=== PATIENT | male | born 1945 | race Asian ===

== ENCOUNTER 2023-01-19 13:34 | Observation (INO) | payer OTHER, SELFPAY ==
[2023-01-19] VITALS (10 sets, daily range): BP systolic 77–144; BP diastolic 50–84; PULSE 67–103; RESP 12–18; TEMP 36.4–36.8; O2SAT 95–99; BMI 36.6
--- NOTE | ~2023-01-19 | XR_ITS ---
EXAMINATION: XR CHEST CLINICAL INFORMATION: Altered mental status. COMPARISON: 05/22/2020 chest radiograph. TECHNIQUE: Frontal view of the chest was obtained. FINDINGS: No significant abnormality is noted involving the heart, lungs, mediastinum, bony thorax or soft tissues. XR/XR chest 1V IMPRESSION: No acute cardiopulmonary process.
[2023-01-19 13:49] LABS: Glucose, Whole Blood 123 mg/dL (60-115)
--- NOTE | 2023-01-19 14:03 | PC.NURSE ---
Pt a&ox4, lying in bed supine, airway open and patent, no difficulty/labored breathing, no obvious signs of distress. Pt skin normal for ethnicity, warm, and dry. Pt denies dizziness or any other symptoms or pain at this time. Pt in afib on monitor. Awaiting provider.
--- NOTE | 2023-01-19 14:54 | PC.NURSE ---
this RN placed 20g IV in LAC, blood pressure remains low, provider aware, no new orders
--- NOTE | 2023-01-19 15:35 | ECG_ITS ---
Test Reason : hypotension Blood Pressure : / mmHG Vent. Rate : 079 BPM Atrial Rate : 000 BPM P-R Int : 000 ms QRS Dur : 088 ms QT Int : 372 ms P-R-T Axes : 000 012 014 degrees QTc Int : 426 ms Atrial fibrillation Low voltage QRS Nonspecific ST abnormality Abnormal ECG When compared with ECG of 28-MAY-2019 04:24, Atrial fibrillation has replaced Sinus rhythm Referred By: Maite Fong Electronically Signed By:GEOVANY CHOI
[2023-01-19] MEDS: 0.9 % Sodium Chloride 1,000 ML 100 ML IVCONT (15:47)
--- NOTE | 2023-01-19 15:56 | ED.GENADULT ---
HPI - General Adult General Chief complaint: General Medical Stated complaint: HYPOTENSION Time Seen by Provider: 01/19/23 14:57 Source: patient Mode of arrival: EMS Limitations: no limitations History of Present Illness HPI narrative: 77-year-old male who presents emergency department for evaluation of low blood pressure. The patient states that he was hospitalized twice this month at [facility] for COPD exacerbation and possibly fluid overload he states hospitalized approximately 3 weeks ago and 2 weeks ago. He states that his 2nd hospitalization was from 01/05/2023 to 01/08/2023. Patient states that when he was discharged he was treated with antibiotics and prednisone. He also states that they increased his furosemide from 60 mg twice a day to 80 mg twice a day . They also increased his metoprolol from 50 mg once a day to 75 mg once a day. Patient states that he has been checking his vital signs daily and has been wearing his L daily. He states that his blood pressure usually ranges 120/80 P and his weight has not changed by any significant amount. Patient has had a visiting nurse you times a week. The visiting nurse noted 74/40 and called an ambulance and had him transported to the emergency department. The patient states that he has been feeling lightheaded and dizzy over the past 2 days especially when he gets up to walk. He also is complaining of pain in the back of his neck which she has had before has been worse over the past 2 days. In his review of systems he states that he has chronic shortness of breath and dyspnea on exertion about 100 ft which is unchanged. He denied fever, chills, rhinorrhea, sore throat, nausea, vomiting, diarrhea . He denied dysuria but he has had increased urinary frequency which she attributes to his increase furosemide dose. [facility] record was obtained: He was discharged on 01/08/2023. He was admitted for COPD exacerbation with acute on chronic heart failure exacerbation. He was sent home on 5 day course of prednisone in 3 days doxycycline to complete his antibiotic course. [facility] record states that he has congestive heart failure with preserved EF with a recent echo of 55-66% with no wall motion abnormalities, atrial fibrillation on Eliquis. Related Data Home Medications Medication Instructions Recorded Confirmed albuterol sulfate 90 mcg/actuation 2 puff inhalation Q4H PRN wheezing 01/19/23 01/19/23 aerosol inhaler ammonium lactate 12 % topical cream appl topical DAILY 01/19/23 apixaban 5 mg tablet (Eliquis) 5 mg PO BID 01/19/23 01/19/23 aspirin 81 mg chewable tablet 1 tab PO DAILY 01/19/23 01/19/23 atorvastatin 20 mg tablet 20 mg PO DAILY 01/19/23 01/19/23 bimatoprost 0.01 % eye drops 1 drp ophthalmic (eye) BEDTIME 01/19/23 01/19/23 (Lumigan) brimonidine 0.2 % eye drops 1 drp ophthalmic (eye) BID 01/19/23 01/19/23 ferrous sulfate 325 mg (65 mg 325 mg PO DAILY 01/19/23 01/19/23 iron) tablet fluticasone fur. 100 mcg-umeclid 1 ea inhalation DAILY 01/19/23 01/19/23 62.5 mcg-vilant 25 mcg inhalat.powder (Trelegy Ellipta) fluticasone propionate 115 2 puff inhalation BID 01/19/23 01/19/23 mcg-salmeterol 21 mcg/actuation HFA inhaler (Advair HFA) furosemide 40 mg tablet 40 mg PO BID 01/19/23 01/19/23 furosemide 80 mg tablet 80 mg PO BID 01/19/23 01/19/23 insulin aspart U-100 100 unit/mL subcut 01/19/23 (3 mL) subcutaneous pen (Novolog FlexPen U-100 Insulin aspart) insulin glargine 100 unit/mL (3 55 unit subcut BEDTIME 01/19/23 01/19/23 mL) subcutaneous pen (Lantus Solostar U-100 Insulin) loratadine 10 mg tablet 10 mg PO DAILY 01/19/23 01/19/23 magnesium oxide 400 mg (241.3 mg 400 mg PO DAILY 01/19/23 01/19/23 magnesium) tablet metoprolol tartrate 75 mg tablet 75 mg PO BID 01/19/23 01/19/23 omeprazole 20 mg capsule,delayed 20 mg PO DAILY 01/19/23 01/19/23 release potassium chloride 10 mEq 10 meq PO DAILY 01/19/23 01/19/23 tablet,extended release prednisolone acetate 1 % eye 1 drp QID 01/19/23 01/19/23 drops,suspension pregabalin 100 mg capsule 100 mg PO BID 01/19/23 01/19/23 valsartan 40 mg tablet 40 mg PO DAILY 01/19/23 01/19/23 Allergies Allergy/AdvReac Type Severity Reaction Status Date / Time No Known Allergies Allergy Unverified 07/09/20 15:41 [No Known Allergies*] Review of Systems Review of Systems: Yes all other systems are reviewed and are negative [facility] Past Medical History [facility] Narrative: Past medical history: Diabetes mellitus, atrial fibrillation, COPD, arthritis, spinal stenosis, right footdrop. Past surgical history: Bilateral total knee replacements. Social history: Patient lives alone. He denies tobacco use. He states that he used to drink alcohol heavily but no longer drinks alcohol. He denies drug use. Social History Social History Alcohol intake: former Smoked in Last 30 Days: No Use of substances other than those prescribed or required for medical reasons: No Advance Directives: No Physical Exam ED Vital Signs: Vital Signs - 24 hr 01/19/23 13:52 01/19/23 14:20 01/19/23 16:08 Temperature 98.0 F Pulse Rate 73 76 74 Respiratory Rate 17 12 16 Blood Pressure 90/51 L 77/50 L 87/60 L Pulse Oximetry 99 98 95 Oxygen Delivery Method Room Air Room Air Room Air 01/19/23 16:26 01/19/23 17:26 Temperature Pulse Rate 89 68 Respiratory Rate 16 16 Blood Pressure 92/56 L 103/55 L Pulse Oximetry Oxygen Delivery Method BMI result Body Mass Index 36.6 Const Other: Awake, alert, male patient, very pleasant cooperative, does not appear to be in distress, answers all questions appropriately [facility] Head: Yes normal to inspection, Yes normocephalic and Yes atraumatic Ears: external ears normal General nose exam: Normal external nose present Face and sinus: Yes normal facial exam Mouth: Normal oral and palatal mucosa present Throat: Yes posterior oropharynx normal Eyes General: appearance normal, both eyes and all related structures Pupils: Equal, round and reactive pupils present Neck Neck: Yes normal visual inspection, Yes no lymphadenopathy, Yes trachea midline and Yes supple Chest Chest palpation & inspection: normal inspection of the chest and normal palpation of entire chest wall Resp Effort & Inspection: normal respiratory effort and able to speak in complete sentences Auscultation: clear to auscultation bilaterally Cardio Rate: regular rate Rhythm: regular rhythm Heart sounds: S1 normal heart sound present, S2 normal heart sound present and no murmurs GI Inspection: Yes normal to inspection Palpation (GI): Soft to palpation, nontender and no guarding Auscultation: normal bowel sounds General: Yes no CVA tenderness Back/Spine/Pelvis Back: no CVA tenderness Skin General skin exam: no rashes or lesions noted Neuro Cranial nerves: Yes CN's II-XII intact bilaterally and Yes Equal, round and reactive pupils present Cognition (Neuro): normal cognition Motor exam (neuro): 5/5 motor strength present throughout Extrem General: Yes normal to inspection Psych Appearance: grossly normal Speech and movement: Normal speech and movement present Affect: normal affect Attitude: cooperative Thought process: Normal thought process present Thought content: Normal thought content present Medications Administered Generic Name Dose Route Start Last Admin Trade Name Freq PRN Reason Stop Dose Admin Sodium Chloride 1,000 mls @ 100 mls/hr 01/19/23 15:45 01/19/23 15:47 Ns IVCONT 100 mls/hr .Q10H TIA Administration Medical Decision Making Medical Decision Making MDM Narrative: 77-year-old male who was sent to emergency department by his visiting nurse for evaluation of low blood pressure 74/40. The patient was recently hospitalized at [facility] 2 weeks prior for COPD exacerbation possibly. He was discharged on antibiotics and prednisone he states he has completed this course of these medications. He states that while he was hospitalized they did increase his furosemide from 60 mg twice a day to 80 mg twice a day and also in 50 mg twice a day to 75 mg twice a day. Patient has been experiencing lightheadedness and dizziness for 2 days.) The otherwise his vital signs were normal. His exam was unremarkable. The following studies were ordered: CBC, CMP, COVID-19, influenza, magnesium, BMP, urinalysis, chest x-ray one view, EKG . The patient was ordered to get normal saline 100 mL/hr. 1738: My interpretation of the patient's laboratory evaluation is as follows: Mild anemia with an H&H of 10.1 and 33 which is chronic. Bicarb elevated 31. BUN elevated 20. BNP normal 60. Urinalysis and microscopic unremarkable. COVID-19 influenza negative. Chest x-ray one view: My interpretation is no acute disease. Twelve EKG revealed atrial fibrillation which is chronic for this patient. The patient's blood pressure has improved with gentle hydration with normal saline at 100 cc/hour. Given the fact that his furosemide was increased and his metoprolol was increased, I do not think that he can be discharged home and he should be brought into the hospital to adjust these medications and monitor his blood pressure. I will discuss admission with the covering hospitalist. Differential Diagnosis Differential Diagnoses: The differential diagnosis associated with the presentation includes Differential diagnosis includes but is not limited to volume depletion, dehydration, medication induced hypotension, myocardial infarction, GI bleed Lab Data [facility] Lab Attestation statement: I reviewed the patient's lab results. Please see [facility] 01/19/23 15:54 01/19/23 15:54 Labs: Lab Results 01/19/23 01/19/23 01/19/23 Range/Units 13:45 15:54 15:54 WBC 10.1 (4.8-10.8) X10*3/uL RBC 3.91 L (4.60-5.80) X10*6/uL Hgb 10.1 L (14.0-18.0) g/dl Hct 33.0 L (42.0-52.0) % MCV 84.4 (80.0-98.0) fL MCH 25.8 L (27.0-33.0) pg MCHC 30.6 L (31.0-36.0) g/dl RDW 17.8 H (11.0-16.0) % Plt Count 186 (160-400) X10*3/uL MPV 9.5 (9.4-12.4) fL Immature Gran % (Auto) 0.3 (0.0-0.4) % Neut % (Auto) 57.4 (45-73) % Lymph % (Auto) 25.0 (20-40) % [place] % (Auto) 6.6 (2-11) % Eos % (Auto) 10.4 H (0-4) % Baso % (Auto) 0.3 (0-2) % Lymph # (Auto) 2.5 (1.2-4.9) X10*3/uL [place] # (Auto) 0.7 (0.1-1.2) X10*3/uL Eos # (Auto) 1.1 H (0.0-0.4) X10*3/uL Baso # (Auto) 0.0 (0.0-0.2) X10*3/uL Abs Immat Gran (auto) 0.03 (0.00-0.03) X10*3/uL Absolute Neuts (auto) 5.8 (2.0-8.3) x10*3/uL Absolute Nucleated RBC 0.000 (0.0-0.012) X10*3/uL Nucleated RBC % (auto) 0.0 (0.0-0.2) /100WBC Sodium 142 (135-145) mmol/L Potassium 3.5 (3.3-5.1) mmol/L Chloride 101 (96-108) mmol/L Carbon Dioxide 31 H (22-29) mmol/L Anion Gap 14 (12-20) BUN 20 H (9-16) mg/dL Creatinine 0.92 (0.5-1.4) mg/dL Estim Creat Clear Calc 77.9 Estimated GFR > 60 POC Glucose 123 H (60-115) mg/dL Random Glucose 62 (60-115) mg/dL Calcium 8.6 (8.4-10.2) mg/dL Magnesium 1.8 (1.6-2.6) mg/dL Total Bilirubin 0.4 (0.0-1.0) mg/dL AST 19 (5-37) U/L ALT 20 (0-40) U/L Alkaline Phosphatase 82 (39-117) U/L Troponin I High Sens (<3.5-35.0) ng/L B-Natriuretic Peptide (<100) pg/mL Total Protein 6.5 (6.5-8.0) g/dL Albumin 3.2 L (3.5-5.0) g/dL Urine Color Urine Appearance Urine pH (5.0-9.0) Ur Specific [place] (1.005-1.025) Urine Protein (Neg-Trace) mg/dL Urine Glucose (UA) (Negative) mg/dL Urine Ketones (Negative) mg/dL Urine Blood (Negative) Urine Nitrite (Negative) Ur Leukocyte Esterase (Negative) Urine RBC (0-2) /HPF Urine WBC (0-5) /HPF Ur Squamous Epith Cells (0-2) /HPF Urine Bacteria (None Seen) Hyaline Casts (0-2) /LPF COVID-19 ([facility]) (Negative) COVID-19 Clin Com Influenza Type A ([facility]) (Negative) Influenza Type B ([facility]) (Negative) Influenza A & B Note 01/19/23 01/19/23 01/19/23 Range/Units 15:54 15:54 15:54 WBC (4.8-10.8) X10*3/uL RBC (4.60-5.80) X10*6/uL Hgb (14.0-18.0) g/dl Hct (42.0-52.0) % MCV (80.0-98.0) fL MCH (27.0-33.0) pg MCHC (31.0-36.0) g/dl RDW (11.0-16.0) % Plt Count (160-400) X10*3/uL MPV (9.4-12.4) fL Immature Gran % (Auto) (0.0-0.4) % Neut % (Auto) (45-73) % Lymph % (Auto) (20-40) % [place] % (Auto) (2-11) % Eos % (Auto) (0-4) % Baso % (Auto) (0-2) % Lymph # (Auto) (1.2-4.9) X10*3/uL [place] # (Auto) (0.1-1.2) X10*3/uL Eos # (Auto) (0.0-0.4) X10*3/uL Baso # (Auto) (0.0-0.2) X10*3/uL Abs Immat Gran (auto) (0.00-0.03) X10*3/uL Absolute Neuts (auto) (2.0-8.3) x10*3/uL Absolute Nucleated RBC (0.0-0.012) X10*3/uL Nucleated RBC % (auto) (0.0-0.2) /100WBC Sodium (135-145) mmol/L Potassium (3.3-5.1) mmol/L Chloride (96-108) mmol/L Carbon Dioxide (22-29) mmol/L Anion Gap (12-20) BUN (9-16) mg/dL Creatinine (0.5-1.4) mg/dL Estim Creat Clear Calc Estimated GFR POC Glucose (60-115) mg/dL Random Glucose (60-115) mg/dL Calcium (8.4-10.2) mg/dL Magnesium (1.6-2.6) mg/dL Total Bilirubin (0.0-1.0) mg/dL AST (5-37) U/L ALT (0-40) U/L Alkaline Phosphatase (39-117) U/L Troponin I High Sens (<3.5-35.0) ng/L B-Natriuretic Peptide 60 (<100) pg/mL Total Protein (6.5-8.0) g/dL Albumin (3.5-5.0) g/dL Urine Color Urine Appearance Urine pH (5.0-9.0) Ur Specific [place] (1.005-1.025) Urine Protein (Neg-Trace) mg/dL Urine Glucose (UA) (Negative) mg/dL Urine Ketones (Negative) mg/dL Urine Blood (Negative) Urine Nitrite (Negative) Ur Leukocyte Esterase (Negative) Urine RBC (0-2) /HPF Urine WBC (0-5) /HPF Ur Squamous Epith Cells (0-2) /HPF Urine Bacteria (None Seen) Hyaline Casts (0-2) /LPF COVID-19 ([facility]) Negative (Negative) COVID-19 Clin Com See Note Influenza Type A ([facility]) Negative (Negative) Influenza Type B ([facility]) Negative (Negative) Influenza A & B Note See Note 01/19/23 01/19/23 Range/Units 16:31 17:17 WBC (4.8-10.8) X10*3/uL RBC (4.60-5.80) X10*6/uL Hgb (14.0-18.0) g/dl Hct (42.0-52.0) % MCV (80.0-98.0) fL MCH (27.0-33.0) pg MCHC (31.0-36.0) g/dl RDW (11.0-16.0) % Plt Count (160-400) X10*3/uL MPV (9.4-12.4) fL Immature Gran % (Auto) (0.0-0.4) % Neut % (Auto) (45-73) % Lymph % (Auto) (20-40) % [place] % (Auto) (2-11) % Eos % (Auto) (0-4) % Baso % (Auto) (0-2) % Lymph # (Auto) (1.2-4.9) X10*3/uL [place] # (Auto) (0.1-1.2) X10*3/uL Eos # (Auto) (0.0-0.4) X10*3/uL Baso # (Auto) (0.0-0.2) X10*3/uL Abs Immat Gran (auto) (0.00-0.03) X10*3/uL Absolute Neuts (auto) (2.0-8.3) x10*3/uL Absolute Nucleated RBC (0.0-0.012) X10*3/uL Nucleated RBC % (auto) (0.0-0.2) /100WBC Sodium (135-145) mmol/L Potassium (3.3-5.1) mmol/L Chloride (96-108) mmol/L Carbon Dioxide (22-29) mmol/L Anion Gap (12-20) BUN (9-16) mg/dL Creatinine (0.5-1.4) mg/dL Estim Creat Clear Calc Estimated GFR POC Glucose (60-115) mg/dL Random Glucose (60-115) mg/dL Calcium (8.4-10.2) mg/dL Magnesium (1.6-2.6) mg/dL Total Bilirubin (0.0-1.0) mg/dL AST (5-37) U/L ALT (0-40) U/L Alkaline Phosphatase (39-117) U/L Troponin I High Sens 9.9 (<3.5-35.0) ng/L B-Natriuretic Peptide (<100) pg/mL Total Protein (6.5-8.0) g/dL Albumin (3.5-5.0) g/dL Urine Color Yellow Urine Appearance Clear Urine pH 7.0 (5.0-9.0) Ur Specific [place] 1.010 (1.005-1.025) Urine Protein Negative (Neg-Trace) mg/dL Urine Glucose (UA) Negative (Negative) mg/dL Urine Ketones Negative (Negative) mg/dL Urine Blood Trace H (Negative) Urine Nitrite Negative (Negative) Ur Leukocyte Esterase Negative (Negative) Urine RBC 0-2 (0-2) /HPF Urine WBC 0-5 (0-5) /HPF Ur Squamous Epith Cells 0-2 (0-2) /HPF Urine Bacteria None Seen (None Seen) Hyaline Casts 0-2 (0-2) /LPF COVID-19 ([facility]) (Negative) COVID-19 Clin Com Influenza Type A ([facility]) (Negative) Influenza Type B ([facility]) (Negative) Influenza A & B Note Independent Interpretation I performed an independent interpretation of an: EKG and Plain X-Ray Interpretation: Chest x-ray was interpreted by me as no acute disease Radiology Impression Radiologist Impression: EKG was interpreted by me as follows: 16:16 hours, atrial fibrillation with a rate of 79, normal QRS duration, normal QTC interval, no ST segment sees, no PVCs.
[2023-01-19 16:05] LABS: MANUAL DIFF FLAG NO
[2023-01-19 16:07] LABS: Basophils Percent Auto 0.3 % (0-2); Eosinophils Absolute Auto 1.1 X10*3/uL (0.0-0.4); Eosinophils Percent Auto 10.4 % (0-4); Hemoglobin 10.1 g/dl (14.0-18.0); Imm Gran Abs Auto 0.03 X10*3/uL (0.00-0.03); Imm Gran Pct Auto 0.3 % (0.0-0.4); Lymphocytes Absolute Auto 2.5 X10*3/uL (1.2-4.9); Mean Corpuscular HGB Conc 30.6 g/dl (31.0-36.0); Mean Corpuscular Hemoglobin 25.8 pg (27.0-33.0); Mean Corpuscular Volume 84.4 fL (80.0-98.0); Mean Platelet Volume 9.5 fL (9.4-12.4); Monocytes Absolute Auto 0.7 X10*3/uL (0.1-1.2); Monocytes Percent Auto 6.6 % (2-11); Neutrophils Absolute Auto 5.8 x10*3/uL (2.0-8.3); Neutrophils Percent Auto 57.4 % (45-73); Platelet Count 186 X10*3/uL (160-400); Red Blood Count 3.91 X10*6/uL (4.60-5.80); Red Cell Distribution Width 17.8 % (11.0-16.0); White Blood Count 10.1 X10*3/uL (4.8-10.8)
[2023-01-19 16:24] LABS: COVID-19 Test Negative (Negative); IDNOW Serial# 08D9AD1C; IDNOW Serial# BCCEAD1C; Influenza A Negative (Negative); Influenza B2 Negative (Negative)
[2023-01-19 16:33] LABS: Alanine Aminotransferase 20 U/L (0-40); Albumin Level 3.2 g/dL (3.5-5.0); Alkaline Phosphatase 82 U/L (39-117); Anion Gap 14 (12-20); Aspartate Amino Transferase 19 U/L (5-37); Bilirubin Total 0.4 mg/dL (0.0-1.0); Blood Urea Nitrogen 20 mg/dL (9-16); Calcium 8.6 mg/dL (8.4-10.2); Carbon Dioxide 31 mmol/L (22-29); Chloride 101 mmol/L (96-108); Creatinine Clr Calc Pharmacy 77.9; Estimated Glomerular Filt Rate > 60; Glucose Random 62 mg/dL (60-115); Magnesium 1.8 mg/dL (1.6-2.6); Potassium 3.5 mmol/L (3.3-5.1); Sodium 142 mmol/L (135-145); Total Protein 6.5 g/dL (6.5-8.0)
[2023-01-19 16:38] LABS: B Type Natriuretic Peptide 60 pg/mL (<100)
[2023-01-19 16:41] LABS: Appearance Urine Clear; Color Urine Yellow; Glucose Urine UA Negative (Negative); Leukocyte Esterase Urine Negative (Negative); Nitrite Urine Negative (Negative); UMIC TRIGGER UACC YES; Urine Blood Trace (Negative); Urine Ketones Negative (Negative); Urine Protein Negative (Neg-Trace)
[2023-01-19 16:46] LABS: Bacteria Urine None Seen (None Seen); Hyaline Casts Urine 0-2 /LPF (0-2); RBC Urine 0-2 /HPF (0-2); Squamous Epithelial Cell Urine 0-2 /HPF (0-2); WBC Urine 0-5 /HPF (0-5)
[2023-01-19 17:40] LABS: Troponin-I High Sensitivity 9.9 ng/L (<3.5-35.0)
--- NOTE | 2023-01-19 18:27 | P.HPHOSP_ITS ---
History of Present Illness Date of Service: 01/19/23 Chief Complaint: hypotension 77M PMH DM, obesity, chronic diastolic chf, permanent afib, LAINEY, COPD presented from home with hypotension. patient was recently admitted to [facility] for chf and copd and rapid afib. discharged on higher dose of lasix and metoprolol. since then has been relatively hypotensive. has been home for about one week, feeling somehwat dizzy, no longer short of breath. visiting RN found sbp in 70s. in ED sbp 77. given 1L NS, bp improving. patient relatively asymptomatic while lying down. Review of Systems Review of Systems: Yes all other systems are reviewed and are negative PMFSH Social History Alcohol intake: former Smoked in Last 30 Days: No Use of substances other than those prescribed or required for medical reasons: No Advance Directives: No Meds Allergies Allergy/AdvReac Type Severity Reaction Status Date / Time No Known Allergies Allergy Unverified 07/09/20 15:41 [No Known Allergies*] Active Medications: Current Medications Apixaban (Apixaban 5 Mg Tablet) 5 mg PO BID [facility] Aspirin (Aspirin 81 Mg Tab.Chew) 81 mg PO DAILY [facility] Atorvastatin Calcium (Atorvastatin Calcium 20 Mg Tablet) 20 mg PO DAILY [facility] Brimonidine Tartrate (Brimonidine Tartrate 0.2% Oph 5 Ml Bottle) 1 drop EYE- BOTH BID [facility] Glucose (Glucose Gel 15 Gm Gel..Gram.) 15 gm PO Q15M PRN; Protocol PRN Reason: per Hypoglycemia Standing Ord. Sodium Chloride (Ns) 1,000 mls @ 100 mls/hr IVCONT .Q10H [facility] Last Admin: 01/19/23 15:47 Dose: 100 mls/hr Dextrose (D10) 250 mls @ 750 mls/hr IV Q15M PRN; Protocol PRN Reason: per Hypoglycemia Standing Ord. Insulin Glargine (Insulin Glargine,Hum.Rec.Anlog 100 Unit/Ml 10 Ml Vial) 30 unit SUBCUT BEDTIME [facility] Insulin Human Lispro (Insulin Lispro 100 Unit/Ml 3 Ml Vial) 0 unit SUBCUT QIDACHS [facility]; Protocol Loratadine (Loratadine 10 Mg Tablet) 10 mg PO DAILY [facility] Magnesium Oxide (Magnesium Oxide 400 Mg Tablet) 400 mg PO DAILY [facility] Metoprolol Tartrate (Metoprolol Tartrate 50 Mg Tablet) 50 mg PO BID [facility]; Protocol Non-Formulary Medication (Bimatoprost [Lumigan]) 1 drop EYE-BOTH BEDTIME [facility] Non-Formulary Medication (Ferrous Sulfate) 325 mg PO DAILY [facility] Non-Formulary Medication (Fluticasone Propion-Salmeterol [Advair Hfa]) 2 puff INHALE BID [facility] Non-Formulary Medication (Tcrnxyapbdv-Hzlrajken-Csqmovoa [Trelegy Ellipta]) 1 each INHALE DAILY [facility] Omeprazole (Omeprazole 20 Mg Capsule.Dr) 20 mg PO DAILY [facility] Pharmacy Consult (Consult Rx Perform Med Rec) 1 each MISCELLANE ONCE PRN PRN Reason: Consult order Potassium Chloride (Potassium Chloride Er 10 Meq Capsule.Er) 10 meq PO DAILY [facility] Prednisolone Acetate (Prednisolone Acetate 1 % Oph Susp 5 Ml Drpbtl) 1 drop EYE-BOTH QID [facility] Pregabalin (Pregabalin 100 Mg Capsule) 100 mg PO BID [facility] Sodium Chloride (0.9 % Sodium Chloride Flush 3 Ml Syringe) 3 ml IVFLUSH QSHIFT [facility] Home Medications Medication Instructions Recorded Confirmed Last Taken Type albuterol sulfate 90 mcg/actuation 2 puff inhalation Q4H PRN wheezing 01/19/23 01/19/23 Unknown History aerosol inhaler ammonium lactate 12 % topical cream 1 appl topical DAILY 01/19/23 01/19/23 01/19/23 History apixaban 5 mg tablet (Eliquis) 5 mg PO BID 01/19/23 01/19/23 01/19/23 History aspirin 81 mg chewable tablet 1 tab PO DAILY 01/19/23 01/19/23 01/19/23 History atorvastatin 20 mg tablet 20 mg PO DAILY 01/19/23 01/19/23 01/19/23 History bimatoprost 0.01 % eye drops 1 drp ophthalmic (eye) BEDTIME 01/19/23 01/19/23 01/18/23 History (Lumigan) brimonidine 0.2 % eye drops 1 drp ophthalmic (eye) BID 01/19/23 01/19/2301/19 History ferrous sulfate 325 mg (65 mg 325 mg PO DAILY 01/19/23 01/19/23 01/19/23 History iron) tablet fluticasone fur. 100 mcg-umeclid 1 ea inhalation DAILY 01/19/23 01/19/23 01/19/23 History 62.5 mcg-vilant 25 mcg inhalat.powder (Trelegy Ellipta) fluticasone propionate 115 2 puff inhalation BID 01/19/23 01/19/23 01/19/23 History mcg-salmeterol 21 mcg/actuation HFA inhaler (Advair HFA) furosemide 80 mg tablet 80 mg PO BID 01/19/23 01/19/23 01/19/23 History insulin aspart U-100 100 unit/mL 0 sliding scale dose subcut TIDAC 01/19/23 01/19/23 01/19/23 History (3 mL) subcutaneous pen (Novolog FlexPen U-100 Insulin aspart) insulin glargine 100 unit/mL (3 55 unit subcut BEDTIME 01/19/23 01/19/23 01/18/23 History mL) subcutaneous pen (Lantus Solostar U-100 Insulin) magnesium oxide 400 mg (241.3 mg 400 mg PO DAILY 01/19/23 01/19/23 01/19/23 History magnesium) tablet metformin 500 mg tablet 500 mg PO TID 01/19/23 01/19/23 01/19/23 History metoprolol tartrate 75 mg tablet 75 mg PO BID 01/19/23 01/19/23 01/19/23 History omeprazole 20 mg capsule,delayed 20 mg PO DAILY 01/19/23 01/19/23 01/19/23 History release pregabalin 100 mg capsule 100 mg PO BID 01/19/23 01/19/23 01/19/23 History valsartan 40 mg tablet 40 mg PO DAILY 01/19/23 01/19/23 01/19/23 History Physical Exam Vital Signs and Narrative: Vital Signs: Last Vital Signs Temp 98.0 F 01/19/23 13:52 Pulse 68 01/19/23 17:26 Resp 16 01/19/23 17:26 BP 103/55 L 01/19/23 17:26 Pulse Ox 95 01/19/23 16:08 O2 Del Method Room Air 01/19/23 16:08 BMI result Body Mass Index 36.6 General: AO X 3, no acute distress Resp: CTA bilateral, no accessory muscles used CVS: S1,S2,RRR GI: soft, non tender, non distended Neuro: motor grossly intact, alert Psych: appropriate affect, appropriate insight Results Labs 01/19/23 15:54 01/19/23 15:54 Labs: Laboratory Results - last 24 hr 01/19/23 01/19/23 01/19/23 13:45 15:54 15:54 MCV 84.4 MCH 25.8 L MCHC 30.6 L RDW 17.8 H Plt Count 186 MPV 9.5 Immature Gran % (Auto) 0.3 Neut % (Auto) 57.4 Lymph % (Auto) 25.0 [place] % (Auto) 6.6 Eos % (Auto) 10.4 H Baso % (Auto) 0.3 Lymph # (Auto) 2.5 [place] # (Auto) 0.7 Eos # (Auto) 1.1 H Baso # (Auto) 0.0 Abs Immat Gran (auto) 0.03 Absolute Neuts (auto) 5.8 Absolute Nucleated RBC 0.000 Nucleated RBC % (auto) 0.0 Anion Gap 14 Estim Creat Clear Calc 77.9 Estimated GFR > 60 POC Glucose 123 H Random Glucose 62 Calcium 8.6 Magnesium 1.8 Total Bilirubin 0.4 AST 19 ALT 20 Alkaline Phosphatase 82 Troponin I High Sens B-Natriuretic Peptide Total Protein 6.5 Albumin 3.2 L Urine Color Urine Appearance Urine pH Ur Specific [place] Urine Protein Urine Glucose (UA) Urine Ketones Urine Blood Urine Nitrite Ur Leukocyte Esterase Urine RBC Urine WBC Ur Squamous Epith Cells Urine Bacteria Hyaline Casts COVID-19 ([facility]) COVID-19 Clin Com Influenza Type A ([facility]) Influenza Type B ([facility]) Influenza A & B Note 01/19/23 01/19/23 01/19/23 15:54 15:54 15:54 MCV MCH MCHC RDW Plt Count MPV Immature Gran % (Auto) Neut % (Auto) Lymph % (Auto) [place] % (Auto) Eos % (Auto) Baso % (Auto) Lymph # (Auto) [place] # (Auto) Eos # (Auto) Baso # (Auto) Abs Immat Gran (auto) Absolute Neuts (auto) Absolute Nucleated RBC Nucleated RBC % (auto) Anion Gap Estim Creat Clear Calc Estimated GFR POC Glucose Random Glucose Calcium Magnesium Total Bilirubin AST ALT Alkaline Phosphatase Troponin I High Sens B-Natriuretic Peptide 60 Total Protein Albumin Urine Color Urine Appearance Urine pH Ur Specific [place] Urine Protein Urine Glucose (UA) Urine Ketones Urine Blood Urine Nitrite Ur Leukocyte Esterase Urine RBC Urine WBC Ur Squamous Epith Cells Urine Bacteria Hyaline Casts COVID-19 ([facility]) Negative COVID-19 Clin Com See Note Influenza Type A ([facility]) Negative Influenza Type B ([facility]) Negative Influenza A & B Note See Note 01/19/23 01/19/23 16:31 17:17 MCV MCH MCHC RDW Plt Count MPV Immature Gran % (Auto) Neut % (Auto) Lymph % (Auto) [place] % (Auto) Eos % (Auto) Baso % (Auto) Lymph # (Auto) [place] # (Auto) Eos # (Auto) Baso # (Auto) Abs Immat Gran (auto) Absolute Neuts (auto) Absolute Nucleated RBC Nucleated RBC % (auto) Anion Gap Estim Creat Clear Calc Estimated GFR POC Glucose Random Glucose Calcium Magnesium Total Bilirubin AST ALT Alkaline Phosphatase Troponin I High Sens 9.9 B-Natriuretic Peptide Total Protein Albumin Urine Color Yellow Urine Appearance Clear Urine pH 7.0 Ur Specific [place] 1.010 Urine Protein Negative Urine Glucose (UA) Negative Urine Ketones Negative Urine Blood Trace H Urine Nitrite Negative Ur Leukocyte Esterase Negative Urine RBC 0-2 Urine WBC 0-5 Ur Squamous Epith Cells 0-2 Urine Bacteria None Seen Hyaline Casts 0-2 COVID-19 ([facility]) COVID-19 Clin Com Influenza Type A ([facility]) Influenza Type B ([facility]) Influenza A & B Note Imaging Radiologist's Impressions: Impressions Chest X-Ray 01/19/23 15:47 IMPRESSION: No acute cardiopulmonary process. Assessment and Plan (1) Acute hypotension: Status: Acute Plan 77M PMH DM, obesity, chronic diastolic chf, permanent afib, LAINEY, COPD presented from home with hypotension hypotension due to dehydration from increased lasix will complete 1 L NS, hold lasix for now and monitor permanent afib eliquis, decrease metoprolol back to 50mg bid (previous RVR likely due to respiraotry distress) LAINEY cpap at night obesity weight loss DM basal bolus insulin, pocs chronic diastolic chf once euvolemic will restart maintance lasix at 60mg bid po, will need to monitor weights and bps closely as outpatient. full code dvt prophylaxis - eliquis Time Spent With Patient Time: Total time managing care of this patient today ____ minutes. Quality Stroke Does the patient have a stroke diagnosis?: No VTE Prior VTE?: No VTE Risk Level:: Medical - moderate - high VTE Device Contraindication: Treatment Not Indicated VTE Drug Contraindication: N/A - Med Ordered
--- NOTE | 2023-01-19 18:33 | PHA.MEDREC ---
Pharmacy Consult ? Medication Reconciliation Pharmacy has completed the medication reconciliation. Patient reported all medications. Reported that he takes Advair and another inhaler once a day. When I said Trelegy, he said yes. I asked if he took both Advair and Trelegy together, he reported yes. Patient no longer taking loratdaine, KCl, or prednisolone. Metformin was also added to list after medications were order by provider. Dr. shahid was informed medication were dc'd and metformin is to be held. Esme Puente, PharmD
--- NOTE | 2023-01-19 19:43 | PC.NURSE ---
pt POC 50, will check in 1 hour
[2023-01-19 19:48] LABS: Glucose, Whole Blood 50 mg/dL (60-115)
[2023-01-19 20:55] LABS: Glucose, Whole Blood 156 mg/dL (60-115)
[2023-01-19] MEDS: Insulin Lispro 100 UNIT/ML 3 ML VIAL SUBCUT (21:00)
[2023-01-19] MEDS: Insulin Glargine,Hum.rec.anlog 100 UNIT/ML 10 ML VIAL 30 UNIT SUBCUT (21:00)
[2023-01-19] MEDS: Metoprolol Tartrate 50 MG TABLET PO (21:01)
[2023-01-19] MEDS: Pregabalin 100 MG CAPSULE PO (21:01)
[2023-01-19] MEDS: Apixaban 5 MG TABLET PO (21:08)
[2023-01-19 21:37] LABS: Glucose, Whole Blood 179 mg/dL (60-115)
[2023-01-20] MEDS: 0.9 % Sodium Chloride Flush 3 ML SYRINGE IVFLUSH ×2 (00:06→08:07)
[2023-01-20 03:02] VITALS: BP 104/59; PULSE 79; RESP 18; TEMP 36.2; O2SAT 97
[2023-01-20] MEDS: Omeprazole 20 MG CAPSULE.DR PO (06:02)
[2023-01-20 06:08] VITALS: BMI 37.6
[2023-01-20 06:53] LABS: Hematocrit 30.8 % (42.0-52.0); Hemoglobin 9.7 g/dl (14.0-18.0); Mean Corpuscular HGB Conc 31.5 g/dl (31.0-36.0); Mean Corpuscular Hemoglobin 26.4 pg (27.0-33.0); Mean Corpuscular Volume 83.7 fL (80.0-98.0); Mean Platelet Volume 10.1 fL (9.4-12.4); Platelet Count 176 X10*3/uL (160-400); Red Blood Count 3.68 X10*6/uL (4.60-5.80); Red Cell Distribution Width 17.5 % (11.0-16.0); White Blood Count 8.6 X10*3/uL (4.8-10.8)
[2023-01-20 07:09] LABS: Anion Gap 14 (12-20); Blood Urea Nitrogen 16 mg/dL (9-16); Calcium 8.5 mg/dL (8.4-10.2); Carbon Dioxide 27 mmol/L (22-29); Chloride 102 mmol/L (96-108); Creatinine Clr Calc Pharmacy 82.7; Estimated Glomerular Filt Rate > 60; Glucose Fasting 308 mg/dL (60-99); Magnesium 1.7 mg/dL (1.6-2.6); Potassium 3.8 mmol/L (3.3-5.1); Sodium 139 mmol/L (135-145)
[2023-01-20 07:22] LABS: Glucose, Whole Blood 278 mg/dL (60-115)
[2023-01-20 07:25] VITALS: BP 110/70; PULSE 98; RESP 16; TEMP 36.8; O2SAT 95
[2023-01-20] MEDS: Atorvastatin Calcium 20 MG TABLET PO (08:07)
[2023-01-20] MEDS: Insulin Lispro 100 UNIT/ML 3 ML VIAL SUBCUT ×2 (08:07→12:11)
[2023-01-20] MEDS: Ferrous Sulfate 324 MG TABLET.DR PO (08:07)
[2023-01-20] MEDS: Magnesium Oxide 400 MG TABLET PO (08:07)
[2023-01-20] MEDS: Aspirin 81 MG TAB.CHEW PO (08:07)
[2023-01-20] MEDS: Apixaban 5 MG TABLET PO (08:07)
[2023-01-20] MEDS: Metoprolol Tartrate 50 MG TABLET PO (08:07)
[2023-01-20] MEDS: Pregabalin 100 MG CAPSULE PO (08:07)
--- NOTE | 2023-01-20 08:55 | MHC.CM.PN ---
CM met with Patient at bedside and addressed OVALLES with him, providing him with the original and placing a copy on the chart. Patient lives alone in a duplex and he uses a walker and rollator to assist with mobility. Patient is active with [facility] and home/resume said services is the goal. CM has initiated and will follow for dc planning. Patient has received Pfizer/Covid vax x3 and his PCP is Dr. Ford.
--- NOTE | 2023-01-20 08:59 | P.DS_ITS ---
DS: Providers Provider Date of Service: 01/20/23 Date of admission: 01/19/23 18:25 Primary care physician: Prabhjot Ford MD DS: Diagnosis Discharge Diagnosis (1) Acute hypotension: Status: Acute DS: Summary Hospital Course Hospital Course: from initial hpi: 77M PMH DM, obesity, chronic diastolic chf, permanent afib, LAINEY, COPD presented from home with hypotension. patient was recently admitted to [facility] [place]f and copd and rapid afib. discharged on higher dose of lasix and metoprolol. since then has been relatively hypotensive. has been home for about one week, feeling somehwat dizzy, no longer short of breath. visiting RN found sbp in 70s. in ED sbp 77. given 1L NS, bp improving. patient relatively asymptomatic while lying down. hospital course: Patient was admitted for hypotension due to dehydration from increased Lasix dose, he was given 1 L of normal saline and Lasix was held. His blood pressures returned to baseline and patient was asymptomatic. On discharge patient will revert back to Lasix 60 mg b.i.d. his weight should be monitored closely. For permanent atrial fibrillation he was continued on Eliquis and his metoprolol was decreased back to 50 mg b.i.d. his valsartan has been discontinued. For obstructive sleep apnea he was continue on CPAP at night. For obesity weight loss is recommended. For diabetes he was continued on basal bolus insulin. For chronic diastolic CHF he will resume maintenance Lasix on discharge. Time Spent with Patient Time attestation: Total time managing care of this patient today ____ minutes. Discharge coordination time: Greater than 30 minutes Quality: Safe Use of Opioids Does Pt have an Active Cancer Diagnosis on the Problem List?: No Quality: Stroke Does the patient have a stroke diagnosis?: No Physical Exam Vital Signs: Vital Signs: Last Vital Signs Temp 98.2 F 01/20/23 07:25 Pulse 98 01/20/23 07:25 Resp 16 01/20/23 07:25 BP 110/70 01/20/23 07:25 Pulse Ox 95 01/20/23 07:25 O2 Del Method Room Air 01/20/23 07:25 BMI result Body Mass Index 37.6 General: AO X 3, no acute distress Resp: CTA bilateral, no accessory muscles used CVS: S1,S2,RRR GI: soft, non tender, non distended Neuro: motor grossly intact, alert Psych: appropriate affect, appropriate insight DS: Data Data Completed and Pending Labs on day of discharge: Laboratory Results - last 24 hr 01/19/23 01/19/23 01/19/23 13:45 15:54 15:54 WBC 10.1 RBC 3.91 L Hgb 10.1 L Hct 33.0 L MCV 84.4 MCH 25.8 L MCHC 30.6 L RDW 17.8 H Plt Count 186 MPV 9.5 Immature Gran % (Auto) 0.3 Neut % (Auto) 57.4 Lymph % (Auto) 25.0 [place] % (Auto) 6.6 Eos % (Auto) 10.4 H Baso % (Auto) 0.3 Lymph # (Auto) 2.5 [place] # (Auto) 0.7 Eos # (Auto) 1.1 H Baso # (Auto) 0.0 Abs Immat Gran (auto) 0.03 Absolute Neuts (auto) 5.8 Absolute Nucleated RBC 0.000 Nucleated RBC % (auto) 0.0 Sodium 142 Potassium 3.5 Chloride 101 Carbon Dioxide 31 H Anion Gap 14 BUN 20 H Creatinine 0.92 Estim Creat Clear Calc 77.9 Estimated GFR > 60 POC Glucose 123 H Random Glucose 62 Fasting Glucose Calcium 8.6 Magnesium 1.8 Total Bilirubin 0.4 AST 19 ALT 20 Alkaline Phosphatase 82 Troponin I High Sens B-Natriuretic Peptide Total Protein 6.5 Albumin 3.2 L Urine Color Urine Appearance Urine pH Ur Specific [place] Urine Protein Urine Glucose (UA) Urine Ketones Urine Blood Urine Nitrite Ur Leukocyte Esterase Urine RBC Urine WBC Ur Squamous Epith Cells Urine Bacteria Hyaline Casts COVID-19 ([facility]) COVID-19 Clin Com Influenza Type A ([facility]) Influenza Type B ([facility]) Influenza A & B Note 01/19/23 01/19/23 01/19/23 15:54 15:54 15:54 WBC RBC Hgb Hct MCV MCH MCHC RDW Plt Count MPV Immature Gran % (Auto) Neut % (Auto) Lymph % (Auto) [place] % (Auto) Eos % (Auto) Baso % (Auto) Lymph # (Auto) [place] # (Auto) Eos # (Auto) Baso # (Auto) Abs Immat Gran (auto) Absolute Neuts (auto) Absolute Nucleated RBC Nucleated RBC % (auto) Sodium Potassium Chloride Carbon Dioxide Anion Gap BUN Creatinine Estim Creat Clear Calc Estimated GFR POC Glucose Random Glucose Fasting Glucose Calcium Magnesium Total Bilirubin AST ALT Alkaline Phosphatase Troponin I High Sens B-Natriuretic Peptide 60 Total Protein Albumin Urine Color Urine Appearance Urine pH Ur Specific [place] Urine Protein Urine Glucose (UA) Urine Ketones Urine Blood Urine Nitrite Ur Leukocyte Esterase Urine RBC Urine WBC Ur Squamous Epith Cells Urine Bacteria Hyaline Casts COVID-19 ([facility]) Negative COVID-19 Clin Com See Note Influenza Type A ([facility]) Negative Influenza Type B ([facility]) Negative Influenza A & B Note See Note 01/19/23 01/19/23 01/19/23 16:31 17:17 19:39 WBC RBC Hgb Hct MCV MCH MCHC RDW Plt Count MPV Immature Gran % (Auto) Neut % (Auto) Lymph % (Auto) [place] % (Auto) Eos % (Auto) Baso % (Auto) Lymph # (Auto) [place] # (Auto) Eos # (Auto) Baso # (Auto) Abs Immat Gran (auto) Absolute Neuts (auto) Absolute Nucleated RBC Nucleated RBC % (auto) Sodium Potassium Chloride Carbon Dioxide Anion Gap BUN Creatinine Estim Creat Clear Calc Estimated GFR POC Glucose 50 L* Random Glucose Fasting Glucose Calcium Magnesium Total Bilirubin AST ALT Alkaline Phosphatase Troponin I High Sens 9.9 B-Natriuretic Peptide Total Protein Albumin Urine Color Yellow Urine Appearance Clear Urine pH 7.0 Ur Specific [place] 1.010 Urine Protein Negative Urine Glucose (UA) Negative Urine Ketones Negative Urine Blood Trace H Urine Nitrite Negative Ur Leukocyte Esterase Negative Urine RBC 0-2 Urine WBC 0-5 Ur Squamous Epith Cells 0-2 Urine Bacteria None Seen Hyaline Casts 0-2 COVID-19 ([facility]) COVID-19 Clin Com Influenza Type A ([facility]) Influenza Type B ([facility]) Influenza A & B Note 01/19/23 01/19/23 01/20/23 20:51 21:32 06:15 WBC 8.6 RBC 3.68 L Hgb 9.7 L Hct 30.8 L MCV 83.7 MCH 26.4 L MCHC 31.5 RDW 17.5 H Plt Count 176 MPV 10.1 Immature Gran % (Auto) Neut % (Auto) Lymph % (Auto) [place] % (Auto) Eos % (Auto) Baso % (Auto) Lymph # (Auto) [place] # (Auto) Eos # (Auto) Baso # (Auto) Abs Immat Gran (auto) Absolute Neuts (auto) Absolute Nucleated RBC 0.000 Nucleated RBC % (auto) 0.0 Sodium Potassium Chloride Carbon Dioxide Anion Gap BUN Creatinine Estim Creat Clear Calc Estimated GFR POC Glucose 156 H 179 H Random Glucose Fasting Glucose Calcium Magnesium Total Bilirubin AST ALT Alkaline Phosphatase Troponin I High Sens B-Natriuretic Peptide Total Protein Albumin Urine Color Urine Appearance Urine pH Ur Specific [place] Urine Protein Urine Glucose (UA) Urine Ketones Urine Blood Urine Nitrite Ur Leukocyte Esterase Urine RBC Urine WBC Ur Squamous Epith Cells Urine Bacteria Hyaline Casts COVID-19 ([facility]) COVID-19 Clin Com Influenza Type A ([facility]) Influenza Type B ([facility]) Influenza A & B Note 01/20/23 01/20/23 06:15 07:17 WBC RBC Hgb Hct MCV MCH MCHC RDW Plt Count MPV Immature Gran % (Auto) Neut % (Auto) Lymph % (Auto) [place] % (Auto) Eos % (Auto) Baso % (Auto) Lymph # (Auto) [place] # (Auto) Eos # (Auto) Baso # (Auto) Abs Immat Gran (auto) Absolute Neuts (auto) Absolute Nucleated RBC Nucleated RBC % (auto) Sodium 139 Potassium 3.8 Chloride 102 Carbon Dioxide 27 Anion Gap 14 BUN 16 Creatinine 0.88 Estim Creat Clear Calc 82.7 Estimated GFR > 60 POC Glucose 278 H Random Glucose Fasting Glucose 308 H Calcium 8.5 Magnesium 1.7 Total Bilirubin AST ALT Alkaline Phosphatase Troponin I High Sens B-Natriuretic Peptide Total Protein Albumin Urine Color Urine Appearance Urine pH Ur Specific [place] Urine Protein Urine Glucose (UA) Urine Ketones Urine Blood Urine Nitrite Ur Leukocyte Esterase Urine RBC Urine WBC Ur Squamous Epith Cells Urine Bacteria Hyaline Casts COVID-19 ([facility]) COVID-19 Clin Com Influenza Type A ([facility]) Influenza Type B ([facility]) Influenza A & B Note Discharge Plan Discharge Anticipated Discharge Date/Time: 01/20/23 08:55 Patient Disposition: Home Health Service Discharge Diagnosis: hypotension Referrals: Prabhjot Ford MD [Primary Care Provider] - 1 Week Discharge Medications: New metoprolol tartrate 50 mg Tablet 50 mg PO BID Qty: 60 0RF Protocol: Hold for SBP/HR < HOLD for SBP < : 90 HOLD for HR < : 60 furosemide 20 mg tablet 60 mg PO BID Qty: 360 0RF Continued atorvastatin 20 mg tablet 20 mg PO DAILY magnesium oxide 400 mg (241.3 mg magnesium) tablet 400 mg PO DAILY ferrous sulfate 325 mg (65 mg iron) tablet 325 mg PO DAILY brimonidine 0.2 % drops 1 drp ophthalmic (eye) BID omeprazole 20 mg capsule,delayed release(DR/EC) 20 mg PO DAILY aspirin 81 mg tablet,chewable 1 tab PO DAILY ammonium lactate 12 % cream 1 appl topical DAILY albuterol sulfate 90 mcg/actuation HFA aerosol inhaler 2 puff INHALATION Q4H PRN (Reason: wheezing) insulin aspart U-100 [Novolog FlexPen U-100 Insulin] 100 unit/mL (3 mL) insulin pen 0 sliding scale dose subcut TIDAC Protocol: Insulin Correction Scale Less than or equal to 110 ---- Give (units): 0 111 to 150 Give (units): 0 151 to 200 Give (units): 2 201 to 250 Give (units): 4 251 to 300 Give (units): 6 301 to 350 Give (units): 8 Greater than 350 Give (units): 10 Call MD if Blood Glucose > : 350 pregabalin 100 mg capsule 100 mg PO BID Advair HFA 115-21 mcg/actuation HFA aerosol inhaler 2 puff inhalation BID insulin glargine [Lantus Solostar U-100 Insulin] 100 unit/mL (3 mL) insulin pen 55 unit subcut BEDTIME [place] 0.01 % drops 1 drp ophthalmic (eye) BEDTIME Eliquis 5 mg tablet 5 mg PO BID Trelegy Ellipta 100-62.5-25 mcg blister with device 1 ea inhalation DAILY metformin 500 mg tablet 500 mg PO TID Discontinued valsartan 40 mg tablet 40 mg PO DAILY metoprolol tartrate 75 mg tablet 75 mg PO BID furosemide 80 mg tablet 80 mg PO BID Discharge Orders: Discharge Order (Routine); Ordered 01/20/23 Ordered By: Carlos Jesin Diet: Advance to usual diet Activity on Discharge: As tolerated Stand Alone Forms: Patient Portal Discharge page Care Plan Goals: recovery Health Concerns: hypotension Plan of Treatment: metoprolol and lasix changed back to previous doses, monitor weights and blood pressure Assessment: see above
--- NOTE | 2023-01-20 09:04 | MHC.CM.PN ---
Patient has been medically cleared for dc to home today, with services. Patient is active with [facility], who has been notified of today's dc.
[2023-01-20 11:09] LABS: Glucose, Whole Blood 291 mg/dL (60-115)
[2023-01-20 11:11] VITALS: BP 115/57; PULSE 82; RESP 16; TEMP 36.8; O2SAT 96
== END 2023-01-20 13:06 | disposition home health service (06) ==
LOC: HO.ED 18:08 → HO.EDOVER 18:27 → HO.IMC 19:00
PROVIDERS: Physician Assistant; Physician Assistant Medical; Admitting Provider Internal Medicine; Emergency Provider Emergency Medicine Emergency Medical Services; PCP Internal Medicine; Visit Provider Internal Medicine
DX: I95.9 Hypotension, unspecified (principal); E86.9 Volume depletion, unspecified; I48.21 Permanent atrial fibrillation; R06.02 Shortness of breath; Z79.82 Long term (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 of aspirin; E11.9 Type 2 diabetes mellitus without complications; I50.32 Chronic diastolic (congestive) heart failure; J44.9 Chronic obstructive pulmonary disease, unspecified; E66.9 Obesity, unspecified; Z68.37 Body mass index [BMI] 37.0-37.9, adult; Z79.899 Other long term (current) drug therapy; Z79.01 Long term (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 of anticoagulants; Z79.4 Long term (current) use of insulin; Z20.822 Contact with and (suspected) exposure to COVID-19; Z79.02 Long term (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 of antithrombotics/antiplatelets
CPT/HCPCS: 36415; 71045; 80048; 80053; 81001; 82947; 83735; 83880; 84484; 85025; 85027; 87502; 87635; 93005; 94660; 96360; 96361; 99222; 99285

== ENCOUNTER 2024-02-15 13:08 | Inpatient (IN) | payer OTHER, SELFPAY ==
--- NOTE | ~2024-02-15 | XR_ITS ---
EXAMINATION: XR CHEST CLINICAL INFORMATION: Weakness. COMPARISON: Chest radiograph dated 01/19/2023. TECHNIQUE: Frontal view of the chest was obtained. FINDINGS: The cardiomediastinal silhouette is normal in size and configuration. The lungs are clear. There is no pleural effusion or pneumothorax. No acute osseous abnormality. XR/XR chest 1V IMPRESSION: Stable appearance of the heart and lungs. No active disease.
--- NOTE | 2024-02-15 13:24 | ECG_ITS ---
Test Reason : WEAKNESS Blood Pressure : / mmHG Vent. Rate : 072 BPM Atrial Rate : 000 BPM P-R Int : 000 ms QRS Dur : 086 ms QT Int : 392 ms P-R-T Axes : 000 010 024 degrees QTc Int : 429 ms Atrial fibrillation Low voltage QRS Abnormal ECG When compared with ECG of 19-JAN-2023 16:16, No significant change was found Referred By: Ellen Rico Electronically Signed By:JUSTINA ARREAGA MD
--- NOTE | 2024-02-15 13:25 | ED_ITS ---
HPI - General Adult General Chief complaint: General Medical Stated complaint: WEAK,LOW BP PER VNA 70s/50s,? TOO MUCH DIARETIC Time Seen by Provider: 02/15/24 13:17 Source: patient, EMS and old records reviewed Mode of arrival: EMS Limitations: no limitations History of Present Illness HPI narrative: 78 yo male with PMH of DM, diastolic CHF, PAF on eliquis, COPD, LAINEY, obesity, HLD, GERD who was just increased on his torsemide for 2 days. He was increased from 40mg daily to 60mg daily. He went to his milieu coordinator for routine follow up and BP was 74/50 he reports he is not symptomatic. Denies CP/SOB, black or bloody stools, dizziness, weakness. His scale at home for weights is broken. He states same thing happened back in December 2022 and he was admitted. Denies any recent GI illness or infectious symptoms. MD complaint: low blood pressure Onset (ago): unknown Radiation: non-radiation Severity: moderate Relieving factors: rest Exacerbating factors: movement Associated symptoms: denies other symptoms Treatments prior to arrival: none Related Data Home Medications ?Medication ?Instructions ?Recorded ?Confirmed albuterol sulfate 90 mcg/actuation 2 puff inhalation Q4H PRN wheezing 01/19/23 01/19/23 aerosol inhaler ammonium lactate 12 % topical cream 1 appl topical DAILY 01/19/23 01/19/23 apixaban 5 mg tablet (Eliquis) 5 mg PO BID 01/19/23 01/19/23 aspirin 81 mg chewable tablet 1 tab PO DAILY 01/19/23 01/19/23 atorvastatin 20 mg tablet 20 mg PO DAILY 01/19/23 01/19/23 bimatoprost 0.01 % eye drops 1 drp ophthalmic (eye) BEDTIME 01/19/23 01/19/23 (Lumigan) brimonidine 0.2 % eye drops 1 drp ophthalmic (eye) BID 01/19/23 01/19/23 ferrous sulfate 325 mg (65 mg 325 mg PO DAILY 01/19/23 01/19/23 iron) tablet fluticasone fur. 100 mcg-umeclid 1 ea inhalation DAILY 01/19/23 01/19/23 62.5 mcg-vilant 25 mcg inhalat.powder (Trelegy Ellipta) fluticasone propionate 115 2 puff inhalation BID 01/19/23 01/19/23 mcg-salmeterol 21 mcg/actuation HFA inhaler (Advair HFA) insulin aspart U-100 100 unit/mL 0 sliding scale dose subcut TIDAC 01/19/23 01/19/23 (3 mL) subcutaneous pen (Novolog FlexPen U-100 Insulin aspart) insulin glargine 100 unit/mL (3 55 unit subcut BEDTIME 01/19/23 01/19/23 mL) subcutaneous pen (Lantus Solostar U-100 Insulin) magnesium oxide 400 mg (241.3 mg 400 mg PO DAILY 01/19/23 01/19/23 magnesium) tablet metformin 500 mg tablet 500 mg PO TID 01/19/23 01/19/23 omeprazole 20 mg capsule,delayed 20 mg PO DAILY 01/19/23 01/19/23 release pregabalin 100 mg capsule 100 mg PO BID 01/19/23 01/19/23 Previous Rx's ?Medication ?Instructions ?Recorded furosemide 20 mg tablet 60 mg (3 x 20 mg) PO BID #360 tabs 01/20/23 metoprolol tartrate 50 mg tablet 50 mg PO BID #60 tabs 01/20/23 Allergies Allergy/AdvReac Type Severity Reaction Status Date / Time No Known Allergies Allergy Verified 02/15/24 13:28 [No Known Allergies*] Review of Systems 2 Review of Systems: Constitutional : No Fever, No Chills, No Fatigue ENT/Mouth : No sore throat, No Rhinorrhea Eyes: No Eye Pain, No Swelling, No Redness Cardiovascular : No Chest Pain, No SOB, No Dyspnea on Exertion Respiratory : No Cough, No Sputum Gastrointestinal : No Nausea, No Vomiting, No Diarrhea, No abdominal Pain Genitourinary : No Dysuria, No Urinary Frequency, No Hematuria, Musculoskeletal : No joint pain, No Myalgias, No Joint Swelling Skin : No Skin Lesions, No rash Neuro : No Weakness, No Numbness, No Dizziness, no Headache All other systems reviewed and are negative PENDING SALE TO [facility] Past Medical History Attestation statement: The following information was validated with the patient. Source: old records reviewed Medical History GERD (gastroesophageal reflux disease) Diabetes COPD (chronic obstructive pulmonary disease) Obesity PAF (paroxysmal atrial fibrillation) Diastolic HF (heart failure) Acute hypotension Fluid volume depletion Social History Social History Alcohol intake: former Patient Tobacco Use Status: Never used Tobacco Smoked in Last 30 Days: No Use of substances other than those prescribed or required for medical reasons: No Advance Directives: No Advance Directives Information Provided: No Do you have a plan to hurt others: No Plan service: No Current occupational status: retired Physical Exam ED Vital Signs: Vital Signs - 24 hr 02/15/24 13:26 02/15/24 14:16 02/15/24 15:15 Temperature 97.9 F 97.8 F Pulse Rate 77 76 70 Respiratory Rate 18 18 16 Blood Pressure 81/45 L 88/48 L 107/57 L Pulse Oximetry 97 98 97 Oxygen Delivery Method Room Air Room Air Room Air BMI result Body Mass Index 36.6 Appearance: Alert. Oriented X3. No acute distress. Eyes: Pupils equal, round and reactive to light. ENT: Pharynx dry MM Neck: Normal inspection. Neck supple. no JVD CVS: Normal heart rate and rhythm. Pulses normal. Respiratory: No respiratory distress. Breath sounds normal. Abdomen: Soft and nontender. Skin: Skin warm and dry. Normal skin color. Normal skin turgor. Extremities: No lower extremity edema. No calf ttp no edema noted Neuro: Oriented X 3. No motor deficit. No sensory deficit. Course Course Course Narrative: ANDREW due to overdiuresis and not infection or severe sepsis Reevaluation(s) Reevaluation #1: patient is on 2nd 500cc bolus at this time Medications Administered Discontinued Medications Generic Name Dose Route Start Last Admin Trade Name Freq PRN Reason Stop Dose Admin Sodium Chloride 500 mls @ 500 mls/hr 02/15/24 13:23 02/15/24 14:50 Ns IV 02/15/24 14:22 Infused .Q1H ONE Infusion Sodium Chloride 500 mls @ 500 mls/hr 02/15/24 14:22 02/15/24 14:29 Ns IV 02/15/24 15:21 500 mls/hr .Q1H ONE Administration Medical Decision Making Medical Decision Making MDM Narrative: 78 yo male with PMH of DM, diastolic CHF, PAF on eliquis, COPD, LAINEY, obesity, HLD, GERD here with low BPs after increasing torsemide from 40mg to 60mg daily he denies black or bloody stools, chest pain, trouble breathing, infectious symptoms. Has hx of same in past and responded to 1L of NS at this time will start with intermittent 500cc bolus and reasess. He has no infectious symptoms to suggest cause of low BP. Differential Diagnosis Differential Diagnoses: The differential diagnosis associated with the presentation includes hypotension due to dehydration and volume depletion from overdiuresis and not infection or severe sepsis ANDREW anemia dehydration Admission/Observation Consideration of admission/observation: Escalation of care including admission/observation considered given hypotension and ANDREW will admit Consult Healthcare Provider Management of the patient was discussed with: Hospitalist (will admit) Lab Data MDM Lab Attestation statement: I reviewed the patient's lab results. 02/15/24 13:45 02/15/24 13:45 Labs: Lab Results 02/15/24 Range/Units 13:45 WBC 10.4 (4.8-10.8) X10*3/uL RBC 4.06 L (4.60-5.80) X10*6/uL Hgb 10.4 L (14.0-18.0) g/dl Hct 33.5 L (42.0-52.0) % MCV 82.5 (80.0-98.0) fL MCH 25.6 L (27.0-33.0) pg MCHC 31.0 (31.0-36.0) g/dl RDW 17.2 H (11.0-16.0) % Plt Count 265 D (160-400) X10*3/uL MPV 9.6 (9.4-12.4) fL Immature Gran % (Auto) 0.3 (0.0-0.4) % Neut % (Auto) 62.2 (45-73) % Lymph % (Auto) 25.1 (20-40) % [place] % (Auto) 8.1 (2-11) % Eos % (Auto) 3.9 (0-4) % Baso % (Auto) 0.4 (0-2) % Lymph # (Auto) 2.6 (1.2-4.9) X10*3/uL [place] # (Auto) 0.8 (0.1-1.2) X10*3/uL Eos # (Auto) 0.4 (0.0-0.4) X10*3/uL Baso # (Auto) 0.0 (0.0-0.2) X10*3/uL Abs Immat Gran (auto) 0.03 (0.00-0.03) X10*3/uL Absolute Neuts (auto) 6.5 (2.0-8.3) x10*3/uL Absolute Nucleated RBC 0.000 (0.0-0.012) X10*3/uL Nucleated RBC % (auto) 0.0 (0.0-0.2) /100WBC Sodium 139 (135-145) mmol/L Potassium 4.4 (3.3-5.1) mmol/L Chloride 102 (96-108) mmol/L Carbon Dioxide 27 (22-29) mmol/L Anion Gap 14 (12-20) BUN 54 H (9-16) mg/dL Creatinine 1.81 H (0.5-1.4) mg/dL Estim Creat Clear Calc 39.0 Estimated GFR 37 Random Glucose 205 H (60-115) mg/dL Calcium 9.4 D (8.4-10.2) mg/dL Magnesium 2.3 (1.6-2.6) mg/dL Total Bilirubin 0.3 (0.0-1.0) mg/dL Direct Bilirubin 0.1 (0.0-0.5) mg/dL AST 19 (5-37) U/L ALT 13 (0-40) U/L Alkaline Phosphatase 92 (39-117) U/L Troponin I High Sens 8.0 (<3.5-35.0) ng/L B-Natriuretic Peptide 120 H (<100) pg/mL Total Protein 8.7 H (6.5-8.0) g/dL Albumin 3.7 (3.5-5.0) g/dL Lipase 27 (8-78) U/L Independent Interpretation I performed an independent interpretation of an: EKG and Plain X-Ray (normal ) Interpretation: Rate: 72 Rhythm: afib [place]: normal Normal QRS complex. ST T wave : normal no LYNNE qTC: 429 prior studies: no sig change The study has been interpreted contemporaneously by me. . Independent Historian Clinical information obtained from an independent historian. History obtained from or confirmed by: EMS External Record Review External record reviewed: Inpatient record Discharge Plan Discharge Clinical Impression: Acute hypotension, ANDREW (acute kidney injury) Patient Disposition: Admitted As Inpatient Print Language: Bangladeshi
[2024-02-15 13:26] VITALS: BP 74/50; BP 81/45; PULSE 72; PULSE 77; RESP 18; TEMP 36.6; O2SAT 97; O2SAT 98; BMI 36.6
[2024-02-15] MEDS: 0.9 % Sodium Chloride 500 ML IV ×2 (13:50→14:29)
[2024-02-15 13:51] LABS: MANUAL DIFF FLAG NO
[2024-02-15 13:55] LABS: Basophils Percent Auto 0.4 % (0-2); Eosinophils Absolute Auto 0.4 X10*3/uL (0.0-0.4); Eosinophils Percent Auto 3.9 % (0-4); Hematocrit 33.5 % (42.0-52.0); Hemoglobin 10.4 g/dl (14.0-18.0); Imm Gran Abs Auto 0.03 X10*3/uL (0.00-0.03); Imm Gran Pct Auto 0.3 % (0.0-0.4); Lymphocytes Absolute Auto 2.6 X10*3/uL (1.2-4.9); Lymphocytes Percent Auto 25.1 % (20-40); Mean Corpuscular Hemoglobin 25.6 pg (27.0-33.0); Mean Corpuscular Volume 82.5 fL (80.0-98.0); Mean Platelet Volume 9.6 fL (9.4-12.4); Monocytes Absolute Auto 0.8 X10*3/uL (0.1-1.2); Monocytes Percent Auto 8.1 % (2-11); Neutrophils Absolute Auto 6.5 x10*3/uL (2.0-8.3); Neutrophils Percent Auto 62.2 % (45-73); Platelet Count 265 X10*3/uL (160-400); Red Blood Count 4.06 X10*6/uL (4.60-5.80); Red Cell Distribution Width 17.2 % (11.0-16.0); White Blood Count 10.4 X10*3/uL (4.8-10.8)
[2024-02-15 14:08] LABS: Alanine Aminotransferase 13 U/L (0-40); Albumin Level 3.7 g/dL (3.5-5.0); Alkaline Phosphatase 92 U/L (39-117); Anion Gap 14 (12-20); Aspartate Amino Transferase 19 U/L (5-37); Bilirubin Direct 0.1 mg/dL (0.0-0.5); Bilirubin Total 0.3 mg/dL (0.0-1.0); Blood Urea Nitrogen 54 mg/dL (9-16); Calcium 9.4 mg/dL (8.4-10.2); Carbon Dioxide 27 mmol/L (22-29); Chloride 102 mmol/L (96-108); Estimated Glomerular Filt Rate 37; Glucose Random 205 mg/dL (60-115); Lipase 27 U/L (8-78); Magnesium 2.3 mg/dL (1.6-2.6); Potassium 4.4 mmol/L (3.3-5.1); Sodium 139 mmol/L (135-145); Total Protein 8.7 g/dL (6.5-8.0)
[2024-02-15 14:13] LABS: B Type Natriuretic Peptide 120 pg/mL (<100)
[2024-02-15 14:16] VITALS: BP 88/48; PULSE 76; RESP 18; TEMP 36.6; O2SAT 98
[2024-02-15 15:15] VITALS: BP 107/57; PULSE 70; RESP 16; O2SAT 97
[2024-02-15] MEDS: 0.9 % Sodium Chloride 1,000 ML 100 ML IVCONT (15:48)
--- NOTE | 2024-02-15 16:13 | PM.IMHP ---
History of Present Illness Date of Service: 02/15/24 Attending physician on admission: Mindi Hickman Chief Complaint: Weakness, low BP per VNA Pt is a 78-year-old male with a PMH significant for HFpEF, paroxysmal AFib on Eliquis, COPD, LAINEY,?insulin-dependent type 2 diabetes, HLD, and GERD who presents to the ED for evaluation of hypotension. Pt was at a pulmonology appointment earlier today and noted to have a blood pressure of 74/50. Patient then presented to the ED for further evaluation. Patient notes his internet architect recently increased his torsemide from 40 mg daily to 60 mg daily 2 days ago when he reported via phone increased lower leg edema and increased weight. Pt, however, feels the weight he reported was incorrect due to his scale malfunctioning. Has otherwise been asymptomatic. No lightheadedness or dizziness. No syncope/pre-syncope. No lower leg edema. Denies SOB or GAUTHIER. No PND. Denies chest pain/pressure, palpitations. No fever, chills, N/V/D, or abd pain. In the ED pt was hypotensive as low as 81/45, vitals otherwise WNL. Labs were significant for BUN 54, creatinine 1.81 (up from 0.88 on 01/20/2023), otherwise grossly unremarkable and baseline for patient. No leukocytosis. Stable H&H. No significant electrolyte abnormalities. CXR showed stable appearance of the heart and lungs with no active disease. EKG demonstrated AFib without evidence of significant ST elevations or depressions. Pt was treated with 2 L IVF. Pt will be admitted to the hospital for treatment and further evaluation of ANDREW secondary to diuretic use. Review of Systems Review of Systems: Pt denies any acute medical complaints at this time No lightheadedness or dizziness Denies lower leg edema No PND, SOB, GAUTHIER Denies chest pain/pressure, palpitations No fever, chills, nausea, vomiting, abdominal pain [facility] Medical History GERD (gastroesophageal reflux disease) Diabetes COPD (chronic obstructive pulmonary disease) Obesity PAF (paroxysmal atrial fibrillation) Diastolic HF (heart failure) Acute hypotension Fluid volume depletion Social History Alcohol intake: former Patient Tobacco Use Status: Never used Tobacco Smoked in Last 30 Days: No Use of substances other than those prescribed or required for medical reasons: No Advance Directives: No Advance Directives Information Provided: No Do you have a plan to hurt others: No Plan service: No Current occupational status: retired Meds Allergies Allergy/AdvReac Type Severity Reaction Status Date / Time No Known Allergies Allergy Verified 02/15/24 13:28 [No Known Allergies*] Active Medications: Current Medications Sodium Chloride (Ns) 1,000 mls @ 100 mls/hr IVCONT .Q10H TIA Last Admin: 02/15/24 15:48 Dose: 100 mls/hr Home Medications ?Medication ?Instructions ?Recorded ?Confirmed ?Last Taken ?Type albuterol sulfate 90 mcg/actuation 2 puff inhalation Q4H PRN wheezing 01/19/23 01/19/23 Unknown History aerosol inhaler ammonium lactate 12 % topical cream 1 appl topical DAILY 01/19/23 01/19/23 01/19/23 History apixaban 5 mg tablet (Eliquis) 5 mg PO BID 01/19/23 01/19/23 01/19/23 History aspirin 81 mg chewable tablet 1 tab PO DAILY 01/19/23 01/19/23 01/19/23 History atorvastatin 20 mg tablet 20 mg PO DAILY 01/19/23 01/19/23 01/19/23 History bimatoprost 0.01 % eye drops 1 drp ophthalmic (eye) BEDTIME 01/19/23 01/19/23 01/18/23 History (Lumigan) brimonidine 0.2 % eye drops 1 drp ophthalmic (eye) BID 01/19/23 01/19/23 01/19/23 History ferrous sulfate 325 mg (65 mg 325 mg PO DAILY 01/19/23 01/19/23 01/19/23 History iron) tablet fluticasone fur. 100 mcg-umeclid 1 ea inhalation DAILY 01/19/23 01/19/23 01/19/23 History 62.5 mcg-vilant 25 mcg inhalat.powder (Trelegy Ellipta) insulin aspart U-100 100 unit/mL 0 sliding scale dose subcut TIDAC 01/19/23 01/19/23 01/19/23 History (3 mL) subcutaneous pen (Novolog FlexPen U-100 Insulin aspart) insulin glargine 100 unit/mL (3 55 unit subcut BEDTIME 01/19/23 01/19/23 01/18/23 History mL) subcutaneous pen (Lantus Solostar U-100 Insulin) magnesium oxide 400 mg (241.3 mg 400 mg PO DAILY 01/19/23 01/19/23 01/19/23 History magnesium) tablet metformin 500 mg tablet 500 mg PO TID 01/19/23 01/19/23 01/19/23 History omeprazole 20 mg capsule,delayed 20 mg PO DAILY 01/19/23 01/19/23 01/19/23 History release amitriptyline 25 mg tablet 25 mg PO BEDTIME 02/15/24 Unknown History fluticasone propionate 50 1 spray intranasal DAILY 02/15/24 Unknown History mcg/actuation nasal spray,suspension hydrocortisone 2.5 % topical cream 1 appl topical BID 02/15/24 Unknown History hydroxychloroquine 200 mg tablet 200 mg PO DAILY 02/15/24 Unknown History ketoconazole 2 % topical cream 1 appl topical DAILY 02/15/24 02/15/24 02/15/24 History loratadine 10 mg tablet 10 mg PO DAILY 02/15/24 Unknown History metoprolol tartrate 25 mg tablet 25 mg PO BID 02/15/24 Unknown History polyethylene glycol 3350 17 gram 17 g PO DAILY 02/15/24 Unknown History oral powder packet (HealthyLax) pregabalin 75 mg capsule 75 mg PO BID 02/15/24 02/15/24 02/15/24 History sacubitril 24 mg-valsartan 26 mg 1 tab PO BID 02/15/24 Unknown History tablet (Entresto) spironolactone 25 mg tablet 25 mg PO DAILY 02/15/24 Unknown History torsemide 20 mg tablet 40 mg PO BID 02/15/24 Unknown History Physical Exam Vital Signs and Narrative: Vital Signs: Last Vital Signs Temp 97.8 F 02/15/24 14:16 Pulse 70 02/15/24 15:15 Resp 16 02/15/24 15:15 BP 107/57 L 02/15/24 15:15 Pulse Ox 97 02/15/24 15:15 O2 Del Method Room Air 02/15/24 15:15 BMI result Body Mass Index 36.6 General: AOx3, no acute distress Resp: CTA bilaterally CVS: Irregularly irregular rhythm GI: +BS, NT, no distention Skin: Warm, dry Neuro: Cranial nerves II-XII grossly intact bilaterally. Motor grossly intact bilaterally Extremities: No edema Psych: Appropriate affect Results Labs 02/15/24 13:45 02/15/24 13:45 Labs: Laboratory Results - last 24 hr 02/15/24 13:45 MCV 82.5 MCH 25.6 L MCHC 31.0 RDW 17.2 H Plt Count 265 D MPV 9.6 Immature Gran % (Auto) 0.3 Neut % (Auto) 62.2 Lymph % (Auto) 25.1 [place] % (Auto) 8.1 Eos % (Auto) 3.9 Baso % (Auto) 0.4 Lymph # (Auto) 2.6 [place] # (Auto) 0.8 Eos # (Auto) 0.4 Baso # (Auto) 0.0 Abs Immat Gran (auto) 0.03 Absolute Neuts (auto) 6.5 Absolute Nucleated RBC 0.000 Nucleated RBC % (auto) 0.0 Anion Gap 14 Estim Creat Clear Calc 39.0 Estimated GFR 37 Random Glucose 205 H Calcium 9.4 D Magnesium 2.3 Total Bilirubin 0.3 Direct Bilirubin 0.1 AST 19 ALT 13 Alkaline Phosphatase 92 Troponin I High Sens 8.0 B-Natriuretic Peptide 120 H Total Protein 8.7 H Albumin 3.7 Lipase 27 Imaging Radiologist's Impressions: Impressions Chest X-Ray 02/15/24 13:58 IMPRESSION: Stable appearance of the heart and lungs. No active disease. Assessment and Plan (1) ANDREW (acute kidney injury): Status: Acute Plan Pt is a 78-year-old male with a PMH significant for HFpEF, paroxysmal AFib on Eliquis, COPD, LAINEY,?insulin-dependent type 2 diabetes, HLD, and GERD who presents to the ED for evaluation of hypotension. Pt will be admitted to the hospital for treatment and further evaluation of ANDREW secondary to diuretic use. ANDREW Patient's creatinine 1.81 at time of presentation, up from 0.88 on 01/20/2023 Secondary to diuretic use, torsemide increased from 40 mg daily to 60 mg daily 2 days ago Patient asymptomatic Patient received 2 L IVF in the ED Will hold diuretics Follow BMP Hypotension BP as low as 74/50 at pulmonology visit Secondary to recently increased diuretics Patient received 2 L IVF in ED Monitor BP HFpEF Not in acute exacerbation Will hold diuretics due to ANDREW Low-salt diet Insulin-dependent type 2 diabetes SSI, Lantus Diabetic diet Paroxysmal AFib Continue Eliquis, metoprolol Full Code Attending:?Dr. Hickman DVT Prophylaxis: On Eliquis Pt will require a hospitalization of at least two nights for treatment of?ANDREW with IVF and close monitoring of labs. Quality Stroke Does the patient have a stroke diagnosis?: No VTE Prior VTE?: No VTE Risk Level:: Medical - moderate - high VTE Device Contraindication: Treatment Not Indicated VTE Drug Contraindication: N/A - Med Ordered
[2024-02-15 16:14] VITALS: BP 111/68; PULSE 76; RESP 16; O2SAT 97
--- NOTE | 2024-02-15 16:15 | PC.NURSE ---
pt a&o x4, pleasant, calm, and cooperative. pt presents to ED with asymptomatic hypotension. pt denies pain or any complaints alia. 20G IV placed to L thumb, labs drawn and sent. fluids infusing per dec. pt BP has since improved with fluid resuscitation and documented in worklist. pt on bedside monitor and Q30min BP checks. pt currently resting quietly on stretcher in no apparent distress. call chu within reach. rr even/unlabored. plan of care ongoing.
--- NOTE | 2024-02-15 17:20 | PHA.MEDREC ---
Pharmacy Consult ? Medication Reconciliation Pharmacy has completed the medication reconciliation. Patient had list of medications from provider's office that match claim history. Esme Puente, AshleyD
[2024-02-15 17:50] VITALS: BP 114/69; PULSE 76; RESP 16
--- NOTE | 2024-02-15 18:27 | PC.NURSE ---
pt ambulated to bathroom with hospital walker to give urine sample. pt accidentally dropped ua cup in toilet. cup retrieved from toilet and thrown out. still awaiting ua from pt.
[2024-02-15 19:11] LABS: Glucose, Whole Blood 117 mg/dL (60-115)
[2024-02-15] MEDS: polyethylene glycoL 3350 17 GM POWD.PACK PO (21:10)
[2024-02-15] MEDS: Insulin Glargine,Hum.rec.anlog 100 UNIT/ML 10 ML VIAL 21 UNIT SUBCUT (21:10)
[2024-02-15] MEDS: Pregabalin 75 MG CAPSULE PO (21:10)
[2024-02-15] MEDS: Apixaban 5 MG TABLET PO (21:10)
[2024-02-15] MEDS: Metoprolol Tartrate 25 MG TABLET PO (21:10)
[2024-02-15] MEDS: Amitriptyline HCl 25 MG TABLET PO (21:25)
[2024-02-15] MEDS: Latanoprost 0.005 % Ophth Sol 2.5 ML DROPS 1 DROP EYE-BOTH (21:25)
--- NOTE | 2024-02-15 22:01 | PC.NURSE ---
this RN resumed care of pt at 1900. a&ox4. vss and up to date. BP wnl - normotensive at this time. nsr on the nurse monitoring. pt denies complaints. pt ambulates to the restroom independently w/ a walker. steady gait noted. pt attempted to provide urine sample so UA could be obtained but missed urinal and urinated onto floor. this RN educated that sample is needed when able and that help will be provided next time. medications administered per provider order. pt verbalizes using cpap at home d/t hx of sleep apnea. pt requesting cpap - this RN placed pt on 2L via NC for support. no sob/wob noted. respirations even and unlabored. pt resting comfortably in bed w/ the lights dimmed at this time. awaiting bed assignment. call chu placed within reach.
[2024-02-15 22:51] VITALS: BP 101/63; BP 83/44; PULSE 75; PULSE 76; RESP 14; RESP 15; O2SAT 100; O2SAT 99
--- NOTE | 2024-02-15 23:09 | PC.NURSE ---
BP slightly decreasing at this time. documented in vitals section. TED Victor made aware at this time.
[2024-02-16] VITALS (9 sets, daily range): BP systolic 94–117; BP diastolic 56–71; PULSE 76–97; RESP 12–20; TEMP 36.6; O2SAT 87–100
[2024-02-16] MEDS: 0.9 % Sodium Chloride Flush 3 ML SYRINGE IVFLUSH ×2 (00:55→17:53)
[2024-02-16] MEDS: 0.9 % Sodium Chloride 1,000 ML 100 ML IVCONT (01:00)
--- NOTE | 2024-02-16 01:13 | PC.NURSE ---
pt medicated per MAR
[2024-02-16 05:18] LABS: Hematocrit 33.7 % (42.0-52.0); Hemoglobin 10.3 g/dl (14.0-18.0); Mean Corpuscular HGB Conc 30.6 g/dl (31.0-36.0); Mean Corpuscular Hemoglobin 25.8 pg (27.0-33.0); Mean Corpuscular Volume 84.5 fL (80.0-98.0); Mean Platelet Volume 9.7 fL (9.4-12.4); Platelet Count 229 X10*3/uL (160-400); Red Blood Count 3.99 X10*6/uL (4.60-5.80); Red Cell Distribution Width 17.2 % (11.0-16.0)
[2024-02-16 05:32] LABS: Anion Gap 14 (12-20); Blood Urea Nitrogen 42 mg/dL (9-16); Carbon Dioxide 25 mmol/L (22-29); Chloride 107 mmol/L (96-108); Creatinine Clr Calc Pharmacy 54.3; Estimated Glomerular Filt Rate 54; Glucose Random 147 mg/dL (60-115); Sodium 142 mmol/L (135-145)
[2024-02-16] MEDS: Omeprazole 20 MG CAPSULE.DR PO (06:03)
[2024-02-16 07:06] LABS: Glucose, Whole Blood 132 mg/dL (60-115)
[2024-02-16 07:45] LABS: Glucose, Whole Blood 130 mg/dL (60-115)
[2024-02-16] MEDS: Fluticasone/Umeclidinium/Vilanterol 100/62.5/25 BLST.W.DEV 1 PUFF INHALE (08:03)
[2024-02-16] MEDS: Loratadine 10 MG TABLET PO (08:12)
[2024-02-16] MEDS: Magnesium Oxide 400 MG TABLET PO (08:12)
[2024-02-16] MEDS: Pregabalin 75 MG CAPSULE PO ×2 (08:13→21:12)
[2024-02-16] MEDS: Metoprolol Tartrate 25 MG TABLET PO ×2 (08:13→21:10)
[2024-02-16] MEDS: Apixaban 5 MG TABLET PO ×2 (08:13→21:12)
[2024-02-16] MEDS: Hydroxychloroquine Sulfate 200 MG TABLET PO (08:13)
[2024-02-16] MEDS: Ferrous Sulfate 324 MG TABLET.DR PO (08:13)
[2024-02-16] MEDS: Aspirin 81 MG TAB.CHEW PO (08:14)
[2024-02-16] MEDS: Brimonidine Tartrate 0.2% Oph 5 ML BOTTLE 1 DROP EYE-BOTH ×2 (08:17→21:45)
--- NOTE | 2024-02-16 08:26 | PC.NURSE ---
pt is alert and oriented, skin appropriate for ethnicity, respirations even and unlabored, ls clear, pt denies pain, vs stable at this time pt ate about 100% of his breakfast
[2024-02-16 09:31] LABS: Appearance Urine Clear; Color Urine Yellow; Glucose Urine UA >=1000 mg/dL (Negative); Leukocyte Esterase Urine Negative (Negative); Nitrite Urine Negative (Negative); UMIC TRIGGER UACC YES; Urine Blood Negative (Negative); Urine Ketones Negative (Negative); Urine Protein Negative (Neg-Trace)
[2024-02-16 09:36] LABS: Bacteria Urine None Seen (None Seen); Hyaline Casts Urine 0-2 /LPF (0-2); RBC Urine 0-2 /HPF (0-2); Squamous Epithelial Cell Urine 0-2 /HPF (0-2); WBC Urine 0-5 /HPF (0-5)
--- NOTE | 2024-02-16 11:14 | PC.NURSE ---
Assumed care of this patient at 1100, patient resting quietly on stretcher at this time, awaiting bed assignment.
[2024-02-16 12:56] LABS: Glucose, Whole Blood 188 mg/dL (60-115)
[2024-02-16] MEDS: Insulin Lispro 100 UNIT/ML 3 ML VIAL SUBCUT ×3 (12:59→21:11)
--- NOTE | 2024-02-16 13:01 | PC.NURSE ---
Patient walked to BR and length of ER x 1 SB assist with walker on RA. O2 on return from walk was 98 - 100% on RA.
--- NOTE | 2024-02-16 14:58 | P.PNIM_ITS ---
Subjective Subjective Date of Service: 02/16/24 Interval History: BP improved; was a little lightheaded yesterday but no longer no chest pain minimal leg edema no dyspnea Physical Exam 2 Vital Signs: Vital Signs: Last Vital Signs Temp 97.8 F 02/16/24 08:11 Pulse 78 02/16/24 11:27 Resp 12 02/16/24 11:27 BP 94/71 02/16/24 11:27 Pulse Ox 100 02/16/24 11:57 O2 Del Method Nasal Cannula 02/16/24 11:57 O2 Flow Rate 2 02/16/24 11:57 BMI result Body Mass Index 36.6 Gen: in no acute distress HEENT: sclera anicteric, moist mucus membranes Neck: supple Lungs: clear to auscultation bilaterally Heart:irregular, no murmurs Abd: soft, non-tender, non-distended Ext: trace bilateral leg edema Skin: warm/well-perfused Neuro: alert and oriented x3, no focal findings Psych: appropriate affect Objective Data Active Medications Acetaminophen (Acetaminophen 325 Mg Tablet) 650 mg PO Q6H PRN PRN Reason: Pain, Mild (Pain Scale 1-3) Albuterol Sulfate (Albuterol Sulfate 90 Mcg 8 Gm Inhaler) 2 puff INHALE Q4H PRN PRN Reason: wheezing Amitriptyline HCl (Amitriptyline Hcl 25 Mg Tablet) 25 mg PO BEDTIME [facility] Last Admin: 02/15/24 21:25 Dose: 25 mg Documented By: RADHA Apixaban (Apixaban 5 Mg Tablet) 5 mg PO BID [facility] Last Admin: 02/16/24 08:13 Dose: 5 mg Documented By: DEIDRA Aspirin (Aspirin 81 Mg Tab.Chew) 81 mg PO DAILY [facility] Last Admin: 02/16/24 08:14 Dose: 81 mg Documented By: DEIDRA Benzonatate (Benzonatate 100 Mg Capsule) 100 mg PO TID PRN PRN Reason: Cough Brimonidine Tartrate (Brimonidine Tartrate 0.2% Oph 5 Ml Bottle) 1 drop EYE- BOTH BID [facility] Last Admin: 02/16/24 08:17 Dose: 1 drop Documented By: DEIDRA Docusate Sodium (Docusate Sodium 100 Mg Capsule) 100 mg PO DAILY PRN PRN Reason: Constipation Ferrous Sulfate (Ferrous Sulfate 324 Mg Tablet.) 324 mg PO DAILY [facility] Last Admin: 02/16/24 08:13 Dose: 324 mg Documented By: DEIDRA Fluticasone Propionate (Fluticasone Propionate Nasal 16 Gm [place]) 1 spray NOSTRIL-B DAILY PRN PRN Reason: Congestion Fluticasone/Umeclidinium/Vilanterol (Fluticasone/Umeclidinium/Vilanterol 100/62.5/25 Blst.W.Dev) 1 puff INHALE RDAILY [facility] Last Admin: 02/16/24 08:03 Dose: 1 puff Documented By: NIKKO Glucose (Glucose Gel 15 Gm Gel..Gram.) 15 gm PO Q15M PRN; Protocol PRN Reason: per Hypoglycemia Standing Ord. Hydroxychloroquine Sulfate (Hydroxychloroquine Sulfate 200 Mg Tablet) 200 mg PO DAILY [facility] Last Admin: 02/16/24 08:13 Dose: 200 mg Documented By: DEIDRA Dextrose (D10) 250 mls @ 750 mls/hr IV Q15M PRN; Protocol PRN Reason: per Hypoglycemia Standing Ord. Insulin Glargine (Insulin Glargine,Hum.Rec.Anlog 100 Unit/Ml 10 Ml Vial) 21 unit SUBCUT BEDTIME [facility] Last Admin: 02/15/24 21:10 Dose: 21 unit Documented By: RADHA Insulin Human Lispro (Insulin Lispro 100 Unit/Ml 3 Ml Vial) 0 unit SUBCUT QIDACHS [facility]; Protocol Last Admin: 02/16/24 12:59 Dose: 2 unit Documented By: ELIZABETH Latanoprost (Latanoprost 0.005 % Ophth [place] 2.5 Ml Drops) 1 drop EYE-BOTH BEDTIME [facility] Last Admin: 02/15/24 21:25 Dose: 1 drop Documented By: RADHA Loratadine (Loratadine 10 Mg Tablet) 10 mg PO DAILY [facility] Last Admin: 02/16/24 08:12 Dose: 10 mg Documented By: DEIDRA Magnesium Oxide (Magnesium Oxide 400 Mg Tablet) 400 mg PO DAILY [facility] Last Admin: 02/16/24 08:12 Dose: 400 mg Documented By: DEIDRA Melatonin (Melatonin 3 Mg Tablet) 6 mg PO BEDTIME PRN PRN Reason: Insomnia Metoprolol Tartrate (Metoprolol Tartrate 25 Mg Tablet) 25 mg PO BID [facility]; Protocol Last Admin: 02/16/24 08:13 Dose: 25 mg Documented By: DEIDRA Omeprazole (Omeprazole 20 Mg Capsule.) 20 mg PO DAILY@0630 [facility] Last Admin: 02/16/24 06:03 Dose: 20 mg Documented By: TAE Ondansetron HCl (Ondansetron Hcl 4 Mg/2 Ml Vial) 4 mg IVPUSH Q8H PRN PRN Reason: Nausea and Vomiting Polyethylene Glycol (Polyethylene Glycol 3350 17 Gm Powd.Pack) 17 gm PO BEDTIME [facility] Last Admin: 02/15/24 21:10 Dose: 17 gm Documented By: RADHA Pregabalin (Pregabalin 75 Mg Capsule) 75 mg PO BID [facility] Last Admin: 02/16/24 08:13 Dose: 75 mg Documented By: DEIDRA Sodium Chloride (0.9 % Sodium Chloride Flush 3 Ml Syringe) 3 ml IVFLUSH QSHIFT [facility] Last Admin: 02/16/24 08:16 Dose: Not Given Documented By: DEIDRA Non-Admin Reason: IV Running Labs 02/16/24 05:07 02/16/24 05:07 Labs: Laboratory Results - last 24 hr 02/15/24 02/16/24 02/16/24 19:06 05:07 07:02 MCV 84.5 MCH 25.8 L MCHC 30.6 L RDW 17.2 H Plt Count 229 MPV 9.7 Absolute Nucleated RBC 0.000 Nucleated RBC % (auto) 0.0 Anion Gap 14 Estim Creat Clear Calc 54.3 Estimated GFR 54 POC Glucose 117 H 132 H Random Glucose 147 H Calcium 9.0 Urine Color Urine Appearance Urine pH Ur Specific [place] Urine Protein Urine Glucose (UA) Urine Ketones Urine Blood Urine Nitrite Ur Leukocyte Esterase Urine RBC Urine WBC Ur Squamous Epith Cells Urine Bacteria Hyaline Casts 02/16/24 02/16/24 02/16/24 07:40 09:23 12:52 MCV MCH MCHC RDW Plt Count MPV Absolute Nucleated RBC Nucleated RBC % (auto) Anion Gap Estim Creat Clear Calc Estimated GFR POC Glucose 130 H 188 H Random Glucose Calcium Urine Color Yellow Urine Appearance Clear Urine pH 7.0 Ur Specific [place] 1.020 Urine Protein Negative Urine Glucose (UA) >=1000 H Urine Ketones Negative Urine Blood Negative Urine Nitrite Negative Ur Leukocyte Esterase Negative Urine RBC 0-2 Urine WBC 0-5 Ur Squamous Epith Cells 0-2 Urine Bacteria None Seen Hyaline Casts 0-2 Assessment and Plan (1) ANDREW (acute kidney injury): Status: Acute (2) Acute hypotension: Status: Acute Plan d2 78yo M with HFpEF, pAF on apixaban, COPD, LAINEY, DM2, HLD, GERD 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 Got 2L IV fluids. Hold fluids + diuretics. Cr improving; recheck in AM chronic HFpEF - continue metoprolol tartrate pAF - currently rate-controlled - continue apixaban, metoprolol tartrate COPD - continue Trelegy, prn albuterol DM2 - basal-bolus insulin VTE ppx - apixaban dispo - anticipate home with VNA possibly tomorrow In my clinical judgment, the patient requires continued inpatient hospitalization for the following reasons: ANDREW Total time managing care of this patient today: 35 minutes. Quality Stroke Does the patient have a stroke diagnosis?: No VTE Prior VTE?: No VTE Risk Level:: Medical - moderate - high VTE Device Contraindication: Treatment Not Indicated VTE Drug Contraindication: N/A - Med Ordered
[2024-02-16 16:10] LABS: Glucose, Whole Blood 173 mg/dL (60-115)
[2024-02-16 20:55] LABS: Glucose, Whole Blood 164 mg/dL (60-115)
[2024-02-16] MEDS: Insulin Glargine,Hum.rec.anlog 100 UNIT/ML 10 ML VIAL 21 UNIT SUBCUT (21:11)
[2024-02-16] MEDS: polyethylene glycoL 3350 17 GM POWD.PACK PO (21:12)
[2024-02-16] MEDS: Amitriptyline HCl 25 MG TABLET PO (21:12)
[2024-02-16] MEDS: Latanoprost 0.005 % Ophth Sol 2.5 ML DROPS 1 DROP EYE-BOTH (21:45)
[2024-02-17] VITALS: BP 107/58; PULSE 66; RESP 16; TEMP 36; O2SAT 98
[2024-02-17] MEDS: 0.9 % Sodium Chloride Flush 3 ML SYRINGE IVFLUSH ×2 (00:09→09:12)
[2024-02-17 06:33] LABS: Anion Gap 10 (12-20); Blood Urea Nitrogen 20 mg/dL (9-16); Calcium 9.4 mg/dL (8.4-10.2); Carbon Dioxide 27 mmol/L (22-29); Chloride 106 mmol/L (96-108); Creatinine Clr Calc Pharmacy 69.2; Estimated Glomerular Filt Rate > 60; Glucose Random 142 mg/dL (60-115); Potassium 4.2 mmol/L (3.3-5.1); Sodium 139 mmol/L (135-145)
[2024-02-17] MEDS: Omeprazole 20 MG CAPSULE.DR PO (06:37)
[2024-02-17 06:39] LABS: B Type Natriuretic Peptide 139 pg/mL (<100)
[2024-02-17 07:47] LABS: Glucose, Whole Blood 139 mg/dL (60-115)
[2024-02-17 08:00] VITALS: BP 105/59; PULSE 75; RESP 18; TEMP 36; O2SAT 100
[2024-02-17] MEDS: Fluticasone/Umeclidinium/Vilanterol 100/62.5/25 BLST.W.DEV 1 PUFF INHALE (08:02)
[2024-02-17 08:04] VITALS: PULSE 66; RESP 16; O2SAT 95
[2024-02-17 09:13] VITALS: BP 105/59; PULSE 66
[2024-02-17] MEDS: Pregabalin 75 MG CAPSULE PO (09:13)
[2024-02-17] MEDS: Metoprolol Tartrate 25 MG TABLET PO (09:13)
[2024-02-17] MEDS: Aspirin 81 MG TAB.CHEW PO (09:13)
[2024-02-17] MEDS: Apixaban 5 MG TABLET PO (09:13)
[2024-02-17] MEDS: Hydroxychloroquine Sulfate 200 MG TABLET PO (09:13)
[2024-02-17] MEDS: Ferrous Sulfate 324 MG TABLET.DR PO (09:13)
[2024-02-17] MEDS: Loratadine 10 MG TABLET PO (09:13)
[2024-02-17] MEDS: Magnesium Oxide 400 MG TABLET PO (09:13)
[2024-02-17] MEDS: Brimonidine Tartrate 0.2% Oph 5 ML BOTTLE 1 DROP EYE-BOTH (09:14)
--- NOTE | 2024-02-17 10:09 | PM.DS ---
DS: Providers Provider Date of Service: 02/17/24 Date of admission: 02/15/24 17:19 Date of discharge: 02/17/24 Primary care physician: Prabhjot Ford MD DS: Diagnosis Discharge Diagnosis (1) ANDREW (acute kidney injury): Status: Acute (2) Acute hypotension: Status: Acute (3) Chronic heart failure with preserved ejection fraction (HFpEF): Status: Acute DS: Summary Hospital Course Hospital Course: From the history and physical by the admitting hospitalist, TED Pollard, 02/15/24: Pt is a 78-year-old male with a PMH significant for HFpEF, paroxysmal AFib on Eliquis, COPD, LANIEY,?insulin-dependent type 2 diabetes, HLD, and GERD who presents to the ED for evaluation of hypotension. Pt was at a pulmonology appointment earlier today and noted to have a blood pressure of 74/50. Patient then presented to the ED for further evaluation. 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 Pt, however, feels the weight he reported was incorrect due to his scale malfunctioning. Has otherwise been asymptomatic. No lightheadedness or dizziness. No syncope/pre-syncope. No lower leg edema. Denies SOB or GAUTHIER. No PND. Denies chest pain/pressure, palpitations. No fever, chills, N/V/D, or abd pain. In the ED pt was hypotensive as low as 81/45, vitals otherwise WNL. Labs were significant for BUN 54, creatinine 1.81 (up from 0.88 on 01/20/2023), otherwise grossly unremarkable and baseline for patient. No leukocytosis. Stable H&H. No significant electrolyte abnormalities. CXR showed stable appearance of the heart and lungs with no active disease. EKG demonstrated AFib without evidence of significant ST elevations or depressions. Pt was treated with 2 L IVF. Pt will be admitted to the hospital for treatment and further evaluation of ANDREW secondary to diuretic use. 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 He was noted to have ANDREW, Cr 0.88 ->1.81. No dizziness or lightheadedness. He was given 2L of IV normal saline with resolution of hypotension and with improvement in renal function. Torsemide was held. Creatnine improved to 1.02 and he was discharged on his prior dose of torsemide, 40 mg bid. He should repeat BMP in 3 days and see his primary care doctor in 1 week. Time Attestation Discharge Coordination Time (in mins): 40 Quality: Safe Use of Opioids Does Pt have an Active Cancer Diagnosis on the Problem List?: No Quality: Stroke Does the patient have a stroke diagnosis?: No Physical Exam Vital Signs: Vital Signs: Last Vital Signs Temp 96.8 F 02/17/24 08:00 Pulse 66 02/17/24 09:13 Resp 16 02/17/24 08:04 BP 105/59 L 02/17/24 09:13 Pulse Ox 100 02/17/24 08:00 O2 Del Method Room Air 02/17/24 08:00 O2 Flow Rate 1 02/17/24 00:00 BMI result Body Mass Index 36.6 Gen: in no acute distress HEENT: sclera anicteric, moist mucus membranes Neck: supple Lungs: clear to auscultation bilaterally Heart:irregular, no murmurs Abd: soft, non-tender, non-distended Ext: trace bilateral leg edema Skin: warm/well-perfused Neuro: alert and oriented x3, no focal findings Psych: appropriate affect DS: Data Data Completed and Pending Completed studies during hospitalization [Text1]: Laboratory Results WBC 9.0 X10*3/uL (4.8-10.8) 02/16/24 05:07 RBC 3.99 X10*6/uL (4.60-5.80) L 02/16/24 05:07 Hgb 10.3 g/dl (14.0-18.0) L 02/16/24 05:07 Hct 33.7 % (42.0-52.0) L 02/16/24 05:07 MCV 84.5 fL (80.0-98.0) 02/16/24 05:07 MCH 25.8 pg (27.0-33.0) L 02/16/24 05:07 MCHC 30.6 g/dl (31.0-36.0) L 02/16/24 05:07 RDW 17.2 % (11.0-16.0) H 02/16/24 05:07 Plt Count 229 X10*3/uL (160-400) 02/16/24 05:07 MPV 9.7 fL (9.4-12.4) 02/16/24 05:07 Immature Gran % (Auto) 0.3 % (0.0-0.4) 02/15/24 13:45 Neut % (Auto) 62.2 % (45-73) 02/15/24 13:45 Lymph % (Auto) 25.1 % (20-40) 02/15/24 13:45 [place] % (Auto) 8.1 % (2-11) 02/15/24 13:45 Eos % (Auto) 3.9 % (0-4) 02/15/24 13:45 Baso % (Auto) 0.4 % (0-2) 02/15/24 13:45 Lymph # (Auto) 2.6 X10*3/uL (1.2-4.9) 02/15/24 13:45 [place] # (Auto) 0.8 X10*3/uL (0.1-1.2) 02/15/24 13:45 Eos # (Auto) 0.4 X10*3/uL (0.0-0.4) 02/15/24 13:45 Baso # (Auto) 0.0 X10*3/uL (0.0-0.2) 02/15/24 13:45 Abs Immat Gran (auto) 0.03 X10*3/uL (0.00-0.03) 02/15/24 13:45 Absolute Neuts (auto) 6.5 x10*3/uL (2.0-8.3) 02/15/24 13:45 Absolute Nucleated RBC 0.000 X10*3/uL (0.0-0.012) 02/16/24 05:07 Nucleated RBC % (auto) 0.0 /100WBC (0.0-0.2) 02/16/24 05:07 Sodium 139 mmol/L (135-145) 02/17/24 06:11 Potassium 4.2 mmol/L (3.3-5.1) 02/17/24 06:11 Chloride 106 mmol/L (96-108) 02/17/24 06:11 Carbon Dioxide 27 mmol/L (22-29) 02/17/24 06:11 Anion Gap 10 (12-20) L 02/17/24 06:11 BUN 20 mg/dL (9-16) H 02/17/24 06:11 Creatinine 1.02 mg/dL (0.5-1.4) 02/17/24 06:11 Estim Creat Clear Calc 69.2 02/17/24 06:11 Estimated GFR > 60 02/17/24 06:11 POC Glucose 139 mg/dL (60-115) H 02/17/24 07:41 Random Glucose 142 mg/dL (60-115) H 02/17/24 06:11 Calcium 9.4 mg/dL (8.4-10.2) 02/17/24 06:11 Magnesium 2.3 mg/dL (1.6-2.6) 02/15/24 13:45 Total Bilirubin 0.3 mg/dL (0.0-1.0) 02/15/24 13:45 Direct Bilirubin 0.1 mg/dL (0.0-0.5) 02/15/24 13:45 AST 19 U/L (5-37) 02/15/24 13:45 ALT 13 U/L (0-40) 02/15/24 13:45 Alkaline Phosphatase 92 U/L (39-117) 02/15/24 13:45 Troponin I High Sens 8.0 ng/L (<3.5-35.0) 02/15/24 13:45 B-Natriuretic Peptide 139 pg/mL (<100) H 02/17/24 06:11 Total Protein 8.7 g/dL (6.5-8.0) H 02/15/24 13:45 Albumin 3.7 g/dL (3.5-5.0) 02/15/24 13:45 Lipase 27 U/L (8-78) 02/15/24 13:45 Urine Color Yellow 02/16/24 09:23 Urine Appearance Clear 02/16/24 09:23 Urine pH 7.0 (5.0-9.0) 02/16/24 09:23 Ur Specific [place] 1.020 (1.005-1.025) 02/16/24 09:23 Urine Protein Negative mg/dL (Neg-Trace) 02/16/24 09:23 Urine Glucose (UA) >=1000 mg/dL (Negative) H 02/16/24 09:23 Urine Ketones Negative mg/dL (Negative) 02/16/24 09:23 Urine Blood Negative (Negative) 02/16/24 09:23 Urine Nitrite Negative (Negative) 02/16/24 09:23 Ur Leukocyte Esterase Negative (Negative) 02/16/24 09:23 Urine RBC 0-2 /HPF (0-2) 02/16/24 09:23 Urine WBC 0-5 /HPF (0-5) 02/16/24 09:23 Ur Squamous Epith Cells 0-2 /HPF (0-2) 02/16/24 09:23 Urine Bacteria None Seen (None Seen) 02/16/24 09:23 Hyaline Casts 0-2 /LPF (0-2) 02/16/24 09:23 Impressions Chest X-Ray 02/15/24 13:58 IMPRESSION: Stable appearance of the heart and lungs. No active disease. Discharge Plan Discharge Anticipated Discharge Date/Time: 02/17/24 09:49 Patient Disposition: Home, Self-Care Discharge Diagnosis: acute kidney injury and hypotension due to over-diuresis Referrals: Prabhjot Ford MD [Primary Care Provider] - 1 Week Discharge Medications: Continued atorvastatin 20 mg tablet 20 mg PO DAILY magnesium oxide 400 mg (241.3 mg magnesium) tablet 400 mg PO DAILY ferrous sulfate 325 mg (65 mg iron) tablet 325 mg PO DAILY brimonidine 0.2 % drops 1 drp ophthalmic (eye) BID omeprazole 20 mg capsule,delayed release(DR/EC) 20 mg PO DAILY aspirin 81 mg tablet,chewable 1 tab PO DAILY ammonium lactate 12 % cream 1 appl topical DAILY albuterol sulfate 90 mcg/actuation HFA aerosol inhaler 2 puff INHALATION Q4H PRN (Reason: wheezing) insulin aspart U-100 [Novolog FlexPen U-100 Insulin] 100 unit/mL (3 mL) insulin pen 22 - 28 sliding scale dose subcut TIDAC insulin glargine [Lantus Solostar U-100 Insulin] 100 unit/mL (3 mL) insulin pen 30 unit subcut BEDTIME [place] 0.01 % drops 1 drp ophthalmic (eye) BEDTIME Eliquis 5 mg tablet 5 mg PO BID Trelegy Ellipta 100-62.5-25 mcg blister with device 1 ea inhalation DAILY metformin 500 mg tablet 500 mg PO TID torsemide 20 mg tablet 40 mg PO BID polyethylene glycol 3350 [HealthyLax] 17 gram powder in packet 17 g PO BEDTIME spironolactone 25 mg tablet 25 mg PO DAILY amitriptyline 25 mg tablet 25 mg PO BEDTIME hydrocortisone 2.5 % cream 1 appl topical DAILY hydroxychloroquine 200 mg tablet 200 mg PO DAILY fluticasone propionate 50 mcg/actuation spray,suspension 1 spray intranasal DAILY PRN (Reason: Congestion) loratadine 10 mg tablet 10 mg PO DAILY metoprolol tartrate 25 mg tablet 25 mg PO BID Entresto 24-26 mg tablet 1 tab PO BID ketoconazole 2 % Cream 1 appl TOPICAL DAILY Rx Instructions: APPLY TO FEET pregabalin 75 mg capsule 75 mg PO BID dapagliflozin propanediol [Farxiga] 10 mg tablet 10 mg PO DAILY Discharge Orders: Discharge Order (Routine); Ordered 02/17/24 Ordered By: Mindi Hickman Diet: Low salt diet Activity on Discharge: As tolerated Stand Alone Forms: Patient Portal Discharge page Print Language: Portuguese Other Ambulatory Orders: Basic Metabolic Panel (Routine) Timeframe: 20240220 Facility: [facility] - Location: Laboratory Ordered By: Mindi Hickman Care Plan Goals: cardiac health Health Concerns: acute kidney injury and hypotension due to over-diuresis Plan of Treatment: Resume prior dose of torsemide, 40 mg once daily Repeat labs [basic metabolic panel, non-fasting] in 3 days Low-sodium diet: less than 2000 mg of sodium daily. Weigh yourself daily and call your doctor if your weight goes up by more than 3 lb/day or 5 lb/week. Please follow up with your primary care doctor within 1 week. Return to the hospital if you experience recurrent or worsening symptoms. Assessment: See Discharge Summary.
--- NOTE | 2024-02-17 11:47 | MHC.CM.PN ---
PT DISCHARGED HOME PRIOR TO CM ASSESSMENT, NO IMM GIVEN PT HAD LEFT UNIT.
== END 2024-02-17 11:03 | disposition home or self-care (01) | DRG 312 ==
LOC: HO.ED 14:12 → HO.EDOVER 17:27 → HO.S3 02-16 15:04
PROVIDERS: Admitting Provider Student in an Organized Health Care Education/Training Program; Emergency Provider Emergency Medicine; PCP Internal Medicine; Visit Provider Family Medicine
DX: I95.2 Hypotension due to drugs (principal); N17.9 Acute kidney failure, unspecified; J44.9 Chronic obstructive pulmonary disease, unspecified; K21.9 Gastro-esophageal reflux disease without esophagitis; T50.1X5A Adverse effect of loop [high-ceiling] diuretics, initial encounter; G47.33 Obstructive sleep apnea (adult) (pediatric); I48.0 Paroxysmal atrial fibrillation; E11.9 Type 2 diabetes mellitus without complications; E78.5 Hyperlipidemia, unspecified; Z79.4 Long term (current) use of insulin; Z79.01 Long term (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 of anticoagulants; Z79.84 Long term (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 of oral hypoglycemic drugs; Z79.899 Other long term (current) drug therapy
CPT/HCPCS: 36415; 71045; 80048; 80076; 81001; 82947; 83690; 83735; 83880; 84484; 85025; 85027; 93005; 94640; 99285

== ENCOUNTER → 2024-02-15 13:24 | Outpatient (BNV) | payer OTHER, SELFPAY | PROVIDERS: Emergency Provider Emergency Medicine; PCP Internal Medicine; Visit Provider Internal Medicine Cardiovascular Disease | DX: I48.91 Unspecified atrial fibrillation (principal) | CPT/HCPCS: 93010 ==

== ENCOUNTER → 2024-02-15 17:19 | Outpatient (BNV) | payer OTHER, SELFPAY | PROVIDERS: Admitting Provider Student in an Organized Health Care Education/Training Program; Emergency Provider Emergency Medicine; PCP Internal Medicine; Visit Provider Student in an Organized Health Care Education/Training Program | DX: N17.9 Acute kidney failure, unspecified (principal); I95.9 Hypotension, unspecified; I50.32 Chronic diastolic (congestive) heart failure | CPT/HCPCS: 99223; 99232; 99239 ==

== ENCOUNTER 2024-03-05 14:58 | Inpatient (IN) | payer OTHER, SELFPAY ==
[2024-03-05] VITALS (7 sets, daily range): BP systolic 73–123; BP diastolic 35–69; PULSE 78–89; RESP 16–19; TEMP 36.4–36.5; O2SAT 97–100; BMI 36.0
--- NOTE | ~2024-03-05 | XR_ITS ---
EXAMINATION: XR CHEST CLINICAL INFORMATION: Hypoglycemia. COMPARISON: Chest radiograph dated 02/15/2024. TECHNIQUE: Frontal view of the chest was obtained. FINDINGS: Heart size remains stable and within normal limits. There is mild calcific atherosclerotic disease of the aorta. Both lungs are clear. The pleural spaces are clear. There is no pneumothorax. There are degenerative changes of the glenohumeral joints. There are degenerative changes of the acromioclavicular joints. XR/XR chest 1V IMPRESSION: No acute cardiopulmonary disease.
[2024-03-05 15:08] LABS: Glucose, Whole Blood 39 mg/dL (60-115)
[2024-03-05] MEDS: Dextrose 10 % 1,000 ML 50 ML IVCONT (15:13)
--- NOTE | 2024-03-05 15:16 | ECG_ITS ---
Test Reason : HYPOGLYCEMIC Blood Pressure : / mmHG Vent. Rate : 077 BPM Atrial Rate : 000 BPM P-R Int : 000 ms QRS Dur : 092 ms QT Int : 410 ms P-R-T Axes : 000 004 010 degrees QTc Int : 463 ms Atrial fibrillation Low voltage QRS Abnormal ECG When compared with ECG of 15-FEB-2024 13:43, No significant change was found Referred By: Elizabeth Farrell Electronically Signed By:JUSTINA ARREAGA MD
--- NOTE | 2024-03-05 15:18 | ED.GENADULT ---
HPI - General Adult General Chief complaint: General Medical Stated complaint: WEAK,DIZZY,LOW BS 55,LOW BP 84/55 PER EMS Time Seen by Provider: 03/05/24 15:07 Source: patient, EMS and old records reviewed Mode of arrival: EMS Limitations: no limitations History of Present Illness HPI narrative: 78-year-old male history of HFpEF, paroxysmal AFib on Eliquis, COPD, LAINEY, insulin-dependent DM T2, HLD. Patient had his normal PCP office visit this morning and was told everything was okay, blood pressure in the morning was 106/68. Patient use 30 units of Lantus at bedtime and sliding scale for NovoLog patient had BS at home of 106 and gave himself 24 units of NovoLog patient felt clammy and diaphoretic with some blurry vision checked his blood sugar was 61 and called 911, patient found to be hypotensive during transportation and in the hospital, no fever, no chills, no CP, no SOB, no abdominal pain, no nausea, no vomiting no diarrhea. Patient states that his been eating and drinking normal appetite lately. Related Data Home Medications ?Medication ?Instructions ?Recorded ?Confirmed albuterol sulfate 90 mcg/actuation 2 puff inhalation Q4H PRN wheezing 01/19/23 02/15/24 aerosol inhaler ammonium lactate 12 % topical cream 1 appl topical DAILY 01/19/23 02/15/24 apixaban 5 mg tablet (Eliquis) 5 mg PO BID 01/19/23 02/15/24 aspirin 81 mg chewable tablet 1 tab PO DAILY 01/19/23 02/15/24 atorvastatin 20 mg tablet 20 mg PO DAILY 01/19/23 02/15/24 bimatoprost 0.01 % eye drops 1 drp ophthalmic (eye) BEDTIME 01/19/23 02/15/24 (Lumigan) brimonidine 0.2 % eye drops 1 drp ophthalmic (eye) BID 01/19/23 02/15/24 ferrous sulfate 325 mg (65 mg 325 mg PO DAILY 01/19/23 02/15/24 iron) tablet fluticasone fur. 100 mcg-umeclid 1 ea inhalation DAILY 01/19/23 02/15/24 62.5 mcg-vilant 25 mcg inhalat.powder (Trelegy Ellipta) insulin aspart U-100 100 unit/mL sliding scale dose subcut 01/19/23 02/15/24 (3 mL) subcutaneous pen (Novolog TIDAC FlexPen U-100 Insulin aspart) insulin glargine 100 unit/mL (3 30 unit subcut BEDTIME 01/19/23 02/15/24 mL) subcutaneous pen (Lantus Solostar U-100 Insulin) magnesium oxide 400 mg (241.3 mg 400 mg PO DAILY 01/19/23 02/15/24 magnesium) tablet metformin 500 mg tablet 500 mg PO TID 01/19/23 02/15/24 omeprazole 20 mg capsule,delayed 20 mg PO DAILY 01/19/23 02/15/24 release amitriptyline 25 mg tablet 25 mg PO BEDTIME 02/15/24 02/15/24 dapagliflozin propanediol 10 mg 10 mg PO DAILY 02/15/24 02/15/24 tablet (Farxiga) fluticasone propionate 50 1 spray intranasal DAILY PRN 02/15/24 02/15/24 mcg/actuation nasal Congestion spray,suspension hydrocortisone 2.5 % topical cream 1 appl topical DAILY 02/15/24 02/15/24 hydroxychloroquine 200 mg tablet 200 mg PO DAILY 02/15/24 02/15/24 ketoconazole 2 % topical cream 1 appl topical DAILY 02/15/24 02/15/24 loratadine 10 mg tablet 10 mg PO DAILY 02/15/24 02/15/24 metoprolol tartrate 25 mg tablet 25 mg PO BID 02/15/24 02/15/24 polyethylene glycol 3350 17 gram 17 g PO BEDTIME 02/15/24 02/15/24 oral powder packet (HealthyLax) pregabalin 75 mg capsule 75 mg PO BID 02/15/24 02/15/24 sacubitril 24 mg-valsartan 26 mg 1 tab PO BID 02/15/24 02/15/24 tablet (Entresto) spironolactone 25 mg tablet 25 mg PO DAILY 02/15/24 02/15/24 torsemide 20 mg tablet 40 mg PO BID 02/15/24 02/15/24 Allergies Allergy/AdvReac Type Severity Reaction Status Date / Time No Known Allergies Allergy Verified 03/05/24 15:17 [No Known Allergies*] Review of Systems Review of Systems: All other systems are reviewed and are negative Constitutional: Reports as per HPI and Reports no additional constitutional complaints Eyes: Reports as per HPI and Reports no additional eye complaints Reports system reviewed and no additional complaints, except as documented Cardiovascular: Reports as per HPI and Reports no additional cardiovascular complaints Respiratory: Reports as per HPI and Reports no additional respiratory complaints Gastrointestinal: Reports as per HPI and Reports no additional gastrointestinal complaints Genitourinary: Reports no additional female genitourinary complaints Musculoskeletal: Reports no additional musculoskeletal complaints Skin/Breast: Reports system reviewed and no additional complaints, except as docu Psychiatric: Reports no additional psychiatric complaints Endocrine: Reports no additional endocrine complaints Hematologic/Lymphatic: Reports no additional hematologic/lymphatic complaints Allergic/Immunologic: Reports no additional allergic/immunologic complaints Reports system reviewed and no additional complaints, except as documented and Reports Abnormal speech present FORMERLY [facility], [facility] Past Medical History Medical History GERD (gastroesophageal reflux disease) Diabetes COPD (chronic obstructive pulmonary disease) Obesity PAF (paroxysmal atrial fibrillation) Diastolic HF (heart failure) Acute hypotension Fluid volume depletion Social History Social History Household Members: None Housing: House Do you presently have visiting nurse or other home services: Yes Alcohol intake: former Patient Tobacco Use Status: Never used Tobacco Smoked in Last 30 Days: No Use of substances other than those prescribed or required for medical reasons: No Advance Directives: Yes Advance Directives on File: Yes Advance Directives Date on File: 02/16/24 service: No Current occupational status: retired Physical Exam ED Vital Signs: Vital Signs - 24 hr 03/05/24 15:11 03/05/24 15:30 03/05/24 16:12 Temperature 97.7 F 97.7 F Pulse Rate 88 85 81 Respiratory Rate 18 18 19 Blood Pressure 81/40 L 73/35 L 89/42 L Pulse Oximetry 99 98 97 Oxygen Delivery Method Room Air Room Air Room Air 03/05/24 17:11 Temperature 97.6 F Pulse Rate 89 Respiratory Rate 18 Blood Pressure 98/59 L Pulse Oximetry 100 Oxygen Delivery Method Room Air BMI result Body Mass Index 36.0 Vital signs have been reviewed and appear to be correct. Blood pressure Low. Heart rate normal. Respiratory rate normal. Temperature normal. Oxygen saturation normal. Appearance: Alert. Oriented X3. No acute distress. Head: Normal external exam. Normocephalic. Atraumatic. No Pagan signs noted. No raccoon eyes noted Eyes: PERRLA. EOMI. Conjunctiva and sclera normal. Eyelids normal. ENT: TM's Normal. Pharynx normal. Uvula midline. Moist mucous membranes. No trismus noted. No drooling noted. No muffled voice noted. Neck: Normal inspection. Neck supple. FROM. No adenopathy. Thyroid Normal. No meningeal signs. No neck mass noted. CVS: Normal heart rate and rhythm. Heart sound normal. No murmurs noted. Pulses normal throughout. Respiratory: No respiratory distress. Painless inspiration. Breath sounds normal. No wheezes/rales/rhonchi noted. Chest nontender. No accessory muscle usage noted or decreased air movement noted. Abdomen: Soft and nontender. Bowel sounds normal in all 4 quadrants. No distention noted. No organomegaly noted. No visible injury noted. Back: No CVA tenderness. Full range of motion noted. Skin: Skin warm and dry. Normal skin color. Normal skin turgor. No rashes/lesions/lacerations noted. Extremities: No lower extremity edema. Extremities exhibit normal range of motion. Extremities nontender. Neuro: Oriented X 3. Cranial nerve exam: II-XII are grossly intact No motor deficit. No sensory deficit. Reflexes normal. Course Reevaluation(s) Reevaluation #1: [age] year old male brought in by ambulance for hypoglycemia after self injecting 24 units of NovoLog at home BS before administering the NovoLog was 106. Patient found to be hypotensive in the emergency department and hypoglycemic, patient was given D10 with improvement of BS, patient also was given IV fluids with improvement of blood pressure, labs reveals acute kidney injury likely due to dehydration and hypotension. workup for sepsis is unrevealing with no source of infection Do not meet criteria for SIRS, patient currently has no sepsis, lactic acidosis secondary to dehydration expect to improve with IV fluids. Time: 17:37 Reevaluation #2: blood pressure improvement with IV hydration. Time: 17:48 Medications Administered Generic Name Dose Route Start Last Admin Trade Name Freq PRN Reason Stop Dose Admin Dextrose 1,000 mls @ 50 mls/hr 03/05/24 15:17 03/05/24 15:13 D10 IVCONT 03/06/24 11:16 50 mls/hr .Q20H ONE Administration Discontinued Medications Generic Name Dose Route Start Last Admin Trade Name Freq PRN Reason Stop Dose Admin Sodium Chloride 1,000 mls @ 999 mls/hr 03/05/24 15:16 03/05/24 17:12 Ns IV 03/05/24 16:16 Infused .Q1H1M ONE Infusion Medical Decision Making Differential Diagnosis Differential Diagnoses: The differential diagnosis associated with the presentation includes ( Sepsis, dehydration, ANDREW, hypokalemia, electrolyte derangement, lactic acidosis, severe anemia, UTI, upper respiratory infection,, insulin induced hypoglycemia.) Admission/Observation Consideration of admission/observation: Escalation of care including admission/observation considered Consult Healthcare Provider Management of the patient was discussed with: Hospitalist ( Dr. Cisse) Lab Data MDM Lab Attestation statement: I reviewed the patient's lab results. 03/05/24 15:49 03/05/24 15:49 Labs: Lab Results 03/05/24 03/05/24 03/05/24 Range/Units 15:04 15:49 15:55 WBC 10.7 (4.8-10.8) X10*3/uL RBC 4.37 L (4.60-5.80) X10*6/uL Hgb 11.4 L (14.0-18.0) g/dl Hct 36.2 L (42.0-52.0) % MCV 82.8 (80.0-98.0) fL MCH 26.1 L (27.0-33.0) pg MCHC 31.5 (31.0-36.0) g/dl RDW 16.4 H (11.0-16.0) % Plt Count 279 (160-400) X10*3/uL MPV 9.4 (9.4-12.4) fL Immature Gran % (Auto) 0.3 (0.0-0.4) % Neut % (Auto) 68.1 (45-73) % Lymph % (Auto) 20.2 (20-40) % Dixie % (Auto) 8.1 (2-11) % Eos % (Auto) 2.8 (0-4) % Baso % (Auto) 0.5 (0-2) % Lymph # (Auto) 2.2 (1.2-4.9) X10*3/uL Dixie # (Auto) 0.9 (0.1-1.2) X10*3/uL Eos # (Auto) 0.3 (0.0-0.4) X10*3/uL Baso # (Auto) 0.1 (0.0-0.2) X10*3/uL Abs Immat Gran (auto) 0.03 (0.00-0.03) X10*3/uL Absolute Neuts (auto) 7.3 (2.0-8.3) x10*3/uL Absolute Nucleated RBC 0.000 (0.0-0.012) X10*3/uL Nucleated RBC % (auto) 0.0 (0.0-0.2) /100WBC Sodium 136 (135-145) mmol/L Potassium 3.8 (3.3-5.1) mmol/L Chloride 98 (96-108) mmol/L Carbon Dioxide 23 (22-29) mmol/L Anion Gap 19 (12-20) BUN 44 H (9-16) mg/dL Creatinine 1.60 H (0.5-1.4) mg/dL Estim Creat Clear Calc 43.7 Estimated GFR 42 POC Glucose 39 L* 154 H (60-115) mg/dL Random Glucose 160 H (60-115) mg/dL Lactic Acid 3.9 H* (0.5-2.0) mmol/L Calcium 9.3 (8.4-10.2) mg/dL Total Bilirubin 0.3 (0.0-1.0) mg/dL Direct Bilirubin 0.1 (0.0-0.5) mg/dL AST 19 (5-37) U/L ALT 14 (0-40) U/L Alkaline Phosphatase 98 (39-117) U/L Troponin I High Sens 10.0 (<3.5-35.0) ng/L B-Natriuretic Peptide 76 (<100) pg/mL Total Protein 8.9 H (6.5-8.0) g/dL Albumin 3.9 (3.5-5.0) g/dL Lipase 23 (8-78) U/L Urine Color Urine Appearance Urine pH (5.0-9.0) Ur Specific Palm (1.005-1.025) Urine Protein (Neg-Trace) mg/dL Urine Glucose (UA) (Negative) mg/dL Urine Ketones (Negative) mg/dL Urine Blood (Negative) Urine Nitrite (Negative) Ur Leukocyte Esterase (Negative) Urine RBC (0-2) /HPF Urine WBC (0-5) /HPF Ur Squamous Epith Cells (0-2) /HPF Urine Bacteria (None Seen) Hyaline Casts (0-2) /LPF Influenza Type A (PCR) NEGATIVE (Negative) Influenza Type B (PCR) NEGATIVE (Negative) RSV RNA Qual (PCR) NEGATIVE (Negative) SARS-CoV-2 RNA (RT-PCR) NEGATIVE (Negative) 03/05/24 Range/Units 16:12 WBC (4.8-10.8) X10*3/uL RBC (4.60-5.80) X10*6/uL Hgb (14.0-18.0) g/dl Hct (42.0-52.0) % MCV (80.0-98.0) fL MCH (27.0-33.0) pg MCHC (31.0-36.0) g/dl RDW (11.0-16.0) % Plt Count (160-400) X10*3/uL MPV (9.4-12.4) fL Immature Gran % (Auto) (0.0-0.4) % Neut % (Auto) (45-73) % Lymph % (Auto) (20-40) % Dixie % (Auto) (2-11) % Eos % (Auto) (0-4) % Baso % (Auto) (0-2) % Lymph # (Auto) (1.2-4.9) X10*3/uL Dixie # (Auto) (0.1-1.2) X10*3/uL Eos # (Auto) (0.0-0.4) X10*3/uL Baso # (Auto) (0.0-0.2) X10*3/uL Abs Immat Gran (auto) (0.00-0.03) X10*3/uL Absolute Neuts (auto) (2.0-8.3) x10*3/uL Absolute Nucleated RBC (0.0-0.012) X10*3/uL Nucleated RBC % (auto) (0.0-0.2) /100WBC Sodium (135-145) mmol/L Potassium (3.3-5.1) mmol/L Chloride (96-108) mmol/L Carbon Dioxide (22-29) mmol/L Anion Gap (12-20) BUN (9-16) mg/dL Creatinine (0.5-1.4) mg/dL Estim Creat Clear Calc Estimated GFR POC Glucose (60-115) mg/dL Random Glucose (60-115) mg/dL Lactic Acid (0.5-2.0) mmol/L Calcium (8.4-10.2) mg/dL Total Bilirubin (0.0-1.0) mg/dL Direct Bilirubin (0.0-0.5) mg/dL AST (5-37) U/L ALT (0-40) U/L Alkaline Phosphatase (39-117) U/L Troponin I High Sens (<3.5-35.0) ng/L B-Natriuretic Peptide (<100) pg/mL Total Protein (6.5-8.0) g/dL Albumin (3.5-5.0) g/dL Lipase (8-78) U/L Urine Color Yellow Urine Appearance Clear Urine pH 5.5 (5.0-9.0) Ur Specific Palm 1.015 (1.005-1.025) Urine Protein Negative (Neg-Trace) mg/dL Urine Glucose (UA) >=1000 H (Negative) mg/dL Urine Ketones Negative (Negative) mg/dL Urine Blood Negative (Negative) Urine Nitrite Negative (Negative) Ur Leukocyte Esterase Negative (Negative) Urine RBC 0-2 (0-2) /HPF Urine WBC 0-5 (0-5) /HPF Ur Squamous Epith Cells 0-2 (0-2) /HPF Urine Bacteria None Seen (None Seen) Hyaline Casts 3-5 (0-2) /LPF Influenza Type A (PCR) (Negative) Influenza Type B (PCR) (Negative) RSV RNA Qual (PCR) (Negative) SARS-CoV-2 RNA (RT-PCR) (Negative) Independent Interpretation I performed an independent interpretation of an: Plain X-Ray ( chest: No acute cardiopulmonary disease.) Radiology Impression Discussion of test interpretation with radiology: I have reviewed the radiologist's reading. Critical Care Time Critical Care Time Critical Care Time: Yes Total Critical Care Time: 60 Attestation: The patient was critically ill with a high probability of imminent or life-threatening deterioration. I spent greater than 30 minutes of discontinuous time evaluating the patient, delivering critical care at the bedside, discussing evaluating data with consultants. Critical care time does not include time spent performing separately billable procedures or teaching. Time spent performing critical care was 60 minutes. Discharge Plan Discharge Clinical Impression: Hypotension, Hypoglycemia, ANDREW (acute kidney injury), Acute lactic acidosis Patient Disposition: Admitted As Inpatient Prescriptions: No Action atorvastatin 20 mg tablet 20 mg PO DAILY magnesium oxide 400 mg (241.3 mg magnesium) tablet 400 mg PO DAILY ferrous sulfate 325 mg (65 mg iron) tablet 325 mg PO DAILY brimonidine 0.2 % drops 1 drp ophthalmic (eye) BID omeprazole 20 mg capsule,delayed release(DR/EC) 20 mg PO DAILY aspirin 81 mg tablet,chewable 1 tab PO DAILY ammonium lactate 12 % cream 1 appl topical DAILY albuterol sulfate 90 mcg/actuation HFA aerosol inhaler 2 puff INHALATION Q4H PRN (Reason: wheezing) insulin aspart U-100 [Novolog FlexPen U-100 Insulin] 100 unit/mL (3 mL) insulin pen 22 - 28 sliding scale dose subcut TIDAC insulin glargine [Lantus Solostar U-100 Insulin] 100 unit/mL (3 mL) insulin pen 30 unit subcut BEDTIME Lumigan 0.01 % drops 1 drp ophthalmic (eye) BEDTIME Eliquis 5 mg tablet 5 mg PO BID Trelegy Ellipta 100-62.5-25 mcg blister with device 1 ea inhalation DAILY metformin 500 mg tablet 500 mg PO TID torsemide 20 mg tablet 40 mg PO BID polyethylene glycol 3350 [HealthyLax] 17 gram powder in packet 17 g PO BEDTIME spironolactone 25 mg tablet 25 mg PO DAILY amitriptyline 25 mg tablet 25 mg PO BEDTIME hydrocortisone 2.5 % cream 1 appl topical DAILY hydroxychloroquine 200 mg tablet 200 mg PO DAILY fluticasone propionate 50 mcg/actuation spray,suspension 1 spray intranasal DAILY PRN (Reason: Congestion) loratadine 10 mg tablet 10 mg PO DAILY metoprolol tartrate 25 mg tablet 25 mg PO BID Entresto 24-26 mg tablet 1 tab PO BID ketoconazole 2 % Cream 1 appl TOPICAL DAILY Rx Instructions: APPLY TO FEET pregabalin 75 mg capsule 75 mg PO BID dapagliflozin propanediol [Farxiga] 10 mg tablet 10 mg PO DAILY Print Language: Martiniquais
[2024-03-05] MEDS: 0.9 % Sodium Chloride 1,000 ML 999 ML IV ×2 (15:53→17:58)
[2024-03-05 15:55] LABS: MANUAL DIFF FLAG NO
[2024-03-05 15:58] LABS: Basophils Absolute Auto 0.1 X10*3/uL (0.0-0.2); Basophils Percent Auto 0.5 % (0-2); Eosinophils Absolute Auto 0.3 X10*3/uL (0.0-0.4); Eosinophils Percent Auto 2.8 % (0-4); Hematocrit 36.2 % (42.0-52.0); Hemoglobin 11.4 g/dl (14.0-18.0); Imm Gran Abs Auto 0.03 X10*3/uL (0.00-0.03); Imm Gran Pct Auto 0.3 % (0.0-0.4); Lymphocytes Absolute Auto 2.2 X10*3/uL (1.2-4.9); Lymphocytes Percent Auto 20.2 % (20-40); Mean Corpuscular HGB Conc 31.5 g/dl (31.0-36.0); Mean Corpuscular Hemoglobin 26.1 pg (27.0-33.0); Mean Corpuscular Volume 82.8 fL (80.0-98.0); Mean Platelet Volume 9.4 fL (9.4-12.4); Monocytes Absolute Auto 0.9 X10*3/uL (0.1-1.2); Monocytes Percent Auto 8.1 % (2-11); Neutrophils Absolute Auto 7.3 x10*3/uL (2.0-8.3); Neutrophils Percent Auto 68.1 % (45-73); Platelet Count 279 X10*3/uL (160-400); Red Blood Count 4.37 X10*6/uL (4.60-5.80); Red Cell Distribution Width 16.4 % (11.0-16.0); White Blood Count 10.7 X10*3/uL (4.8-10.8)
[2024-03-05 15:59] LABS: Glucose, Whole Blood 154 mg/dL (60-115)
--- NOTE | 2024-03-05 16:05 | PC.NURSE ---
Pt coming from home via EMS, called EMS for dizziness and hypoglycemia (sugar 61), pt reports he drank 2 Ensure at home. EMS found pts BGL to be 62 and hypotensive with BP in 80s systolic. EMS started NS, IV in right AC 20G. Pt is alert and oriented, breathing even and unlabored, skin cool and slightly clammy. Pts BGL found to be 39, hypotensive in the 80s systolic BP. MD alerted. Pt reports some mild dizziness, denies any pain. Denies any N/V/D, CP, SOB, recent illnesses or falls. Reports he took his insulin earlier today, no insulin pump. Pt medicated per DEC, BGL improved. Pt on bedside clinical research monitor, NSR.
[2024-03-05 16:20] LABS: Appearance Urine Clear; Color Urine Yellow; Glucose Urine UA >=1000 mg/dL (Negative); Leukocyte Esterase Urine Negative (Negative); Nitrite Urine Negative (Negative); PH 5.5 (5.0-9.0); Specific Gravity - Urine 1.015 (1.005-1.025); UMIC TRIGGER UACC YES; Urine Blood Negative (Negative); Urine Ketones Negative (Negative); Urine Protein Negative (Neg-Trace)
[2024-03-05 16:23] LABS: Bacteria Urine None Seen (None Seen); RBC Urine 0-2 /HPF (0-2); Squamous Epithelial Cell Urine 0-2 /HPF (0-2); WBC Urine 0-5 /HPF (0-5)
[2024-03-05 16:23] LABS: Alanine Aminotransferase 14 U/L (0-40); Albumin Level 3.9 g/dL (3.5-5.0); Alkaline Phosphatase 98 U/L (39-117); Anion Gap 19 (12-20); Aspartate Amino Transferase 19 U/L (5-37); Bilirubin Direct 0.1 mg/dL (0.0-0.5); Bilirubin Total 0.3 mg/dL (0.0-1.0); Blood Urea Nitrogen 44 mg/dL (9-16); Calcium 9.3 mg/dL (8.4-10.2); Carbon Dioxide 23 mmol/L (22-29); Chloride 98 mmol/L (96-108); Creatinine Clr Calc Pharmacy 43.7; Estimated Glomerular Filt Rate 42; Glucose Random 160 mg/dL (60-115); Lipase 23 U/L (8-78); Potassium 3.8 mmol/L (3.3-5.1); Sodium 136 mmol/L (135-145); Total Protein 8.9 g/dL (6.5-8.0)
[2024-03-05 16:28] LABS: B Type Natriuretic Peptide 76 pg/mL (<100)
[2024-03-05 16:43] LABS: Influenza A PCR NEGATIVE (Negative); Influenza B PCR NEGATIVE (Negative); Resp Syncy Virus RNA Qual PCR NEGATIVE (Negative); SARS COV2 PCR INHOUSE NEGATIVE (Negative)
[2024-03-05 16:48] LABS: Lactic Acid 3.9 mmol/L (0.5-2.0)
[2024-03-05 17:53] LABS: Reflex Lactate? Lactic Acid Added
--- NOTE | 2024-03-05 18:12 | PM.IMHP ---
History of Present Illness Date of Service: 03/05/24 Attending physician on admission: Nabil Cisse Chief Complaint: hypoglycemia /hypotension 78-year-old male with a PMH significant for HFpEF, paroxysmal AFib on Eliquis, COPD, LAINEY,?insulin-dependent type 2 diabetes, HLD, and GERD who presents to the ED for evaluation of hypoglycemia,hypotension.patient is poor historian -hx taken with help of Ed physician: Patient had his normal PCP office visit this morning and was told everything was okay, blood pressure in the morning was 106/68,he also takes 30 units of Lantus at bedtime and sliding scale for NovoLog patient had BS at home of 106 and gave himself 24 units of NovoLog patient felt clammy and diaphoretic with some blurry vision checked his blood sugar was 61 and called 911, patient found to be hypotensive during transportation and in the hospital, no fever, no chills, no CP, no SOB, no abdominal pain, no nausea, no vomiting no diarrhea. Patient states that his been normal appetite,he says he was not hydrating well .he he also had recent admission due to hypotension secondary to increased diuretic dose. Denies any new complaint of chest pain or shortness of breath or abdominal pain or fever or chills or nausea or vomiting or diarrhea or urinary complaints. Denies any cough Denies any weakness or numbness. Lab imaging EKG reviewed: CBC seems fine BMP: BUN 44, creatinine 1.6 Lowest glucose in ED is 39 Lactic acid 3.9 UA and chest x-ray negative, EKG AFib with ventricular rate of 77/min Review of Systems Review of Systems: As above. Yes all other systems are reviewed and are negative [facility] Medical History GERD (gastroesophageal reflux disease) Diabetes COPD (chronic obstructive pulmonary disease) Obesity PAF (paroxysmal atrial fibrillation) Diastolic HF (heart failure) Acute hypotension Fluid volume depletion Social History Household Members: None Housing: House Do you presently have visiting nurse or other home services: Yes Alcohol intake: former Patient Tobacco Use Status: Never used Tobacco Smoked in Last 30 Days: No Use of substances other than those prescribed or required for medical reasons: No Advance Directives: Yes Advance Directives on File: Yes Advance Directives Date on File: 02/16/24 service: No Current occupational status: retired Meds Allergies Allergy/AdvReac Type Severity Reaction Status Date / Time No Known Allergies Allergy Verified 03/05/24 15:17 [No Known Allergies*] Active Medications: Current Medications Acetaminophen (Acetaminophen 325 Mg Tablet) 650 mg PO Q6H PRN PRN Reason: Fever Acetaminophen (Acetaminophen 325 Mg Tablet) 650 mg PO Q6H PRN PRN Reason: Headache, Pain- Mild Calcium Carbonate (Calcium Carbonate 750 Mg Tab.Chew) 750 mg PO Q6H PRN PRN Reason: Heartburn Dextrose (D10) 1,000 mls @ 50 mls/hr IVCONT .Q20H ONE Stop: 03/06/24 11:16 Last Admin: 03/05/24 15:13 Dose: 50 mls/hr Sodium Chloride (Ns) 1,000 mls @ 999 mls/hr IV .Q1H1M TIA Stop: 03/05/24 19:00 Last Admin: 03/05/24 17:58 Dose: 999 mls/hr Magnesium Hydroxide (Milk Of Magnesia 30 Ml Oral.Susp) 30 ml PO DAILY PRN PRN Reason: Constipation Melatonin (Melatonin 3 Mg Tablet) 6 mg PO BEDTIME PRN PRN Reason: Insomnia Polyethylene Glycol (Polyethylene Glycol 3350 17 Gm Powd.Pack) 17 gm PO DAILY PRN PRN Reason: Constipation Sodium Chloride (0.9 % Sodium Chloride Flush 3 Ml Syringe) 3 ml IVFLUSH QSHI Home Medications ?Medication ?Instructions ?Recorded ?Confirmed ?Last Taken ?Type albuterol sulfate 90 mcg/actuation 2 puff inhalation Q4H PRN wheezing 01/19/23 03/05/24 03/05/24 History aerosol inhaler ammonium lactate 12 % topical cream 1 appl topical DAILY 01/19/23 03/05/24 03/05/24 History apixaban 5 mg tablet (Eliquis) 5 mg PO BID 01/19/23 03/05/24 03/05/24 History aspirin 81 mg chewable tablet 1 tab PO DAILY 01/19/23 03/05/24 03/05/24 History bimatoprost 0.01 % eye drops 1 drp ophthalmic (eye) BEDTIME 01/19/23 03/05/24 03/04/24 History (Lumigan) brimonidine 0.2 % eye drops 1 drp ophthalmic (eye) BID 01/19/23 03/05/24 03/05/24 History ferrous sulfate 325 mg (65 mg 325 mg PO DAILY 01/19/23 03/05/24 03/05/24 History iron) tablet fluticasone fur. 100 mcg-umeclid 1 ea inhalation DAILY 01/19/23 03/05/24 03/05/24 History 62.5 mcg-vilant 25 mcg inhalat.powder (Trelegy Ellipta) insulin aspart U-100 100 unit/mL 22 - sliding scale dose subcut 01/19/23 03/05/24 03/05/24 History (3 mL) subcutaneous pen (Novolog TIDAC FlexPen U-100 Insulin aspart) insulin glargine 100 unit/mL (3 30 unit subcut BEDTIME 01/19/23 03/05/24 03/04/24 History mL) subcutaneous pen (Lantus Solostar U-100 Insulin) magnesium oxide 400 mg (241.3 mg 400 mg PO DAILY 01/19/23 03/05/24 03/05/24 History magnesium) tablet metformin 500 mg tablet 500 mg PO TIDWM 01/19/23 03/05/24 03/05/24 History omeprazole 20 mg capsule,delayed 20 mg PO DAILY@0630 01/19/23 03/05/24 03/05/24 History release amitriptyline 25 mg tablet 25 mg PO BEDTIME 02/15/24 03/05/24 03/05/24 History dapagliflozin propanediol 10 mg 10 mg PO DAILY 02/15/24 03/05/24 03/05/24 History tablet (Farxiga) fluticasone propionate 50 2 spray intranasal DAILY PRN 02/15/24 03/05/24 Unknown History mcg/actuation nasal Congestion spray,suspension hydrocortisone 2.5 % topical cream 1 appl topical BID 02/15/24 03/05/24 03/05/24 History hydroxychloroquine 200 mg tablet 200 mg PO DAILY 02/15/24 03/05/24 03/05/24 History ketoconazole 2 % topical cream 1 appl topical BID 02/15/24 03/05/24 03/05/24 History loratadine 10 mg tablet 10 mg PO DAILY PRN Allergy Symptoms 02/15/24 03/05/24 02/15/24 History metoprolol tartrate 25 mg tablet 25 mg PO BID 02/15/24 03/05/24 03/05/24 History polyethylene glycol 3350 17 gram 17 g PO BEDTIME 02/15/24 03/05/24 03/04/24 History oral powder packet (HealthyLax) pregabalin 75 mg capsule 75 mg PO BID 02/15/24 03/05/24 03/05/24 History sacubitril 24 mg-valsartan 26 mg 1 tab PO BID 02/15/24 03/05/24 03/05/24 History tablet (Entresto) torsemide 20 mg tablet 40 mg PO BID@0900,1800 02/15/24 03/05/24 03/05/24 History atorvastatin 40 mg tablet 40 mg PO BEDTIME 03/05/24 03/05/24 03/04/24 History blood-glucose sensor (Dexcom G7 03/05/24 03/05/24 03/05/24 History Sensor device) cod liver oil 1 cap PO DAILY 03/05/24 03/05/24 03/05/24 History spironolactone 25 mg tablet 25 mg PO DAILY 03/05/24 03/05/24 03/05/24 History Physical Exam Vital Signs and Narrative: Vital Signs: Last Vital Signs Temp 97.6 F 03/05/24 17:11 Pulse 89 03/05/24 17:11 Resp 18 03/05/24 17:11 BP 98/59 L 03/05/24 17:11 Pulse Ox 100 03/05/24 17:11 O2 Del Method Room Air 03/05/24 17:11 BMI result Body Mass Index 36.0 Appearance: Alert.? Oriented X3.? Eyes: Pupils equal, round and reactive to light.? Sclera nonicteric.? ENT: Pharynx normal.? Moist mucous membranes. cvs: irregular rythem, [id number]. res: clear to auscultation ,no rhonchii or wheezing abd: no rebound or guarding ,nt, bs present. ext pulses present , no cyanosis ,. neuro: axo3 , nonfocal. Results Labs 03/05/24 15:49 03/05/24 15:49 Labs: Laboratory Results - last 24 hr 05/03/05/24 03/05/24 15:04 15:49 15:55 MCV 82.8 MCH 26.1 L MCHC 31.5 RDW 16.4 H Plt Count 279 MPV 9.4 Immature Gran % (Auto) 0.3 Neut % (Auto) 68.1 Lymph % (Auto) 20.2 [place] % (Auto) 8.1 Eos % (Auto) 2.8 Baso % (Auto) 0.5 Lymph # (Auto) 2.2 [place] # (Auto) 0.9 Eos # (Auto) 0.3 Baso # (Auto) 0.1 Abs Immat Gran (auto) 0.03 Absolute Neuts (auto) 7.3 Absolute Nucleated RBC 0.000 Nucleated RBC % (auto) 0.0 Anion Gap 19 Estim Creat Clear Calc 43.7 Estimated GFR 42 POC Glucose 39 L* 154 H Random Glucose 160 H Lactic Acid 3.9 H* Calcium 9.3 Total Bilirubin 0.3 Direct Bilirubin 0.1 AST 19 ALT 14 Alkaline Phosphatase 98 Troponin I High Sens 10.0 B-Natriuretic Peptide 76 Total Protein 8.9 H Albumin 3.9 Lipase 23 Urine Color Urine Appearance Urine pH Ur Specific [place] Urine Protein Urine Glucose (UA) Urine Ketones Urine Blood Urine Nitrite Ur Leukocyte Esterase Urine RBC Urine WBC Ur Squamous Epith Cells Urine Bacteria Hyaline Casts Influenza Type A (PCR) NEGATIVE Influenza Type B (PCR) NEGATIVE RSV RNA Qual (PCR) NEGATIVE SARS-CoV-2 RNA (RT-PCR) NEGATIVE 03/05/24 16:12 MCV MCH MCHC RDW Plt Count MPV Immature Gran % (Auto) Neut % (Auto) Lymph % (Auto) [place] % (Auto) Eos % (Auto) Baso % (Auto) Lymph # (Auto) [place] # (Auto) Eos # (Auto) Baso # (Auto) Abs Immat Gran (auto) Absolute Neuts (auto) Absolute Nucleated RBC Nucleated RBC % (auto) Anion Gap Estim Creat Clear Calc Estimated GFR POC Glucose Random Glucose Lactic Acid Calcium Total Bilirubin Direct Bilirubin AST ALT Alkaline Phosphatase Troponin I High Sens B-Natriuretic Peptide Total Protein Albumin Lipase Urine Color Yellow Urine Appearance Clear Urine pH 5.5 Ur Specific [place] 1.015 Urine Protein Negative Urine Glucose (UA) >=1000 H Urine Ketones Negative Urine Blood Negative Urine Nitrite Negative Ur Leukocyte Esterase Negative Urine RBC 0-2 Urine WBC 0-5 Ur Squamous Epith Cells 0-2 Urine Bacteria None Seen Hyaline Casts 3-5 Influenza Type A (PCR) Influenza Type B (PCR) RSV RNA Qual (PCR) SARS-CoV-2 RNA (RT-PCR) Imaging Radiologist's Impressions: Impressions Chest X-Ray 03/05/24 15:23 IMPRESSION: No acute cardiopulmonary disease. Assessment and Plan (1) Acute lactic acidosis: Status: Acute (2) ANDREW (acute kidney injury): Status: Acute (3) Hypoglycemia: Status: Acute (4) Hypotension: Qualifiers: Hypotension type: hypotension due to hypovolemia Qualified Code(s): E86.1 - Hypovolemia Status: Acute Plan 78-year-old male with a PMH significant for HFpEF, paroxysmal AFib on Eliquis, COPD, LAINEY,?insulin-dependent type 2 diabetes, HLD, and GERD who presents to the ED for evaluation of hypoglycemia,hypotension. Patient came to the hospital because of hypoglycemia also found to have possible hypovolemic hypotension: Hypoglycemia probably related to excessive insulin use. Hypotension possibly related to-on multiple BP medications, poor hydration. Plan: Hold blood pressure medications, diuretics, insulin Continue D5 NS, monitor fingersticks Q 3 hour, if fs stable we will switch to q.i.d. aC Acute lactic acidosis: Possibly multifactorial(metformin, ANDREW, nebs use, decreased p.o. intake, hypovolemic hypotension in setting of decreased p.o. intake and multiple blood pressure medications.) 3.9-4.1 Will continue to monitor, patient is getting IV fluids. Patient denies any systemic complaints, UA, chest x-ray negative. Diabetes type 2: Hold insulin, please see above. HFpEF, paroxysmal AFib on Eliquis Stable, no shortness of breath, no edema Hold blood pressure medications and diuretics for now. COPD: Stable Continue p.r.n. nebs Morbid obesity: Encouraged to lose weight, cutdown calories. Patient will benefit from 2 midnight stays considering multiple issues including hypoglycemia/hypotension, lactic acidosis-need IV hydration, renal function electrolyte monitoring,, fingerstick monitoring. I have been above management discussed with the patient detail length he understand and in agreement with the above plan, time spent 70 minute, patient full code. Quality Stroke Does the patient have a stroke diagnosis?: No VTE Prior VTE?: No VTE Risk Level:: Medical - low VTE Device Contraindication: N/A - Device Ordered VTE Drug Contraindication: N/A - Med Ordered
--- NOTE | 2024-03-05 18:49 | PHA.MEDREC ---
Pharmacy Consult ? Medication Reconciliation Pharmacy has completed the medication reconciliation.Spoke with patient in the ED who knew all medications. Patient does not have insulin pump on now because he does not have his sensor and confirmed novolog/lantus doses.
--- NOTE | 2024-03-05 19:10 | PC.NURSE ---
critical lab value - lactic of 4.[address] this [address] juarez notified/aware.
[2024-03-05 19:12] LABS: Lactic Acid 4.1 mmol/L (0.5-2.0)
[2024-03-05 19:39] LABS: Glucose, Whole Blood 105 mg/dL (60-115)
[2024-03-05] MEDS: 0.9 % Sodium Chloride 1,000 ML 80 ML IVCONT (19:54)
[2024-03-05] MEDS: Pregabalin 75 MG CAPSULE PO (20:37)
[2024-03-05] MEDS: Atorvastatin Calcium 40 MG TABLET PO (20:37)
[2024-03-05] MEDS: Metoprolol Tartrate 25 MG TABLET PO (20:37)
[2024-03-05] MEDS: Apixaban 5 MG TABLET PO (20:38)
[2024-03-05] MEDS: polyethylene glycoL 3350 17 GM POWD.PACK PO (20:38)
[2024-03-05 20:48] LABS: Reflex Lactate? Lactic Acid Added
--- NOTE | 2024-03-05 21:09 | PC.NURSE ---
this RN resumed care of pt at 1900. a&ox4. vss and up to date. nsr on the cougar hunter. pt denies pain/has no complaints at this time. IVF administered via pump. medication administered per provider order. pharmacy called d/t missing eye drops/creams - will administer when able. pt aware of plan of care moving forward. pt waiting for bed assignment at this time. plan of care ongoing. call chu placed within reach.
[2024-03-05 21:42] LABS: ~Lactic Acid-LAB USE ONLY 3.8 mmol/L (0.5-2.0)
--- NOTE | 2024-03-05 22:59 | PC.NURSE ---
pt uses CPAP at home - pt placed on 2L via NC to promote comfort while sleeping.
--- NOTE | 2024-03-05 23:01 | MHC.CM.PN ---
IMM 03/05. CM met with admitted patient with bed assignment pending. A&Ox4. Lives alone. Son and DIL lives next door. Uses a cane and rollator. Has VNA services 3x/wk from [facility] and CRUSHER TENDER 4 hour/day/M-F from [facility]. Has MOW and CIGAR HEAD PIERCER from [facility]. Referrals to follow placed with [facility] and [facility]. THRIVE assessment negative. HCP changed at patient request, as his HCP has dementia (, Leatha). New HCP #1/daughter is Mana Meltonfina ([phone] and HCP#2 is Kat Mayfield ([phone]). HCP reviewed, completed and signed. Copies given to patient and uploaded into [facility]. D/C plan: Home with existing services. Family to transport home. CM will follow for discharge planning.
[2024-03-05 23:17] LABS: Reflex Lactate? 2 Y
[2024-03-06] VITALS (8 sets, daily range): BP systolic 101–122; BP diastolic 41–83; PULSE 70–89; RESP 14–17; TEMP 36.6–36.9; O2SAT 97–100
--- NOTE | 2024-03-06 00:35 | PC.NURSE ---
Critical results received: Lactic acid 3.0 Baxter text sent to Dr. Broderick. No new orders received.
[2024-03-06] MEDS: 0.9 % Sodium Chloride Flush 3 ML SYRINGE IVFLUSH (01:34)
[2024-03-06 01:56] LABS: Glucose, Whole Blood 180 mg/dL (60-115)
[2024-03-06] MEDS: Omeprazole 20 MG CAPSULE.DR PO (06:52)
[2024-03-06 07:21] LABS: Glucose, Whole Blood 159 mg/dL (60-115)
[2024-03-06] MEDS: Ferrous Sulfate 324 MG TABLET.DR PO (08:42)
[2024-03-06] MEDS: Pregabalin 75 MG CAPSULE PO ×2 (08:42→21:42)
[2024-03-06] MEDS: Hydroxychloroquine Sulfate 200 MG TABLET PO (08:42)
[2024-03-06] MEDS: Magnesium Oxide 400 MG TABLET PO (08:42)
[2024-03-06] MEDS: Apixaban 5 MG TABLET PO ×2 (08:42→21:41)
[2024-03-06 09:28] LABS: Anion Gap 14 (12-20); Blood Urea Nitrogen 28 mg/dL (9-16); Carbon Dioxide 21 mmol/L (22-29); Chloride 107 mmol/L (96-108); Creatinine Clr Calc Pharmacy 56.4; Estimated Glomerular Filt Rate 57; Glucose Random 221 mg/dL (60-115); Potassium 4.2 mmol/L (3.3-5.1); Sodium 138 mmol/L (135-145)
--- NOTE | 2024-03-06 09:29 | MHC.CM.PN ---
Patient is documented to be a poor Historian, CM spoke with Daughter/HCP/Mana @ [phone] and addressed IMM with her (original will be mailed certified letter to Mana and a copy will be placed on the chart) Patient lives alone in a duplex, with his Son living on the other side. Patient has a CCA/ CLEAN UP WORKER about 4 hours/day and home/resume said services is the goal. CM has initiated and will follow for dc planning. Patient uses both a cane and a walker. PCP is Dr. Ford.
[2024-03-06] MEDS: Brimonidine Tartrate 0.2% Oph 5 ML BOTTLE 1 DROP EYE-BOTH ×2 (10:05→21:42)
[2024-03-06] MEDS: 0.9 % Sodium Chloride 1,000 ML 80 ML IVCONT (10:06)
[2024-03-06 11:23] LABS: Estimated Average Glucose 146 mg/dL; Hemoglobin A1c % 6.7 % (<6.0)
--- NOTE | 2024-03-06 15:21 | MHC.EDTECH ---
THIS PCT ASSUMED CARE OF PATIENT ,VITALS TAKEN BLOOD SUGAR CHECK AND PATIENT URINAL EMPTY FOR 850 ML .
--- NOTE | 2024-03-06 15:59 | P.PNIM_ITS ---
Subjective Subjective Date of Service: 03/06/24 Interval History: Hypokalemia and hypotension Review of Systems Patient seems to be improving no dizziness or weakness Physical Exam 2 Vital Signs: Vital Signs: Last Vital Signs Temp 97.8 F 03/06/24 15:13 Pulse 89 03/06/24 15:13 Resp 16 03/06/24 15:13 BP 122/71 03/06/24 15:13 Pulse Ox 97 03/06/24 15:13 O2 Del Method Room Air 03/06/24 15:13 O2 Flow Rate 2 03/06/24 04:29 BMI result Body Mass Index 36.0 Appearance: Alert.? Oriented X3.? cvs: irregular rythem, [id number]. res: clear to auscultation ,no rhonchii or wheezing abd: no rebound or guarding ,nt, bs present. ext pulses present , no cyanosis ,. neuro: axo3 , nonfocal. Objective Data Active Medications Acetaminophen (Acetaminophen 325 Mg Tablet) 650 mg PO Q6H PRN PRN Reason: Headache, Pain- Mild Albuterol/Ipratropium (Albuterol/Iprat 2.5/0.5mg 3 Ml Ampul.Neb) 3 ml INHALE RQ4H WHILE AWAKE PRN PRN Reason: Shortness of Breath Apixaban (Apixaban 5 Mg Tablet) 5 mg PO BID [facility] Last Admin: 03/06/24 08:42 Dose: 5 mg Documented By: STU Atorvastatin Calcium (Atorvastatin Calcium 40 Mg Tablet) 40 mg PO BEDTIME [facility] Last Admin: 03/05/24 20:37 Dose: 40 mg Documented By: RADHA Brimonidine Tartrate (Brimonidine Tartrate 0.2% Oph 5 Ml Bottle) 1 drop EYE- BOTH BID [facility] Last Admin: 03/06/24 10:05 Dose: 1 drop Documented By: STU Calcium Carbonate (Calcium Carbonate 750 Mg Tab.Chew) 750 mg PO Q6H PRN PRN Reason: Heartburn Clotrimazole (Clotrimazole 1 % Cream 15 Gm Tube) 1 appl TOPICAL BID [facility] Last Admin: 03/06/24 10:31 Dose: Not Given Documented By: STU Non-Admin Reason: Med Not Available Ferrous Sulfate (Ferrous Sulfate 324 Mg Tablet.) 324 mg PO DAILY [facility] Last Admin: 03/06/24 08:42 Dose: 324 mg Documented By: STU Fluticasone Propionate (Fluticasone Propionate Nasal 16 Gm [place]) 2 spray NOSTRIL-B DAILY PRN PRN Reason: Congestion Fluticasone/Umeclidinium/Vilanterol (Fluticasone/Umeclidinium/Vilanterol 100/62.5/25 Blst.W.Dev) 1 puff INHALE RDAILY [facility] Last Admin: 03/06/24 11:31 Dose: Not Given Documented By: STU Non-Admin Reason: Med Not Available Hydrocortisone (Hydrocortisone 1 % Cream 28.35 Gm Tube) 1 appl TOPICAL BID [facility] Last Admin: 03/06/24 10:31 Dose: Not Given Documented By: STU Non-Admin Reason: Med Not Available Hydroxychloroquine Sulfate (Hydroxychloroquine Sulfate 200 Mg Tablet) 200 mg PO DAILY [facility] Last Admin: 03/06/24 08:42 Dose: 200 mg Documented By: STU Lactic Acid (Ammonium Lactate 12 % Cream 140 Gm Tube) 1 appl TOPICAL DAILY [facility]; Protocol Last Admin: 03/06/24 10:31 Dose: Not Given Documented By: STU Non-Admin Reason: Med Not Available Loratadine (Loratadine 10 Mg Tablet) 10 mg PO DAILY PRN PRN Reason: Allergy Symptoms Magnesium Hydroxide (Milk Of Magnesia 30 Ml Oral.Susp) 30 ml PO DAILY PRN PRN Reason: Constipation Magnesium Oxide (Magnesium Oxide 400 Mg Tablet) 400 mg PO DAILY [facility] Last Admin: 03/06/24 08:42 Dose: 400 mg Documented By: STU Melatonin (Melatonin 3 Mg Tablet) 6 mg PO BEDTIME PRN PRN Reason: Insomnia Metoprolol Tartrate (Metoprolol Tartrate 25 Mg Tablet) 25 mg PO BID [facility]; Protocol Last Admin: 03/06/24 08:04 Dose: Not Given Documented By: STU Non-Admin Reason: Physician Approved Comments: Per provider, hold all bp/diuretic medicaions Non-Formulary Medication (Bimatoprost [Lumigan]) 1 drop EYE-BOTH BEDTIME [facility] Omeprazole (Omeprazole 20 Mg Capsule.) 20 mg PO DAILY@0630 [facility] Last Admin: 03/06/24 06:52 Dose: 20 mg Documented By: JAEL Polyethylene Glycol (Polyethylene Glycol 3350 17 Gm Powd.Pack) 17 gm PO DAILY PRN PRN Reason: Constipation Polyethylene Glycol (Polyethylene Glycol 3350 17 Gm Powd.Pack) 17 gm PO BEDTIME [facility] Last Admin: 03/05/24 20:38 Dose: 17 gm Documented By: RADHA Pregabalin (Pregabalin 75 Mg Capsule) 75 mg PO BID [facility] Last Admin: 03/06/24 08:42 Dose: 75 mg Documented By: STU Sodium Chloride (0.9 % Sodium Chloride Flush 3 Ml Syringe) 3 ml IVFLUSH QSHIFT [facility] Last Admin: 03/06/24 08:58 Dose: Not Given Documented By: STU Non-Admin Reason: IV Running Labs 03/05/24 15:49 03/06/24 08:52 Labs: Laboratory Results - last 24 hr 03/05/24 03/05/24 03/05/24 15:49 15:55 16:12 Anion Gap 19 Estim Creat Clear Calc 43.7 Estimated GFR 42 POC Glucose 154 H Random Glucose 160 H Estimat Average Glucose 146 Hemoglobin A1c % 6.7 H Lactic Acid 3.9 H* Lactic Acid F/U @ 2Hr Lactic Acid F/U @ 4Hr Calcium 9.3 Total Bilirubin 0.3 Direct Bilirubin 0.1 AST 19 ALT 14 Alkaline Phosphatase 98 Troponin I High Sens 10.0 B-Natriuretic Peptide 76 Total Protein 8.9 H Albumin 3.9 Lipase 23 Urine Color Yellow Urine Appearance Clear Urine pH 5.5 Ur Specific [place] 1.015 Urine Protein Negative Urine Glucose (UA) >=1000 H Urine Ketones Negative Urine Blood Negative Urine Nitrite Negative Ur Leukocyte Esterase Negative Urine RBC 0-2 Urine WBC 0-5 Ur Squamous Epith Cells 0-2 Urine Bacteria None Seen Hyaline Casts 3-5 Influenza Type A (PCR) NEGATIVE Influenza Type B (PCR) NEGATIVE RSV RNA Qual (PCR) NEGATIVE SARS-CoV-2 RNA (RT-PCR) NEGATIVE 03/05/24 03/05/24 03/05/24 18:46 19:31 21:14 Anion Gap Estim Creat Clear Calc Estimated GFR POC Glucose 105 Random Glucose Estimat Average Glucose Hemoglobin A1c % Lactic Acid 4.1 H* Lactic Acid F/U @ 2Hr 3.8 H* Lactic Acid F/U @ 4Hr Calcium Total Bilirubin Direct Bilirubin AST ALT Alkaline Phosphatase Troponin I High Sens B-Natriuretic Peptide Total Protein Albumin Lipase Urine Color Urine Appearance Urine pH Ur Specific [place] Urine Protein Urine Glucose (UA) Urine Ketones Urine Blood Urine Nitrite Ur Leukocyte Esterase Urine RBC Urine WBC Ur Squamous Epith Cells Urine Bacteria Hyaline Casts Influenza Type A (PCR) Influenza Type B (PCR) RSV RNA Qual (PCR) SARS-CoV-2 RNA (RT-PCR) 03/06/24 03/06/24 03/06/24 00:11 01:42 07:15 Anion Gap Estim Creat Clear Calc Estimated GFR POC Glucose 180 H 159 H Random Glucose Estimat Average Glucose Hemoglobin A1c % Lactic Acid Lactic Acid F/U @ 2Hr Lactic Acid F/U @ 4Hr 3.0 H* Calcium Total Bilirubin Direct Bilirubin AST ALT Alkaline Phosphatase Troponin I High Sens B-Natriuretic Peptide Total Protein Albumin Lipase Urine Color Urine Appearance Urine pH Ur Specific [place] Urine Protein Urine Glucose (UA) Urine Ketones Urine Blood Urine Nitrite Ur Leukocyte Esterase Urine RBC Urine WBC Ur Squamous Epith Cells Urine Bacteria Hyaline Casts Influenza Type A (PCR) Influenza Type B (PCR) RSV RNA Qual (PCR) SARS-CoV-2 RNA (RT-PCR) 03/06/24 08:52 Anion Gap 14 Estim Creat Clear Calc 56.4 Estimated GFR 57 POC Glucose Random Glucose 221 H Estimat Average Glucose Hemoglobin A1c % Lactic Acid Lactic Acid F/U @ 2Hr Lactic Acid F/U @ 4Hr Calcium 9.0 Total Bilirubin Direct Bilirubin AST ALT Alkaline Phosphatase Troponin I High Sens B-Natriuretic Peptide Total Protein Albumin Lipase Urine Color Urine Appearance Urine pH Ur Specific [place] Urine Protein Urine Glucose (UA) Urine Ketones Urine Blood Urine Nitrite Ur Leukocyte Esterase Urine RBC Urine WBC Ur Squamous Epith Cells Urine Bacteria Hyaline Casts Influenza Type A (PCR) Influenza Type B (PCR) RSV RNA Qual (PCR) SARS-CoV-2 RNA (RT-PCR) Assessment and Plan (1) Acute lactic acidosis: Status: Acute (2) ANDREW (acute kidney injury): Status: Acute (3) Hypoglycemia: Status: Acute Plan 78-year-old male with a PMH significant for HFpEF, paroxysmal AFib on Eliquis, COPD, LAINEY,?insulin-dependent type 2 diabetes, HLD, and GERD who presents to the ED for evaluation of hypoglycemia,hypotension. Patient came to the hospital because of hypoglycemia also found to have possible hypovolemic hypotension: Hypoglycemia probably related to excessive insulin use. Hypotension possibly related to-on multiple BP medications, poor hydration. Plan: Seems to be improved with hydration, holding diabetic/blood pressure meds/diuretics . stop ivf ,slowly introduce bp med/diuretics. Acute lactic acidosis: Possibly multifactorial(metformin, ANDREW, nebs use, decreased p.o. intake, hypovolemic hypotension in setting of decreased p.o. intake and multiple blood pressure medications.) improving ,no further trend . Patient denies any systemic complaints, UA, chest x-ray negative. andrew : Iimproving with hydration continue to moniter renal function/electrolytes. Diabetes type 2: Fingersticks seems to be improved in 152 -200 Change fingersticks to q.i.d. a.c., coverage as per sliding scale. hemoglobin A1c 6.7 HFpEF, paroxysmal AFib on Eliquis Stable, no shortness of breath, no edema Hold blood pressure medications and diuretics for now. COPD: Stable Continue p.r.n. nebs Morbid obesity: Encouraged to lose weight, cutdown calories. ongoing hospitalization stay: Monitoring for hypoglycemia/borderline BP-need multiple medication adjustments, also monitor renal function and electrolytes. Quality Stroke Does the patient have a stroke diagnosis?: No VTE Prior VTE?: No VTE Risk Level:: Medical - low VTE Device Contraindication: N/A - Device Ordered VTE Drug Contraindication: N/A - Med Ordered
[2024-03-06 17:11] LABS: Glucose, Whole Blood 185 mg/dL (60-115)
[2024-03-06 18:03] LABS: Glucose, Whole Blood 221 mg/dL (60-115)
[2024-03-06] MEDS: Insulin Lispro 100 UNIT/ML 3 ML VIAL SUBCUT ×2 (19:22→21:41)
--- NOTE | 2024-03-06 20:37 | MHC.EDTECH ---
Patient was assisted to walk to bathroom with this pct and walker ,patient was wash up at the sink ,clean clothing given ,and vitals taken ,patient was moved i8nto a hospital bed .
[2024-03-06 21:15] LABS: Glucose, Whole Blood 192 mg/dL (60-115)
[2024-03-06] MEDS: polyethylene glycoL 3350 17 GM POWD.PACK PO (21:39)
[2024-03-06] MEDS: Metoprolol Tartrate 25 MG TABLET PO (21:41)
[2024-03-06] MEDS: Clotrimazole 1 % Cream 15 GM TUBE 1 APPL TOPICAL (21:42)
[2024-03-06] MEDS: Atorvastatin Calcium 40 MG TABLET PO (21:42)
[2024-03-06] MEDS: Hydrocortisone 1 % Cream 28.35 GM TUBE 1 APPL TOPICAL (21:43)
--- NOTE | 2024-03-06 23:43 | MHC.EDTECH ---
0000 ROUNDING DONE ,VITALS TAKEN ,URINAL EMPTY ,FOR 450 ML ,FRESH PITCHER WATER GIVEN ,PATIENT AWAKE WATCHING TELEVISION ,CALL CHANG WITHIN PATIENT REACH .
[2024-03-07] VITALS (10 sets, daily range): BP systolic 108–129; BP diastolic 56–69; PULSE 64–98; RESP 14–21; TEMP 36.1–36.7; O2SAT 95–100
[2024-03-07] MEDS: 0.9 % Sodium Chloride Flush 3 ML SYRINGE IVFLUSH ×3 (00:14→17:07)
--- NOTE | 2024-03-07 04:18 | MHC.EDTECH ---
0400 rounding done ,patient awake ,vitals taken ,Patient was reposition and boosted up in bed .550 ml urine empty .
[2024-03-07] MEDS: Omeprazole 20 MG CAPSULE.DR PO (06:30)
--- NOTE | 2024-03-07 06:30 | MHC.EDTECH ---
PATIENT WAS SHAVED BY THIS PCT .
[2024-03-07 07:10] LABS: Glucose, Whole Blood 173 mg/dL (60-115)
[2024-03-07] MEDS: Brimonidine Tartrate 0.2% Oph 5 ML BOTTLE 1 DROP EYE-BOTH ×2 (07:57→20:53)
[2024-03-07] MEDS: Insulin Lispro 100 UNIT/ML 3 ML VIAL SUBCUT ×4 (07:57→20:52)
[2024-03-07] MEDS: Hydroxychloroquine Sulfate 200 MG TABLET PO (08:01)
[2024-03-07] MEDS: Magnesium Oxide 400 MG TABLET PO (08:01)
[2024-03-07] MEDS: Apixaban 5 MG TABLET PO ×2 (08:01→20:52)
[2024-03-07] MEDS: Pregabalin 75 MG CAPSULE PO ×2 (08:02→20:52)
[2024-03-07] MEDS: Ferrous Sulfate 324 MG TABLET.DR PO (08:02)
[2024-03-07] MEDS: Metoprolol Tartrate 25 MG TABLET PO ×2 (08:02→20:52)
[2024-03-07] MEDS: Fluticasone/Umeclidinium/Vilanterol 100/62.5/25 BLST.W.DEV 1 PUFF INHALE (08:35)
[2024-03-07] MEDS: Insulin Glargine,Hum.rec.anlog 100 UNIT/ML 10 ML VIAL SUBCUT ×2 (10:10→20:52)
[2024-03-07] MEDS: Aspirin 81 MG TAB.CHEW PO (10:10)
[2024-03-07] MEDS: Sacubitril/Valsartan 24/26 1 TAB TABLET PO ×2 (10:10→20:52)
[2024-03-07 10:11] LABS: Glucose, Whole Blood 247 mg/dL (60-115)
[2024-03-07] MEDS: Amitriptyline HCl 25 MG TABLET PO ×2 (10:11→20:52)
[2024-03-07] MEDS: Empagliflozin 10 MG TABLET PO (10:11)
[2024-03-07] MEDS: Ammonium Lactate 12 % Cream 140 GM TUBE 1 APPL TOPICAL (10:11)
[2024-03-07] MEDS: Hydrocortisone 1 % Cream 28.35 GM TUBE 1 APPL TOPICAL ×2 (10:12→20:53)
[2024-03-07] MEDS: Clotrimazole 1 % Cream 15 GM TUBE 1 APPL TOPICAL ×2 (10:12→20:53)
[2024-03-07 11:23] LABS: Glucose, Whole Blood 202 mg/dL (60-115)
--- NOTE | 2024-03-07 13:25 | HO.PM.IMPN ---
Subjective Subjective Date of Service: 03/07/24 Interval History: hypoglycemia/hypotension Review of Systems bp seems improving fs flactuatung no fever or chills Physical Exam Vital Signs: Vital Signs: Last Vital Signs Temp 97.6 F 03/07/24 11:30 Pulse 64 03/07/24 11:30 Resp 18 03/07/24 11:30 BP 120/56 L 03/07/24 11:30 Pulse Ox 96 03/07/24 11:30 O2 Del Method Room Air 03/07/24 11:30 O2 Flow Rate 2 03/07/24 05:42 BMI result Body Mass Index 36.0 Appearance: Alert.? Oriented X3.? cvs: irregular rythem, [id number]. res: clear to auscultation ,no rhonchii or wheezing abd: no rebound or guarding ,nt, bs present. ext pulses present , no cyanosis ,. neuro: axo3 , nonfocal. Objective Data Active Medications Acetaminophen (Acetaminophen 325 Mg Tablet) 650 mg PO Q6H PRN PRN Reason: Headache, Pain- Mild Albuterol Sulfate (Albuterol Sulfate 90 Mcg 8 Gm Inhaler) 2 puff INHALE Q4H PRN PRN Reason: wheezing Albuterol/Ipratropium (Albuterol/Iprat 2.5/0.5mg 3 Ml Ampul.Neb) 3 ml INHALE RQ4H WHILE AWAKE PRN PRN Reason: Shortness of Breath Amitriptyline HCl (Amitriptyline Hcl 25 Mg Tablet) 25 mg PO BEDTIME [facility] Last Admin: 03/07/24 10:11 Dose: 25 mg Documented By: ABBY Apixaban (Apixaban 5 Mg Tablet) 5 mg PO BID [facility] Last Admin: 03/07/24 08:01 Dose: 5 mg Documented By: STU Aspirin (Aspirin 81 Mg Tab.Chew) 81 mg PO DAILY [facility] Last Admin: 03/07/24 10:10 Dose: 81 mg Documented By: ABBY Atorvastatin Calcium (Atorvastatin Calcium 40 Mg Tablet) 40 mg PO BEDTIME [facility] Last Admin: 03/06/24 21:42 Dose: 40 mg Documented By: BHUPENDRA Brimonidine Tartrate (Brimonidine Tartrate 0.2% Oph 5 Ml Bottle) 1 drop EYE-BOTH BID [facility] Last Admin: 03/07/24 07:57 Dose: 1 drop Documented By: STU Calcium Carbonate (Calcium Carbonate 750 Mg Tab.Chew) 750 mg PO Q6H PRN PRN Reason: Heartburn Clotrimazole (Clotrimazole 1 % Cream 15 Gm Tube) 1 appl TOPICAL BID [facility] Last Admin: 03/07/24 10:12 Dose: 1 appl Documented By: ABBY Empagliflozin (Empagliflozin 10 Mg Tablet) 10 mg PO DAILY [facility] Last Admin: 03/07/24 10:11 Dose: 10 mg Documented By: ABBY Ferrous Sulfate (Ferrous Sulfate 324 Mg Tablet.Dr) 324 mg PO DAILY [facility] Last Admin: 03/07/24 08:02 Dose: 324 mg Documented By: STU Fluticasone Propionate (Fluticasone Propionate Nasal 16 Gm [place]) 2 spray NOSTRIL-B DAILY PRN PRN Reason: Congestion Fluticasone/Umeclidinium/Vilanterol (Fluticasone/Umeclidinium/Vilanterol 100/62.5/25 Blst.W.Dev) 1 puff INHALE RDAILY [facility] Last Admin: 03/07/24 08:35 Dose: 1 puff Documented By: KADE Glucose (Glucose Gel 15 Gm Gel..Gram.) 15 gm PO Q15M PRN; Protocol PRN Reason: per Hypoglycemia Standing Ord. Hydrocortisone (Hydrocortisone 1 % Cream 28.35 Gm Tube) 1 appl TOPICAL BID [facility] Last Admin: 03/07/24 10:12 Dose: 1 appl Documented By: ABBY Hydroxychloroquine Sulfate (Hydroxychloroquine Sulfate 200 Mg Tablet) 200 mg PO DAILY [facility] Last Admin: 03/07/24 08:01 Dose: 200 mg Documented By: STU Dextrose (D10) 250 mls @ 750 mls/hr IV Q15M PRN; Protocol PRN Reason: per Hypoglycemia Standing Ord. Insulin Glargine (Insulin Glargine,Hum.Rec.Anlog 100 Unit/Ml 10 Ml Vial) 5 unit SUBCUT DAILY [facility] Last Admin: 03/07/24 10:10 Dose: 5 unit Documented By: ABBY Insulin Human Lispro (Insulin Lispro 100 Unit/Ml 3 Ml Vial) 0 unit SUBCUT QIDACHS [facility]; Protocol Last Admin: 03/07/24 11:48 Dose: 4 unit Documented By: ABBY Lactic Acid (Ammonium Lactate 12 % Cream 140 Gm Tube) 1 appl TOPICAL DAILY [facility]; Protocol Last Admin: 03/07/24 10:11 Dose: 1 appl Documented By: ABBY Loratadine (Loratadine 10 Mg Tablet) 10 mg PO DAILY PRN PRN Reason: Allergy Symptoms Magnesium Hydroxide (Milk Of Magnesia 30 Ml Oral.Susp) 30 ml PO DAILY PRN PRN Reason: Constipation Magnesium Oxide (Magnesium Oxide 400 Mg Tablet) 400 mg PO DAILY [facility] Last Admin: 03/07/24 08:01 Dose: 400 mg Documented By: STU Melatonin (Melatonin 3 Mg Tablet) 6 mg PO BEDTIME PRN PRN Reason: Insomnia Metoprolol Tartrate (Metoprolol Tartrate 25 Mg Tablet) 25 mg PO BID [facility]; Protocol Last Admin: 03/07/24 08:02 Dose: 25 mg Documented By: STU Non-Formulary Medication (Bimatoprost [Lumigan]) 1 drop EYE-BOTH BEDTIME [facility] Omeprazole (Omeprazole 20 Mg Capsule.Dr) 20 mg PO DAILY@0630 [facility] Last Admin: 03/07/24 06:30 Dose: 20 mg Documented By: RAD Polyethylene Glycol (Polyethylene Glycol 3350 17 Gm Powd.Pack) 17 gm PO DAILY PRN PRN Reason: Constipation Polyethylene Glycol (Polyethylene Glycol 3350 17 Gm Powd.Pack) 17 gm PO BEDTIME [facility] Last Admin: 03/06/24 21:39 Dose: 17 gm Documented By: BHUPENDRA Pregabalin (Pregabalin 75 Mg Capsule) 75 mg PO BID [facility] Last Admin: 03/07/24 08:02 Dose: 75 mg Documented By: STU Sacubitril/Valsartan (Sacubitril/Valsartan 1 Tab Tablet) 1 tab PO BID [facility]; Protocol Last Admin: 03/07/24 10:10 Dose: 1 tab Documented By: ABBY Sodium Chloride (0.9 % Sodium Chloride Flush 3 Ml Syringe) 3 ml IVFLUSH QSHIFT [facility] Last Admin: 03/07/24 08:03 Dose: 3 ml Documented By: STU Labs 03/05/24 15:49 03/06/24 08:52 Labs: Laboratory Results - last 24 hr 03/06/24 03/06/24 03/06/24 15:18 17:58 21:11 POC Glucose 185 H 221 H 192 H 03/07/24 03/07/24 03/07/24 07:07 10:02 11:15 POC Glucose 173 H 247 H 202 H Microbiology Microbiology Results: Microbiology 03/05/24 15:52 Blood Culture - Preliminary Blood - Venous No growth after 24 hours. 03/05/24 15:48 Blood Culture - Preliminary Blood - Venous No growth after 24 hours. Assessment and Plan (1) Hypoglycemia: Status: Acute (2) Hypotension: Status: Acute Plan 78-year-old male with a PMH significant for HFpEF, paroxysmal AFib on Eliquis, COPD, LAINEY,?insulin-dependent type 2 diabetes, HLD, and GERD who presents to the ED for evaluation of hypoglycemia,hypotension. Patient came to the hospital because of hypoglycemia also found to have possible hypovolemic hypotension: Hypoglycemia probably related to excessive insulin use. Hypotension possibly related to-on multiple BP medications, poor hydration. Plan: Seems to be improved with hydration, holding diabetic/blood pressure meds/diuretics . off ivf ,slowly introduce bp med/diuretics. Acute lactic acidosis: Possibly multifactorial(metformin, ANDREW, nebs use, decreased p.o. intake, hypovolemic hypotension in setting of decreased p.o. intake and multiple blood pressure medications.) improving ,no further trend . Patient denies any systemic complaints, UA, chest x-ray negative. andrew : improved with hydration continue to moniter renal function/electrolytes. Diabetes type 2: Fingersticks seems to be improved in 152 -200 Change fingersticks to q.i.d. a.c., coverage as per sliding scale. hemoglobin A1c 6.7 HFpEF, paroxysmal AFib on Eliquis Stable, no shortness of breath, no edema Hold blood pressure medications and diuretics for now. COPD: Stable Continue p.r.n. nebs Morbid obesity: Encouraged to lose weight, cutdown calories. ongoing hospitalization stay: Monitoring for hypoglycemia/borderline BP-need multiple medication adjustments, also monitor renal function and electrolytes. Quality Stroke Does the patient have a stroke diagnosis?: No VTE Prior VTE?: No VTE Risk Level:: Medical - low VTE Device Contraindication: N/A - Device Ordered VTE Drug Contraindication: N/A - Med Ordered
[2024-03-07 17:01] LABS: Glucose, Whole Blood 186 mg/dL (60-115)
[2024-03-07 19:48] LABS: Glucose, Whole Blood 187 mg/dL (60-115)
[2024-03-07] MEDS: Atorvastatin Calcium 40 MG TABLET PO (20:52)
[2024-03-07] MEDS: polyethylene glycoL 3350 17 GM POWD.PACK PO (20:53)
[2024-03-07] MEDS: Latanoprost 0.005 % Ophth Sol 2.5 ML DROPS 1 DROP EYE-BOTH (20:55)
[2024-03-08 04:00] VITALS: BP 145/76; PULSE 73; RESP 20; TEMP 36.1; O2SAT 99
[2024-03-08] MEDS: 0.9 % Sodium Chloride Flush 3 ML SYRINGE IVFLUSH ×2 (04:32→07:52)
[2024-03-08 05:32] VITALS: PULSE 97; O2SAT 95
[2024-03-08] MEDS: Omeprazole 20 MG CAPSULE.DR PO (05:48)
[2024-03-08 07:30] LABS: Glucose, Whole Blood 188 mg/dL (60-115)
[2024-03-08] MEDS: Fluticasone/Umeclidinium/Vilanterol 100/62.5/25 BLST.W.DEV 1 PUFF INHALE (07:30)
[2024-03-08 07:31] VITALS: BP 125/65; PULSE 84; RESP 18; TEMP 36.8; O2SAT 95
[2024-03-08 07:32] VITALS: PULSE 68; RESP 16; O2SAT 96
[2024-03-08] MEDS: Metoprolol Tartrate 25 MG TABLET PO (07:51)
[2024-03-08] MEDS: Hydroxychloroquine Sulfate 200 MG TABLET PO (07:51)
[2024-03-08] MEDS: Apixaban 5 MG TABLET PO (07:51)
[2024-03-08] MEDS: Magnesium Oxide 400 MG TABLET PO (07:51)
[2024-03-08] MEDS: Aspirin 81 MG TAB.CHEW PO (07:51)
[2024-03-08] MEDS: Insulin Lispro 100 UNIT/ML 3 ML VIAL SUBCUT ×2 (07:52→11:30)
[2024-03-08] MEDS: Insulin Glargine,Hum.rec.anlog 100 UNIT/ML 10 ML VIAL SUBCUT (07:52)
[2024-03-08] MEDS: Pregabalin 75 MG CAPSULE PO (07:52)
[2024-03-08] MEDS: Sacubitril/Valsartan 24/26 1 TAB TABLET PO (07:52)
[2024-03-08] MEDS: Empagliflozin 10 MG TABLET PO (07:52)
[2024-03-08] MEDS: Ferrous Sulfate 324 MG TABLET.DR PO (07:52)
[2024-03-08] MEDS: Ammonium Lactate 12 % Cream 140 GM TUBE 1 APPL TOPICAL (07:55)
[2024-03-08] MEDS: Brimonidine Tartrate 0.2% Oph 5 ML BOTTLE 1 DROP EYE-BOTH (07:55)
[2024-03-08] MEDS: Clotrimazole 1 % Cream 15 GM TUBE 1 APPL TOPICAL (07:56)
[2024-03-08] MEDS: Hydrocortisone 1 % Cream 28.35 GM TUBE 1 APPL TOPICAL (07:56)
[2024-03-08 11:03] VITALS: BP 109/72; PULSE 76; RESP 18; TEMP 36; O2SAT 96
[2024-03-08 11:24] LABS: Glucose, Whole Blood 232 mg/dL (60-115)
--- NOTE | 2024-03-08 13:28 | MHC.CM.PN ---
Per MD, Patient will be medically cleared for dc to home today, with VNA. Patient is active with [facility], who has been made aware of today's dc.CM met with Patient at bedside and addressed IMM with him, providing Patient with the original and a copy has been placed on the chart. Per Patient, his Son will transport to home.
--- NOTE | 2024-03-08 14:12 | W.MHC.F2F ---
Service Date Service Date: 03/08/24 Encounter Date of encounter: 03/08/24 Encounter: hypotension,hypoglycemia Reasons for Services Signs and symptoms assessed: hypotension,hypoglycemia Reason for senior care: CV/CP assess and/or care, diabetic teaching, monitoring of unstable blood sugar, medication management, medication treatment and teach disease management MD Overseeing Care: Prabhjot Ford Homebound: Leaving the home is medically contraindicated at this time without the asist of a device and/or another person due th the listed conditions above and below. Reason homebound: weakness related to hospital stay Homebound supporting statement: Patient is generalized weak post hospitalization need help to go to appointments, lab draws, diabetic education as well as blood pressure and fingersticks monitoring, medication compliance. Certification: Based on the above findings, I certify that this patient is confined to the home and needs intermittent senior care care, physical therapy and/or speech therapy, or continues to need occupational therapy. The patient is under my care, and I have initiated the establishment of the plan of care. The patient will be followed by a physician who will periodically review the plan of care. Time Spent With Patient Time: Total time managing care of this patient today ____ minutes.
--- NOTE | 2024-03-08 14:15 | PM.DS ---
DS: Providers Provider Date of Service: 03/08/24 Date of admission: 03/05/24 18:00 Date of discharge: 03/08/24 Primary care physician: Prabhjot Ford MD Attending physician on discharge: Nabil Cisse Discharging clinician: Nabil Cisse DS: Diagnosis Discharge Diagnosis (1) Hypoglycemia: Status: Acute (2) Hypotension: Status: Acute DS: Summary Hospital Course Hospital Course: 78-year-old male with a PMH significant for HFpEF, paroxysmal AFib on Eliquis, COPD, LAINEY,?insulin-dependent type 2 diabetes, HLD, and GERD who presents to the ED for evaluation of hypoglycemia,hypotension.patient is poor historian -hx taken with help of Ed physician: Patient had his normal PCP office visit this morning and was told everything was okay, blood pressure in the morning was 106/68,he also takes 30 units of Lantus at bedtime and sliding scale for NovoLog patient had BS at home of 106 and gave himself 24 units of NovoLog patient felt clammy and diaphoretic with some blurry vision checked his blood sugar was 61 and called 911, patient found to be hypotensive during transportation and in the hospital, no fever, no chills, no CP, no SOB, no abdominal pain, no nausea, no vomiting no diarrhea. Patient states that his been normal appetite,he says he was not hydrating well .he he also had recent admission due to hypotension secondary to increased diuretic dose. Denies any new complaint of chest pain or shortness of breath or abdominal pain or fever or chills or nausea or vomiting or diarrhea or urinary complaints. Denies any cough Denies any weakness or numbness. Lab imaging EKG reviewed: CBC seems fine BMP: BUN 44, creatinine 1.6 Lowest glucose in ED is 39 Lactic acid 3.9 UA and chest x-ray negative, EKG AFib with ventricular rate of 77/min. Hospital course: Patient was admitted for hypotension and hypoglycemia: Patient used excessive insulin short-acting and subsequently become hypoglycemic as well as found to have low blood pressure: Patient was given IV hydration, blood pressure medication was placed on hold as well as the diabetic medications for hypoglycemia: Patient was monitored closely-blood pressure medications started back and patient is tolerating, diabetic medications also started-Lantus adjusted to 10 units b.i.d., and patient will be going with NovoLog sliding scale coverage. Acute lactic acidosis: Secondary to dehydration/metformin//nebs: Given IV hydration, no need to trend further lactic acid. Will stop metformin on discharge. ANDREW: Possibly secondary to above hypotension/blood pressure medication: Seems to be resolved, patient is started back on his blood pressure medications, monitor renal function electrolytes outpatient. Diabetic education given in detail, also patient was advised to monitor blood pressure and fingersticks at home and further Lantus and NovoLog adjustment meant as needed. Metformin discontinued due to borderline renal function, acute lactic acidosis initially. Patient will be going home with VNA. plan: Adjusted Lantusto 10 units b.i.d., and patient will be going with NovoLog sliding scale coverage. Metformin discontinued Monitor renal function electrolytes outpatient. Above management discussed with the patient in detail length she understand and in agreement with the above plan, time spent 40 minutes and 50% time spent on counseling. Time Attestation Total time managing care of this patient today: 40 mintues. Discharge Coordination Time (in mins): 40 min Quality: Safe Use of Opioids Does Pt have an Active Cancer Diagnosis on the Problem List?: No Quality: Stroke Does the patient have a stroke diagnosis?: No Physical Exam Vital Signs: Vital Signs: Last Vital Signs Temp 96.8 F 03/08/24 11:03 Pulse 76 03/08/24 11:03 Resp 18 03/08/24 11:03 BP 109/72 03/08/24 11:03 Pulse Ox 96 03/08/24 11:03 O2 Del Method Room Air 03/08/24 11:03 O2 Flow Rate 2 03/07/24 05:42 BMI result Body Mass Index 36.0 Appearance: Alert.? Oriented X3. cvs: rrr, [id number] , no murmur res: clear to auscultation ,no rhonchii or wheezing abd: no rebound or guarding ,nt, bs present. ext pulses present , no cyanosis . neuro: axo3 , nonfocal. DS: Data Data Completed and Pending Labs on day of discharge: Laboratory Results - last 24 hr 03/07/24 03/07/24 03/08/24 16:50 19:42 07:12 POC Glucose 186 H 187 H 188 H 03/08/24 11:06 POC Glucose 232 H Preliminary micro results at discharge 03/05/24 15:52 Blood Culture - Preliminary Blood - Venous No growth after 48 hours. 03/05/24 15:48 Blood Culture - Preliminary Blood - Venous No growth after 48 hours. Imaging Chest x-ray: Radiologist's impression: ITS Impressions Chest X-Ray 03/05/24 15:23 IMPRESSION: No acute cardiopulmonary disease. Discharge Plan Discharge Anticipated Discharge Date/Time: 03/08/24 14:02 Patient Disposition: Home Health Service Discharge Diagnosis: andrew,hypotension and hypoglycemia Referrals: [facility] [Outside] - 1 Week Prabhjot Ford MD [Primary Care Provider] - 1 Week Discharge Medications: New insulin lispro [Humalog KwikPen Insulin] 100 unit/mL insulin pen 0 sliding scale dose SUBCUT QIDACHS Qty: 15 0RF Rx Instructions: Blood Sugar: <150 - 0 units 151-200 - 2 units 201-250 - 4 units 251-300 - 6 units 301-350 - 8 units >350 - 10 units Continued magnesium oxide 400 mg (241.3 mg magnesium) tablet 400 mg PO DAILY ferrous sulfate 325 mg (65 mg iron) tablet 325 mg PO DAILY brimonidine 0.2 % drops 1 drp ophthalmic (eye) BID omeprazole 20 mg capsule,delayed release(DR/EC) 20 mg PO DAILY@0630 aspirin 81 mg tablet,chewable 1 tab PO DAILY ammonium lactate 12 % cream 1 appl topical DAILY albuterol sulfate 90 mcg/actuation HFA aerosol inhaler 2 puff INHALATION Q4H PRN (Reason: wheezing) Lumigan 0.01 % drops 1 drp ophthalmic (eye) BEDTIME Eliquis 5 mg tablet 5 mg PO BID Trelegy Ellipta 100-62.5-25 mcg blister with device 1 ea inhalation DAILY torsemide 20 mg tablet 40 mg PO BID@0900,1800 polyethylene glycol 3350 [HealthyLax] 17 gram powder in packet 17 g PO BEDTIME amitriptyline 25 mg tablet 25 mg PO BEDTIME hydrocortisone 2.5 % cream 1 appl topical BID hydroxychloroquine 200 mg tablet 200 mg PO DAILY fluticasone propionate 50 mcg/actuation spray,suspension 2 spray intranasal DAILY PRN (Reason: Congestion) loratadine 10 mg tablet 10 mg PO DAILY PRN (Reason: Allergy Symptoms) metoprolol tartrate 25 mg tablet 25 mg PO BID Entresto 24-26 mg tablet 1 tab PO BID ketoconazole 2 % Cream 1 appl TOPICAL BID Rx Instructions: APPLY TO FEET pregabalin 75 mg capsule 75 mg PO BID dapagliflozin propanediol [Farxiga] 10 mg tablet 10 mg PO DAILY atorvastatin 40 mg tablet 40 mg PO BEDTIME spironolactone 25 mg tablet 25 mg PO DAILY (DME) Dexcom G7 Sensor Device MISCELLANEOUS cod liver oil Capsule 1 cap PO DAILY Changed insulin glargine [Lantus Solostar U-100 Insulin] 100 unit/mL (3 mL) insulin pen 10 unit subcut BID Qty: 15 0RF Discontinued insulin aspart U-100 [Novolog FlexPen U-100 Insulin] 100 unit/mL (3 mL) insulin pen 22 - 28 sliding scale dose subcut TIDAC metformin 500 mg tablet 500 mg PO TIDWM Discharge Orders: Discharge Order (Routine); Ordered 03/08/24 Ordered By: Nabil Cisse Diet: Advance to usual diet Activity on Discharge: As tolerated Stand Alone Forms: Patient Portal Discharge page Print Language: Hebrew Care Plan Goals: Patient was admitted for hypotension and hypoglycemia: Patient used excessive insulin short-acting and subsequently become hypoglycemic as well as found to have low blood pressure: Patient was given IV hydration, blood pressure medication was placed on hold as well as the diabetic medications for hypoglycemia: Patient was monitored closely-blood pressure medications started back and patient is tolerating, diabetic medications also started-Lantus adjusted to 10 units b.i.d., and patient will be going with NovoLog sliding scale coverage. Diabetic education given in detail, also patient was advised to monitor blood pressure and fingersticks at home and further Lantus and NovoLog adjustment meant as needed. Metformin discontinued due to borderline renal function, acute lactic acidosis initially. Patient will be going home with VNA. Health Concerns: As above. Plan of Treatment: As above. Assessment: As above.
[2024-03-20 11:03] LABS: Glucose, Whole Blood 42 mg/dL (60-115)
== END 2024-03-08 15:58 | disposition home health service (06) | DRG 638 ==
LOC: HO.ED 17:48 → HO.EDOVER 18:05 → HO.IMC 03-07 07:55
PROVIDERS: Admitting Provider Internal Medicine; Emergency Provider Emergency Medicine; PCP Internal Medicine; Visit Provider Internal Medicine
DX: E11.649 Type 2 diabetes mellitus with hypoglycemia without coma (principal); E87.21 Acute metabolic acidosis; I50.32 Chronic diastolic (congestive) heart failure; N17.9 Acute kidney failure, unspecified; I48.0 Paroxysmal atrial fibrillation; E86.0 Dehydration; E66.01 Morbid (severe) obesity due to excess calories; Z68.36 Body mass index [BMI] 36.0-36.9, adult; T38.3X5A Adverse effect of insulin and oral hypoglycemic [antidiabetic] drugs, initial encounter; I95.9 Hypotension, unspecified; G47.33 Obstructive sleep apnea (adult) (pediatric); J44.9 Chronic obstructive pulmonary disease, unspecified; Z20.822 Contact with and (suspected) exposure to COVID-19; Z79.4 Long term (current) use of insulin; Z79.01 Long term (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 of anticoagulants; Z79.82 Long term (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 of aspirin; Z79.899 Other long term (current) drug therapy
CPT/HCPCS: 0241U; 36415; 71045; 80048; 80076; 81001; 82947; 83036; 83605; 83690; 83880; 84484; 85025; 87040; 93005; 94640; 94660; 99285

== ENCOUNTER → 2024-03-05 15:16 | Outpatient (BNV) | payer OTHER, SELFPAY | PROVIDERS: Admitting Provider Internal Medicine; Emergency Provider Emergency Medicine; PCP Internal Medicine; Visit Provider Internal Medicine Cardiovascular Disease | DX: I48.91 Unspecified atrial fibrillation (principal); R94.31 Abnormal electrocardiogram [ECG] [EKG]; E16.2 Hypoglycemia, unspecified | CPT/HCPCS: 93010 ==

== ENCOUNTER → 2024-03-05 18:00 | Outpatient (BNV) | payer OTHER, SELFPAY | PROVIDERS: Admitting Provider Internal Medicine; Emergency Provider Emergency Medicine; PCP Internal Medicine; Visit Provider Internal Medicine | DX: E87.21 Acute metabolic acidosis (principal); N17.9 Acute kidney failure, unspecified; E11.65 Type 2 diabetes mellitus with hyperglycemia | CPT/HCPCS: 99222; 99232; 99239; G0180 ==

== ENCOUNTER 2024-09-26 12:43 | Outpatient (AMB) | payer OTHER, SELFPAY ==
[2024-09-26 13:01] VITALS: BP 118/68; PULSE 54; O2SAT 98; BMI 37.0
--- NOTE | 2024-09-26 13:01 | MHC.OFFVIS ---
Vital Signs 09/26/24 13:01 Height 5 ft 6 in Weight 229 lb 4.492 oz BMI 37.0 BP 118/68 Blood Pressure Location Lt brachial Position Sitting Pulse 54 Pulse Source Pulse Oximeter Pulse Oximetry (%) 98 Oxygen Delivery Method Room Air Intake Visit Reasons: RA,CM Intake Note: Patient presents for follow up on rheumatoid arthritis. Patient states he would like to discuss Pregablin. Allergies Beef Containing Products Adverse Reaction (Verified 09/26/24 13:07) Unknown Pork/Porcine Containing Products Adverse Reaction (Verified 09/26/24 13:07) Unknown HPI HPI RA,CM: Details: Since being on hydroxychloroquine he has noted reduce swelling in his hands. He is grieving the loss of his who in June. No recent infections. No recent flares. 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 Good respiratory effort Skin: No lesions seen MSK: No tenderness of any joint. No synovitis. Heberden's and Luana's nodes present. 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 Limited abduction of his shoulders to 120 degrees. He has good external and external range of motion of his shoulders. No lower extremity edema. Assessment & Plan Assessment & Plan (1) Rheumatoid arthritis: Comment: Controlled on hydroxychloroquine. Code(s): M06.9 - Rheumatoid arthritis, unspecified Category: Medical Plan: Labs for disease and drug monitoring on high-risk medication ordered. After lab results are back, I will send three-month supply. He recently had an eye exam with Dr. Lima. I am requesting records of last eye exam for hydroxychloroquine surveillance from Dr. Lima's office and [facility]. Return to clinic in 3 months (2) Other senior care (current) drug therapy: Code(s): Z79.899 - Other senior care (current) drug therapy Category: Medical Plan: See above Orders: Orders Alanine Aminotransferase Today M06.9 - Rheumatoid arthritis, unspecified, Z79.899 - Other termite exterminator (current) drug therapy Cyclic Citrullinated Peptide Today M06.9 - Rheumatoid arthritis, unspecified, Z79.899 - Other termite exterminator (current) drug therapy Hepatitis B,C Profile Today M06.9 - Rheumatoid arthritis, unspecified, Z79.899 - Other senior care (current) drug therapy Creatinine Today M06.9 - Rheumatoid arthritis, unspecified, Z79.899 - Other termite exterminator (current) drug therapy Rheumatoid Factor Today M06.9 - Rheumatoid arthritis, unspecified, Z79.899 - Other termite exterminator (current) drug therapy Aspartate Amino Transferase Today M06.9 - Rheumatoid arthritis, unspecified, Z79.899 - Other senior care (current) drug therapy T Spot TB Today M06.9 - Rheumatoid arthritis, unspecified, Z79.899 - Other senior care (current) drug therapy Complete Blood Count Auto Diff Today M06.9 - Rheumatoid arthritis, unspecified, Z79.899 - Other termite exterminator (current) drug therapy C Reactive Protein Today M06.9 - Rheumatoid arthritis, unspecified, Z79.899 - Other termite exterminator (current) drug therapy Coding Level of Care Code Est Pt Level 4 (98130) Complex EM visit Add On G2211 Diagnoses Rheumatoid arthritis M06.9 Other termite exterminator (current) drug therapy Z79.899
--- OUTSIDE RECORDS SUMMARY | 2024-10-02 02:12 | XMS_ITS | Data Portability ---
Author Organization [employer], Or in - [employer] Address [address] [place] [phone] Care Team Providers Care Package Pick Up Name Role Phone SAEID GLASS Primary Care Provider HIM CCA OTHER Assessment Encounter Date Assessment Date Assessment LastModified by Organization Details LastModified Time 02/05/2024 02/05/2024 I provided real -time medical direction via phone for this encounter, and was available for additional phone based assistance as needed. I have reviewed and agree with the Assessment and Plan as documented by the Coil Rewind Machine Operator. We discussed the diagnostic uncertainty of home visits and the risk associated with this. In this case the patient and I felt this to be an acceptable and reasonable amount of risk given the benefit of avoiding an ED visit. The patient given the opportunity to ask questions. Advised if develops CP/severe SOB/turning blue/uncontrolled n/v/d /AMS/ syncope/acute visual changes/ hi fever/ to call 911- verbalized understanding of instruction Not available 02/05/2024 18:42:34 04/09/2024 04/09/2024 I have reviewed and agree with the assessment and plan as documented by the meat stringer. I provided real time medical direction for this encounter and was immediately available to provide additional phone based assistance as needed. History as noted by meat stringer. Pt with history of COPD, CHF, DM. Pt has had episodes of hypotension in the past d/t his medications. He reports that this AM he took his BP and it was 110/67 so took his AM meds including his metoprolol and Entresto. Pt reports that he went outdoors into his yard and was soon feeling lightheaded. He went back indoors and checked his BP which was low at 91/66. He rested and is now feeling improved. He denies any lightheadedness currently. No CP or SOB. He has baseline LE edema, unchanged. On exam, pt in no distress. BP now 106/72. Lungs clear, mild LE edema noted. Impression: Pt with an episode of hypotension this AM after he had taken his meds, including metoprolol and Entresto, and then went outdoors in the hot weather. He is now feeling improved and is completely asymptomatic with improved BP, now 106/72. Pt is told to call either his Primary care team and/or pastoral assistant today to discuss the episode with them and to see if they recommend any medication dosage adjustments. Pt is told to stay indoors when the weather is hot and humid, like it is this week, and to increase his PO fluid intake, at least for the rest of today. Primary care team: Please call and follow up with the pt this week, in 1-2 days, check on his symptoms and BP to ensure it remains stable. Pt instructed to seek medical attention right away with any worsening or new symptoms, which are reviewed with him. [email or web address] Not available 04/09/2024 15:39:41 Plan of Treatment Reminders Order Date Submit Date Provider Last Modified By Organization Details Last Modified Time Details Appointments None recorded . Lab glucose, fingerst ick, blood 2023 024 [email or web address] [facility], [address] [place] [address], [phone], 4 18:47:12 BMP, serum or plasma [email or web address], [address], 4 18:47:11 Referral None recorded . Procedures None recorded . Surgeries None recorded . Imaging None recorded . Medication Orders furosemi de 10 mg/mL injectio n syringe 2022 023 [email or web address] Not available 3 15:50:52 Patient TargetsNo targets recorded. Patient InstructionsNo instructions recorded. Reason for Referral None Reported. Results Created Date Observation Date Name Description Value Unit Range Abnormal Flag Note LastModifiedBy Organization Detail LastModifiedTime 07/03/20 23 07/03/2023 BMP, serum or plasm a BUN 30 Not Available Main - [facility] [address], [address], 07/03/2023 14:03:06 07/03/20 23 07/03/2023 BMP, serum or plasm a CRE 1.5 Not Available [facility] - [facility] [address], [address], 07/03/2023 14:03:06 07/03/20 23 07/03/2023 BMP, serum or plasm a K+ 4.0 Not Available Main - [facility] [address], [address], 07/03/2023 14:03:06 07/03/20 23 07/03/2023 BMP, serum or plasm a Na+ 139 Not Available [facility] - [facility] [address], [address], 07/03/2023 14:03:06 02/05/20 24 02/05/2024 BMP, serum or plasm a BUN 35 Not Available Main - [facility] [address], [address], 02/05/2024 17:09:34 02/05/20 24 02/05/2024 BMP, serum or plasm a Ca Ionize d calciu m 1.12 Not Available Main - [address], [address], 02/05/2024 17:09:34 02/05/20 24 02/05/2024 BMP, serum or plasm a CI- 98 Not Available Main - [facility] [address], [address], 02/05/2024 17:09:34 02/05/20 24 02/05/2024 BMP, serum or plasm a CRE 1.6 Not Available Main - [facility] [address], [address], 02/05/2024 17:09:34 02/05/20 24 02/05/2024 BMP, serum or plasm a GLU 147 Not Available [facility] - [facility] [address], [address], 02/05/2024 17:09:34 02/05/20 24 02/05/2024 BMP, serum or plasm a K+ 4.1 Not Available [facility] - [facility] [address], [address], 02/05/2024 17:09:34 02/05/20 24 02/05/2024 BMP, serum or plasm a Na+ 139 Not Available Main - [facility] [address], [address], 02/05/2024 17:09:34 02/05/20 24 02/05/2024 BMP, serum or plasm a tCO2 30 Not Available Main - [facility] [address], [address], 02/05/2024 17:09:34 02/05/20 24 02/05/2024 gluco se, finge rstic k, blood Blood Glucose: mg/dl 77 by cgm. 153 by medic glucom eter Not Available Main - [facility] [address], [address], 02/05/2024 17:09:28 Result Notes None recorded. Medical Equipment None Reported. Allergies No known drug allergies Medications Name Sig Start Date Stop Date Status Note LastModified by Organization Details LastModified Time metformin 500 mg tablet TAKE 1 TABLET BY MOUTH 3 TIMES A DAY active Not Available Not Available Not Available atorvastatin 10 mg tablet TAKE 1 TABLET BY MOUTH EVERY DAY active Not Available Not Available No t Available FreeStyle Lancets 28 gauge USE TO CHECK BLOOD SUGARS 3 TIMES DAILY active Not Available Not Available Not Available gabapentin 400 mg capsule TAKE 1 CAPSULE BY MOUTH EVERY DAY active Not Available Not Available No t Available prednisone 5 mg tablet TAKE 3 TABS BY MOUTH EVERY X 3 DAYS,2 TABS X3 DAYS,1 TAB FOR 3 DAYS active Not Available Not Available No t Available amitriptylin e 25 mg tablet TAKE 1 TABLET BY MOUTH EVERY DAY active Not Available Not Available No t Available ferrous sulfate 325 mg (65 mg iron) tablet TAKE 1 TABLET BY MOUTH EVERY DAY active Not Available Not Available No t Available brimonidine 0.2 % eye drops INSTILL 1 DROP INTO BOTH EYES TWICE A DAY active Not Available Not Available Not Available metoprolol tartrate 50 mg tablet TAKE 1 TABLET BY MOUTH TWICE A DAY active Not Available Not Available No t Available omeprazole 20 mg capsule,hossein yed release TAKE 1 CAPSULE BY MOUTH EVERY DAY active Not Available Not Available No t Available ammonium lactate 12 % topical cream APPLY TO DRY SKIN ON BOTH FEET DAILY active Not Available Not Available No t Available furosemide 20 mg tablet TAKE 3 TABLETS BY MOUTH EVERY DAY active Not Available Not Available No t Available methylpredni solone 4 mg tablets in a dose pack TAKE 6 TABLETS ON DAY 1 DIRECTED ON PACKAGE AND DECREASE BY 1 TAB EACH DAY FOR A TOTAL OF 6 DAYS active Not Available Not Available No t Available albuterol sulfate HFA 90 mcg/actuatio n aerosol inhaler TAKE 2 PUFFS BY MOUTH EVERY 4 HOURS NEEDED FOR COUGH OR WHEEZING. active Not Available Not Available No t Available fluticasone propionate 50 mcg/actuatio n nasal spray,suspen sukhjinder SPRAY 2 SPRAYS IN EACH NOSTRILS DAILY FOR 3-4 WEEKS, THEN DOWN TO 1 SPRAY IN EACH NOSTRIL DAILY. active Not Available Not Available No t Available loratadine 10 mg tablet TAKE 1 TABLET BY MOUTH EVERY DAY active Not Available Not Available No t Available furosemide 10 mg/mL injection syringe Inject 40 mg every day by intramuscul ar route for 1 day. 2022 active Not Available Not Available Not Avai lable valsartan 40 mg tablet TAKE 1 TABLET BY MOUTH EVERY DAY active Not Available Not Available No t Available Novolog FlexPen U-100 Insulin aspart 100 unit/mL (3 mL) subcutaneous INJECT 24 UNITS SUBCUTANEOU SLY BEFORE BREAKFAST, 32 UNITS BEFORE LUNCH, 24 UNITS BEFORE DINNER active Not Available Not Available No t Available Flovent HFA 110 mcg/actuatio n aerosol inhaler INHALE 1 PUFF BY MOUTH TWICE A DAY active Not Available Not Available No t Available pregabalin 75 mg capsule TAKE 1 CAPSULE BY MOUTH TWICE A DAY active Not Available Not Available No t Available pregabalin 100 mg capsule TAKE 1 CAPSULE BY MOUTH TWICE A DAY active Not Available Not Available No t Available FreeStyle Lite Strips USE TO TEST SUGARS 3 TIMES DAILY active Not Available Not Available Not Available Lumigan 0.01 % eye drops INSTILL 1 DROP INTO BOTH EYES EVERY DAY AT NIGHT active Not Available Not Available No t Available Eliquis 5 mg tablet TAKE 1 TABLET BY MOUTH TWICE A DAY active Not Available Not Available No t Available Vitals Date Recorded Heart rate Respiratory rate Body weight Body temperature Oxygen saturation Oxygen saturation in Arterial blood by Pulse oximetry Systolic blood pressure Diastolic blood pressure Provider Name and Address Organization Details Last Updated DateTime 3 90 /min 16 /min 942691. 384 g 97.1 [degF] 100 % 100 % 139 mm[Hg] 86 mm[Hg] Not Available [facility] 3 10:57:00 Date Recorded Body temperature Oxygen saturation Oxygen saturation in Arterial blood by Pulse oximetry Respiratory rate Heart rate Systolic blood pressure Diastolic blood pressure Provider Name and Address Organization Details Last Updated DateTime 4 98 [degF] 100 % 100 % 18 /min 80 /min 157 mm[Hg] 83 mm[Hg] Not Available [facility] 4 16:50:57 Date Recorded Respiratory rate Body temperature Body weight Body height Oxygen saturation Oxygen saturation in Arterial blood by Pulse oximetry Heart rate Systolic blood pressure Diastolic blood pressure Provider Name and Address Organization Details Last Updated DateTime 4 16 /min 97.6 [degF] 893294. 792 g 167.64 cm 99 % 99 % 80 /min 107 mm[Hg] 63 mm[Hg] Not Available [facility] 4 17:04:04 Date Recorded Body temperature Oxygen saturation Oxygen saturation in Arterial blood by Pulse oximetry Respiratory rate Heart rate Systolic blood pressure Diastolic blood pressure Provider Name and Address Organization Details Last Updated DateTime 4 97.2 [degF] 98 % 98 % 16 /min 85 /min 125 mm[Hg] 80 mm[Hg] Not Available [facility] [employer] 4 17:20:24 Date Recorded Heart rate Body height Body weight Oxygen saturation Oxygen saturation in Arterial blood by Pulse oximetry Body temperature Respiratory rate Systolic blood pressure Diastolic blood pressure Provider Name and Address Organization Details Last Updated DateTime 4 76 /min 167.64 cm 387335. 608 g 98 % 98 % 97.2 [degF] 14 /min 106 mm[Hg] 72 mm[Hg] Not Available [facility] 4 15:26:30 Social History None recorded. Functional Status None recorded. Mental Status None recorded. Family History Nothing Reported. Medical History No medical history recorded. Past Encounters Encounter ID Performer Location Encounter Start Date Encounter Closed Date Diagnosis/Indication Diagnosis SNOMED-CT Code Diagnosis ICD10 Code [id number] Yogesh Piedra MD [facility] - [facility] [address] [place] [phone] 01/10/2022 11:39:25 07/19/2022 14:03:31 Hypertensive disorder 37391797 I10 [id number] Ramya Gramajo MD [facility] - [facility] [address] [place] [phone] 05/12/2022 12:45:21 07/05/2022 21:10:28 Chest pain 93512711 R07.9 [id number] Familia Roa MD [facility] - [facility] [address] [place] [id number] 08/23/2022 12:45:38 08/23/2022 16:41:09 Low blood pressure 75729612 I95.9 [id number] Shannan Hannah MD [facility] - [facility] [address] [place] [id number] 09/19/2022 12:20:33 09/21/2022 11:23:54 Viral upper respiratory tract infection 968738426 J06.9 [id number] Demar Allan MD Main - [facility] [address] [place] [phone] 12/24/2022 22:17:55 12/26/2022 09:40:15 Viral syndrome 124179355 B34.9 [id number] Shannan Hannah MD Main - [facility] [address] [place] [phone] 02/18/2023 14:31:21 02/20/2023 09:53:22 Headache 68898620 R51.9 [id number] Shivani Bowman MD Main - [facility] [address] [place] [phone] 04/15/2023 19:16:26 04/17/2023 09:48:17 Peripheral edema 233688627 R60.9 [id number] Ana Arroyo MD [facility] - [facility] [address] [place] [phone] 07/03/2023 13:57:16 07/03/2023 17:01:42 Congestive heart failure 35137173 I50.9 [id number] Lester Lewis MD Main - [facility] [address] [place] [address] 07/04/2023 18:51:19 07/05/2023 11:39:12 Congestive heart failure 09698771 I50.9 [id number] Lisette Ramos MD Main - [facility] [address] [place] [address] 0 07/24/2023 10:56:51 07/24/2023 22:57:02 Congestive heart failure 13182825 I50.9 [id number] Lisette Ramos MD Main - [facility] [address] [place] [address] 0 11/28/2023 16:02:31 11/28/2023 22:24:16 Hypoglycemia 391161310 E16.2 [id number] Ramya Gramajo MD Main - [facility] [address] [place] [address] 0 02/05/2024 17:04:02 02/05/2024 19:06:16 Hypoglycemia 061908260 E16.2 [id number] MILTON CHAMORRO MD Main - [facility] [address] [place] [address] 0 03/09/2024 17:20:23 03/11/2024 11:13:33 Low blood pressure 59290890 I95.9 [id number] Yogesh Piedra MD [facility] - [facility] [address] [place] [address] 0 04/09/2024 15:26:25 04/09/2024 21:18:24 Hypotensive episode 13298885 I95.9 Health Concerns Section Related Observation LastModified by Organization Detai ls LastModified Time None Recorded Concern Status LastModified by Organization Details LastModified Time None Recorded Advance Directives Directive None Recorded Payers Encounter Date Sequence Insurance Name Policy Number Policy Hernandez Covered Member ID Hernandez Member ID Guarantor Name 07/24/2023 1 [facility] - DOS ON OR AFTER 2023 - DUAL ELIGIBLE - SKILLED NURSING OPTIONS AND ONE CARE (MEDICARE REPLACEMENT/ADV ANTAGE - HMO) [facility] [id number] David Milton 11/28/2023 1 [facility] - DOS ON OR AFTER 2023 - DUAL ELIGIBLE - SKILLED NURSING OPTIONS AND ONE CARE (MEDICARE REPLACEMENT/ADV ANTAGE - HMO) [id number] David Milton 02/05/2024 1 [facility] - DOS ON OR AFTER 2023 - DUAL ELIGIBLE - SKILLED NURSING OPTIONS AND ONE CARE (MEDICARE REPLACEMENT/ADV ANTAGE - HMO) David Milton [id number] David Milton 03/09/2024 1 [facility] - DOS ON OR AFTER 2023 - DUAL ELIGIBLE - SKILLED NURSING OPTIONS AND ONE CARE (MEDICARE REPLACEMENT/ADV ANTAGE - HMO) David Milton [id number] David Milton 04/09/2024 1 [facility] - DOS ON OR AFTER 2023 - DUAL ELIGIBLE - SKILLED NURSING OPTIONS AND ONE CARE (MEDICARE REPLACEMENT/ADV ANTAGE - HMO) David Milton [id number] David Milton Notes Date Note Type Note Provider Name and Address Organization Details Recorded Time 07/24/2023 text/html HPI: RN calling for increased weight gain and pitting edema bilateral , +3 , 224ibs to /227.8ib since monday . Member has wheezing and crackles at bases. Member is on torsemide 40 mg BID . Member is on NA and fluid rest , member follows diet. Member denies sob. Legs currently elevated ..................... ..................... ..................... ..................... ..................... ..................... ............... CRC Nursing Assessment: Comments: CRC RN DID NOT NEED FURTHER INFO ..................... ..................... ..................... ..................... ..................... ..................... ............... Coil Rewind Machine Operator Note From Jakob Blanton: Pt reports increased LLE and 3 lb weight gain over the past 4 days. Pt denies CP, SOB, GAUTHIER, f/n/v/d. Pt takes torsemide 40 mg bid. Pt is alert, NAD. VSS. SpO2 100% ra. Afebrile. Neuro exam and gait normal. Lungs CTA. Benign ABD exam. +3 pitting edema on right lower leg / +2 lower left. POC labs unremarkable. Pt treated with furosemide 80 mg IVP. VS reassessed after 15 min with no significant changes. Pt advised to f/u with PCP / pastoral assistant. Pt instructed to seek emergent medical care for new or worsening sx, which are reviewed with him. ..................... ..................... ..................... ..................... ..................... ..................... ............... Disposition: Fulfilled Lisette Ramos MD [address] [facility],[address], [place], [address], [employer] 07/24/2023 15:51:00 11/28/2023 text/html CRC Nurse Triage Notes (Toshia Colmean): Reason For Request: Pt reporting low blood sugar>22 blood sugar>with attempts to raise it by eating some sweet items. BP 131/84 Chief Complaints: Diabetes Related PMH: COPD/Asthma, CHF, Diabetes Allergies: No Known Comments: Verified identity / address/ Member is a 77 yr old male . Member feels tired so and took BS and found to be 22 but does not think it is correct. Member took insulin this am. Asked for member to recheck BS while on the call. now on the phone 66 . Member does any have any confusion , no polyuria or polydipsia. Requested member not take anymore insulin until we can determine the correct range ..................... ..................... ..................... ..................... ..................... ..................... ............... Coil Rewind Machine Operator Note From Christy Tate: Sent to a call for a pt complaining of hypoglycemia. SC8 arrives on scene, pt is alert and oriented, airway is patent. Pt complains of blood sugar ranging from 22-68 since 2pm. Pt unsure if glucometer is working properly. Visiting nurse arrives on scene and states pt is a brittle diabetic, with a history of CHF, and Hypotension. Pt was admitted to [facility] from 11/24-11/27 for hypotension and hypoglycemia. Pt's Lantus dosage was changed from 55 units at night to 30 units at night. Pt is also prescribed Novolog TID sliding scale. Pt states his BG this morning was 134, and he took Novolog 20 units at approx 08:30. Pt states earlier when his BG was low he had blurry vision and was tired, but symptoms resolved. BP:157/83, P:80, RR:18, SpO2:100% RA, T:98.0, Medic's glucometer-B; Pt's personal glucometer read 46 at the same time. Head: unremarkable; Lung sounds: clear bilaterally; Abdomen: soft, non-tender, no distention; Back: unremarkable; Extremities: unremarkable; Skin: pink, warm, dry; Pt takes Glucose tab 15gm. Venous blood draw performed: Chem8+ results uploaded to [employer]. B; Pt's visiting nurse sets up pt's continuous glucose monitor. C consulted and pt advised to have glucose tabs in case BG dips again. Pt advised to follow up with pulmonary specialist. [facility] Visiting nurse will help get replacement glucometer for pt. Red flags discussed. Pt has no further questions. ..................... ..................... ..................... ..................... ..................... ..................... ............... Disposition: Fulfilled Lisette Ramos MD [address] [place] [address],[address], [place], [phone], [employer] 11/28/2023 21:06:34 02/05/2024 text/html CRC Nurse Triage Notes (Lida Hamlin): Chief Complaints: Shortness of Breath/Dyspnea PMH: COPD/Asthma, CHF, Diabetes Allergies: Unknown Comments: Visiting nurse at home this afternoon reports 02 saturation in the 84% to 90%. Difficulty obtaining reading. Did not reports labored breathing. Reports BGL 49. Member had a snack, did not recheck after reading. States member is alert and oriented, refusing ED at this time. Instructed that member needs to be evaluated in the ED. VNA left visit- not with member at this time. CRC attempt to reach patient. Unable to reach member at this time. ..................... ..................... ..................... ..................... ..................... ..................... ............... Coil Rewind Machine Operator Note From Leonel Farmer: [employer] visit for male patient who's VNA nurse was concerned about hypoglycemia and hypoxia. Pt presents conscious and alert ambulating with walker in home. Pt reports that his visiting nurse came to see him and was concerned about some pulse ox readings reportedly in the 80's. In addition pt's implanted glucose meter read as low as 47 today. Pt denies any symptoms at this time. Pt feeling well at this time but agreed to have blood sugar and V/S taken. V/S WNL. Blood glucose was 153 at the same time his implanted meter was reading 77. Pt afebrile. Lung sounds noted to be slightly diminished though patient is obese. Consulted with [facility] Dr. Gramajo. [facility] was concerned about malfunction with pt's meter so ordered a BMP. Blood drawn with iSTAT results uploaded. iSTAT showed blood sugar of 147 with patients meter now reading 91. Reviewed pt's allergies and diabetes regimen. Pt instructed to follow up with PCP to fix issue and instructed to use his finger stick glucometer in the mean time for sliding scale insulin dosages. Reviewed red flags for ED. Patient education provided. ..................... ..................... ..................... ..................... ..................... ..................... ............... Disposition: Fulfilled SEGMD: Patient has a history of recurrent hypoglycemia, he was hospitalized for this earlier this year. We last saw him 11/28/2023 for hypoglycemia. He was not symptomatic today with a BGL of 49 on his Dexcom G7. He is not currently symptomatic. He denies cough, shortness of breath, chest pain, fever, chills, nausea, vomiting or diarrhea. Patient takes metformin 500 mg 3 times a day, Lantus 30 units nightly (down from 55 units last year )and NovoLog sliding scale for his diabetes 3 times a day with meals. Patient was not symptomatic with the reported blood glucose of 49/low shift reading earlier. He has been eating and drinking normally. He denies vision changes dizziness, diaphoresis, chest pain, cough, shortness of breath, nausea, vomiting, diarrhea etc.He has no complaints currently. Ramya Gramajo MD [address] [place] [address],[address], [place], [phone], [employer] 02/05/2024 18:47:50 03/09/2024 text/html CRC Nurse Triage Notes (Jay Swartz): Chief Complaints: Hypotension PMH: COPD/Asthma, CHF, Diabetes Allergies: Unknown Comments: Broker Associate verified the member's name//address and phone number. Mbr calling reporting low blood pressure readings. Mbr reports son came over to take his blood pressure and got multiple low readings , mbr reports systolic numbers to be: 97/, 88/, 73/, and then 109/. Pt denies CP, SOB, or dizziness/ lightheadedness. Education provided on the response time and the member was advised to monitor reported s/s and seek emergency treatment if needed -Stew Swartz RN ..................... ..................... ..................... ..................... ..................... ..................... ............... Coil Rewind Machine Operator Note From Jakob Blanton: Pt reports low systolic BP? s earlier today (uppers 90? s-low 100? s). Pt sts he feels well, denying any CP, SOB, LERMA dizziness, blurred vision, f/n/v/d. Pt sts he hadn? t eaten before the BP was take but he just finished a meal. I have visited Mr. Milton many times over the past year and he looks well today. Pt is alert, NAD. VSS. Afebrile. Non focal neuro exam. Normal gait. Lungs CTA. Benign ABD exam. Trace to no LE edema (vastly improved from previous visits). Pt encouraged to eat small meals throughout the day, continue to closely monitor BP? s and to seek emergent medical care for new or worsening sx, which are reviewed with him. ..................... ..................... ..................... ..................... ..................... ..................... ............... Disposition: Fulfilled MILTON CHAMORRO MD [address] [place] [address],[address], [place], [place], [id number], Offline Media 03/09/2024 17:30:15 04/09/2024 text/html This was a super vised home visit with meat stringer Christian Art. CRC Nurse Triage Notes (Jazmin Larios): Reason For Request: Pt reporting low blood pressure 91/66, which is causing some light headedness>denies pain>denies SOB Chief Complaints: Hypotension, Syncope/Dizziness/Lig htheadedness PMH: COPD/Asthma, CHF, Diabetes Allergies: No Known Comments: Member calling in to place a referral, identified via name and . Member with lightheadedness upon moving around in his garden. Members blood pressure this morning was 110/67, he took his entresto and metoprolol. When he became lightheaded he went inside and his blood pressure was 91/66, he denies chest pain, no sob, no headache or vision changes. Member encouraged to stay inside due to the high heat, have a some fluid and rest until we arrive. Member would like to be evaluated. ..................... ..................... ..................... ..................... ..................... ..................... ............... 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 Pt reports awaking this morning, took his BP meds, then went to work in the garden. He reports while in the garden, was weeding, felt weak. He then came inside, checked his BP and was low. Pt reports this feeling last for a few minutes then subsided. Pt also reports this happened back in 02/13 and was admitted for a month. Pt reports feeling fine when [facility] arrived. He denies CP, SOP, dizziness, N/V/D, or pain. Pt seemed more concerned about getting ahold of a different [facility] member, for a personal matter, non-[facility] related. Pt reports he is unable to drink water due to his BLE edema. MD consult: advised the pt needs to stay indoors since it is above, and call his pastoral assistant for med adjustments. ..................... ..................... ..................... ..................... ..................... ..................... ............... Disposition: Fulfilled Yogesh Piedra MD [address] [facility], [place], [address], VARSHA - RODOLFO THORNE 04/09/2024 16:56:14
== END 2024-09-26 13:48 | disposition home or self-care (01) ==
LOC: HO.RHES 12:43
PROVIDERS: PCP Internal Medicine; Visit Provider Internal Medicine Rheumatology
DX: M06.9 Rheumatoid arthritis, unspecified (principal); Z79.899 Other long term (current) drug therapy
CPT/HCPCS: 99214; G2211

== ENCOUNTER → 2024-09-26 12:43 | Outpatient (BNVA) | payer OTHER, SELFPAY | PROVIDERS: PCP Internal Medicine; Visit Provider Internal Medicine Rheumatology | DX: M06.9 Rheumatoid arthritis, unspecified (principal); Z79.899 Other long term (current) drug therapy | CPT/HCPCS: 99212 ==

== ENCOUNTER 2024-12-31 10:40 | Outpatient (AMB) | payer OTHER, SELFPAY ==
--- NOTE | 2024-12-31 10:41 | MHC.OFFVIS ---
Vital Signs 12/31/24 10:42 Height 5 ft 6 in Weight 223 lb 8.78 oz BMI 36.1 BP 118/62 Blood Pressure Location Lt brachial Position Sitting Pulse 67 Pulse Source Pulse Oximeter Pulse Oximetry (%) 97 Oxygen Delivery Method Room Air Intake Visit Reasons: Follow Up 3mo Intake Note: Patient presents for follow up on rheumatoid arthritis. Allergies Beef Containing Products Adverse Reaction (Verified 12/31/24 10:41) Unknown Pork/Porcine Containing Products Adverse Reaction (Verified 12/31/24 10:41) Unknown HPI HPI Follow Up 3mo: Details: His joint pains in his hands are unchanged. He continues to take hydroxychloroquine. His main complaint is lower back pain. He reports history of degenerative joint disease in his lower back. He has completed physical therapy multiple times. He reports that he has been evaluated for back surgery but there is no history of surgery. Pain worsens with activity. He has pain in his lower back at rest. His PCP would like for him to discontinue pregabalin. [facility] Medical History GERD (gastroesophageal reflux disease) Diabetes COPD (chronic obstructive pulmonary disease) Obesity PAF (paroxysmal atrial fibrillation) Diastolic HF (heart failure) Acute hypotension Fluid volume depletion Social History Household Members: None Housing: House Do you presently have visiting nurse or other home services: Yes (operations controller,vna) Alcohol intake: former Patient Tobacco Use Status: Never used Tobacco Advance Directives Date on File: 02/16/24 service: No Current occupational status: retired Review of Systems Const All systems reviewed & are unremarkable except as noted in HPI and below Physical Exam Vital Signs: Last Vital Signs Pulse 67 12/31/24 10:42 BP 118/62 12/31/24 10:42 Pulse Ox 97 12/31/24 10:42 Oxygen Delivery Method Room Air 12/31/24 10:42 BMI result Body Mass Index 36.1 Const Other: General: Comfortable CVS: RRR Respiratory: clear to auscultation bilaterally. Good respiratory effort Skin: No lesions seen MSK: Tender to palpate lumbar spinous process. No paraspinal muscle tenderness. Limited lumbar flexion.. No synovitis. Heberden's and Luana's nodes present. 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 Limited abduction of his shoulders to 120 degrees. Normal external and external range of motion of his shoulders. No lower extremity edema. Assessment & Plan Assessment & Plan (1) Rheumatoid arthritis: Comment: Controlled on hydroxychloroquine. Rheumatology history: Erosive (erosion in between left medial and intermediate cuneiform, joint space narrowing of bilateral radial carpal joints, bilateral 5th MCPs). Seronegative. [facility] 11/2023- Code(s): M06.9 - Rheumatoid arthritis, unspecified Category: Medical Qualifiers: Rheumatoid arthritis location: multiple sites Rheumatoid factor presence: without rheumatoid factor Qualified Code(s): M06.09 - Rheumatoid arthritis without rheumatoid factor, multiple sites Plan: Labs for disease and drug monitoring on high-risk medication ordered. After lab results are back, I will send three-month supply of hydroxychloroquine He recently had an eye exam with Dr. Lima yesterday and received injections in his eye. Eye exam from 06/2024 has OCT exam results in the report but provider has not provided interpretation and recommendations if it is safe for patient to continue hydroxychloroquine. I am requesting this information. I have also given a note to patient to give to [facility] when he sees them next month. He was [facility] Ly[facility]. PCP would like for patient to discontinue Lyrica. We discussed tapering off. He will decrease Lyrica to 75 mg daily for 1 week then discontinue. 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 We discussed conservative management Code(s): M54.50 - Low back pain, unspecified Category: Medical Plan: He will start taking Tylenol extra strength 500 mg 2 tablets Q 8 hourly PRN pain Apply heat to back. 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
[2024-12-31 10:42] VITALS: BP 118/62; PULSE 67; O2SAT 97; BMI 36.1
--- OUTSIDE RECORDS SUMMARY | 2024-12-31 12:48 | XMS_ITS | Encounter Summary ---
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 Name Role Phone Prabhjot Ford MD Primary Care Provider [phone] Reason for Visit * Reason Comments Diabetes 3 month follow up Hypertension Encounter Details Date Type Department Care Team (Late st Contact Info) Description 12/23/2024 1:00 PM EST Office Visit Adult Medicine [facility] [address] [place], [place] [phone] Gerry Moore PA [address] [place] [address] Chronic bilateral low back pain without sciatica (Primary Dx); Type II diabetes mellitus with peripheral circulatory disorder (CMS/HCC); Stage 3 chronic kidney disease, unspecified whether stage 3a or 3b CKD (CMS/HCC); Pure hypercholesterolemia; Paroxysmal atrial fibrillation (CMS/HCC); Essential hypertension, benign; Chronic heart failure with preserved ejection fraction (CMS/HCC); Anemia, unspecified type Social History Tobacco Use Types Packs/Day Years Used Date Smoking Tobacco: Never Smokeless Tobacco: Never Alcohol Use Standard Drinks/Week Comments Not Currently 0 (1 standard drink = 0.6 oz pur e alcohol) Sex and Gender Information Value Date Recorded Sex Assigned at Not on file Legal Sex Male 10:27 AM EST Gender Identity Not on file Sexual Orientation Not on file documented as of this encounter Last Filed Vital Signs Vital Sign Reading Time Taken Comments Blood Pressure - - Pulse 84 12/23/2024 1:08 PM EST Temperature 36.6 ??C (97.8 ??F) 12/23/2024 1:08 PM ES T Respiratory Rate 16 12/23/2024 1:08 PM EST Oxygen Saturation 97% 12/23/2024 1:08 PM EST Inhaled Oxygen Concentration - - Weight 103 kg (226 lb) 12/23/2024 1:08 PM EST Height 167.6 cm (5' 6 ) 12/23/2024 1:08 PM EST Body Mass Index 36.48 12/23/2024 1:08 PM EST documented in this encounter Progress Notes * TED Cason - 12/23/2024 1:00 PM ESTAssociated Problem(s): Type II diabetes mellitus with peripheral circulatory disorder (CMS/HCC) Seems like the lab is backed up on hemoglobin A1c's. I do not have his value from recent testing. For now no change to his regimen. * TED Cason - 12/23/2024 1:00 PM ESTAssociated Problem(s): Stage 3 chronic kidney disease (CMS/HCC) Will continue to follow his renal function. * TED Cason - 12/23/2024 1:00 PM ESTAssociated Problem(s): Pure hypercholesterolemia Will follow lipid panel and LFTs at least annually. * TED Cason - 12/23/2024 1:00 PM ESTAssociated Problem(s): Paroxysmal atrial fibrillation (CMS/HCC) * TED Cason - 12/23/2024 1:00 PM ESTAssociated Problem(s): Essential hypertension, benign His blood pressure is well-controlled in the office. He will continue on torsemide, metoprolol, Farxiga, Entresto. Will follow renal function. * TED Cason - 12/23/2024 1:00 PM ESTAssociated Problem(s): Chronic heart failure with preserved ejection fraction (CMS/HCC) * TED Cason - 12/23/2024 1:00 PM ESTAssociated Problem(s): Anemia History of stable normocytic anemia. Will continue to follow periodically. Likely anemia of chronicdisease. * TED Cason - 12/23/2024 1:00 PM EST PATIENT'S PCP: Prabhjot Ford MD LAST VISIT IN THIS DEPARTMENT: 12/04/2024 LAST VISIT WITH THIS PROVIDER: 09/23/2024 David Milton is a 79 y.o. (: 1945) male who presents today for: Chief Complaint Patient presents with Diabetes 3 month follow up Hypertension Assessment/Plan Assessment & Plan Chronic bilateral low back pain without sciatica He has a history of chronic bilateral low back pain. Completely his lower back has been feeling today. He still occasionally gets some radiating symptoms into his lower extremity. Discussed option ofpotential referral if symptoms persist. He will let me know. Type II diabetes mellitus with peripheral circulatory disorder (CMS/HCC) Seems like the lab is backed up on hemoglobin A1c's. I do not have his value from recent testing. For now no change to his regimen. Stage 3 chronic kidney disease, unspecified whether stage 3a or 3b CKD (CMS/HCC) Will continue to follow his renal function. Pure hypercholesterolemia Will follow lipid panel and LFTs at least annually. Paroxysmal atrial fibrillation (CMS/HCC) Essential hypertension, benign His blood pressure is well-controlled in the office. He will continue on torsemide, metoprolol, Farxiga, Entresto. Will follow renal function. Chronic heart failure with preserved ejection fraction (CMS/HCC) Anemia, unspecified type History of stable normocytic anemia. Will continue to follow periodically. Likely anemia of chronicdisease. His history of paroxysmal atrial fibrillation as well as heart failure. He is anticoagulated Eliquis, and he is on Farxiga as well as Entresto. Patient is due for cardiology follow-up later this month, early next month per their last note. At this time, no appointment is scheduled, the patient was told they would reach out. If need be, I can place a new cardiology referral as well. Follow-up in 3 to 4 months. Sooner if need be. He is asked to call with questions or concerns. Voiced understanding and agree with the above plan. No follow-ups on file. Subjective 79-year-old gentleman here for evaluation of his medical conditions including heart failure, paroxysmal atrial fibrillation, hypertension, hyperlipidemia, CKD. He is taking his medications as prescribed. Recently he was treated for UTI/balanitis with good effect. He still has some occasional lower back discomfort, but states this has been feeling much better as well. He feels well and has no specific complaints or concerns. He is accompanied today by his MOLD MOVER. No other complaints or concerns at this time. Diabetes Pertinent negatives for diabetes include no chest pain, no polyuria and no weakness. Hypertension Pertinent negatives include no chest pain, palpitations or shortness of breath. Review of Systems Constitutional: Negative for chills, diaphoresis and fever. HENT: Negative for ear pain and sore throat. Eyes: Negative for discharge. Respiratory: Negative for cough and shortness of breath. Cardiovascular: Negative for chest pain, palpitations and leg swelling. Gastrointestinal: Negative for abdominal pain. Endocrine: Negative for polyuria. Genitourinary: Negative for difficulty urinating. Musculoskeletal: Negative for gait problem. Skin: Negative for rash. Neurological: Negative for syncope and weakness. The following portions of the patient's chart were reviewed in this encounter and updated as appropriate: Tobacco Allergies Meds Problems Med Hx Surg Hx Fam Hx Objective Visit Vitals Pulse 84 Temp 36.6 ??C (97.8 ??F) (Temporal) Resp 16 Ht 1.676 m (66 ) Wt 103 kg (226 lb) SpO2 97% BMI 36.48 kg/m?? Smoking Status Never BSA 2.11 m?? SpO2: 97 % BP Readings from Last 3 Encounters: 12/02/24 108/60 09/23/24 104/56 09/03/24 112/58 Wt Readings from Last 3 Encounters: 12/23/24 103 kg (226 lb) 12/02/24 102 kg (225 lb) 10/22/24 100 kg (221 lb) Physical Exam Constitutional: General: He is not in acute distress. Appearance: Normal appearance. He is not ill-appearing. Eyes: Conjunctiva/sclera: Conjunctivae normal. Pupils: Pupils are equal, round, and reactive to light. Cardiovascular: Rate and Rhythm: Normal rate and regular rhythm. Heart sounds: No murmur heard. Pulmonary: Effort: Pulmonary effort is normal. Breath sounds: Normal breath sounds. No wheezing, rhonchi or rales. Abdominal: General: Bowel sounds are normal. There is no distension. Palpations: Abdomen is soft. There is no mass. Hernia: No hernia is present. Musculoskeletal: General: Normal range of motion. Cervical back: Normal range of motion and neck supple. Right lower leg: No edema. Left lower leg: No edema. Skin: General: Skin is warm and dry. Capillary Refill: Capillary refill takes less than 2 seconds. Coloration: Skin is not jaundiced. Findings: No bruising, erythema or rash. Neurological: General: No focal deficit present. Mental Status: He is alert and oriented to person, place, and time. Mental status is at baseline. Psychiatric: Mood and Affect: Mood normal. Behavior: Behavior normal. Thought Content: Thought content normal. Judgment: Judgment normal. No Known Allergies Current Outpatient Medications Medication Instructions acetaminophen (TYLENOL) 500 mg tablet 1-2 tablets, Every 8 hours PRN albuterol HFA (PROAIR HFA ; PROVENTIL HFA ; VENTOLIN HFA) 90 mcg/actuation inhaler 2 puffs, Every 6hours PRN Alcohol Prep Pads pads, medicated ammonium lactate (AMLACTIN) 12 % cream APPLY TOPICALLY TO DRY SKIN ON BOTH FEET DAILY (BULK) apixaban (ELIQUIS) 5 mg, 2 times daily aspirin 81 mg, Daily atorvastatin (LIPITOR) 40 mg, Daily Baqsimi 3 mg/actuation nasal spray 1 Dose, As needed blood sugar diagnostic (FreeStyle Lite Strips) test strip USE TO TEST SUGARS 3 TIMES DAILY blood-glucose sensor ([employer] G7 Sensor) device 1 Device, Every 14 days diclofenac (VOLTAREN) 2 g, 2 times daily Entresto 24-26 mg per tablet 1 tablet, Daily Farxiga 10 mg tablet TAKE ONE TABLET BY MOUTH EVERY DAY ^1R1 ferrous sulfate (FEROSUL) 325 mg, oral, Daily ferrous sulfate 325 mg, Daily with breakfast fluticasone propionate (FLONASE) 50 mcg/actuation nasal spray INSTILL 2 SPRAYS IN EACH NOSTRIL DAILY FOR 3-4WEEKS THEN DECREASE TO 1 SPRAY IN EACH NOSTRIL DAILY (BULK) ihdrhynnxkn-pcnmpqkxlpwi-tzzncbcbqv (Trelegy Ellipta) 100-62.5-25 mcg inhaler 1 puff, Daily glucose 4 gram chewable tablet Take 4 tabs as needed for low BS reading HealthyLax 17 g, Daily PRN hydrocortisone 2.5 % cream APPLY SMALL AMOUNT OVER THE AFFECTED AREA TWICE DAILY hydroxychloroquine (PLAQUENIL) 200 mg, Daily ketoconazole (NIZORAL) 2 % cream Topical, Daily Lantus Solostar U-100 Insulin 100 unit/mL (3 mL) injection pen 20 units at bedtime, go up by 5 unitin 1 week if BS above 150. lidocaine (LIDODERM) 5 % patch 1 patch, Every 24 hours loratadine (CLARITIN) 10 mg tablet 1 tablet, Daily Lumigan 0.01 % ophthalmic drops 1 drop, Nightly magnesium oxide (MAG-OX) 400 mg, Daily medical supply, miscellaneous (MISCELLANEOUS MEDICAL SUPPLY MISC) Inhale by mouth. CPAP metoprolol tartrate (LOPRESSOR) 25 mg, oral, 2 times daily NovoLOG Flexpen U-100 Insulin 16-20 Units, 3 times daily before meals omeprazole (PRILOSEC) 20 mg, oral, Daily pregabalin (LYRICA) 75 mg capsule 1 capsule, 2 times daily torsemide (DEMADEX) 40 mg Unifine Pentips 31 gauge x 5/16 needle IMAGING/LABORATORY: None TED Cason [facility] [address] documented in this encounter Plan of Treatment Upcoming Encounters Date Type Department Care Team (Late st Contact Info) Description 01/01/2025 10:50 AM EDT Office Visit Pulmonolgy - [place] [address] [facility] [address] [place] [address] Karon Sanchez NP 175 [facility] [address] [place] [address] 02/26/2025 9:45 AM EDT Office Visit Orthopedic Surgery - [place] [address] [facility] [address] [place] [address] Delfin Bowser DPM [address] [address] 03/25/2025 9:45 AM EDT Office Visit Adult Medicine [address] [phone] Juan Alberto Samuel NP [address] [place], [place] 08/13/2025 2:00 PM EDT Office Visit Nephrology - [address] [phone] Humberto Marshall MD [address] [phone] documented as of this encounter Visit Diagnoses Diagnosis Chronic bilateral low back pain without sciatica- Primary Type II diabetes mellitus with peripheral circulatory disorder (CMS/HCC) Type II or unspecified type diabetes mellitus with peripheral circulatory disorders, not stated as uncontrolled Stage 3 chronic kidney disease, unspecified whether stage 3a or 3b CKD (CMS/HCC) Pure hypercholesterolemia Paroxysmal atrial fibrillation (CMS/HCC) Atrial fibrillation Essential hypertension, benign Chronic heart failure with preserved ejection fraction (CMS/HCC) Anemia, unspecified type documented in this encounter Care Teams Land[employer] Field Technician Relationship Specialty Start Date End Date Prabhjot Ford MD [address] [place] [address] PCP - General 08/22/1999 documented as of this encounter
--- OUTSIDE RECORDS SUMMARY | 2024-12-31 12:48 | XMS_ITS | Clinical Summary ---
Author Organization [facility] Address [address] [address] [place] [address] Phone Care Team Providers Care Nailhead Setter Name Role Phone Prabhjot Ford MD Primary Care Provider [phone] Allergies No known active allergies Medications albuterol HFA (PROVENTIL HFA;VENTOLIN HFA) 108 (90 Base) MCG/ACT inhaler TAKE 2 PUFFS BY MOUTH EVERY 4 HOURS NEEDED FOR COUGH OR WHEEZING. Active amitriptyline (ELAVIL) 25 MG tablet Take 1 tablet by mouth 1 (one) time each day 3 Active Eliquis 5 MG tablet Take 1 tablet by mouth 8 Active aspirin (ST EDU) 81 MG EC tablet Take 81 mg by mouth 3 Active atorvastatin (LIPITOR) 40 MG tablet 20 mg 4 Active Farxiga 10 MG tablet Take 10 mg by mouth 4 Active FeroSul 325 (65 Fe) MG tablet 4 Active Trelegy Ellipta 100-62.5-25 MCG/ACT aerosol powder 4 Active furosemide (LASIX) 20 MG tablet Take 3 tablets by mouth 1 (one) time each day Active NovoLOG FLEXPEN 100 UNIT/ML injection INJECT 24 UNITS SUBCUTANEOUSLY BEFORE BREAKFAST, 32 UNITS BEFORE LUNCH, 24 UNITS BEFORE DINNER 8 Active loratadine (CLARITIN) 10 MG tablet Take 1 tablet by mouth 1 (one) time each day Active metoprolol tartrate (LOPRESSOR) 50 MG tablet Take 25 mg by mouth 8 Active omeprazole (PriLOSEC) [address] capsule 8 Active pregabalin (LYRICA) 75 MG capsule Take 1 capsule by mouth 4 Active torsemide (DEMADEX) 20 MG tablet See Instructions, Take one tablet daily for weight gain greater than 3 pounds in 1 day, 5 pounds in 1 week, or increasing lower extremity edema., # 30 tablet, 0 Refills, Maintenance, 08/03/23 10:19:00 EDT, Tablet, [facility], Partial margo... 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 without heart failure, with stage 1 through stage 4 chronic kidney disease, or unspecified chronic kidney disease 03/22/2024 Stage 3b chronic kidney disease 03/22/2024 Type 2 diabetes mellitus wit h diabetic chronic kidney disease 03/22/2024 Renal osteodystrophy 03/22/2024 Obese class II 03/21/2024 Resolved Problems Problem Noted Date Diagnosed Date Resolved Date Essential (primary) hypertension 03/22/2024 03/22/2024 Arthritis of right acromioclavicular joint 08/22/2018 03/22/2024 Immunizations Name Administration Dates Next Due H1N1 Inj Preservative Free 11/06/2009 Influenza Split High Dose Pr eservative Free IM 07/19/2021,08/03/2020,09/11/2019 Pfizer SARS-COV-2 06/06/2022, 1,02/10/2021,01/18 Pneumococcal Polysaccharide 06/14/2017, 3 Family History Relation Status Comments Father Mother Social History Tobacco Use Types Packs/Day Years Used Date Smoking Tobacco: Never Smokeless Tobacco: Never Tobacco Cessation:Counseling Given: Not Answered Alcohol Use Standard Drinks/Week Comments Not Currently 0 (1 standard drink = 0.6 oz pur e alcohol) Sex and Gender Information Value Date Recorded Sex Assigned at Not on file Legal Sex Male 3:58 PM EDT Gender Identity Not on file Sexual Orientation Not on file Last Filed Vital Signs Vital Sign Reading Time Taken Comments Blood Pressure 117/64 05/13/2024 1:58 PM EDT Pulse 95 05/13/2024 1:58 PM EDT Temperature - - Respiratory Rate - - Oxygen Saturation 99% 05/13/2024 1:58 PM EDT Inhaled Oxygen Concentration - - Weight 99 kg (218 lb 3.2 oz) 05/13/2024 1:58 PM EDT Height - - Body Mass Index - - Plan of Treatment Health Maintenance Due Date Last Done Comments Pneumococcal Vaccine: 65+ Years (3 of 3 - PCV) 06/14/2018 06/14/2017, 08/20/2003 Diabetes: Ophthalmology Exam 03/22/2024, 11/19/2009 Diabetes: Pedal Pulse Checked 03/22/2024 Diabetes: Sensory Foot Exam 03/22/2024 Diabetes: Visual Foot Exam 03/22/2024 Influenza Vaccine (#1) 2024 1, 08/03/2020, 09/11/2019 Diabetes: Hemoglobin A1C 06/25/2024 024, 02/01/2024 Hepatitis B Vaccine Aged Out No longe r eligible based on patient's age to complete this topic Procedures Procedure Name Priority Date/Time Associated Diagnosis Comments ALT EXT LABS Routine 02/01/2024 from Last 3 Months or Most Recently Relevant to Health Maintenance Results * (ABNORMAL) ALT EXT LABS (02/01/2024) BUN 34(A) 4 - 21 mg/dL Creatinine 1.61(A) 0.60 - 1.30 mg/dL Calcium 9.3 8.7 - 10.7 mg/dL Sodium 141 137 - 147 Potassium 4.4 3.4 - 5.5 Chloride 30.0(A) 99.0 - 108.0 eGFR Non-Afr Wallisian 44 Hemoglobin A1C 6.9(A) 4.0 - 6.0 02/01/2024 Historical Provider LAB BLOOD ORDERABLES Lynnette l Result from Last 3 Months or Most Recently Relevant to Health Maintenance Insurance [facility] ([id number]) [facility] ([id number]) Care Teams Nailhead Setter Relationship Specialty Start Date End Date Prabhjot Ford MD PCP - General Internal Medicine 03/12/24
--- OUTSIDE RECORDS SUMMARY | 2024-12-31 12:48 | XMS_ITS | Encounter Summary ---
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 (CMS/HCC); 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, macular edema presence unspecified (CMS/HCC); Obstructive sleep apnea; Essential hypertension, benign Social History Tobacco Use Types Packs/Day Years [...] Sign Reading Time Taken Comments Blood Pressure 116/71 12/25/2024 1:47 PM EST Pulse 68 12/25/2024 1:47 PM EST Temperature - - Respiratory Rate - - Oxygen Saturation - - Inhaled Oxygen Concentration - - Weight 103 kg (226 lb 9.6 oz) 12/25/2024 1:47 PM EST Height - - Body Mass Index 36.57 12/23/2024 1:08 PM EST documented in this encounter Progress Notes * Humberto Marshall MD - 12/25/2024 1:30 PM EST Karine is a 79 y.o. year old male who presents for has he wants to switch care to me. Regarding renal insufficiency HPI: Patient is a pleasant male with past medical history of - HTN which is longstanding . Was on different antihypertensive medication but due to hypotension issues he is off antihypertensive medication at the present time except for Entresto - DM2 with diabetic retinopathy on insulin, the last hemoglobin A1c around 7.3. He does have history of laser surgeries to his eyes. He has diabetes for more than 30 years. He was on metformin which has been discontinued - HLD on Lipitor 10 mg daily. -Rheumatoid arthritis for which she is on hydroxychloroquine. Patient has been referred to me for evaluation of elevated creatinine his creatinine. He has been seen by Dr. Lim in the past. He has chronic kidney disease stage III presumably due to type 2 diabetes mellitus In the office today. His creatinine based on his most recent lab work was 1.14 No history of NSAID use His creatinine has been ranging anywhere between 1-1.5 She gives history of NSAID use but she stopped using it since she had a cholecystectomy No history of renal stones No history of GI fluid losses like diarrhea, nausea vomiting No urinary symptoms of dysuria, urgency urination frequent urination ROS: GENERAL: No malaise, significant weight loss or fever HEENT: No changes in hearing or vision, nose bleeds or other nasal problems, NECK: No lumps, goiter, pain or significant neck swelling RESPIRATORY: No cough, wheezing or shortness of breathar CARDIOVASCULAR: No chest pain, leg swelling or palpitations GI: No abdominal discomfort, blood in stools or black stools : No dysuria, frequency or incontinence MUSCULOSKELETAL: No joint pain or swelling, back pain, or muscle pain. SKIN: No lesions, rash or itching PSYCH: No sleep disturbance, mood disorder or recent psychosocial stressors. HEMATOLOGY/LYMPHOLOGY No prolonged bleeding, easy bruisability or swollen nodes ENDOCRINE: No cold or heat intolerance, polyuria, polydipsia or goiter. NEURO: No persistent headache, syncope, seizures, weakness or numbness EXTREMITIES: No edema PAST MEDICAL HISTORY: Patient Active Problem List Diagnosis Anemia Arthritis of left shoulder region Arthritis of right acromioclavicular joint Chronic heart failure with preserved ejection fraction ([facility]) Class 2 severe obesity with body mass index (BMI) of 35 to 39.9 with serious comorbidity ([facility]) Coronary artery disease due to lipid rich plaque DJD (degenerative joint disease), cervical DM polyneuropathy ([facility]) Dyslipidemia Elevated blood protein Essential hypertension, benign ETOH abuse Lumbosacral spondylosis without myelopathy Mild nonproliferative diabetic retinopathy ([facility]) Nuclear sclerosis Nocturnal hypoxia Obstructive sleep apnea Sleep apnea Onychomycosis Osteoarthritis of hands, bilateral Paroxysmal atrial fibrillation ([facility]) Peripheral vascular disease, unspecified ([facility]) Primary osteoarthritis of both hips Pure hypercholesterolemia Right foot drop Stage 3 chronic kidney disease ([facility]) 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 ([facility]) Venous insufficiency Type 2 diabetes mellitus without complication, with long-term current use of insulin ([facility]) Hypertensive heart disease with congestive heart failure ([facility]) Hypotension, unspecified Chronic obstructive pulmonary disease, unspecified ([facility]) Eosinophilia, unspecified Acidosis, unspecified Obesity, unspecified Gastroesophageal reflux disease without esophagitis shelter (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 of aspirin 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 ([facility]) shelter (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 of anticoagulants shelter (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 of oral hypoglycemic drugs shelter (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 of inhaled steroids 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 ([facility]) PAST SURGICAL HISTORY: Past Surgical History: Procedure Laterality Date COLONOSCOPY 09/23/08 PROCEDURE: HISTORICAL COLONOSCOPY; COMMENT: adenomas and diverticulosis; repeat in five years COLONOSCOPY 02/09/15 PROCEDURE: VA COLONOSCOPY STOMA W/RMVL DESIRE POLYP/OTH LES SNARE; COMMENT: adenoma and tics; repeat in 5 yrs SOCIAL HISTORY: Social History Tobacco Use Smoking status: Never Smokeless tobacco: Never Substance Use Topics Alcohol use: Not Currently FAMILY HISTORY: Family History Problem Relation Name Age of Onset Diabetes Sister Diabetes Sister Heart attack Sister pt not sure Blindness Neg Hx Cataracts Neg Hx Glaucoma Neg Hx Macular degeneration Neg Hx Strabismus Neg Hx Family Status Relation Name Status Sister (Not Specified) Sister (Not Specified) Sister (Not Specified) Neg Hx (Not Specified) No partnership data on file MEDICATIONS: There are no discontinued medications. ACTIVE MEDICATIONS: Current Outpatient Medications Medication Sig Dispense Refill acetaminophen (TYLENOL) 500 mg tablet Take 1-2 tablets (500-1,000 mg total) by mouth every 8 (eight) hours if needed. albuterol HFA (PROAIR HFA ; PROVENTIL HFA ; VENTOLIN HFA) 90 mcg/actuation inhaler Inhale 2 puffs by mouth every 6 (six) hours if needed. Alcohol Prep Pads pads, medicated ammonium lactate (AMLACTIN) 12 % cream APPLY TOPICALLY TO DRY SKIN ON BOTH FEET DAILY (BULK) 385 g 1 apixaban (ELIQUIS) 5 mg tablet Take 1 tablet (5 mg total) by mouth 2 (two) times a day. aspirin 81 mg chewable tablet Chew 1 tablet (81 mg total) 1 (one) time each day. atorvastatin (LIPITOR) 40 mg tablet Take 1 tablet (40 mg total) by mouth 1 (one) time each day. Baqsimi 3 mg/actuation nasal spray Administer 1 Dose into one nostril if needed. blood sugar diagnostic (FreeStyle Lite Strips) test strip USE TO TEST SUGARS 3 TIMES DAILY blood-glucose sensor (Nuvecom G7 Sensor) device 1 Device by Not Applicable route every 14 (fourteen)days. diclofenac (VOLTAREN) 1 % topical gel Apply 2 g topically 2 (two) times a day. Entresto 24-26 mg per tablet Take 1 tablet by mouth 1 (one) time each day. Farxiga 10 mg tablet TAKE ONE TABLET BY MOUTH EVERY DAY ^1R1 90 tablet 3 ferrous sulfate (FeroSuL) 325 mg (65 mg elemental iron) tablet Take 1 tablet (325 mg total) by mouth 1 (one) time each day. 90 tablet 1 ferrous sulfate 325 mg (65 mg iron) EC tablet Take 1 tablet (325 mg total) by mouth 1 (one) time each day with breakfast. fluticasone propionate (FLONASE) 50 mcg/actuation nasal spray INSTILL 2 SPRAYS IN EACH NOSTRIL DAILY FOR 3-4WEEKS THEN DECREASE TO 1 SPRAY IN EACH NOSTRIL DAILY (BULK) 48 g 1 dxiwuxvxpiz-wxwzouceacoz-qqsyhmxnto (Trelegy Ellipta) 100-62.5-25 mcg inhaler Inhale 1 puff (100 mcg total) by mouth 1 (one) time each day. glucose 4 gram chewable tablet Take 4 tabs as needed for low BS reading 50 tablet 1 HealthyLax 17 gram packet Take 17 g by mouth 1 (one) time each day if needed. hydrocortisone 2.5 % cream APPLY SMALL AMOUNT OVER THE AFFECTED AREA TWICE DAILY hydroxychloroquine (PLAQUENIL) 200 mg tablet Take 1 tablet (200 mg total) by mouth 1 (one) time each day. ketoconazole (NIZORAL) 2 % cream Apply topically 1 (one) time each day. 60 g 2 Lantus Solostar U-100 Insulin 100 unit/mL (3 mL) injection pen 20 units at bedtime, go up by 5 unitin 1 week if BS above 150. 15 mL 5 lidocaine (LIDODERM) 5 % patch Apply 1 patch topically 1 (one) time each day at the same time. loratadine (CLARITIN) 10 mg tablet Take 1 tablet (10 mg total) by mouth 1 (one) time each day. Lumigan 0.01 % ophthalmic drops Administer 1 drop into both eyes at bedtime. magnesium oxide (MAG-OX) 400 mg magnesium tablet Take 1 tablet (400 mg total) by mouth 1 (one) timeeach day. medical supply, miscellaneous (MISCELLANEOUS MEDICAL SUPPLY MISC) Inhale by mouth. CPAP metoprolol tartrate (LOPRESSOR) 25 mg tablet Take 1 tablet (25 mg total) by mouth 2 (two) times a day. 180 tablet 1 NovoLOG Flexpen U-100 Insulin 100 unit/mL (3 mL) injection pen Inject 16-20 Units under the skin 3 (three) times a day before meals. omeprazole (PriLOSEC) [address] capsule Take 1 capsule (20 mg total) by mouth 1 (one) time each day.90 capsule 1 pregabalin (LYRICA) 75 mg capsule Take 1 capsule (75 mg total) by mouth 2 (two) times a day. tolnaftate (Tinactin) 1 % spray Apply topically 2 (two) times a day. 130 g 0 torsemide (DEMADEX) 20 mg tablet Take 2 tablets (40 mg total) by mouth. Unifine Pentips 31 gauge x 5/16 needle No current facility-administered medications for this visit. ALLERGIES: @ALL@ PHYSICAL EXAM: Visit Vitals BP 116/71 Pulse 68 Wt 103 kg (226 lb 9.6 oz) BMI 36.57 kg/m?? Smoking Status Never BSA 2.11 m?? APPEARANCE: Alert and in no acute distress par EYES: PERRLA, conjunctiva and sclera normal. EARS: External ears normal. Canals clear. NOSE/SINUS: Nares normal. Septum midline. Mucosa normal. No drainage or sinus tenderness. THROAT: no erythema or exudates NECK: Neck supple, no adenopathy, thyroid symmetric and of normal size HEART: RRR with normal S1 and S2 ,no murmurs, no gallops, no JVD appreciated LUNG: clear to auscultation ABDOMEN: Bowel sounds normoactive, no bruits, soft, non-tender, without organomegaly or palpable masses EXTREMITIES: Extremities warm and well perfused without clubbing, cyanosis, or edema NEURO: Awake, alert and oriented x 3, no focal neurological deficit, with symmetrical reflexes SKIN: Skin color, texture, turgor normal. No rashes or lesions. LABS: @lastckdlabs@ No results found for: TIBC , FE No results found for: LDH IMAGING: ASSESSMENT ar 1. Stage 3a chronic kidney disease (CMS/HCC) 2. 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 (CMS/HCC) 3. 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, macular edema presence unspecified (CMS/HCC) 4. Obstructive sleep apnea 5. Essential hypertension, benign PLAN: 1. Chronic kidney disease stage IIIa at baseline in setting of longstanding diabetes with likely diabetic nephropathy. That could be a complement of hypertensive renal disease. I doubt there is an acute component but creatinine fluctuate based on volume status change. 2. Hypertension. Patient likely has baseline essential hypertension superimposed hypertension due to renal parenchymal disease. Blood pressure is well-controlled 3. Heart failure with preserved ejection fraction 4. Type 2 diabetes mellitus which is well-controlled with retinopathy on insulin 5. Obesity /obstructive sleep apnea on CPAP 6. Hypercholesteremia on statin 7. Rheumatoid arthritis and osteoarthritis his Had a long discussion with patient about his renal insufficiency and hypertension We talked about lifestyle modification for about 20 minutes. Patient has been advised to continue to lose weight Patient has been advised to avoid using NSAIDs/Simpson inhibitors Low-salt diet Patient has been advised to keep patient hydrated Renal function stable at the present time Continue with Entresto at the same dose for renal and cardiac protection. Will check urine protein creatinine ratio Will hold off on SGLT2 inhibitor for some time a. Will consider this in future Target hemoglobin should be less than 7.0 Target blood pressure should be systolic less than 120 and diastolic less than 80. At the present time patient has whitecoat hypertension Volume status is acceptable and continue with present dose of furosemide Continue statin to keep LDL level less than 70 Repeat lab work is been ordered. Will follow patient in about 6 to 8 months Thank you for the consultation Orders Placed This Encounter Procedures Creatinine BUN Electrolyte panel Protein and creatinine with ratio, urine None Regards Humberto Marshall MD cc: No ref. provider found documented in this encounter Plan of Treatment Upcoming Encounters Date Type Department Care Team (Late st Contact Info) Description 01/01/2025 10:50 AM EDT Office Visit Pulmonolgy [facility] 175 [facility] 200 [place] [phone] Karon Sanchez NP 175 [facility] 200 [place] [address] 02/26/2025 9:45 AM EDT Office Visit Orthopedic Surgery [facility] [address] [phone] Delfin Bowser DPM [address] [address] 03/25/2025 9:45 AM EDT Office Visit Adult Medicine [address] [phone] Juan Alberto Samuel NP [address] [place], [place] 08/13/2025 2:00 PM EDT Office Visit Nephrology [address] [phone] Humberto Marshall MD [address] [place] [address] [place] [address] Scheduled Orders Name Type Priority Associated Diagnoses Orde r Schedule Creatinine Lab Routine Stage 3a chronic kidney disease (CMS/HCC) 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 (CMS/HCC) 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, macular edema presence unspecified (CMS/HCC) Obstructive sleep apnea Essential hypertension, benign Expected: 05/07/2025, Expires: 07/26/2025 BUN Lab Routine Stage 3a chronic kidney disease (CMS/HCC) 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 (CMS/HCC) 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, macular edema presence unspecified (CMS/HCC) Obstructive sleep apnea Essential hypertension, benign Expected: 05/07/2025, Expires: 07/26/2025 Electrolyte panel Lab Routine Stage 3a chronic kidney disease (CMS/HCC) 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 (CMS/HCC) 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, macular edema presence unspecified (CMS/HCC) Obstructive sleep apnea Essential hypertension, benign Expected: 05/07/2025, Expires: 07/26/2025 Protein and creatinine with ratio, urine Lab Routine Stage 3a chronic kidney disease (CMS/HCC) 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 (CMS/HCC) 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, macular edema presence unspecified (CMS/HCC) Obstructive sleep apnea Essential hypertension, benign Expected: 05/07/2025, Expires: 07/26/2025 documented as of this encounter Visit Diagnoses Diagnosis Stage 3a chronic kidney disease (CMS/HCC)- Primary 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
--- OUTSIDE RECORDS SUMMARY | 2024-12-31 12:48 | XMS_ITS | Encounter Summary ---
Author Organization [facility] Address [address] [place] [address] Care Team Providers Care Puff Ironer Name Role Phone Prabhjot Ford MD Primary Care Provider [phone] Reason for Visit * Reason Onset Date Comments UTI 11/29/2024 Abdominal Pain 11/29/2024 Encounter Details Date Type Department Care Team (Late st Contact Info) Description 11/29/2024 Telephone Adult Medicine [facility] [address] [place] [address] Prabhjot Ford MD [address] [place] [address] UTI; Abdominal Pain Social History Tobacco Use Types Packs/Day Years [...] on file documented as of this encounter Progress Notes * Karley Farrell RN - 11/29/2024 2:37 PM EST Pt has pain at the end of his penis for 3 days , he is not circumcised, he is able to pull foreskinback and then bring forward again with no problem, Pt has no chest pain or SOB, denies any N/V/D or fever, is able to tolerate PO with no difficulty, Pt has no abd or flank pain, C/O burning with urination, he has hesitancy but he is able to fully empty his bladder ,denies any blood in the urine.pt denies any recent trauma or surgery Advised home care following the Protocol. RN reinforced telephone consultation and advice. Reviewedwith the patient the signs and symptoms to watch for that would require immediate attention. If symptoms change, worsen or increase in intensity, to call back immediately. Pt to see dr Ford 12/02 at 2:30 * Kelly Buenrostro - 11/29/2024 1:51 PM EST Patient call requires triage: Symptoms patient is presenting: c/o burning while urinating and states that he has some cuts on hispenis, abdominal pain below naval How long has patient had these symptoms?: 3 days For ALL patients calling to schedule any appointment (routine, sick visit, follow up, consult, etc.) in the outpatient setting please ask the following questions: Do you have fever of higher than 101, sore throat with difficulty swallowing or severe shortness ofbreath? no If YES to any of these above symptoms, send a message to triage and do not book. Red dot. If no, an audio or video visit should be booked. Have you had close contact with someone with Coronavirus in the last 14 days? no Have you traveled abroad? no Have you traveled recently to another state outside of [place], [place], [place], [place], [place], [place], [place]? no o If yes, did you quarantine for 14 days or have a negative covid test? no If yes to any of the above, patient is not to be scheduled in office until after 14 day quarantine or negative covid test. If pain or injury related was it due to an accident at work or from a motor vehicle accident? If yes, date of accident/Injury: No If yes, gather 3rd constitution party insurance information Third Constitution Party Information: not applicable PCP: Prabhjot Ford MD Payor: [employer] MED[employer]ARE / Plan: [employer] ONE CARE / Product Type: *No Product type* / documented in this encounter Plan of Treatment Upcoming Encounters Date Type Department Care Team (Late st Contact Info) Description 01/01/2025 10:50 AM EDT Office Visit Pulmonolgy - [place] [address] [place] [address] Karon Sanchez NP 175 [facility] 200 [place] [address] 02/26/2025 9:45 AM EDT Office Visit Orthopedic Surgery - [place] 250 175 [facility] 250 [place] [address] Delfin Bowser, DPM 175 [facility] 250 [place] [address] 03/25/2025 9:45 AM EDT Office Visit Adult [facility] [place] [facility] [place] [address] [place] [address] Juan Alberto Samuel NP [address] [place], [place] 08/13/2025 2:00 PM EDT Office Visit Nephrology - [address] [phone] Humberto Marshall MD [address] [address] documented as of this encounter Visit Diagnoses Not on filedocumented in this encounter Care Teams Puff Ironer Relationship Specialty Start Date End Date Prabhjot Ford MD [address] [place] [address] PCP - General 08/22/1999 documented as of this encounter
--- OUTSIDE RECORDS SUMMARY | 2024-12-31 12:48 | XMS_ITS | Encounter Summary ---
Author Organization [facility] Address [address] [place] [address] Care Team Providers Care Wrapper Layer And Examiner Soft Work Name Role Phone Prabhjot Ford MD Primary Care Provider [phone] Reason for Visit * Reason Onset Date Comments Med Refill 11/11/2024 Encounter Details Date Type Department Care Team ([facility] st Contact Info) Description 11/11/2024 Telephone Orthopedic Surgery - [place] [address] [phone] Delfin Bowser, TAWNY [address] [address] Med Refill Social History Tobacco Use Types Packs/Day Years [...] as of this encounter Progress Notes * Karo Wharton - 11/11/2024 1:40 PM EST Patient is calling * Wendie Wilde - 11/11/2024 1:17 PM EST David is calling requesting a refill ketoconazole (NIZORAL) 2 % cream please call when [facility] [place], [place] - [address] [place] [address] documented in this encounter Plan of Treatment Upcoming Encounters Date Type Department Care Team (Late st Contact Info) Description 01/01/2025 10:50 AM EDT Office Visit Pulmonolgy - [place] [address] [place] [address] Karon Sanchez NP [address] [place] [address] 02/26/2025 9:45 AM EDT Office Visit Orthopedic Surgery - [place] 250 175 [facility] 250 [place] [phone] Delfin Bowser DPM 175 [facility] 250 [place] [address] 03/25/2025 9:45 AM EDT Office Visit Adult Medicine [place] - [address] [phone] Juan Alberto Samuel NP 444 [place], [place] 08/13/2025 2:00 PM EDT Office Visit Nephrology - [address] [phone] Humberto Marshall MD [address] [facility] 200 [place] [address] documented as of this encounter Visit Diagnoses Not on filedocumented in this encounter Care Teams Wrapper Layer And Examiner Soft Work Relationship Specialty Start Date End Date Prabhjot Ford MD [address] [place] [address] PCP - General 08/22/1999 documented as of this encounter
--- OUTSIDE RECORDS SUMMARY | 2024-12-31 12:48 | XMS_ITS | Encounter Summary ---
Author Organization [facility] Address [address] [place] [address] Care Team Providers Care Composition Tile Layer Name Role Phone Prabhjot Ford MD Primary Care Provider [phone] Reason for Referral * Consultation (Routine) - Authorized Specialty Diagnoses / Procedures Referred By Contac t Referred To Contact Urology Diagnoses Frequent urination Urinary incontinence, unspecified type Prabhjot Ford MD [address] [place] [address] Phone: tel: fax: [facility] [address] [address] Phone: tel: fax: Referral ID Status Reason Start Date Expiration Date Visits Requested Visits Authorized [id number] Authorized Specialty Services Required 12/02/2024 12/02/2025 1 1 Reason for Visit * Reason Comments UTI Patient not sure is he had a uti. Red rash on penis, skin on penis is very senstive Encounter Details Date Type Department Care Team (Late st Contact Info) Description 12/02/2024 2:30 PM EST Office Visit Adult Medicine [address] [address] Prabhjot Ford MD [address] [place] [address] Frequent urination (Primary Dx); Dysuria; Urinary incontinence, unspecified type; Phimosis Social History Tobacco Use Types Packs/Day Years [...] Sign Reading Time Taken Comments Blood Pressure 108/60 12/02/2024 2:50 PM EST Pulse 84 12/02/2024 2:50 PM EST Temperature 36 ??C (96.8 ??F) 12/02/2024 2:50 PM EST Respiratory Rate 20 12/02/2024 2:50 PM EST Oxygen Saturation - - Inhaled Oxygen Concentration - - Weight 102 kg (225 lb) 12/02/2024 2:50 PM EST Height 167.6 cm (5' 6 ) 12/02/2024 2:50 PM EST Body Mass Index 36.32 12/02/2024 2:50 PM EST documented in this encounter Ordered Prescriptions Prescription Sig Dispense Quantity Refills Last Filled Start Date End Date clotrimazole-betam ethasone (LOTRISONE) 1-0.05 % cream Apply topically 2 (two) times a day for 10 days. 30 g 1 12/02/2024 documented in this encounter Progress Notes * Prabhjot Ford MD - 12/02/2024 2:30 PM EST CHIEF COMPLAINT: UTI (Patient not sure is he had a uti. Red rash on penis, skin on penis is very senstive) IDENTIFIER: David Milton is a 78 y.o. old male. HPI: Patient with complex medical history, less than ideally controlled diabetes, presents to complain about urine infection he reported about a week also history of urinary discomfort including burningsensation around the foreskin, as dysuria , urinary frequency, and worsening hesitancy. He also noted increased incontinence that rendered him to use adult diaper. He believes the urinary frequency is related with his diuretic use although there is no recent medication change. He also has increased nocturia. There is no urinary difficulty, no swelling. Patient also reported itchiness in the perineum including the scrotum. ROS: GENERAL: Negative for malaise, significant weight loss and fever RESPIRATORY: No cough, wheezing or shortness of breath CARDIOVASCULAR: Negative for chest pain, leg swelling and palpitations MUSCULOSKELETAL: Chronic back pain, diffuse to DJD but no specific increased swelling PAST MEDICAL HISTORY: Patient Active Problem List Diagnosis Date Noted Type 2 diabetes mellitus without complication, with long-term current use of insulin ([facility]) 10/07/2024 Hypertensive heart disease with congestive heart failure ([facility]) 10/07/2024 Hypotension, unspecified 10/07/2024 Chronic obstructive pulmonary disease, unspecified ([facility]) 10/07/2024 Eosinophilia, unspecified 10/07/2024 Acidosis, unspecified 10/07/2024 Obesity, unspecified 10/07/2024 Gastroesophageal reflux disease without esophagitis 10/07/2024 intermediate project manager (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 of aspirin 10/07/2024 M[facility] (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 of insulin ([facility]) 10/07/2024 [facility] (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 of anticoagulants 10/07/2024 [facility] (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 of oral hypoglycemic drugs 10/07/2024 intermediate project manager (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 of inhaled steroids 10/07/2024 Stage 3 chronic kidney disease ([facility]) 03/01/2024 Dyslipidemia 01/03/2024 Nocturnal hypoxia 11/22/2023 Coronary artery disease due to lipid rich plaque 12/21/2022 Elevated blood protein 11/22/2022 Chronic heart failure with preserved ejection fraction ([facility]) 10/25/2021 Primary osteoarthritis of both hips 05/18/2021 Treatment-emergent central sleep apnea 11/02/2019 Class 2 severe obesity with body mass index (BMI) of 35 to 39.9 with serious comorbidity ([facility]) 04/19/2019 Right foot drop 01/29/2019 Arthritis of right acromioclavicular joint 08/22/2018 Venous insufficiency 05/22/2018 Sleep apnea 12/18/2017 Obstructive sleep apnea 2017 Osteoarthritis of hands, bilateral 12/08/2017 Paroxysmal atrial fibrillation ([facility]) 12/01/2017 Onychomycosis 03/10/2016 Arthritis of left shoulder region 10/01/2015 DJD (degenerative joint disease), cervical 10/01/2015 Mild nonproliferative diabetic retinopathy ([facility]) 02/17/2015 Nuclear sclerosis 02/17/2015 Peripheral vascular disease, unspecified ([facility]) 02/17/2015 Anemia 07/22/2011 ETOH abuse 04/03/2009 Pure hypercholesterolemia 09/12/2007 Lumbosacral spondylosis without myelopathy 03/05/2007 Essential hypertension, benign 11/09/2005 DM polyneuropathy ([facility]) 08/30/2005 Type II diabetes mellitus with peripheral circulatory disorder ([facility]) 08/30/2005 SOCIAL HISTORY: Social History Tobacco Use Smoking status: Never Smokeless tobacco: Never Substance Use Topics Alcohol use: Not Currently FAMILY HISTORY: Family Status Relation Name Status Sister (Not Specified) Sister (Not Specified) Sister (Not Specified) Neg Hx (Not Specified) No partnership data on file Family History Problem Relation Name Age of Onset Diabetes Sister Diabetes Sister Heart attack Sister pt not sure Blindness Neg Hx Cataracts Neg Hx Glaucoma Neg Hx Macular degeneration Neg Hx Strabismus Neg Hx ACTIVE MEDICATIONS: Outpatient Medications Marked as Taking for the 12/02/24 encounter (Office Visit) with Prabhjot Ford MD Medication Sig Dispense Refill Alcohol Prep Pads pads, medicated ammonium lactate [...] TEST SUGARS 3 TIMES DAILY blood-glucose sensor (Dexcom G7 Sensor) device 1 Device by Not Applicable route every 14 (fourteen)days. dapagliflozin propanediol (Farxiga) 10 mg tablet Take 1 tablet (10 mg total) by mouth 1 (one) time each day. diclofenac (VOLTAREN) 1 % topical gel Apply 2 g topically 2 (two) times a day. Entresto 24-26 mg per tablet Take 1 tablet by mouth 1 (one) time each day. ferrous sulfate 325 mg (65 mg iron) EC tablet Take 1 tablet (325 mg total) by mouth 1 (one) time each day with breakfast. fluticasone propionate (FLONASE) 50 mcg/actuation nasal spray INSTILL 2 SPRAYS IN EACH NOSTRIL DAILY FOR 3-4WEEKS THEN DECREASE TO 1 SPRAY IN EACH NOSTRIL DAILY (BULK) 48 g 1 zevkmubyhfe-mrihtzfxgmss-lyiqwtlfot (Trelegy Ellipta) 100-62.5-25 mcg inhaler Inhale 1 [...] by mouth 2 (two) times a day. NovoLOG Flexpen U-100 Insulin 100 unit/mL (3 mL) injection pen Inject 16-20 Units under the skin 3 (three) times a day before meals. omeprazole (PriLOSEC) [address] capsule Take 1 capsule (20 mg total) by mouth 1 (one) time each day. pregabalin (LYRICA) 75 mg capsule Take 1 capsule (75 mg total) by mouth 2 (two) times a day. torsemide (DEMADEX) 20 mg tablet Take 2 tablets (40 mg total) by mouth. Unifine Pentips 31 gauge x 5/16 needle ALLERGIES: Patient has no known allergies. PHYSICAL EXAM: Blood pressure 108/60, pulse 84, temperature 36 ??C (96.8 ??F), temperature source Temporal, resp. rate 20, height 1.676 m (66 ), weight 102 kg (225 lb). Body mass index is 36.32 kg/m??. BMI is greater than 25.0 (above the normal range) - see Plan APPEARANCE: Alert and in no acute distress, using a walker HEART: Normal S1-S2 LUNG: clear to auscultation bilaterally EXTREMITIES: Diffuse DJD changes NEURO: Awake, alert and oriented x 3, reflexes symmetrical, and some language barrier but patient appears to communicate well. Patient ambulates with a walker impairment is likely due to DJD and backpain SKIN: Skin color, texture, turgor normal. No rashes or lesions. No suprapubic tenderness. Some level phimosis with erythema from the foreskin to the glans some minimal erythema at the meatus LABS: Lab Results Component Value Date HGBA1C 7.3 (H) 09/06/2024 HGBA1C 7.3 (A) 03/25/2024 Lab Results Component Value Date MICROALBUR <5.0 09/06/2024 LDLCALC 31 09/06/2024 CREATININE 1.14 09/06/2024 MICROALBCREA 09/06/2024 Comment: Concentrations outside detection limits, unable to calculate ratio. Lab Results Component Value Date PSA 0.84 12/03/2024 IMPRESSION: 1. Frequent urination 2. Dysuria 3. Urinary incontinence, unspecified type 4. Phimosis PLAN: Patient with complex medical history, less than ideally controlled diabetes, presents to complain about urine infection he reported about a week also history of urinary discomfort including burningsensation around the foreskin, as dysuria , urinary frequency, and worsening hesitancy. He also noted increased incontinence that rendered him to use adult diaper. He believes the urinary frequency is related with his diuretic use although there is no recent medication change. He also has increased nocturia. There is no urinary difficulty, no swelling. Patient also reported itchiness in the perineum including the scrotum. 1 patient reported diffuse to urinary tract symptoms worsening over the past week to 10 days. Thereis multiple finding on the examination, UA did not practically support infection. I will send for urine culture I will treat locally with antifungal and steroid cream, proper use discussed including personal hygiene I will refer patient to urology to address multiple issues. A worsening incontinence B increased hesitancy, for completeness I will check PSA. C phimosis predisposing patient from infection. Patient's condition was complicated with less than ideally controlled diabetes, CHF on torsemide. 2 patient's cardiac status appears to be stable 3 patient's diffuse to DJD changes, he had a baseline walks with a walker for quite some time. No worsening loss of balance his mind appears to be at baseline 4 stressed importance of diabetes control, limiting concentrated carbohydrates, which may contribute to difficulty with volume control and frequent urination Orders Placed This Encounter Procedures Culture urine Prostate specific antigen screen Urinalysis with reflex microscopic and culture Urinalysis with reflex microscopic and culture Faria urine culture tube Ambulatory referral to Urology POC Urine Non-Auto W/O Micro ADDITIONAL ORDERS: AMB REFERRAL TO UROLOGY Prabhjot Ford MD on 12/03/2024 at 4:16 PM EST documented in this encounter Plan of Treatment Upcoming Encounters Date Type Department Care Team (Late st Contact Info) Description 01/01/2025 10:50 AM EDT Office Visit Pulmonolgy - [place] 175 [facility] [address] [place] [phone] Karon Sanchez NP 175 [facility] [address] [place] [address] 02/26/2025 9:45 AM EDT Office Visit Orthopedic Surgery - [place] 250 [address] [facility] [address] [place] [phone] Delfin Bowser DPM 175 [facility] [address] [place] [address] 03/25/2025 9:45 AM EDT Office Visit Adult Medicine [facility] [place] [address] [place], [place] [phone] Juan Alberto Samuel NP [address] [place], [place] 08/13/2025 2:00 PM EDT Office Visit Nephrology - [place] [address] [place], [place] [phone] Humberto Marshall MD [address] [place] [address] [place] [address] Scheduled Referrals Name Type Priority Associated Diagnoses Order Schedule Ambulatory referral to Urology Outpatient Referral Routine Frequent urination Urinary incontinence, unspecified type 1 Occurrences starting 12/02/2024 until 12/02/2025 documented as of this encounter Procedures Procedure Name Priority Date/Time Associated Diagnosis Comments URINALYSIS WITH REFLEX MICROSCOPIC AND CULTURE Routine 12/02/2024 3:36 PM EST Frequent urination Dysuria Urinary incontinence, unspecified type Phimosis FARIA URINE CULTURE TUBE Routine 12/02/2024 3:36 PM EST Frequent urination Dysuria Urinary incontinence, unspecified type Phimosis URINALYSIS WITH REFLEX MICROSCOPIC AND CULTURE Routine 12/02/2024 3:36 PM EST Frequent urination Dysuria Urinary incontinence, unspecified type Phimosis CULTURE URINE Routine 12/02/2024 3:36 PM EST Frequent urination Dysuria Urinary incontinence, unspecified type Phimosis POC URINE NON-AUTO W/O MICRO Routine 12/02/2024 3:06 PM EST Frequent urination documented in this encounter Results * Prostate specific antigen screen (12/03/2024 9:46 AM EST) PSA 0.84 0.00 - 4.00 ng/mL LAB CHEMISTRY METHOD 12/03/2024 1:02 PM EST [facility] Blood Venous blood specimen / Unknown Venipuncture / Unknown 12/03/2024 9:46 AM EST 12/03/2024 9:[address] [facility] - 12/03/2024 1:02 PM EST The Siemens Advia Centaur Chemiluminescent Immunoassay is used. Results obtained with different assay methods or kits cannot be used interchangeably. Results cannot be interpreted as absolute evidence of the presence or absence of malignant disease. us Prabhjot Ford MD LAB BLOOD ORDERABLES Final Resul t [facility] [address] [place] [address], * (ABNORMAL) Culture urine (12/02/2024 3:36 PM EST) Culture, Urine 10,000-49,000 CFU/mL Staphylococcus epidermidis(A) LEGIN 12/06/2024 9:[address] [facility] Comment: Beta-lactamase negative The organism value for this result has been updated. These results have been appended to the previously preliminary verified report. Edited result: Previously reported as Gram Positive Cocci on 12/04/2024 at 1101 EST. Urine Urine specimen obtained by clean catch procedure / Unknown Non-blood Collection / Unknown 12/02/2024 3:36 PM EST 12/02/2024 7:10 PM EST Narrative Organism Antibiotic Method Susceptibility Staphylococcus epidermidis Benzylpenicillin ELGIN Susceptible Comment:This is an a ppended report. These results have been appended to a previously preliminary verified report. Staphylococcus epidermidis Oxacillin ELGIN <=0.25 ug/ml: Susceptible Staphylococcus epidermidis Gentamicin ELGIN <=0.5 ug/ml: Susceptible Staphylococcus epidermidis Ciprofloxacin ELGIN <=0.5 ug/ml: Susceptible Staphylococcus epidermidis Levofloxacin ELGIN <=0.12 ug/ml: Susceptible Staphylococcus epidermidis Quinupristin/Dalfopristin M IC <=0.25 ug/ml: Susceptible Staphylococcus epidermidis Linezolid ELGIN 1 ug/ml: Susceptible Staphylococcus epidermidis Vancomycin ELGIN 1 ug/ml: Susceptible Staphylococcus epidermidis Tetracycline ELGIN <=1 ug/ml: Susceptible Staphylococcus epidermidis Nitrofurantoin ELGIN <=16 ug/ml: Susceptible Staphylococcus epidermidis Rifampin ELGIN <=0.5 ug/ml: Susceptible us Prabhjot Ford MD LAB MICROBIOLOGY - GENERAL ORDER ROEL Final Result Performing Organization Address [facility]/ZIP Co de Phone Number [facility] [address] [place] [address], [place] [phone] * Faria urine culture tube (12/02/2024 3:36 PM EST) [facility] Extra Tube Hold for add-ons. 12/02/2024 7:[address] [facility] Comment:Auto resulted. Urine Urine specimen obtained by clean catch procedure / Unknown Non-blood Collection / Unknown 12/02/2024 3:36 PM EST 12/02/2024 3:36 PM EST Prabhjot Ford MD LAB URINE ORDERABLES Final Resul t Performing Organization Address City/[facility]/ZIP Co de Phone Number [facility] [address] [place] [address], [place] [phone] * (ABNORMAL) Urinalysis with reflex microscopic and culture (12/02/2024 3:36 PM EST) [facility] Specific [place] Urine 1.026 1.003 - 1.030 LAB URINALYSIS - AUTOMATED METHOD 12/02/2024 7:10 PM [facility] pH, Urine 6.0 5.0 - 8.0 pH LAB URINALYSIS - AUTOMATED METHOD 12/02/2024 7:10 PM [facility] Leukocytes, Urine Moderate(A) Negative LAB URINALYSIS - AUTOMATED METHOD 12/02/2024 7:10 PM [facility] Nitrite, Urine Negative Negative LAB URINALYSIS - AUTOMATED METHOD 12/02/2024 7:10 PM [facility] Protein, Urine Negative <=Trace mg/dL LAB URINALYSIS - AUTOMATED METHOD 12/02/2024 7:10 PM [facility] Glucose, Urine Negative Negative mg/dL LAB URINALYSIS - AUTOMATED METHOD 12/02/2024 7:10 PM [facility] Ketones, Urine Negative Negative mg/dL LAB URINALYSIS - AUTOMATED METHOD 12/02/2024 7:10 PM [facility] Urobilinogen , Urine 0.2 0.2 - 1.0 mg/dL LAB URINALYSIS - AUTOMATED METHOD 12/02/2024 7:10 PM [facility] Bilirubin, Urine Negative Negative LAB URINALYSIS - AUTOMATED METHOD 12/02/2024 7:10 PM [facility] Blood, Urine Negative Negative LAB URINALYSIS - AUTOMATED METHOD 12/02/2024 7:10 PM [facility] RBC, Urine 6.1(H) 0 - 4 /HPF LAB URINALYSIS - AUTOMATED METHOD 12/02/2024 7:10 PM [facility] WBC, Urine 90.6(H) 0 - 4 /HPF LAB URINALYSIS - AUTOMATED METHOD 12/02/2024 7:10 PM [facility] Squamous Epithelial, Urine 79(H) 0 - 60 /LPF LAB URINALYSIS - AUTOMATED METHOD 12/02/2024 7:10 PM [facility] Bacteria, Urine Few(A) Negative /HPF LAB URINALYSIS - AUTOMATED METHOD 12/02/2024 7:10 PM [facility] Hyaline Casts, Urine 25.7(H) 0 - 3 /LPF LAB URINALYSIS - AUTOMATED METHOD 12/02/2024 7:10 PM [facility] Urine Urine specimen obtained by clean catch procedure / Unknown Non-blood Collection / Unknown 12/02/2024 3:36 PM EST 12/02/2024 3:36 PM EST us Prabhjot Ford MD LAB URINE ORDERABLES Final Resul t [facility] [address] [place] [address], [place] [phone] * (ABNORMAL) POC Urine Non-Auto W/O Micro (12/02/2024 3:06 PM EST) Leukocytes UA POC Positive(A) Negative Nitrite UA POC Negative Negative Urobilinogen UA POC Negative Negative Protein UA POC Positive(A) Negative PH UA POC 6.0 5.0 - 9.0 Blood UA POC Negative Negative, Trace Specific [place] UA POC 1.025 1.001 - 1.035 Ketones UA POC 1+(A) Negative Bilirubin UA POC Negative(A) Negative Glucose UA POC Normal Normal, Trace Urine Urine specimen obtained by clean catch procedure / Unknown 12/02/2024 3:06 PM EST Prabhjot Ford MD POINT OF CARE TEST ENTER/EDIT OR DERABLES Edited Result - Final documented in this encounter Visit Diagnoses Diagnosis Frequent urination- Primary Urinary frequency Dysuria Urinary incontinence, unspecified type Phimosis Redundant prepuce and phimosis documented in this encounter Care Teams Composition Tile Layer Relationship Specialty Start Date End Date Prabhjot Ford MD [address] [place] [address] PCP - General 08/22/1999 documented as of this encounter
--- OUTSIDE RECORDS SUMMARY | 2024-12-31 12:48 | XMS_ITS | Encounter Summary ---
Author Organization [facility] [place] [address] Care Team Providers Care Plans Examiner Name Role Phone Prabhjot Ford MD Primary Care Provider [phone] Reason for Visit * Reason Onset Date Comments needs stitch rubber 12/27/2024 Encounter Details Date Type Department Care Team ([facility] st Contact Info) Description 12/27/2024 Telephone [facility] - [address] [phone] Caity Nunn PA [address] [place] [id number] needs stitch rubber Social History Tobacco Use Types Packs/Day Years [...] on file documented as of this encounter Ordered Prescriptions Prescription Sig Dispense Quantity Refills Last Filled Start Date End Date blood-glucose meter,continuous (Dexcom G7 Lift Operator) miscIndications:Kenzie betes mellitus with stage 3 chronic kidney disease (CMS/HCC) 1 (one) time for 1 dose. 1 each 12/31/2024 12/31/2024 documented in this encounter Progress Notes * TED Hatfield - 12/31/2024 7:55 AM EDT ordered * Patrick Lobo - 12/30/2024 2:32 PM EDT Pt calling back to follow up on stitch rubber request. Please update pt. * Hortensia Soniya Ojeda - 12/27/2024 11:02 AM EST Patient is calling stating he needs a new Dexcom G7 Lift Operator. This goes to [employer]. Any questionscall patient. [phone] documented in this encounter Plan of Treatment Upcoming Encounters Date Type Department Care Team (Late st Contact Info) Description 01/01/2025 10:50 AM EDT Office Visit Pulmonolgy - [place] 175 [facility] [address] [place] [phone] Karon Sanchez NP 175 [facility] [address] [place] [address] 02/26/2025 9:45 AM EDT Office Visit Orthopedic Surgery - [place] 250 175 [facility] [address] [place] [phone] Delfin Bowser DPM 175 [facility] [address] [place] [address] 03/25/2025 9:45 AM EDT Office Visit Adult [facility] [place] - [address] [phone] Juan Alberto Samuel NP [address] [place], [place] 08/13/2025 2:00 PM EDT Office Visit Nephrology - [address] [phone] Humberto Marshall MD [address] [facility] [address] [place] [address] documented as of this encounter Visit Diagnoses Diagnosis Diabetes mellitus with stage 3 chronic kidney disease (CMS/HCC)- Primary documented in this encounter Care Teams Plans Examiner Relationship Specialty Start Date End Date Prabhjot Ford MD [address] [place] [address] PCP - General 08/22/1999 documented as of this encounter
--- OUTSIDE RECORDS SUMMARY | 2024-12-31 12:48 | XMS_ITS | Clinical Summary ---
Author Organization [facility] Address [address] [place] [address] Care Team Providers Care Sanitation Superintendent Name Role Phone Prabhjot Ford MD Primary Care Provider [phone] Allergies No known active allergies Medications Medication Sig Dispensed Refills Start Date End Date Status ELIQUIS 5 MG TABS tablet Take 5 mg by mouth 2 (two) times a day. 1 06/01/2018 Active atorvastatin (LIPITOR) tablet 10 mg Take 10 mg by mouth daily. 0 07/14/2018 Active diazePAM (VALIUM) tablet 5 mg TAKE 1 TABLET EVERY 8 HOURS NEEDED MUSCLE SPASM 0 08/02/2018 Active furosemide (LASIX) 20 MG tablet Take 20 mg by mouth 2 (two) times a day. 0 08/02/2018 Active gabapentin (NEURONTIN) 100 MG capsule 0 08/08/2018 Active NOVOLOG FLEXPEN 100 UNIT/ML injection 0 08/08/2018 Active metFORMIN (GLUCOPHAGE) tablet 500 mg 0 08/08/2018 Active metoprolol tartrate (LOPRESSOR) 50 MG tablet Take 50 mg by mouth 2 (two) times a day. 3 07/05/2018 Active naproxen (NAPROSYN) 500 MG tablet Take 500 mg by mouth every 12 (twelve) hours. 0 08/02/2018 Active omeprazole (PriLOSEC) 20 MG capsule 0 08/08/2018 Active valsartan (DIOVAN) tablet 80 mg 0 08/08/2018 Active Active Problems Problem Noted Date Diagnosed Date Arthritis of right acromioclavicular joint 08/22 Family History Medical History Relation Name Comments Heart disease Father Diabetes Sister Heart disease Sister Relation Name Status Comments Father Sister Social History Tobacco Use Types Packs/Day Years Used Date Smoking Tobacco: Never Assessed Sex and Gender Information Value Date Recorded Sex Assigned at Not on file Gender Identity Not on file Sexual Orientation Not on file Last Filed Vital Signs Vital Sign Reading Time Taken Comments Blood Pressure - - Pulse - - Temperature - - Respiratory Rate - - Oxygen Saturation - - Inhaled Oxygen Concentration - - Weight 99.8 kg (220 lb) 08/22/2018 2:04 PM EDT Height 167.6 cm (5' 6 ) 08/22/2018 2:04 PM EDT Body Mass Index 35.51 08/22/2018 2:04 PM EDT Plan of Treatment Health Maintenance Due Date Last Done Comments Hepatitis C Screening 1945 COVID-19 Vaccine (#1) 06/14/1946 Depression Screening 1959 Preventative Health Evaluation 1965 DTap / Tdap / Td (1 - Tdap) 1966 Shingrix-Zoster Vaccine (1 of 2) 1997 Fall Risk Assessment 2012 Pneumococcal Vaccine (1 of 1 - PCV) 2012 RSV Adult > 60+ Yrs or Pregn ant (1 - 1-dose 75+ series) 2022 Influenza Vaccine (#1) 2024 Hepatitis B Vaccines Aged Out No long er eligible based on patient's age to complete this topic RSV Ped < 20 months Aged Out No longe r eligible based on patient's age to complete this topic Care Teams Sanitation Superintendent Relationship Specialty Start Date End Date Prabhjot Ford MD PCP - General Internal Medicine 08/03/18
--- OUTSIDE RECORDS SUMMARY | 2024-12-31 12:48 | XMS_ITS | Clinical Summary ---
Author Organization [address] Address [address] [place] [phone] Phone Care Team Providers Care Cad Specialist Name Role Phone Prabhjot Ford MD Primary Care Provider [phone] Allergies No known active allergies Medications torsemide (DEMADEX) 20 mg tablet Take 2 tablets (40 mg total) by mouth. Active magnesium oxide (MAG-OX) 400 mg magnesium tablet Take 1 tablet (400 mg total) by mouth 1 (one) time each day. Active aspirin 81 mg chewable tablet Chew 1 tablet (81 mg total) 1 (one) time each day. Active apixaban (ELIQUIS) 5 mg tablet Take 1 tablet (5 mg total) by mouth 2 (two) times a day. Active blood sugar diagnostic (FreeStyle Lite Strips) test strip USE TO TEST SUGARS 3 TIMES DAILY 11/22/19 24 Active Lumigan 0.01 % ophthalmic drops Administer 1 drop into both eyes at bedtime. 11/01/19 18 Active atorvastatin (LIPITOR) 40 mg tablet Take 1 tablet (40 mg total) by mouth 1 (one) time each day. 03/12/20 24 Active albuterol HFA (PROAIR HFA ; PROVENTIL HFA ; VENTOLIN HFA) 90 mcg/actuation inhaler Inhale 2 puffs by mouth every 6 (six) hours if needed. 02/12/20 24 Active Alcohol Prep Pads pads, medicated 08/18/20 24 Active acetaminophen (TYLENOL) 500 mg tablet Take 1-2 tablets (500-1,000 mg total) by mouth every 8 (eight) hours if needed. 07/04/20 24 Active fluticasone-umec lidinium-vilante rol (Trelegy Ellipta) 100-62.5-25 mcg inhaler Inhale 1 puff (100 mcg total) by mouth 1 (one) time each day. 03/12/20 24 Active ferrous sulfate 325 mg (65 mg iron) EC tablet Take 1 tablet (325 mg total) by mouth 1 (one) time each day with breakfast. 11/01/19 18 Active diclofenac (VOLTAREN) 1 % topical gel Apply 2 g topically 2 (two) times a day. 08/20/20 24 Active Baqsimi 3 mg/actuation nasal spray Administer 1 Dose into one nostril if needed. 02/13/20 24 Active hydroxychloroqui ne (PLAQUENIL) 200 mg tablet Take 1 tablet (200 mg total) by mouth 1 (one) time each day. 04/24/20 24 Active NovoLOG Flexpen U-100 Insulin 100 unit/mL (3 mL) injection pen Inject 16-20 Units under the skin 3 (three) times a day before meals. 08/08/20 18 Active lidocaine (LIDODERM) 5 % patch Apply 1 patch topically 1 (one) time each day at the same time. 07/10/20 24 Active loratadine (CLARITIN) 10 mg tablet Take 1 tablet (10 mg total) by mouth 1 (one) time each day. 02/12/20 24 Active Unifine Pentips 31 gauge x 5/16 needle 08/18/20 24 Active HealthyLax 17 gram packet Take 17 g by mouth 1 (one) time each day if needed. 02/10/20 24 Active pregabalin (LYRICA) 75 mg capsule Take 1 capsule (75 mg total) by mouth 2 (two) times a day. 11/25/19 24 Active Entresto 24-26 mg per tablet Take 1 tablet by mouth 1 (one) time each day. 08/03/20 23 Active medical supply, miscellaneous (MISCELLANEOUS MEDICAL SUPPLY MISC) Inhale by mouth. CPAP Active Lantus Solostar U-100 Insulin 100 unit/mL (3 mL) injection pen 20 units at bedtime, go up by 5 unit in 1 week if BS above 150. 15 mL 5 09/03/20 24 Active fluticasone propionate (FLONASE) 50 mcg/actuation nasal spray INSTILL 2 SPRAYS IN EACH NOSTRIL DAILY FOR 3-4WEEKS THEN DECREASE TO 1 SPRAY IN EACH NOSTRIL DAILY (BULK) 48 g 1 09/13/20 24 Active ammonium lactate (AMLACTIN) 12 % cream APPLY TOPICALLY TO DRY SKIN ON BOTH FEET DAILY (BULK) 385 g 1 10/21/20 24 Active ketoconazole (NIZORAL) 2 % cream Apply topically 1 (one) time each day. 60 g 2 11/18/19 25 Active glucose 4 gram chewable tablet Take 4 tabs as needed for low BS reading 50 tablet 1 11/26/19 25 Active omeprazole (PriLOSEC) [address] capsule Take 1 capsule (20 mg total) by mouth 1 (one) time each day. 90 capsule 1 12/12/19 25 Active ferrous sulfate (FeroSuL) 325 mg (65 mg elemental iron) tablet Take 1 tablet (325 mg total) by mouth 1 (one) time each day. 90 tablet 1 12/12/19 25 Active metoprolol tartrate (LOPRESSOR) 25 mg tablet Take 1 tablet (25 mg total) by mouth 2 (two) times a day. 180 tablet 1 12/12/19 25 Active Farxiga 10 mg tablet TAKE ONE TABLET BY MOUTH EVERY DAY ^1R1 90 tablet 3 12/12/19 25 Active tolnaftate (Tinactin) 1 % spray Apply topically 2 (two) times a day. 130 g 12/25/19 25 2024 Active hydrocortisone 2.5 % cream APPLY A SMALL AMOUNT OVER THE AFFECTED AREA(S) TWO TIMES A DAY (BULK) 28 g 4 12/28/19 25 Active blood-glucose sensor (Dexcom G7 Sensor) deviceIndication s:Diabetes mellitus with stage 3 chronic kidney disease (CMS/HCC) by Not Applicable route every 14 (fourteen) days. 9 each 1 12/27/19 25 Active blood-glucose meter,continuous (Dexcom G7 Deployment Engineer) miscIndications: Diabetes mellitus with stage 3 chronic kidney disease (CMS/HCC) 1 (one) time for 1 dose. 1 each 01/01/20 25 2024 Active metoprolol tartrate (LOPRESSOR) 25 mg tablet Take 1 tablet (25 mg total) by mouth 2 (two) times a day. 2024 Discontinued dapagliflozin propanediol (Farxiga) 10 mg tablet Take 1 tablet (10 mg total) by mouth 1 (one) time each day. 2024 Discontinued blood-glucose sensor (Dexcom G7 Sensor) device 1 Device by Not Applicable route every 14 (fourteen) days. 02/13/20 24 2024 Discontinued(R eorder) hydrocortisone 2.5 % cream APPLY SMALL AMOUNT OVER THE AFFECTED AREA TWICE DAILY 05/09/20 24 2024 Discontinued omeprazole (PriLOSEC) [address] capsule Take 1 capsule (20 mg total) by mouth 1 (one) time each day. 11/01/19 18 2024 Discontinued clotrimazole-bet amethasone (LOTRISONE) 1-0.05 % cream Apply topically 2 (two) times a day for 10 days. 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 Dyslipidemia 01/03/2024 Overview (07/25/2024): Last Assessment & Plan: Well controlled lipid profile. Last LDL 03/2023 at goal <70. Continue statin. Nocturnal hypoxia 11/22/2023 Overview (07/25/2024): 08/14/2023 overnight oximetry on IVAP shows: 1. Lowest SpO2 is 83%. 2. Time spent less than 88% is 3 minutes. 3. Patient spent most sleep time with adequate oxygen. No supplemental oxygen is indicated at this time. Coronary artery disease due to lipid rich plaque 12/21/2022 Overview (07/25/2024): - Had a pharmacologic nuclear stress test on 10/18/2022 (I have independently reviewed images)-I agree that it shows apical ischemia with borderline increased TID of 1.[address] evidence of three-vessel coronary calcification - No real anginal symptoms and therefore we are just managing medically Last Assessment & Plan: Continue current atorvastatin, baby aspirin. 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 with normal wall motion in the remaining segments with Definity contrast used for better endocardial definition, no LV thrombus, normal RV size and systolic function, no hemodynamically significant valve disease, normal pulmonary artery systolic pressure, mild left atrial enlargement-compared with prior echo from February 2021, in retrospect, there was suggestion of the aneurysm on the previous study however the contrast enhancement was not used on the previous study so it is difficult to compare directly - Given abnormal wall motion, he was sent for a pharmacologic nuclear stress test-see coronary artery disease portion for results - Most recent echo done at [facility] in April 2023 when there was concern for sepsis showed to see depression unremarkable. LVEF 55 to 60%. No regional wall motion abnormalities. No significant valvular disease. PASP within normal limits. No evidence of endocarditis. 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 He was also hypoglycemic so insulin doses were adjusted. Last Assessment & Plan: More recently, his hospitalizations have been in the setting of severe hypotension and acute kidney injury and not really for volume overload. I suspect that he has been doing exactly what we have been telling him to do which is restrict sodium significantly but his previous heart failure medications were initiated during a time when he was not so stringent. I suspect he may not need to be so heavily medicated. Furthermore I notice that the calls for which we increased his diuretic transiently are always for weight gain and lower extremity edema. Perhaps we should be a bit more stringent about the criteria since it does not sound like he has overt heart failure symptoms. That is not to say we should not treat him but perhaps we should just treat him with more gentle diuresis. At this point, I would probably trial leg elevation, compression socks for lower extremity edema before increasing diuretic dosing. I am also discontinuing Entresto as I believe the risk might outweigh the benefits. It is also possible that he is developing some dysautonomia from longstanding diabetes. For now, continue SGLT2 inhibitor but I agree with discontinuation of spironolactone. Will plan to see him again in 3 months. Assessment & Plan (12/23/2024 2:27 PM EST): Assessment & Plan (09/23/2024 3:28 PM EST): He has a history of heart failure. He has compression stockings in place to his bilateral lower extremities today. His breathing has been stable. He denies any issues with chest pain or chest pressure. He follows with the cardiology service regularly. Will continue current regimen. Orders: Complete blood count; Future Comprehensive metabolic panel; Future Thyroid stimulating hormone; Future Primary osteoarthritis of both hips 05/18/2021 Treatment-emergent central sleep apnea 0 Class 2 severe obesity with body mass index (BMI) of 35 to 39.9 with serious comorbidity 04/19/2019 Right foot drop 01/29/2019 Arthritis of right acromioclavicular joint 08/22 Venous insufficiency 05/22/2018 Sleep apnea 12/18/2017 Overview (07/25/2024): Mild overall; severe REM sleep apnea no sleep related hypoventilation... Obstructive sleep apnea 2017 Overview (07/25/2024): [facility] Polysomnogram: Date 12/09/2017; Wt 217# SE 73%; SM 77%; REM 22%; RDI 13 (AHI 7), worse in REM (RDI 32 - AHI 30), Central apneas 1; Obstructive apneas 8; Mixed apneas 0; hypopneas 36; RERAs 38; average oxygen saturation 96% (lowest 81% - without saturations <88% for 5% or more of study); PLMs 39. [facility] Polysomnogram treatment study. Date 08/17/2018. SE 72 % SM 74 %; spent 11 % of the study in REM. On CPAP @ 12; RDI 1.7 (AHI 1.7), Central apneas 3; Obstructive apneas 0; Mixed apneas 0; hypopneas 2; RERAs 0; and, average oxygen saturation was 93%. For the entire study, PLMs ~43. [facility] Polysomnogram treatment study. Date 07/29/2019. Wt 215#; BMI 35; SE 86 % SM 88 %; spent 24 % of the study in REM. On CPAP and BiPAP; RDI and AHI lowest at 9.9; and, average oxygen saturation was 94%. For the entire study, PLMs ~28. Prestudy ESS 10; 4/4 RLS symptoms. [facility] Polysomnogram ASV treatment study. Date 10/26/2019. Wt 226#; BMI 37; SE 58 % SM 75 %; spent 21 % of the study in REM. On ASV; RDI 7 (AHI 7), Central apneas 7; Obstructive apneas 0; Mixed apneas 0; hypopneas 30; RERAs 1; and, average oxygen saturation was 94%. For the entire study, PLMs ~1. Prestudy ESS 8; 0/4 RLS symptoms. [facility] Polysomnogram iVAPs treatment study. Date 10/29/2020. Wt 230#; BMI 37; SE 79 % SM 81 %; spent 13 % of the study in REM. IVAPs trialed at various pressure; given the elevated TC CO2 on ASV, interpreting physician recommended IVAPS with EPAP of 5;TV a 6.1 and PS minimum of 4; PS max of 20; ND 18 and height 66 inch - with a heated humidifier. - Obstructive Sleep Apnea - mild overall and severe in REM; mostly hypopneas; no sleep related hypoventilation by 2018 diagnostic polysomnogram. - PAP therapy and ASV failed to correct the TC CO2; iVAPS with EPAP of 5;TV a 6.1 and PS minimum of 4; PS max of 20; ND 18 and height 66 inch - with a heated humidifier. Osteoarthritis of hands, bilateral 12/08/2017 Paroxysmal atrial fibrillation 12/01/2017 Overview (07/25/2024): -Admission at [facility] from 11/01/2017-11/03/2017 with symptoms of abdominal pain and diarrhea with hypoglycemia in the setting of accidental overdose of insulin; was in rapid ventricular response with spontaneous conversion to sinus rhythm -Discharged on rate control with metoprolol and started on Eliquis for CVA prophylaxis -Echocardiogram while in the hospital on 11/02/2017 showed preserved ejection fraction of 55-60% without regional wall motion abnormalities -30 day auto trigger ??loop monitor from November to December 2017-atrial fibrillation was noted for 2% of the readable data, tachycardia was present 37% of the readable data with the fastest episode of A. fib 180 bpm and the longest lasting about 2 hours, no pauses of 3 seconds or longer, 5 manually triggered episodes-patient was ??reportedly asymptomatic for all of the episodes of A. Fib -Sleep study in November documenting obstructive sleep apnea -Most recent echocardiogram from 03/13 (I have independently reviewed images) -Most recent stress test was a pharmacologic nuclear stress test on 10/18/2022 and it showed normal perfusion with normal LV systolic function and regional wall motion. - 48-hour Holter monitor performed in October 2023 showing A-fib throughout with ventricular rate range 63 to 160 bpm with average of 96 bpm. Longest RR was 1.4 seconds. No significant pauses. Last Assessment & Plan: May be persistent at this point. Asymptomatic. Cautiously continuing metoprolol 25 twice daily with holding parameters of holding for less than 90 mmHg systolic, continue Eliquis 5 twice daily for CVA prophylaxis Assessment & Plan (12/23/2024 2:27 PM EST): Onychomycosis 03/10/2016 Arthritis of left shoulder region 10/01/2015 DJD (degenerative joint disease), cervical 10/01 Mild nonproliferative diabetic retinopathy 02/17 Overview (07/25/2024): Taken from note of Dr. Witt on 09/16/2013 Nuclear sclerosis 02/17/2015 Overview (07/25/2024): Taken from note of Dr. Witt 09/16/2013. Peripheral vascular disease, unspecified 015 Overview (07/25/2024): See note of Dr. Juan on 04/14/2009. Anemia 07/22/2011 Overview (07/25/2024): See note dated 09/13/11 from GI Assessment & Plan (12/23/2024 2:27 PM EST): History of stable normocytic anemia. Will continue to follow periodically. Likely anemia of chronic disease. ETOH abuse 04/03/2009 Overview (07/25/2024): Used to be heavy, stopped 2008 Pure hypercholesterolemia 09/12/2007 Overview (07/25/2024): Last Assessment & Plan: Well controlled lipid profile. Continue statin. Assessment & Plan (12/23/2024 2:27 PM EST): Will follow lipid panel and LFTs at least annually. Lumbosacral spondylosis without myelopathy 03/05 Essential hypertension, benign 11/09/2005 Overview (07/25/2024): Last Assessment & Plan: BP 104/58 in the office today. Has had symptomatic hypotension in the recent past likely related to additional diuretic dosing. Blood pressures have been stable following recent hospital admission. Continue torsemide 20 mg twice daily, metoprolol tartrate 25 mg twice daily, spironolactone 25 mg daily and Entresto 24-26 mg twice daily. Assessment & Plan (12/23/2024 2:27 PM EST): His blood pressure is well-controlled in the office. He will continue on torsemide, metoprolol, Farxiga, Entresto. Will follow renal function. DM polyneuropathy 08/30/2005 Assessment & Plan (09/23/2024 3:28 PM EST): His last hemoglobin A1c was 7.3%. He follows with the endocrinology service. He will continue on his Lantus, NovoLog, and farxiga. A1c will be monitored every 3 months. Orders are placed for repeat testing. Orders: Microalbumin creatinine urine ratio; Future Hemoglobin A1c; Future Complete blood count; Future Comprehensive metabolic panel; Future Thyroid stimulating hormone; Future Type II diabetes mellitus wi th peripheral circulatory disorder 08/30/2005 Overview (07/25/2024): Last Assessment & Plan: Checking Your Blood Sugars Please check your blood sugars every day. Please check your sugars at the following times of day: before breakfast and before dinner Your Blood Sugar Goals Pre Meal: 90-130 2 hours after meals: 110-160 Bedtime: 110-150 Use the Results ?? Bring your glucometer to every appointment ?? Write your fingerstick blood sugars down on a log sheet or record book. Bring them to your appointment ?? Look for patterns in the numbers. The results help you and your provider make decisions about your diabetes treatment plan. Your Results and your Goals Your Result / Date of Completion Your Goal / How Often to Assess Component Value Date HGBA1C 5.7 03/13/2013 Less than 7%--- 2-4 times per year BP Readings from Last 1 Encounters: 08/28/13 101/66 Less than 130/80--- once per year Component Value Date LDL 98 05/30/2012 LDL less than 100--- once per year Component Value Date MALBUR 3.0 09/03/2012 Less than 30--- once per year Wt Readings from Last 1 Encounters: 08/28/13 203 lb 11.2 oz (92.398 kg) Your goal weight by next visit: 198 --- reassess 2-4 times a year Health Maintenance Due Topic Date Due ? Depression Screen 1957 ? Zostavax Immunization: Age 60+ 2007 ? Fall Risk Assessment 2012 ? Pneumovax Immunization: Age 65+ 2012 ? Diabetes: Annual Foot Exam 05/17/2013 ? Diabetes: Annual Care Plan 05/17/2013 ? Diabetes/heart Disease: Annual Cholesterol (Ldl) 05/30/2013 ? Flu Shot 06/23/2013 ? Diabetes: Blood Sugar Control Test (Hgba1c) 07/14/2013 Your Action Plan Your diabetes is well controlled and no changes are required to your current plan. Check blood glucose as directed and write down all results. Continue to work on weight loss with a goal of losing 2-4 pounds per month Contact me if you experience any barriers to care such as inability to purchase your medication, difficulty getting to your appointments or difficulty understanding your care plan pls make sure you get your fasting blood test done. Continue to follow with foot doctor When to Call your Healthcare Provider If your blood sugar falls below 70 and you do not know why or you become unconscious If you are sick and unable to take liquids because or nausea or vomiting If you have a fever over 101 If your blood sugar is 300 or higher on greater than 3 separate occasions during the same week If you are just unsure what to do Educational Resources [place] [employer] (www.diabetes.org) Centers for Disease Control and Prevention (www.cdc.gov/diabetes) This care plan was created in collaboration with David Milton on 08/28/2013 Assessment & Plan (12/23/2024 2:27 PM EST): Seems like the lab is backed up on hemoglobin A1c's. I do not have his value from recent testing. For now no change to his regimen. Resolved Problems Problem Noted Date Diagnosed Date Resolved Date History of knee replacement, total, bilateral 03/05/20 07 07/25/2024 Overview (07/25/2024): R and L - S/p TKR 08/2011, Dr. Vergara Encounters Date Type Department Care Team Description 12/27/2024 Telephone Endocrinology - [address] [phone] Caity Nunn PA needs site foreman 12/26/2024 Telephone Endocrinology - [address] [phone] Caity Nunn PA [place] 12/25/2024 1:30 PM EST Consult Nephrology - [address] [phone] Humberto Marshall MD Stage 3a chronic kidney disease (CMS/HCC) (Primary Dx); 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 (CMS/HCC); 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, macular edema presence unspecified (CMS/[facility]); Obstructive sleep apnea; Essential hypertension, benign 12/24/2024 10:00 AM EST Office Visit Orthopedic Surgery - [address] [phone] Delfin Bowser DPM Localized edema (Primary Dx); Venous insufficiency; Controlled type 2 diabetes with neuropathy (CMS/HCC); PVD (peripheral vascular disease) (CMS/HCC); Arthritis of both feet; Tinea pedis of both feet; Dermatophytosis, nail 12/23/2024 1:00 PM EST Office Visit [facility] - [address] [phone] Gerry Moore PA Chronic bilateral low back pain without sciatica (Primary Dx); Type II diabetes mellitus with peripheral circulatory disorder (CMS/HCC); Stage 3 chronic kidney disease, unspecified whether stage 3a or 3b CKD (CMS/HCC); Pure hypercholesterolemia; Paroxysmal atrial fibrillation (CMS/HCC); Essential hypertension, benign; Chronic heart failure with preserved ejection fraction ([facility]); Anemia, unspecified type 12/04/[address] [phone] Prabhjot Ford MD Labs Only 12/02/2024 2:30 PM EST Office Visit [address] [phone] Prabhjot Ford MD Frequent urination (Primary Dx); Dysuria; Urinary incontinence, unspecified type; Phimosis 11/29/[address] [phone] Prabhjot Ford MD UTI; Abdominal Pain 11/11/2024 Telephone Orthopedic Surgery [address] [phone] Delfin Bowser DPM Med Refill 10/29/2024 Billing Patient Not Present [address] [phone] Gamal Cisse MD Type 2 diabetes mellitus without complication, unspecified whether long-term insulin use ([facility]) (Primary Dx); Hypertensive heart disease with heart failure ([facility]); Chronic diastolic (congestive) heart failure ([facility]); Hypotension, unspecified hypotension type; Chronic obstructive pulmonary disease, unspecified COPD type ([facility]); Paroxysmal atrial fibrillation ([facility]); Hyperlipidemia, unspecified hyperlipidemia type; Athscl heart disease of [place] coronary artery w/o ang pctrs; Eosinophilia, unspecified type; Acidosis, unspecified; Obesity, unspecified class, unspecified obesity type, unspecified whether serious comorbidity present; Gastro-esophageal reflux disease without esophagitis; Obstructive sleep apnea (adult) (pediatric); residential (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 of aspirin; residential (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 of insulin ([facility] SYSTEM/[facility]); residential current use of anticoagulant; [employer] (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 of oral hypoglycemic drugs; [employer] (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 of inhaled steroids 10/24/2024 Billing Patient Not Present Adult Medicine [address] [phone] Prabhjot Ford MD Type 2 diabetes mellitus without complication, with long-term current use of insulin (CMS/HCC) (Primary Dx); Hypertensive heart disease with congestive heart failure, unspecified heart failure type (CMS/HCC); Hypotension, unspecified hypotension type; Chronic obstructive pulmonary disease, unspecified COPD type (CMS/HCC); Paroxysmal atrial fibrillation (CMS/HCC); Hyperlipidemia, unspecified hyperlipidemia type; Athscl heart disease of coquille coronary artery w/o ang pctrs; Hypereosinophilic syndrome, unspecified type; Acidosis; Gastroesophageal reflux disease without esophagitis; Obstructive sleep apnea; residential (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 of aspirin; [employer] (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 of anticoagulants; residential (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 of inhaled steroids; Obesity, unspecified class, unspecified obesity type, unspecified whether serious comorbidity present 10/22/2024 10:15 AM EST Office Visit Orthopedic Surgery [address] [phone] Delfin Bowser DPM Controlled type 2 diabetes with neuropathy (CMS/HCC) (Primary Dx); Arthritis of both feet; PVD (peripheral vascular disease) (CMS/HCC); Right foot drop; Dermatophytosis, nail 10/22/2024 Billing Patient Not Present Adult Medicine [address] [phone] Prabhjot Ford MD Diabetes mellitus without complication (CMS/HCC) (Primary Dx); Heart disease, hypertensive, with heart failure (CMS/HCC); Chronic diastolic heart failure (CMS/HCC); Hypotension, unspecified hypotension type; Chronic obstructive pulmonary disease, unspecified COPD type (CMS/HCC); Paroxysmal atrial fibrillation (CMS/HCC); Hyperlipidemia, unspecified hyperlipidemia type; Atherosclerosis of coquille coronary artery of coqu[place] heart without angina pectoris; Eosinophilia, unspecified type; Acidosis, unspecified; Obesity, unspecified obesity severity, unspecified obesity type; Gastroesophageal reflux disease without esophagitis; Obstructive sleep apnea (adult) (pediatric); Encounter for long-term (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 of aspirin; Encounter for long-term (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 of insulin (CMS/HCC); residential current use of oral hypoglycemic drug; residential current use of inhaled steroid 10/07/2024 Billing Patient Not Present Adult [address] [phone] Prabhjot Ford MD Type 2 diabetes mellitus without complication, with long-term current use of insulin ([facility]) (Primary Dx); Hypertensive heart disease with congestive heart failure, unspecified heart failure type ([facility]); Chronic heart failure with preserved ejection fraction ([facility]); Hypotension, unspecified hypotension type; Chronic obstructive pulmonary disease, unspecified COPD type ([facility]); Paroxysmal atrial fibrillation ([facility]); Dyslipidemia; Coronary artery disease due to lipid rich plaque; Eosinophilia, unspecified type; Acidosis, unspecified; Obesity, unspecified class, unspecified obesity type, unspecified whether serious comorbidity present; Gastroesophageal reflux disease without esophagitis; Obstructive sleep apnea; residential (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 of aspirin; residential (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 of insulin ([facility]); [employer] (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 of anticoagulants; residential (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 of oral hypoglycemic drugs; residential (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 of inhaled steroids 10/02/2024 Telephone Adult Medicine [address] [phone] Prabhjot Ford MD Medication Problem from Last 3 Months Immunizations Name Administration Dates Next Due H1N1 Inj Preservative Free 11/06/2009 Influenza trivalent, 0.5mL ( Fluzone High-dose) 65yo and older 07/19/2021,08/03/2020,09/11/2019 Influenza trivalent, with pr eservative (Fluzone; Afluria) 6mo and older 08/31/2016,08/20/2015,10/09/2014,08/28,09/03/2012,07/06/2011,08/13/2010 ,11/06/2009,08/08/2008,09/12/2007,12/2005,08/30/2005 Pfizer (ages 12 & older) Biv alent, COVID-19 08/09/2023 Pneumococcal conjugate 13 va lent (Prevnar 13, PCV13) 2mo and older 09/29/2015 Pneumococcal polysaccharide 23 valent (Pneumovax 23) 2yo and older 06/14/2017,08/20/2003 RSV, bivalent, protein subun it RSVpreF, 0.5mL, Preservative Free (Arexvy) 60yo and older 08/09/2023 Td Tetanus diptheria (Tdvax) 7yo and older 08/18/2008 Tdap Tetanus diptheria acell ular pertussis (Boostrix; Adacel) 7yo and older 07/06/2011,08/18/2008 Zoster recombinant (Shingrix ) 19yo and older 09/28/2021 Surgical History Surgery Date Site/Laterality Comments COLONOSCOPY 09/23/08 PROCEDURE: HISTORICAL COLONOSCOPY; COMMENT: adenomas and diverticulosis; repeat in five years COLONOSCOPY 02/09/15 PROCEDURE: ND COLONOSCOPY STOMA W/RMVL DESIRE POLYP/OTH LES SNARE; COMMENT: adenoma and tics; repeat in 5 yrs Medical History Medical History Date Comments Osteoarthrosis, unspecified whether generalized or localized, lower leg 03/05/2007 DX:Osteoarthrosis, unspecified whether generalized or localized, lower leg Lumbosacral spondylosis with out myelopathy 03/05/2007 DX:Lumbosacral spondylosis w ithout myelopathy ETOH abuse 04/03/2009 DX:ETOH abuse Type II or unspecified type diabetes mellitus with unspecified complication, not stated as uncontrolled DX:Type II or unspecified ty pe diabetes mellitus with unspecified complication, not stated as uncontrolled Esophageal reflux DX:Esophageal reflux Unspecified essential hypertension DX:Unspecified essential hypertension Anemia 07/22/2011 DX:Anemia Diabetes mellitus with neuro logical manifestations, uncontrolled 11/25/2013 DX:Diabetes mellitus with neurological manifestations, uncontrolled; COMMENT: Diabetic neuropathy Diabetes mellitus type 2 wit h neurological manifestations ([facility]) 07/10/2014 DX:Diabetes carla itus type 2 with neurological manifestations ([facility]) DJD (degenerative joint dise ase), cervical 10/01/2015 DX:DJD (degenerative joint d isease), cervical Arthritis of left shoulder region 10/01/2015 DX:Arthritis of left shoulder region Paroxysmal atrial fibrillati on ([facility]) 12/01/2017 DX:Paroxysmal atrial fibrill ation ([facility]); COMMENT: See cardiology note, accidental finding Right foot drop 01/29/2019 DX:Right foot dr op History of knee replacement, total, bilateral 03/05/2007 DX:History of knee replaceme nt, total, bilateral; COMMENT: R and L - S/p TKR 08/2011, Dr. Vergara Parasite infection DX:Parasite i nfection Anemia DX:Anemia Chronic ischemic heart disease D X:Chronic ischemic heart disease Family History Medical History Relation Name Comments Diabetes Sister 1 Diabetes Sister 2 Heart attack Sister 3 pt not sure Blindness Neg Hx Cataracts Neg Hx Glaucoma Neg Hx Macular degeneration Neg Hx Strabismus Neg Hx Relation Name Status Comments Sister 1 Sister 2 Sister 3 Social History Tobacco Use Types Packs/Day Years [...] on file Sexual Orientation Not on file Obstetrics History Last Filed Vital Signs Vital Sign Reading Time Taken Comments Blood Pressure 116/71 12/25/2024 1:47 PM EST Pulse 68 12/25/2024 1:47 PM EST Temperature 36.6 ??C (97.8 ??F) 12/23/2024 1:08 PM ES T Respiratory Rate 16 12/23/2024 1:08 PM EST Oxygen Saturation 97% 12/23/2024 1:08 PM EST Inhaled Oxygen Concentration - - Weight 103 kg (226 lb 9.6 oz) 12/25/2024 1:47 PM EST Height 167.6 cm (5' 6 ) 12/23/2024 1:08 PM EST Body Mass Index 36.57 12/23/2024 1:08 PM EST Plan of Treatment Upcoming Encounters Date Type Department Care Team (Late st Contact Info) Description 01/01/2025 10:50 AM EDT Office Visit Pulmonolgy [place] [address] [facility] [address] [place] [phone] Karon Sanchez NP 175 [facility] [address] [place] [address] 02/26/2025 9:45 AM EDT Office Visit Orthopedic Surgery - [place] [address] [facility] [address] [place] [phone] Delfin Bowser, DPBasilio 175 [facility] [address] [place] [address] 03/25/2025 9:45 AM EDT Office Visit [facility] [place] - [place] [address] [place], [place] [phone] Juan Alberto Samuel [employer] [address] [place], [place] 08/13/2025 2:00 PM EDT Office Visit Nephrology - [place] [address] [place], [place] [phone] Humberto Marshall MD 100 [facility] [address] [place] [phone] Health Maintenance Due Date Last Done Comments Hepatitis A Vaccines (1 of 2 - Risk 2-dose series) 1964 DTaP,Tdap,and Td Vaccines (4 - Td or Tdap) 07/06/2021 07/06/2011, 08/18/2008, 08/18/2008 Zoster Vaccines (2 of 2) 11/23/2021 09/28/2021 Social Influencers of Health Screening 10/01/2022 COVID-19 Vaccine ( season) 2024 08/09/2023, 06/06/2022, 09/06/2021, Additional history exists Influenza Vaccine (#1) 2024 , 08/03/2020, 09/11/2019, Additional history exists Depression Screening 03/26/2025 03/26/2024 Falls Risk Assessment 03/26/2025 03/26/2024 Medicare Annual Wellness Visit 03/26/2025 03/26/2024 Colorectal Cancer Screening: Colonoscopy 04/15/2025 04/29/2024 Diabetes: Blood Sugar Control Test (HGBA1C) 06/19/2025 12/20/2024, 09/06/2024, 03/25/2024, Additional history exists Diabetes: Annual Retina Eye Exam 07/29/2025 07/29/2024 Diabetes: Annual Foot Exam 08/27/2025 08/27/2024 Diabetes: Annual Urine Albumin-Creatinine Ratio (uACR) 12/20/2025 12/20/2024, 06/23/2023 Diabetes: Annual GFR (Glomerular Filtration Rate) 12/20/2025 12/20/2024, 09/06/2024, 06/12/2024, Additional history exists Hypertension/CHF/CAD Annual BMP Blood Test 12/20/2025 12/20/2024, 09/06/2024, 06/12/2024, Additional history exists Cholesterol Screening (Lipid Panel) 09/06/2029 09/06/2024, 03/25/2024, 03/25/2024 Pneumococcal Vaccine: 50+ Years Completed 06/14/2017, 09/29/2015, 08/20/2003 Hepatitis C Screening Completed 10/03/2019 RSV Immunization Patients 60+ Years Old Completed 08/09/2023 HIB Vaccines Aged Out No longer eligi ble based on patient's age to complete this topic HPV Vaccines Aged Out No longer eligi ble based on patient's age to complete this topic Hepatitis B Vaccines Aged Out No long er eligible based on patient's age to complete this topic IPV Vaccines Aged Out No longer eligi ble based on patient's age to complete this topic MMR Vaccines Aged Out No longer eligi ble based on patient's age to complete this topic Meningococcal ACWY Vaccine Aged Out N o longer eligible based on patient's age to complete this topic Meningococcal B Vacine Aged Out No lo nger eligible based on patient's age to complete this topic RSV Immunization Patients Under 20 months Aged Out No longer eligible based on patient's age to complete this topic Varicella Vaccines Aged Out No longer eligible based on patient's age to complete this topic Procedures Procedure Name Priority Date/Time Associated Diagnosis Comments MICROALBUMIN CREATININE URINE RATIO Routine 12/20/2024 3:29 PM EST Diabetic polyneuropathy associated with type 2 diabetes mellitus (CMS/HCC) HEMOGLOBIN A1C Routine 12/20/2024 3:29 PM EST Diabetic polyneuropathy associated with type 2 diabetes mellitus (CMS/HCC) COMPLETE BLOOD COUNT Routine 12/20/2024 3:29 PM EST Diabetic polyneuropathy associated with type 2 diabetes mellitus (CMS/HCC) Chronic heart failure with preserved ejection fraction (CMS/HCC) COMPREHENSIVE METABOLIC PANEL Routine 12/20/2024 3:29 PM EST Diabetic polyneuropathy associated with type 2 diabetes mellitus (CMS/HCC) Chronic heart failure with preserved ejection fraction (CMS/HCC) THYROID STIMULATING HORMONE Routine 12/20/2024 3:29 PM EST Diabetic polyneuropathy associated with type 2 diabetes mellitus (CMS/HCC) Chronic heart failure with preserved ejection fraction (CMS/HCC) PROSTATE SPECIFIC ANTIGEN SCREEN Routine 12/03/2024 9:46 AM EST Frequent urination Urinary incontinence, unspecified type FARIA URINE CULTURE TUBE Routine 12/02/2024 3:36 [...] Routine 12/02/2024 3:06 PM EST Frequent urination LIPID PANEL WITH REFLEX TO DIRECT LDL Routine 09/06/2024 11:59 AM EST Type II diabetes mellitus with peripheral circulatory disorder (CMS/HCC) HM COLONOSCOPY Routine 04/29/2024 HM DEPRESSION SCREENING Routine 03/26/2024 FALLS RISK ASSESSMENT Routine 03/26/2024 HEPATITIS C SCREENING Routine 10/03/2019 from Last 3 Months or Most Recently Relevant to Health Maintenance Results * (ABNORMAL) Microalbumin creatinine urine ratio (12/20/2024 3:29 PM EST) Creatinine, Urine <13.0 mg/dL LAB CHEMISTRY METHOD 12/20/2024 9:35 PM EST [facility] Microalb, Ur 10.9 0.0 - 29.0 mg/L LAB CHEMISTRY METHOD 12/20/2024 9:35 PM EST [facility] Microalb/Creat Ratio >84(H) <30 mg/g creat LAB CHEMISTRY METHOD 12/20/2024 9:35 PM EST [facility] Urine Urine specimen obtained by clean catch procedure / Unknown Non-blood Collection / Unknown 12/20/2024 3:29 PM EST 12/20/2024 3:29 PM EST us Gerry JEAN LAB URINE ORDERABLES Fin al Result [facility] [address] [place] [address], * (ABNORMAL) Complete blood count (12/20/2024 3:29 PM EST) WBC 11.1(H) 4.8 - 10.8 K/mcL LAB HEMETOLOGY METHOD 12/20/2024 6:19 PM EST [facility] RBC 4.70 4.50 - 5.50 M/mcL LAB HEMETOLOGY METHOD 12/20/2024 6:19 PM EST [facility] Hemoglobin 12.5(L) 13.5 - 17.5 g/dL LAB HEMETOLOGY METHOD 12/20/2024 6:19 PM EST [facility] Hematocrit 40.2(L) 42.0 - 54.0 % LAB HEMETOLOGY METHOD 12/20/2024 6:19 PM EST [facility] MCV 85.0 79.0 - 98.0 FL LAB HEMETOLOGY METHOD 12/20/2024 6:19 PM EST [facility] MCH 26.4(L) 27.0 - 32.0 pcg LAB HEMETOLOGY METHOD 12/20/2024 6:19 PM EST [facility] MCHC 31.1(L) 32.0 - 37.0 g/dL LAB HEMETOLOGY METHOD 12/20/2024 6:19 PM EST [facility] RDW 16.1(H) 11.0 - 15.0 % LAB HEMETOLOGY METHOD 12/20/2024 6:19 PM [facility] Platelets 256 130 - 400 K/mcL LAB HEMETOLOGY METHOD 12/20/2024 6:19 PM EST [facility] MPV 9.8 7.0 - 11.0 FL LAB HEMETOLOGY METHOD 12/20/2024 6:19 PM EST [facility] NRBC 0.0 <1.0 % LAB HEMETOLOGY METHOD 12/20/2024 6:19 PM EST [facility] NRBC Absolute 0.00 <0.10 K/mcL LAB HEMETOLOGY METHOD 12/20/2024 6:19 PM EST [facility] Blood Venous blood specimen / Unknown Venipuncture / Unknown 12/20/2024 3:29 PM EST 12/20/2024 3:29 PM EST us Gerry JEAN LAB BLOOD ORDERABLES Fin al Result [facility] [address] [place] [address], * (ABNORMAL) Thyroid stimulating hormone (12/20/2024 3:29 PM EST) TSH 5.84(H) 0.40 - 4.00 mcIU/mL LAB CHEMISTRY METHOD 12/20/2024 8:50 PM EST [facility] Blood Venous blood specimen / Unknown Venipuncture / Unknown 12/20/2024 3:29 PM EST 12/20/2024 3:29 PM EST Gerry JEAN LAB BLOOD ORDERABLES Fin al Result Performing Organization Address [facility]/ZIP Co de Phone Number [facility] [address] [place] [address], [place] [phone] * (ABNORMAL) Hemoglobin A1c (12/20/2024 3:29 PM EST) Pathologist [facility] Hemoglobin A1C 7.3(H) <6.5 % LAB CHEMISTRY METHOD 12/23/2024 9:40 PM EST [facility] Mean Bld Glu Estim. 163 mg/dL LAB CHEMISTRY METHOD 12/23/2024 9:40 PM EST [facility] Blood Venous blood specimen / Unknown Venipuncture / Unknown 12/20/2024 3:29 PM EST 12/20/2024 3:29 PM EST Gerry JEAN LAB BLOOD ORDERABLES Fin al Result Performing Organization Address [facility]/ZIP Co de Phone Number [facility] [address] [place] [address], [place] [phone] * (ABNORMAL) Comprehensive metabolic panel (12/20/2024 3:29 PM EST) Sodium 138 133 - 145 mmol/L LAB CHEMISTRY METHOD 12/20/2024 9:07 PM EST [facility] Potassium 3.6 3.5 - 5.5 mmol/L LAB CHEMISTRY METHOD 12/20/2024 9:07 PM EST [facility] Chloride 100 96 - 110 mmol/L LAB CHEMISTRY METHOD 12/20/2024 9:07 PM EST [facility] CO2 31 21 - 32 mmol/L LAB CHEMISTRY METHOD 12/20/2024 9:07 PM [facility] Anion Gap 7 3 - 11 LAB CHEMISTRY METHOD 12/20/2024 9:07 PM [facility] Glucose 118(H) 70 - 100 mg/dL LAB CHEMISTRY METHOD 12/20/2024 9:07 PM [facility] BUN 24 5 - 25 mg/dL LAB CHEMISTRY METHOD 12/20/2024 9:07 PM [facility] Creatinine 1.07 0.70 - 1.30 mg/dL LAB CHEMISTRY METHOD 12/20/2024 9:07 PM [facility] eGFR 71 >=60 mL/min/1. 73m2 LAB CHEMISTRY METHOD 12/20/2024 9:07 PM [facility] Comment:Calculation based on the??Chronic Kidney Disease Epidemiology Collaboration (CKD-EPI) equation refit??without adjustment for race. BUN/Creatinine Ratio 22.4 LAB CHEMISTRY METHOD 12/20/2024 9:07 PM [facility] Calcium 9.5 8.5 - 10.5 mg/dL LAB CHEMISTRY METHOD 12/20/2024 9:07 PM [facility] AST (SGOT) 24 10 - 42 unit/L LAB CHEMISTRY METHOD 12/20/2024 9:07 PM [facility] ALT (SGPT) 28 10 - 60 unit/L LAB CHEMISTRY METHOD 12/20/2024 9:07 PM [facility] Alkaline Phosphatase 127(H) 42 - 121 unit/L LAB CHEMISTRY METHOD 12/20/2024 9:07 PM [facility] Total Protein 8.1(H) 6.0 - 8.0 g/dL LAB CHEMISTRY METHOD 12/20/2024 9:07 PM [facility] Albumin 3.5 3.2 - 5.0 g/dL LAB CHEMISTRY METHOD 12/20/2024 9:07 PM [facility] Total Bilirubin 0.4 0.0 - 1.4 mg/dL LAB CHEMISTRY METHOD 12/20/2024 9:07 PM EST [facility] Blood Venous blood specimen / Unknown Venipuncture / Unknown 12/20/2024 3:29 PM EST 12/20/2024 3:29 PM EST Gerry JEAN LAB BLOOD ORDERABLES Fin al Result Performing Organization Address [facility] de Phone Number [facility] [address] [place] [address], * Prostate specific antigen screen (12/03/2024 9:46 AM EST) PSA 0.84 0.00 - 4.00 ng/mL LAB CHEMISTRY METHOD 12/03/2024 1:02 PM EST [facility] Blood Venous blood specimen / Unknown Venipuncture / Unknown 12/03/2024 9:46 AM EST 12/03/2024 9:46 AM EST Narrative [facility] - 12/03/2024 1:02 PM EST The Siemens Advia Centaur Chemiluminescent Immunoassay is used. Results obtained with different assay methods or kits cannot be used interchangeably. Results cannot be interpreted as absolute evidence of the presence or absence of malignant disease. Prabhjot Ford MD LAB BLOOD ORDERABLES Final Resul t Performing Organization Address [facility] Co de Phone Number [facility] [address] [place] [address], * (ABNORMAL) Urinalysis with reflex microscopic and culture (12/02/2024 3:36 PM EST) Specific Palmer Urine 1.026 1.003 - 1.030 LAB URINALYSIS - AUTOMATED METHOD 12/02/2024 7:10 PM EST [facility] pH, Urine 6.0 5.0 - 8.0 pH LAB URINALYSIS - AUTOMATED METHOD 12/02/2024 7:10 PM [facility] Leukocytes, Urine Moderate(A) Negative LAB URINALYSIS - AUTOMATED METHOD 12/02/2024 7:10 PM [facility] Nitrite, Urine Negative Negative LAB URINALYSIS - AUTOMATED METHOD 12/02/2024 7:10 PM [facility] Protein, Urine Negative <=Trace mg/dL LAB URINALYSIS - AUTOMATED METHOD 12/02/2024 7:10 PM [facility] Glucose, Urine Negative Negative mg/dL LAB URINALYSIS - AUTOMATED METHOD 12/02/2024 7:10 PM [facility] Ketones, Urine Negative Negative mg/dL LAB URINALYSIS - AUTOMATED METHOD 12/02/2024 7:10 PM [facility] Urobilinogen , Urine 0.2 0.2 - 1.0 mg/dL LAB URINALYSIS - AUTOMATED METHOD 12/02/2024 7:10 PM [facility] Bilirubin, Urine Negative Negative LAB URINALYSIS - AUTOMATED METHOD 12/02/2024 7:10 PM [facility] Blood, Urine Negative Negative LAB URINALYSIS - AUTOMATED METHOD 12/02/2024 7:10 PM [facility] RBC, Urine 6.1(H) 0 - 4 /HPF LAB URINALYSIS - AUTOMATED METHOD 12/02/2024 7:10 PM [facility] WBC, Urine 90.6(H) 0 - 4 /HPF LAB URINALYSIS - AUTOMATED METHOD 12/02/2024 7:10 PM [facility] Squamous Epithelial, Urine 79(H) 0 - 60 /LPF LAB URINALYSIS - AUTOMATED METHOD 12/02/2024 7:10 PM [facility] Bacteria, Urine Few(A) Negative /HPF LAB URINALYSIS - AUTOMATED METHOD 12/02/2024 7:10 PM [facility] Hyaline Casts, Urine 25.7(H) 0 - 3 /LPF LAB URINALYSIS - AUTOMATED METHOD 12/02/2024 7:10 PM EST [facility] Urine Urine specimen obtained by clean catch procedure / Unknown Non-blood Collection / Unknown 12/02/2024 3:36 PM EST 12/02/2024 3:36 PM EST us Prabhjot Ford MD LAB URINE ORDERABLES Final Resul t Performing Organization Address [facility]/ZIP Co de Phone Number [facility] [address] [place] [address], [place] [phone] * Faria urine culture tube (12/02/2024 3:36 PM EST) Extra Tube Hold for add-ons. 12/02/2024 7:01 PM EST [facility] Comment:Auto resulted. Urine Urine specimen obtained by clean catch procedure / Unknown Non-blood Collection / Unknown 12/02/2024 3:36 PM EST 12/02/2024 3:36 PM EST us Prabhjot Ford MD LAB URINE ORDERABLES Final Resul t Performing Organization Address [facility] de Phone Number [facility] [address] [place] [address], [place] [phone] * (ABNORMAL) Culture urine (12/02/2024 3:36 PM EST) Culture, Urine 10,000-49,000 CFU/mL Staphylococcus epidermidis(A) ELGIN 12/06/2024 9:38 AM EST [facility] Comment: Beta-lactamase negative The organism value [...] Staphylococcus epidermidis Rifampin ELGIN <=0.5 ug/ml: Susceptible Prabhjot Ford MD LAB MICROBIOLOGY - GENERAL ORDER ROEL Final Result [facility] [address] [place] [address], * (ABNORMAL) POC Urine Non-Auto W/O Micro (12/02/2024 3:06 PM EST) Pathologist [facility] Leukocytes UA POC Positive(A) Negative Nitrite UA POC Negative Negative Urobilinogen UA POC Negative Negative Protein UA POC Positive(A) Negative PH UA POC 6.0 5.0 - 9.0 Blood UA POC Negative Negative, Trace Specific Palmer UA POC 1.025 1.001 - 1.035 Ketones UA POC 1+(A) Negative Bilirubin UA POC Negative(A) Negative Glucose UA POC Normal Normal, Trace Urine Urine specimen obtained by clean catch procedure / Unknown 12/02/2024 3:06 PM EST Prabhjot Ford MD POINT OF CARE TEST ENTER/EDIT OR DERABLES Edited Result - Final * Lipid panel with reflex to direct LDL (09/06/2024 11:59 AM EST) Pathologist [facility] Cholesterol 90 0 - 200 mg/dL LAB CHEMISTRY METHOD 09/06/2024 4:46 PM EST [facility] Triglycerides 50 0 - 150 mg/dL LAB CHEMISTRY METHOD 09/06/2024 4:46 PM [facility] HDL 49 >=40 mg/dL LAB CHEMISTRY METHOD 09/06/2024 4:46 PM [facility] LDL Calculated 31 0 - 100 mg/dL LAB CHEMISTRY METHOD 09/06/2024 4:46 PM [facility] [facility] VLDL Cholesterol Evans 10 mg/dL LAB CHEMISTRY METHOD 09/06/2024 4:46 PM [facility] Non HDL Chol. (LDL+VLDL) 41 <145 mg/dL LAB CHEMISTRY METHOD 09/06/2024 4:46 PM [facility] Chol/HDL Ratio 1.8 0.0 - 4.4 LAB CHEMISTRY METHOD 09/06/2024 4:46 PM [facility] Blood Venous blood specimen / Unknown Venipuncture / Unknown 09/06/2024 11:59 AM EST 09/06/2024 11:59 AM EST Caity JEAN LAB BLOOD ORDERABLES Final Result [facility] [address] [place] [address], * Colonoscopy (04/29/2024) Pathologist [facility] Colonoscopy No interpreta tion,abstr acted Anatomical Region Laterality Modality Other Historical Provider HEALTH MAINTENANCE Final Result * Falls Risk Assessment (03/26/2024) [facility] Falls Risk Assessment Abstracted Historical Provider HEALTH MAINTENANCE Final Result * Depression Screening (03/26/2024) Pathologist [facility] Depression Screening Abstracted Historical Provider HEALTH MAINTENANCE Final Result * Hepatitis C Screening (10/03/2019) Hepatitis C Screening Abstracted us Historical Provider HEALTH MAINTENANCE Final Result from Last 3 Months or Most Recently Relevant to Health Maintenance Insurance [employer] MEDICARE Member Subscriber Plan / Payer (Ef fective 2021-Present) Name:BensonDavid valenzuela Relation to Subscriber:Self Name:David Milton Payer ID:[id number] Group ID:[id number] Type:Not on file Address: [place] [address] [address] Care Teams Cad Specialist Relationship Specialty Start Date End Date Prabhjot Ford MD [address] [place] [address] PCP - General 08/22/1999
--- OUTSIDE RECORDS SUMMARY | 2024-12-31 12:48 | XMS_ITS | Encounter Summary ---
Author Organization [facility] Address [address] [place] [address] Care Team Providers Care Retail Sales Teammate Name Role Phone Prabhjot Ford MD Primary Care Provider [phone] Reason for Visit * Reason Onset Date Comments Labs Only 12/04/2024 Encounter Details Date Type Department Care Team ([facility] st Contact Info) Description 12/04/2024 Telephone Adult Medicine [facility] [place] [address] [place] [address] Prabhjot Ford MD [address] [place], [place] [id number] Labs Only Social History Tobacco Use Types Packs/Day Years [...] as of this encounter Progress Notes * Prabhjot Ford MD - 12/05/2024 12:25 PM EST This help me calling the patient. Prostate test normal Urine test did not support infection We will continue our current plan, including using the ointment and seeing specialist. * Monika [place] - 12/04/2024 11:43 AM EST Patient is calling in regards to his lab work. Pt would like a call back with his results. Please advise documented in this encounter Plan of Treatment Upcoming Encounters Date Type Department Care Team (Late st Contact Info) Description 01/01/2025 10:50 AM EDT Office Visit Pulmonolgy - [place] [address] [place] [address] Karon Sanchez NP 175 [facility] [place] [address] [place] [address] 02/26/2025 9:45 AM EDT Office Visit Orthopedic Surgery - [place] 250 175 [facility] 250 [place] [phone] Delfin Bowser DPM [address] [address] 03/25/2025 9:45 AM EDT Office Visit Adult Medicine West - [address] [phone] Juan Alberto Samuel NP [address] [place], [place] 08/13/2025 2:00 PM EDT Office Visit Nephrology - [address] [phone] Humberto [place] MD [address] [facility] 200 [place] [address] documented as of this encounter Visit Diagnoses Not on filedocumented in this encounter Care Teams Retail Sales Teammate Relationship Specialty Start Date End Date Prabhjot Ford MD [address] [place] [address] PCP - General 08/22/1999 documented as of this encounter
--- OUTSIDE RECORDS SUMMARY | 2024-12-31 12:48 | XMS_ITS | Encounter Summary ---
Author Organization [facility] Address [address] [place] [address] Care Team Providers Care Route Delivery Supervisor Name Role Phone Prabhjot Ford MD Primary Care Provider [phone] Reason for Visit * Reason Onset Date Comments NE Raphael 12/26/2024 Encounter Details Date Type Department Care Team ([facility] st Contact Info) Description 12/26/[address] [address] Caity Nunn PA [address] [place] [address] HIRO Lim Social History Tobacco Use Types Packs/Day Years [...] as of this encounter Progress Notes * Lluvia Mccormick RN - 12/26/2024 3:23 PM EST Notes faxed to number below * Hortensia Ojeda - 12/26/2024 11:28 AM EST Dorene from [facility] is asking if the last office visit notes can be faxed to there office.. Last OV is 03/01/24. Please fax to: [phone] phone: [phone] documented in this encounter Plan of Treatment Upcoming Encounters Date Type Department Care Team (Late st Contact Info) Description 01/01/2025 10:50 AM EDT Office Visit Pulmonolgy - [place] 175 [facility] [address] [place] [address] Karon Sanchez NP 175 [facility] 200 [place] [address] 02/26/2025 9:45 AM EDT Office Visit Orthopedic Surgery - [place] [address] [phone] Delfin Bowser DPM [address] [address] 03/25/2025 9:45 AM EDT Office Visit Adult Medicine West - [address] [phone] Juan Alberto Samuel NP 444 [place], [place] 08/13/2025 2:00 PM EDT Office Visit Nephrology - [address] [phone] Humberto [place] MD [address] [phone] documented as of this encounter Visit Diagnoses Not on filedocumented in this encounter Care Teams Route Delivery Supervisor Relationship Specialty Start Date End Date Prabhjot Ford MD [address] [place] [address] PCP - General 08/22/1999 documented as of this encounter
--- OUTSIDE RECORDS SUMMARY | 2024-12-31 12:48 | XMS_ITS | Encounter Summary ---
Author Organization [facility] Address [address] [place] [address] Care Team Providers Care Stationary Plant Operators Name Role Phone Prabhjot Ford MD Primary Care Provider [phone] Reason for Visit * Reason Comments DM Foot Care Encounter Details Date Type Department Care Team ([facility] st Contact Info) Description 12/24/2024 10:00 AM EST Office Visit Orthopedic Surgery - [place] [address] [phone] Delfin Bowser, DPBasiilo [address] [address] Localized edema (Primary Dx); Venous insufficiency; Controlled type 2 diabetes with neuropathy (CMS/HCC); PVD (peripheral vascular disease) ([facility]); Arthritis of both feet; Tinea pedis of both feet; Dermatophytosis, nail Social History Tobacco Use Types Packs/Day Years [...] - - Weight 103 kg (226 lb) 12/24/2024 10:12 AM EST Height - - Body Mass Index 36.48 12/23/2024 1:08 PM EST documented in this encounter Ordered Prescriptions Prescription Sig Dispense Quantity Refills Last Filled Start Date End Date tolnaftate (Tinactin) 1 % spray Apply topically 2 (two) times a day. 130 g 12/24/2024 documented in this encounter Progress Notes * Delfin Bowser, DPM - 12/24/2024 10:00 AM EST Referring MD: gabby Last PCP visit: 12/10/2024 IDENTIFIER: @TITLE@ Karine is a 79 y.o. year old male who presents for consultation. CC: Bilateral foot pain HPI: 79-year-old diabetic male returns office chief complaint of bilateral foot pain. Patient continues to have some tingling numbness in his feet bilaterally. Patient notes his nails become thick and misshapened causing pain close toed shoes. Patient notes that he has dropfoot on the right side and hashad difficulty using the brace recently. Patient is here for evaluation and treatment Patient's FBS this AM was 142 Recent A1C is %. 7.3 ROS: GENERAL: Pt denies nausea, fever, vomiting, chills, or shortness of breath. Pt in NAD. CARDIOLOGY: pt denies chest pain, palpitations LUNGS: pt denies shortness of breath MUSCULOSKELETAL: See HPI, otherwise no joint pain or swelling, back pain, or muscle pain. SKIN: see HPI, otherwise no lesions, rash or itching NEURO: No persistent headache, weakness or numbness The remainder of the review of systems is noncontributory PAST MEDICAL HISTORY: Patient Active Problem List Diagnosis Anemia Arthritis of left shoulder region Arthritis of right acromioclavicular joint Chronic heart failure with preserved ejection fraction (CMS/HCC) Class 2 severe obesity with body mass index (BMI) of 35 to 39.9 with serious comorbidity (CMS/HCC) Coronary artery disease due to lipid rich plaque DJD (degenerative joint disease), cervical DM polyneuropathy (CMS/HCC) Dyslipidemia Elevated blood protein Essential hypertension, benign ETOH abuse Lumbosacral spondylosis without myelopathy Mild nonproliferative diabetic retinopathy (CMS/HCC) Nuclear sclerosis Nocturnal hypoxia Obstructive sleep apnea Sleep apnea Onychomycosis Osteoarthritis of hands, bilateral Paroxysmal atrial fibrillation (CMS/HCC) Peripheral vascular disease, unspecified (CMS/HCC) Primary osteoarthritis of both hips Pure hypercholesterolemia Right foot drop Stage 3 chronic kidney disease (CMS/HCC) 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 ([facility]) Venous insufficiency Type 2 diabetes mellitus without complication, with long-term current use of insulin ([facility]) Hypertensive heart disease with congestive heart failure ([facility]) Hypotension, unspecified Chronic obstructive pulmonary disease, unspecified ([facility]) Eosinophilia, unspecified Acidosis, unspecified Obesity, unspecified Gastroesophageal reflux disease without esophagitis termination clerk (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 of aspirin correction (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 of insulin ([facility]) correction (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 of anticoagulants correction (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 of oral hypoglycemic drugs correction (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 of inhaled steroids SOCIAL HISTORY: Social History Tobacco Use Smoking status: Never Smokeless tobacco: Never Substance Use Topics Alcohol use: Not Currently ACTIVE MEDICATIONS: No outpatient medications have been marked as taking for the 12/24/24 encounter (Office Visit) with Delfin Bowser DPM. ALLERGIES: @ALL@ PHYSICAL EXAM: Weight 103 kg (226 lb). PODIATRIC EXAMINATION: GENERAL: Patient appears well nourished, with NAD. VASCULAR: Dorsalis pedis pulses are 0/4 bilaterally and Posterior tibial pulses are 2/4 bilaterally. Capillary filling time within normal limits the digits. No pallor on elevation or rubor on dependency. No hair growth. Many varicosities. Continued +2 pitting edema to bilateral lower extremities. Denies rest pain or claudication pain. Shiny skin, hyperpigmentation, nail changes NEUROLOGICAL: Sharp/dull sensation managed, protective sensation diminished on Trion. Multiple peripheral neuropathies to bilateral lower extremities ORTHOPEDIC: Good muscle strength 5/5 of all flexors and extensors. Dorsi flexion of ankle ,10 degrees, plantar flexion WNL. No muscle atrophy. Dropfoot on the right lower extremity with decreased ability to dorsiflex at the ankle. Flexible flatfoot deformity with greater than 5 degrees eversion of the hindfoot on last calcaneal stance position. Continued arthritic changes to the tarsometatarsal diego int as well as the talonavicular dorsally bilaterally. Decreased pain on palpation of the left medial tubercle with swelling and fullness. DERMATOLOGICAL:. no openings over the digits at this time.. Normal skin temperature, normal skin turgor. Elongated dystrophic discolored x10 with subungual debris. Continued multiple areas of scaliness to the bottoms of the feet bilaterally. Space between the toes has resolved and is no longer broken down the skin level BIOMECHANICS: STJ ROM wnl, MTJ ROM wnl, 1st MPJ ROM wnl. IMPRESSION: 1. Localized edema 2. Venous insufficiency 3. Controlled type 2 diabetes with neuropathy ([facility]) 4. PVD (peripheral vascular disease) ([facility]) 5. Arthritis of both feet 6. Tinea pedis of both feet 7. Dermatophytosis, nail PLAN: Pt was seen and examined, history reviewed. Patient educated on the importance of keeping tight glucose control in order to limit chances for infection ulceration and amputation. Patient has breakdown of the skin between toes. Patient was given a antifungal powder to be used between the toes to decrease the breakdown of skin and the itchiness Patient was educated on the importance of elevating his legs daily in order to limit the fluid overload and decrease chances for venous stasis ulceration. Patient requested patient has been using hiscompression stockings though they have worn out. Patient was given a prescription for new compression stockings 15 to 20 mmHg pressure. Patient instructed to continue with the diabetic shoes. Patient has continued obvious inflow disease. Patient instructed to continue ambulating as often aspossible to increase collateralization of blood vessels and decrease chances for nonhealing wounds in the future Nail debridement performed to nails 1-5 bilateral as nails were described to be causing pain and difficulty for walking while in shoegear at their previous length. They were debrided in thickness andlength, with no incident. Clinical evidence of mycosis is documented which required active treatment. Patient expressed immediate relief. Patient is to RTC in 9 weeks Delfin Bowser DPM documented in this encounter Plan of Treatment Upcoming Encounters Date Type Department Care Team (Late st Contact Info) Description 01/01/2025 10:50 AM EDT Office Visit [facility] [address] [place] [phone] Karon Sanchez NP [address] [place] [address] 02/26/2025 9:45 AM EDT Office Visit Orthopedic Surgery - [place] 250 175 [facility] 250 [place] [address] Delfin Bowser, DPBasilio 175 [facility] 250 [place] [address] 03/25/2025 9:45 AM EDT Office Visit Adult Medicine West - [place] [address] [place], [place] [phone] Juan Alberto Samuel NP [address] [place], [place] 08/13/2025 2:00 PM EDT Office Visit Nephrology - [address] [phone] Humberto [place] MD [address] [facility] 200 [place] [phone] documented as of this encounter Visit Diagnoses Diagnosis Localized edema- Primary Edema Venous insufficiency Unspecified venous (peripheral) insufficiency Controlled type 2 diabetes with neuropathy ([facility]) Type II or unspecified type diabetes mellitus with neurological manifestations, not stated as uncontrolled PVD (peripheral vascular disease) ([facility]) Unspecified peripheral vascular disease Arthritis of both feet Tinea pedis of both feet Dermatophytosis, nail Dermatophytosis of nail documented in this encounter Orders General Supply Count Last Ordered Date First Or dered Date COMPRESSION STOCKINGS 1 12/24/2024 documented in this encounter Care Teams Stationary Plant Operators Relationship Specialty Start Date End Date Prabhjot Ford MD [address] [place] [address] PCP - General 08/22/1999 documented as of this encounter
== END 2024-12-31 11:15 | disposition home or self-care (01) ==
LOC: HO.RHES 10:40
PROVIDERS: PCP Internal Medicine; Visit Provider Internal Medicine Rheumatology
DX: M06.09 Rheumatoid arthritis without rheumatoid factor, multiple sites (principal); Z79.899 Other long term (current) drug therapy; M54.50 Low back pain, unspecified
CPT/HCPCS: 99214; G2211

== ENCOUNTER 2024-12-31 10:40 | Outpatient (REF) | payer OTHER, SELFPAY ==
--- OUTSIDE RECORDS SUMMARY | 2024-12-31 14:01 | XMS_ITS | Encounter Summary ---
Author Organization [facility] Address [address] [place] [address] Care Team Providers Care Air Plant Engineer Name Role Phone Prabhjot Ford MD Primary Care Provider [phone] Reason for Visit * Reason Comments Diabetes 3 month follow up Hypertension Encounter Details Date Type Department Care Team (Late st Contact Info) Description 12/23/2024 1:00 PM EST Office Visit Adult Medicine [facility] [place] [address] [place], [place] [phone] Gerry Moore PA [address] [place] [address] Chronic bilateral low back pain without sciatica [...] concerns. He is accompanied today by his MANAGER FIRE. No other complaints or concerns at this [...] TEST SUGARS 3 TIMES DAILY blood-glucose sensor (City [employer] G7 Sensor) device 1 Device, Every 14 [...] 1 SPRAY IN EACH NOSTRIL DAILY (BULK) [id number] (Trelegy Ellipta) 100-62.5-25 mcg inhaler 1 puff, [...] x 5/16 needle IMAGING/LABORATORY: None TED Cason [facility] [address] documented in this encounter Plan of Treatment Upcoming Encounters Date Type Department Care Team (Late st Contact Info) Description 01/01/2025 10:50 AM EDT Office Visit Pulmonolgy - [place] 175 [facility] 200 [place] [address] Karon Sanchez NP 175 [facility] 200 [place] [address] 02/26/2025 9:45 AM EDT Office Visit Orthopedic Surgery - [place] 250 175 [facility] 250 [place] [address] Delfin Bowser DPM [address] [address] 03/25/2025 9:45 AM EDT Office Visit Adult Medicine [address] [phone] Juan Alberto Samuel NP [address] [place], [place] 08/13/2025 2:00 PM EDT Office Visit Nephrology - [address] [phone] Humberto [place] MD [address] [address] documented as of this encounter Visit Diagnoses [...] type documented in this encounter Care Teams Air Plant Engineer Relationship Specialty Start Date End Date Prabhjot Ford MD [address] [place] [address] PCP - General 08/22/1999 documented as of this encounter
--- OUTSIDE RECORDS SUMMARY | 2024-12-31 14:01 | XMS_ITS | Encounter Summary ---
Author Organization [facility] Address [address] [place] [address] Care Team Providers Care Hollock Maker Name Role Phone Prabhjot Ford MD Primary Care Provider [phone] Reason for Visit * Reason Onset Date Comments UTI 11/29/2024 Abdominal Pain 11/29/2024 Encounter Details Date Type Department Care Team (Late st Contact Info) Description 11/29/2024 Telephone Adult Medicine [facility] [address] [place] [address] Prabhjot Ford MD [address] [place] [address] UTI; Abdominal Pain Social History Tobacco Use [...] traveled recently to another state outside of [place], [place], [place], [place], [place], [place], [place]? no o If yes, did you quarantine [...] of accident/Injury: No If yes, gather 3rd green party insurance information Third Democrat Information: not applicable PCP: Prabhjot Ford MD Payor: [employer] MED[employer]ARE / Plan: [employer] ONE CARE / Product Type: *No Product type* / documented in this encounter Plan of Treatment Upcoming Encounters Date Type Department Care Team (Late st Contact Info) Description 01/01/2025 10:50 AM EDT Office Visit Pulmonolgy - [place] [address] [place] [address] Karon Sanchez NP 175 [facility] 200 [place] [address] 02/26/2025 9:45 AM EDT Office Visit Orthopedic Surgery - [place] [address] [facility] [address] [facility] 250 [place] [address] Delfin Bowser, DPM 175 [facility] 250 [place] [address] 03/25/2025 9:45 AM EDT Office Visit [place] [address] [place] [address] Juan Alberto Samuel NP [address] [place], [place] 08/13/2025 2:00 PM EDT Office Visit Nephrology - [address] [phone] Humberto [place] MD [address] [address] documented as of this encounter Visit Diagnoses Not on filedocumented in this encounter Care Teams Hollock Maker Relationship Specialty Start Date End Date Prabhjot Ford MD [address] [place] [address] PCP - General 08/22/1999 documented as of this encounter
--- OUTSIDE RECORDS SUMMARY | 2024-12-31 14:01 | XMS_ITS | Clinical Summary ---
Author Organization [address] Address [address] [place] [phone] Phone Care Team Providers Care Pharmacist Critical Care Name Role Phone Prabhjot Ford MD Primary Care Provider [phone] Allergies No known active allergies Medications torsemide [...] 12/27/19 25 Active blood-glucose meter,continuous (Dexcom G7 Slackline Operator) miscIndications: Diabetes mellitus with stage 3 chronic [...] Gastroesophageal reflux disease without esophagi tis 10/07/2024 bed bug exterminator (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 of aspirin 10/07/2024 bed bug exterminator (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 of insulin 10/07/2024 penitentiary (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 of anticoagulants 2023 penitentiary (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 of oral hypoglycemic arya gs 10/07/2024 penitentiary (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 of inhaled steroids 09/22 Stage [...] (07/25/2024): - Went to the ER at [facility] in December 2021 with increasing symptoms of [...] results - Most recent echo done at [facility] in April 2023 when there was concern for sepsis showed to see depression unremarkable. LVEF 55 to 60%. No regional wall motion abnormalities. No significant valvular disease. PASP within normal limits. No evidence of endocarditis. -Hospitalized at [facility] in November 2023 with lactic acidosis, hypotension, hypoglycemia-Entresto was transiently held as was torsemide, the patient was given IV fluids, eventually Entresto was restarted and torsemide was restarted at lower dose - Hospitalized again in January 2024 yet again with low blood pressure at the bottom filler office in response to an increased to [...] hypoventilation... Obstructive sleep apnea 2017 [place] (07/25/2024[place] [facility] [place]: Date 12/09/2017; Wt 217# SE 73%; SM 77%; REM 22%; RDI 13 (AHI 7), worse in REM (RDI 32 - AHI 30), Central apneas 1; Obstructive apneas 8; Mixed apneas 0; hypopneas 36; RERAs 38; average oxygen saturation 96% (lowest 81% - without saturations <88% for 5% or more of study); PLMs 39. [facility] [place]ysom[place] treatment study. Date 08/17/2018. SE 72 % SM 74 %; spent 11 % of the study in REM. On CPAP @ 12; RDI 1.7 (AHI 1.7), Central apneas 3; Obstructive apneas 0; Mixed apneas 0; hypopneas 2; RERAs 0; and, average oxygen saturation was 93%. For the entire study, PLMs ~43. [facility] Polysomnogram treatment study. Date 07/29/2019. Wt 215#; BMI 35; SE 86 % SM 88 %; spent 24 % of the study in REM. On CPAP and BiPAP; RDI and AHI lowest at 9.9; and, average oxygen saturation was 94%. For the entire study, PLMs ~28. Prestudy ESS 10; 4/4 RLS symptoms. [facility] Polysomnogram ASV treatment study. Date 10/26/2019. Wt 226#; BMI 37; SE 58 % SM 75 %; spent 21 % of the study in REM. On ASV; RDI 7 (AHI 7), Central apneas 7; Obstructive apneas 0; Mixed apneas 0; hypopneas 30; RERAs 1; and, average oxygen saturation was 94%. For the entire study, PLMs ~1. Prestudy ESS 8; 0/4 RLS symptoms. [facility] Polysomnogram iVAPs treatment study. Date 10/29/2020. Wt 230#; BMI 37; SE 79 % SM 81 %; spent 13 % of the study in REM. IVAPs trialed at various pressure; given the elevated TC CO2 on ASV, interpreting physician recommended IVAPS with EPAP of 5;TV a 6.1 and PS minimum of 4; PS max of 20; HI 18 and height 66 inch - with a heated humidifier. - Obstructive Sleep Apnea - mild overall and severe in REM; mostly hypopneas; no sleep related hypoventilation by 2018 diagnostic polysomnogram. - PAP therapy and ASV failed to correct the TC CO2; iVAPS with EPAP of 5;TV a 6.1 and PS minimum of 4; PS max of 20; HI 18 and height 66 inch - with a heated humidifier. Osteoarthritis of hands, bilateral 12/08/2017 Paroxysmal atrial fibrillation 12/01/2017 Overview (07/25/2024): -Admission at [facility] from 11/01/2017-11/03/2017 with symptoms of abdominal pain [...] just unsure what to do Educational Resources [place] [employer] (www.diabetes.org) Centers for Disease Control [...] Care Team Description 12/27/2024 Telephone Endocrinology - [address] [phone] Caity Nunn PA needs shipper/receiver 12/26/2024 Telephone Endocrinology - [address] [phone] Caity Nunn PA [place] 12/25/2024 1:30 PM EST Consult Nephrology - [address] [phone] Humberto Marshall MD Stage 3a chronic kidney disease (CMS/HCC) (Primary Dx); 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 (CMS/HCC); 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, macular edema presence unspecified (CMS/[facility]); Obstructive sleep apnea; Essential hypertension, benign 12/24/2024 10:00 AM EST Office Visit Orthopedic Surgery - [address] [phone] Delfin Bowser DPM Localized edema (Primary Dx); Venous insufficiency; Controlled type 2 diabetes with neuropathy (CMS/HCC); PVD (peripheral vascular disease) (CMS/HCC); Arthritis of both feet; Tinea pedis of both feet; Dermatophytosis, nail 12/23/2024 1:00 PM EST Office Visit [facility] - [address] [phone] Gerry Moore PA Chronic bilateral low back pain without sciatica (Primary Dx); Type II diabetes mellitus with peripheral circulatory disorder (CMS/HCC); Stage 3 chronic kidney disease, unspecified whether stage 3a or 3b CKD (CMS/HCC); Pure hypercholesterolemia; Paroxysmal atrial fibrillation (CMS/HCC); Essential hypertension, benign; Chronic heart failure with preserved ejection fraction ([facility]); Anemia, unspecified type 12/04/[address] [phone] Prabhjot Ford MD Labs Only 12/02/2024 2:30 PM EST Office Visit [address] [phone] Prabhjot Ford MD Frequent urination (Primary Dx); Dysuria; Urinary incontinence, unspecified type; Phimosis 11/29/[address] [phone] Prabhjot Ford MD UTI; Abdominal Pain 11/11/2024 Telephone Orthopedic Surgery [address] [phone] Delfin Bowser DPM Med Refill 10/29/2024 Billing Patient Not Present [address] [phone] Gamal Cisse MD Type 2 diabetes mellitus without complication, unspecified whether senior living insulin use ([facility]) (Primary Dx); Hypertensive heart disease with heart failure ([facility]); Chronic diastolic (congestive) heart failure ([facility]); Hypotension, unspecified hypotension type; Chronic obstructive pulmonary disease, unspecified COPD type ([facility]); Paroxysmal atrial fibrillation ([facility]); Hyperlipidemia, unspecified hyperlipidemia type; 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; Eosinophilia, unspecified type; Acidosis, unspecified; Obesity, unspecified class, unspecified obesity type, unspecified whether serious comorbidity present; Gastro-esophageal reflux disease without esophagitis; Obstructive sleep apnea (adult) (pediatric); penitentiary (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 of aspirin; penitentiary (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 of insulin ([facility]); penitentiary current use of anticoagulant; bed bug exterminator (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 of oral hypoglycemic drugs; bed bug exterminator (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 of inhaled steroids 10/24/2024 Billing Patient Not Present Adult Medicine [address] [phone] Prabhjot Ford MD Type 2 diabetes mellitus without complication, with long-term current use of insulin (CMS/HCC) (Primary Dx); Hypertensive heart disease with congestive heart failure, unspecified heart failure type (CMS/HCC); Hypotension, unspecified hypotension type; Chronic obstructive pulmonary disease, unspecified COPD type (CMS/HCC); Paroxysmal atrial fibrillation (CMS/HCC); Hyperlipidemia, unspecified hyperlipidemia type; 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; Hypereosinophilic syndrome, unspecified type; Acidosis; Gastroesophageal reflux disease without esophagitis; Obstructive sleep apnea; penitentiary (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 of aspirin; bed bug exterminator (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 of anticoagulants; penitentiary (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 of inhaled steroids; Obesity, unspecified class, unspecified obesity type, unspecified whether serious comorbidity present 10/22/2024 10:15 AM EST Office Visit Orthopedic Surgery [address] [phone] Delfin Bowser DPM Controlled type 2 diabetes with neuropathy (CMS/HCC) (Primary Dx); Arthritis of both feet; PVD (peripheral vascular disease) (CMS/HCC); Right foot drop; Dermatophytosis, nail 10/22/2024 Billing Patient Not Present Adult Medicine [address] [phone] Prabhjot Ford MD Diabetes mellitus without complication (CMS/HCC) (Primary Dx); Heart disease, hypertensive, with heart failure (CMS/HCC); Chronic diastolic heart failure (CMS/HCC); Hypotension, unspecified hypotension type; Chronic obstructive pulmonary disease, unspecified COPD type (CMS/HCC); Paroxysmal atrial fibrillation (CMS/HCC); Hyperlipidemia, unspecified hyperlipidemia type; Atherosclerosis of wiyot coronary artery of wiyot heart without angina pectoris; Eosinophilia, unspecified type; Acidosis, unspecified; Obesity, unspecified obesity severity, unspecified obesity type; Gastroesophageal reflux disease without esophagitis; Obstructive sleep apnea (adult) (pediatric); Encounter for long-term (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 of aspirin; Encounter for long-term (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 of insulin (CMS/HCC); penitentiary current use of oral hypoglycemic drug; penitentiary current use of inhaled steroid 10/07/2024 Billing Patient Not Present Adult [address] [phone] Prabhjot Ford MD Type 2 diabetes mellitus without complication, with long-term current use of insulin ([facility]) (Primary Dx); Hypertensive heart disease with congestive heart failure, unspecified heart failure type ([facility]); Chronic heart failure with preserved ejection fraction ([facility]); Hypotension, unspecified hypotension type; Chronic obstructive pulmonary disease, unspecified COPD type ([facility]); Paroxysmal atrial fibrillation ([facility]); Dyslipidemia; Coronary artery disease due to lipid rich plaque; Eosinophilia, unspecified type; Acidosis, unspecified; Obesity, unspecified class, unspecified obesity type, unspecified whether serious comorbidity present; Gastroesophageal reflux disease without esophagitis; Obstructive sleep apnea; penitentiary (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 of aspirin; penitentiary (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 of insulin ([facility]); bed bug exterminator (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 of anticoagulants; penitentiary (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 of oral hypoglycemic drugs; penitentiary (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 of inhaled steroids 10/02/2024 Telephone Adult Medicine [address] [phone] Prabhjot Ford MD Medication Problem from Last [...] repeat in five years COLONOSCOPY 02/09/15 PROCEDURE: HI COLONOSCOPY STOMA W/RMVL DESIRE POLYP/OTH LES SNARE; [...] mellitus type 2 wit h neurological manifestations ([facility]) 07/10/2014 DX:Diabetes carla itus type 2 with neurological manifestations ([facility]) DJD (degenerative joint dise ase), cervical 10/01/2015 DX:DJD (degenerative joint d isease), cervical Arthritis of left shoulder region 10/01/2015 DX:Arthritis of left shoulder region Paroxysmal atrial fibrillati on ([facility]) 12/01/2017 DX:Paroxysmal atrial fibrill ation ([facility]); COMMENT: See cardiology note, accidental finding [...] 10:50 AM EDT Office Visit Pulmonolgy - [place] [address] [facility] [address] [place] [phone] Karon Sanchez NP [address] [facility] [address] [place] [address] 02/26/2025 9:45 AM EDT Office Visit Orthopedic Surgery - [place] [address] [facility] [address] [place] [phone] Delfin Bowser, DPBasilio 175 [facility] [address] [place] [address] 03/25/2025 9:45 AM EDT Office Visit [facility] - [place] [address] [place], [place] [phone] Juan Alberto Samuel SALES ENGAGEMENT EXECUTIVE [address] [place], [place] 08/13/2025 2:00 PM EDT Office Visit Nephrology - [place] [address] [place], [place] [phone] Humberto Marshall MD [address] [facility] [address] [place] [phone] Health Maintenance Due Date Last Done Comments [...] LAB CHEMISTRY METHOD 12/20/2024 9:35 PM EST [facility] Microalb, Ur 10.9 0.0 - 29.0 mg/L LAB CHEMISTRY METHOD 12/20/2024 9:35 PM EST [facility] Microalb/Creat Ratio >84(H) <30 mg/g creat LAB CHEMISTRY METHOD 12/20/2024 9:35 PM EST [facility] Urine Urine specimen obtained by clean catch procedure / Unknown Non-blood Collection / Unknown 12/20/2024 3:29 PM EST 12/20/2024 3:29 PM EST us Gerry JEAN LAB URINE ORDERABLES Fin al Result [facility] [address] [place] [address], * (ABNORMAL) Complete blood count (12/20/2024 3:29 PM EST) WBC 11.1(H) 4.8 - 10.8 K/mcL LAB HEMETOLOGY METHOD 12/20/2024 6:19 PM EST [facility] RBC 4.70 4.50 - 5.50 M/mcL LAB HEMETOLOGY METHOD 12/20/2024 6:19 PM EST [facility] Hemoglobin 12.5(L) 13.5 - 17.5 g/dL LAB HEMETOLOGY METHOD 12/20/2024 6:19 PM EST [facility] Hematocrit 40.2(L) 42.0 - 54.0 % LAB HEMETOLOGY METHOD 12/20/2024 6:19 PM EST [facility] MCV 85.0 79.0 - 98.0 FL LAB HEMETOLOGY METHOD 12/20/2024 6:19 PM EST [facility] MCH 26.4(L) 27.0 - 32.0 pcg LAB HEMETOLOGY METHOD 12/20/2024 6:19 PM EST [facility] MCHC 31.1(L) 32.0 - 37.0 g/dL LAB HEMETOLOGY METHOD 12/20/2024 6:19 PM EST [facility] RDW 16.1(H) 11.0 - 15.0 % LAB HEMETOLOGY METHOD 12/20/2024 6:19 PM [facility] Platelets 256 130 - 400 K/mcL LAB HEMETOLOGY METHOD 12/20/2024 6:19 PM EST [facility] MPV 9.8 7.0 - 11.0 FL LAB HEMETOLOGY METHOD 12/20/2024 6:19 PM EST [facility] NRBC 0.0 <1.0 % LAB HEMETOLOGY METHOD 12/20/2024 6:19 PM EST [facility] NRBC Absolute 0.00 <0.10 K/mcL LAB HEMETOLOGY METHOD 12/20/2024 6:19 PM EST [facility] Blood Venous blood specimen / Unknown Venipuncture / Unknown 12/20/2024 3:29 PM EST 12/20/2024 3:29 PM EST us Gerry JEAN LAB BLOOD ORDERABLES Fin al Result [facility] [address] [place] [address], * (ABNORMAL) Thyroid stimulating hormone (12/20/2024 3:29 PM EST) TSH 5.84(H) 0.40 - 4.00 mcIU/mL LAB CHEMISTRY METHOD 12/20/2024 8:50 PM EST [facility] Blood Venous blood specimen / Unknown Venipuncture / Unknown 12/20/2024 3:29 PM EST 12/20/2024 3:29 PM EST Gerry JEAN LAB BLOOD ORDERABLES Fin al Result Performing Organization Address [facility]/ZIP Co de Phone Number [facility] [address] [place] [address], [place] [phone] * (ABNORMAL) Hemoglobin A1c (12/20/2024 3:29 PM EST) Pathologist [facility] Hemoglobin A1C 7.3(H) <6.5 % LAB CHEMISTRY METHOD 12/23/2024 9:40 PM EST [facility] Mean Bld Glu Estim. 163 mg/dL LAB CHEMISTRY METHOD 12/23/2024 9:40 PM EST [facility] Blood Venous blood specimen / Unknown Venipuncture / Unknown 12/20/2024 3:29 PM EST 12/20/2024 3:29 PM EST Gerry JEAN LAB BLOOD ORDERABLES Fin al Result Performing Organization Address [facility]/ZIP Co de Phone Number [facility] [address] [place] [address], [place] [phone] * (ABNORMAL) Comprehensive metabolic panel (12/20/2024 3:29 PM EST) Sodium 138 133 - 145 mmol/L LAB CHEMISTRY METHOD 12/20/2024 9:07 PM EST [facility] Potassium 3.6 3.5 - 5.5 mmol/L LAB CHEMISTRY METHOD 12/20/2024 9:07 PM EST [facility] Chloride 100 96 - 110 mmol/L LAB CHEMISTRY METHOD 12/20/2024 9:07 PM EST [facility] CO2 31 21 - 32 mmol/L LAB CHEMISTRY METHOD 12/20/2024 9:07 PM [facility] Anion Gap 7 3 - 11 LAB CHEMISTRY METHOD 12/20/2024 9:07 PM [facility] Glucose 118(H) 70 - 100 mg/dL LAB CHEMISTRY METHOD 12/20/2024 9:07 PM [facility] BUN 24 5 - 25 mg/dL LAB CHEMISTRY METHOD 12/20/2024 9:07 PM [facility] Creatinine 1.07 0.70 - 1.30 mg/dL LAB CHEMISTRY METHOD 12/20/2024 9:07 PM [facility] eGFR 71 >=60 mL/min/1. 73m2 LAB CHEMISTRY METHOD 12/20/2024 9:07 PM [facility] Comment:Calculation based on the??Chronic Kidney Disease Epidemiology Collaboration (CKD-EPI) equation refit??without adjustment for race. BUN/Creatinine Ratio 22.4 LAB CHEMISTRY METHOD 12/20/2024 9:07 PM [facility] Calcium 9.5 8.5 - 10.5 mg/dL LAB CHEMISTRY METHOD 12/20/2024 9:07 PM [facility] AST (SGOT) 24 10 - 42 unit/L LAB CHEMISTRY METHOD 12/20/2024 9:07 PM [facility] ALT (SGPT) 28 10 - 60 unit/L LAB CHEMISTRY METHOD 12/20/2024 9:07 PM [facility] Alkaline Phosphatase 127(H) 42 - 121 unit/L LAB CHEMISTRY METHOD 12/20/2024 9:07 PM [facility] Total Protein 8.1(H) 6.0 - 8.0 g/dL LAB CHEMISTRY METHOD 12/20/2024 9:07 PM [facility] Albumin 3.5 3.2 - 5.0 g/dL LAB CHEMISTRY METHOD 12/20/2024 9:07 PM [facility] Total Bilirubin 0.4 0.0 - 1.4 mg/dL LAB CHEMISTRY METHOD 12/20/2024 9:07 PM EST [facility] Blood Venous blood specimen / Unknown Venipuncture / Unknown 12/20/2024 3:29 PM EST 12/20/2024 3:29 PM EST Gerry JEAN LAB BLOOD ORDERABLES Fin al Result Performing Organization Address [facility] de Phone Number [facility] [address] [place] [address], * Prostate specific antigen screen (12/03/2024 9:46 AM EST) PSA 0.84 0.00 - 4.00 ng/mL LAB CHEMISTRY METHOD 12/03/2024 1:02 PM EST [facility] Blood Venous blood specimen / Unknown Venipuncture / Unknown 12/03/2024 9:46 AM EST 12/03/2024 9:46 AM EST Narrative [facility] - 12/03/2024 1:02 PM EST The Siemens Advia Centaur Chemiluminescent Immunoassay is used. Results obtained with different assay methods or kits cannot be used interchangeably. Results cannot be interpreted as absolute evidence of the presence or absence of malignant disease. Prabhjot Ford MD LAB BLOOD ORDERABLES Final Resul t Performing Organization Address [facility] Co de Phone Number [facility] [address] [place] [address], * (ABNORMAL) Urinalysis with reflex microscopic and culture (12/02/2024 3:36 PM EST) Specific Joseph Urine 1.026 1.003 - 1.030 LAB URINALYSIS - AUTOMATED METHOD 12/02/2024 7:10 PM EST [facility] pH, Urine 6.0 5.0 - 8.0 pH LAB URINALYSIS - AUTOMATED METHOD 12/02/2024 7:10 PM [facility] Leukocytes, Urine Moderate(A) Negative LAB URINALYSIS - AUTOMATED METHOD 12/02/2024 7:10 PM [facility] Nitrite, Urine Negative Negative LAB URINALYSIS - AUTOMATED METHOD 12/02/2024 7:10 PM [facility] Protein, Urine Negative <=Trace mg/dL LAB URINALYSIS - AUTOMATED METHOD 12/02/2024 7:10 PM [facility] Glucose, Urine Negative Negative mg/dL LAB URINALYSIS - AUTOMATED METHOD 12/02/2024 7:10 PM [facility] Ketones, Urine Negative Negative mg/dL LAB URINALYSIS - AUTOMATED METHOD 12/02/2024 7:10 PM [facility] Urobilinogen , Urine 0.2 0.2 - 1.0 mg/dL LAB URINALYSIS - AUTOMATED METHOD 12/02/2024 7:10 PM [facility] Bilirubin, Urine Negative Negative LAB URINALYSIS - AUTOMATED METHOD 12/02/2024 7:10 PM [facility] Blood, Urine Negative Negative LAB URINALYSIS - AUTOMATED METHOD 12/02/2024 7:10 PM [facility] RBC, Urine 6.1(H) 0 - 4 /HPF LAB URINALYSIS - AUTOMATED METHOD 12/02/2024 7:10 PM [facility] WBC, Urine 90.6(H) 0 - 4 /HPF LAB URINALYSIS - AUTOMATED METHOD 12/02/2024 7:10 PM [facility] Squamous Epithelial, Urine 79(H) 0 - 60 /LPF LAB URINALYSIS - AUTOMATED METHOD 12/02/2024 7:10 PM [facility] Bacteria, Urine Few(A) Negative /HPF LAB URINALYSIS - AUTOMATED METHOD 12/02/2024 7:10 PM [facility] Hyaline Casts, Urine 25.7(H) 0 - 3 /LPF LAB URINALYSIS - AUTOMATED METHOD 12/02/2024 7:10 PM EST [facility] Urine Urine specimen obtained by clean catch procedure / Unknown Non-blood Collection / Unknown 12/02/2024 3:36 PM EST 12/02/2024 3:36 PM EST us Prabhjot Ford MD LAB URINE ORDERABLES Final Resul t Performing Organization Address [facility]/ZIP Co de Phone Number [facility] [address] [place] [address], [place] [phone] * Faria urine culture tube (12/02/2024 3:36 PM EST) Extra Tube Hold for add-ons. 12/02/2024 7:01 PM EST [facility] Comment:Auto resulted. Urine Urine specimen obtained by clean catch procedure / Unknown Non-blood Collection / Unknown 12/02/2024 3:36 PM EST 12/02/2024 3:36 PM EST us Prabhjot Ford MD LAB URINE ORDERABLES Final Resul t Performing Organization Address [facility] de Phone Number [facility] [address] [place] [address], [place] [phone] * (ABNORMAL) Culture urine (12/02/2024 3:36 PM EST) Culture, Urine 10,000-49,000 CFU/mL Staphylococcus epidermidis(A) ELGIN 12/06/2024 9:38 AM EST [facility] Comment: Beta-lactamase negative The [...] MICROBIOLOGY - GENERAL ORDER ROEL Final Result [facility] [address] [place] [address], * (ABNORMAL) POC Urine Non-Auto W/O Micro (12/02/2024 3:06 PM EST) Pathologist [facility] Leukocytes UA POC Positive(A) Negative Nitrite UA POC Negative Negative Urobilinogen UA POC Negative Negative Protein UA POC Positive(A) Negative PH UA POC 6.0 5.0 - 9.0 Blood UA POC Negative Negative, Trace Specific Joseph UA POC 1.025 1.001 - 1.035 Ketones UA POC 1+(A) Negative Bilirubin UA POC Negative(A) Negative Glucose UA POC Normal Normal, Trace Urine Urine specimen obtained by clean catch procedure / Unknown 12/02/2024 3:06 PM EST Prabhjot Ford MD POINT OF CARE TEST ENTER/EDIT OR DERABLES Edited Result - Final * Lipid panel with reflex to direct LDL (09/06/2024 11:59 AM EST) Pathologist [facility] Cholesterol 90 0 - 200 mg/dL LAB CHEMISTRY METHOD 09/06/2024 4:46 PM EST [facility] Triglycerides 50 0 - 150 mg/dL LAB CHEMISTRY METHOD 09/06/2024 4:46 PM [facility] HDL 49 >=40 mg/dL LAB CHEMISTRY METHOD 09/06/2024 4:46 PM [facility] LDL Calculated 31 0 - 100 mg/dL LAB CHEMISTRY METHOD 09/06/2024 4:46 PM [facility] VLDL Cholesterol Evans 10 mg/dL LAB CHEMISTRY METHOD 09/06/2024 4:46 PM [facility] Non HDL Chol. (LDL+VLDL) 41 <145 mg/dL LAB CHEMISTRY METHOD 09/06/2024 4:46 PM [facility] Chol/HDL Ratio 1.8 0.0 - 4.4 LAB CHEMISTRY METHOD 09/06/2024 4:46 PM [facility] Blood Venous blood specimen / Unknown Venipuncture / Unknown 09/06/2024 11:59 AM EST 09/06/2024 11:59 AM EST Caity JEAN LAB BLOOD ORDERABLES Final Result [facility] [address] [place] [address], * Colonoscopy (04/29/2024) Pathologist [facility] Colonoscopy No interpreta tion,abstr acted Anatomical Region Laterality Modality Other Historical Provider HEALTH MAINTENANCE Final Result * Falls Risk Assessment (03/26/2024) [facility] Falls Risk Assessment Abstracted Historical Provider HEALTH MAINTENANCE Final Result * Depression Screening (03/26/2024) Pathologist [facility] Depression Screening Abstracted Historical Provider HEALTH MAINTENANCE [...] ID:[id number] Group ID:[id number] Type:Not on file Address: [place] [address] [address] [address] Care Teams Pharmacist Critical Care Relationship Specialty Start Date End Date Prabhjot Ford MD [address] [place] [address] PCP - General 08/22/1999
--- OUTSIDE RECORDS SUMMARY | 2024-12-31 14:01 | XMS_ITS | Encounter Summary ---
Author Organization [facility] Address [address] [place] [address] Care Team Providers Care Director Emergency Services Name Role Phone Prabhjot Ford MD Primary Care Provider [phone] Reason for Visit * Reason Onset Date Comments Med Refill 11/11/2024 Encounter Details Date Type Department Care Team ([facility] st Contact Info) Description 11/11/2024 Telephone Orthopedic Surgery - [place] [address] [phone] Delfin Bowser, TAWNY [address] [address] Med Refill Social History Tobacco Use Types [...] call when [facility] [place], [place] - [address] [place] [address] documented in this encounter Plan of Treatment Upcoming Encounters Date Type Department Care Team (Late st Contact Info) Description 01/01/2025 10:50 AM EDT Office Visit Pulmonolgy - [place] [address] [place] [address] Karon Sanchez NP [address] [place] [address] 02/26/2025 9:45 AM EDT Office Visit Orthopedic Surgery - [place] 250 175 [facility] 250 [place] [phone] Delfin Bowser DPM 175 [facility] [address] [place] [address] 03/25/2025 9:45 AM EDT Office Visit Adult [facility] - [address] [phone] Juan Alberto Samuel NP [address] [place], [place] 08/13/2025 2:00 PM EDT Office Visit Nephrology - [address] [phone] Humberto Marshall MD [address] [facility] 200 [place] [address] documented as of this encounter Visit Diagnoses Not on filedocumented in this encounter Care Teams Director Emergency Services Relationship Specialty Start Date End Date Prabhjot Ford MD [address] [place] [address] PCP - General 08/22/1999 documented as of this encounter
--- OUTSIDE RECORDS SUMMARY | 2024-12-31 14:01 | XMS_ITS | Data Portability ---
Author Organization [place] [facility] [employer] Address [address] [place] [phone] Care Team Providers Care Junk Dealer Name Role Phone SAEID GLASS Primary Care Provider HIM CCA OTHER Assessment Encounter Date Assessment Date Assessment LastModified by Organization Details LastModified Time 02/05/2024 02/05/2024 I provided real -time medical direction via phone for this encounter, and was available for additional phone based assistance as needed. I have reviewed and agree with the Assessment and Plan as documented by the Wheel Installer. We discussed the diagnostic uncertainty of home [...] to call 911- verbalized understanding of instruction [email or web address] Not available 02/05/2024 18:42:34 04/09/2024 04/09/2024 I have reviewed and agree with the assessment and plan as documented by the pharmacy scheduler. I provided real time medical direction for this encounter and was immediately available to provide additional phone based assistance as needed. History as noted by pharmacy scheduler. Pt with history of COPD, CHF, DM. [...] call either his Primary care team and/or account services associate today to discuss the episode with them [...] Lab glucose, fingerst ick, blood [email or web address] [facility], [address] [place] [address], [phone], 4 18:47:12 BMP, serum or plasma [address], [address], 4 18:47:11 Referral None recorded . Procedures [...] BUN 30 Not Available Main - Ins [address], [address], 07/03/2023 14:03:06 07/03/20 23 07/03/2023 BMP, serum or plasm a CRE 1.5 Not Available Main - Ins [address], [address], 07/03/2023 14:03:06 07/03/20 23 07/03/2023 BMP, serum or plasm a K+ 4.0 Not Available Main - Ins [address], [address], 07/03/2023 14:03:06 07/03/20 23 07/03/2023 BMP, serum or plasm a Na+ 139 Not Available Main - Ins [address], [address], 07/03/2023 14:03:06 02/05/20 24 02/05/2024 BMP, serum or plasm a BUN 35 Not Available Main - Ins [address], [address], 02/05/2024 17:09:34 02/05/20 24 02/05/2024 BMP, serum or plasm a Ca Ionize d calciu m 1.12 Not Available Main - [address], [address], 02/05/2024 17:09:34 02/05/20 24 02/05/2024 BMP, serum or plasm a CI- 98 Not Available Main - Ins [address], [address], 02/05/2024 17:09:34 02/05/20 24 02/05/2024 BMP, serum or plasm a CRE 1.6 Not Available Main - Ins [address], [address], 02/05/2024 17:09:34 02/05/20 24 02/05/2024 BMP, serum or plasm a GLU 147 Not Available Main - Ins [address], [address], 02/05/2024 17:09:34 02/05/20 24 02/05/2024 BMP, serum or plasm a K+ 4.1 Not Available Main - Ins [address], [address], 02/05/2024 17:09:34 02/05/20 24 02/05/2024 BMP, serum or plasm a Na+ 139 Not Available Main - Ins [address], [address], 02/05/2024 17:09:34 02/05/20 24 02/05/2024 BMP, serum or plasm a tCO2 30 Not Available Main - Ins [address], [address], 02/05/2024 17:09:34 02/05/20 24 02/05/2024 gluco se, finge rstic k, blood Blood Glucose: mg/dl 77 by cgm. 153 by medic glucom eter Not Available Main - Inst [address], [address], 02/05/2024 17:09:28 Result Notes None recorded. Medical [...] Updated DateTime 3 90 /min 16 /min 455771. 384 g 97.1 [degF] 100 % 100 % 139 mm[Hg] 86 mm[Hg] Not Available [employer] 3 10:57:00 Date Recorded Body temperature Oxygen saturation Oxygen saturation in Arterial blood by Pulse oximetry Respiratory rate Heart rate Systolic blood pressure Diastolic blood pressure Provider Name and Address Organization Details Last Updated DateTime 4 98 [degF] 100 % 100 % 18 /min 80 /min 157 mm[Hg] 83 mm[Hg] Not Available [employer] 4 16:50:57 Date Recorded Respiratory rate Body temperature Body weight Body height Oxygen saturation Oxygen saturation in Arterial blood by Pulse oximetry Heart rate Systolic blood pressure Diastolic blood pressure Provider Name and Address Organization Details Last Updated DateTime 4 16 /min 97.6 [degF] 672795. 792 g 167.64 cm 99 % 99 % 80 /min 107 mm[Hg] 63 mm[Hg] Not Available [employer] 4 17:04:04 Date Recorded Body temperature Oxygen saturation Oxygen saturation in Arterial blood by Pulse oximetry Respiratory rate Heart rate Systolic blood pressure Diastolic blood pressure Provider Name and Address Organization Details Last Updated DateTime 4 97.2 [degF] 98 % 98 % 16 /min 85 /min 125 mm[Hg] 80 mm[Hg] Not Available [employer] 4 17:20:24 Date Recorded Heart rate Body height Body weight Oxygen saturation Oxygen saturation in Arterial blood by Pulse oximetry Body temperature Respiratory rate Systolic blood pressure Diastolic blood pressure Provider Name and Address Organization Details Last Updated DateTime 4 76 /min 167.64 cm 681756. 608 g 98 % 98 % 97.2 [degF] 14 /min 106 mm[Hg] 72 mm[Hg] Not Available [employer] 4 15:26:30 Social History None recorded. Functional Status None recorded. Mental Status None recorded. Family History Nothing Reported. Medical History No medical history recorded. Past Encounters Encounter ID Performer Location Encounter Start Date Encounter Closed Date Diagnosis/Indication Diagnosis SNOMED-CT Code Diagnosis ICD10 Code Diagnosis Note [id number] Yogesh Piedra MD [address] [phone] 01/10/2022 11:39:25 07/19/2022 14:03:31 Hypertensive disorder 76670279 I10 [id number] Ramya Gramajo MD [address] [address] 05/12/2022 12:45:21 07/05/2022 21:10:28 Chest pain 16835383 R07.9 appears to be muscular as he is pain free resting and it is aggravated w/ moving LUE/ twisting or taking deeps breath without diaphoresi s/ GAUTHIER/SOB at rest/ edema/n/v/ d. EKG stable afib. Advised EKG not fully diagnostic , but is reassuring - needs to f/u w/ pcp and cardiology tomorrow. Advised to calll 911 if he develops worsening pain/ diaphoresi s/SOB/ presyncope [id number] Familia Roa MD [address] [address] 08/23/2022 12:45:38 08/23/2022 16:41:09 Low blood pressure 08035240 I95.9 This 76-year-ol d male with a history of [facility] low blood pressure and palpitatio ns earlier today. When the pharmacy scheduler arrived he was back at his baseline with no complaints . I recommende d that he continue with his usual treatments and follow-up with his PCP. The patient agreed with this plan. [id number] Shannan Hannah MD [address] [phone] 09/19/2022 12:20:33 09/21/2022 11:23:54 Viral upper respiratory tract infection [id number] J06.9 76 year old male being evaluated for malaise, cough and diarrhea since last night. Patient able to tolerate PO. Exam notable for normal vital signs. POC COVID and flu negative. Reassuranc e offered. FU PCP prn. [id number] Demar Allan MD Main - instED [address] [place] [phone] 12/24/2022 22:17:55 12/26/2022 09:40:15 Viral syndrome 191235186 B34.9 Reports exposure to home health aide with similar symptoms, now with cough productive of clear sputum. No significan t fevers. Reports 5 pound weight gain but no significan t orthopnea or PND. Closely monitors his weight at baseline. Given albuterol nebulizer with significan t relief of symptoms. Advised an extra dose of diuretic in the AM as well as close follow-up with primary team. Red flags discussed. [id number] Shannan Hannah MD Main - instED [address] [place] [phone] 02/18/2023 14:31:21 02/20/2023 09:53:22 Headache 83655024 R51.9 77 year old male being evaluated for headache since last night. Headache is diffuse, temporaril y relieved with tylenol last night, but ultimately returned this morning. No history of head trauma, no n/v, no neurologic symptoms. Exam notable for normal vital signs, and grossly normal neurologic exam. Presentati on consistent with likely tension headache, no red flags. Patient advised to maximize dose of Tylenol to 1 g q6h as needed. Will hold NSAIDS given patient is on eliquis. [id number] Shivani Bowman MD Main - instED [address] [place] [phone] 04/15/2023 19:16:26 04/17/2023 09:48:17 Peripheral edema 093605386 R60.9 [id number] Ana Arroyo MD Main - instED [address] [place] [phone] 07/03/2023 13:57:16 07/03/2023 17:01:42 Congestive heart failure 32811770 I50.9 Evaluation in the field was performed by my pharmacy scheduler colleague, as noted above, I provided real-time direction and supervisio n for this visit. 77yo M PMHx COPD, HTN, AFib, CHF p/w 3 lb wt gain and R>L LE edema. Denies resp symptoms. VS wnl, on pharmacy scheduler exam 2+ R>L pitting edema w/o weeping, no focal erythema. Overall suspect mild CHF exacerbati on, much less likely DVT given on apixaban and edema is b/l. Currently on torsemide 40 mg daily, previously torsemide 30 mg BID and unclear why dose was decreased. Labs today w/ Cr 1.5 (b/l Cr 12/2023 was 1.1) indicating ANDREW likely cardiorena l vs progressio n of CKD. Plan for IV diuresis with lasix 40 mg x1 now (took torsemide 40 mg this AM), repeat visit tomorrow to reassess wt and Cr and determine if further IV diuresis needed vs increase in home PO torsemide dose vs hospitaliz ation for further work up and tx if Cr rising. K 4.0, no repletion needed. Reviewed LE elevation, compressio n stockings, 2g salt restrictio n, and daily wts. We discussed the diagnostic uncertaint y of home visits and the risk associated with this. In this case, the patient and I felt this to be an acceptable and reasonable amount of risk given the benefit of avoiding an ED visit. We discussed the need to seek care urgently/e mergently in the setting of any new or worsening serious symptoms, shortness of breath, cough, chest pain, fever. [id number] Lester Lewis MD Main - [facility]ED [address] [place] [phone] 07/04/2023 18:51:19 07/05/2023 11:39:12 Congestive heart failure 47273095 I50.9 [id number] Lisette Ramos MD Main - instED [address] [place] [phone] 07/24/2023 10:56:51 07/24/2023 22:57:02 Congestive heart failure 96594678 I50.9 77 yo w/HF p/w 3lb weight gain and worsened LE edema. Endorses adherence to dietary and fluid restrictio ns. BMP wnl, including Cr and K. Takes torsemide 40mg BID. Will administer 80mg IV lasix x1 (given likely loop diuretic resistance at baseline), with close monitoring of vitals for 10-15 min after to ensure no vasodilato ry response. Pt will follow up with PCP/cardio logist. Pt and pharmacy scheduler agree with plan, all questions answered. 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 Pt felt somewhat lightheade d during noted episodes of hypoglycem ia, which improved with oral glucose intake. Notably, home glucometer appears to be malfunctio jennifer. when tested simultaneo usly with istat, there is a 20 mmol/L difference between the two. Per patient, hypoglycem ia is a recurrent issue for him; was recently hospitaliz ed for this and reduced lantus dose last night. Followed closely by PCP (has appt ledy). Otherwise denies any persistent AMS/confus ion/lighth eadedness/ fevers/chi lls/abdomi nal pain/n/v/d iarrhea. VNA present and set up continuous glucose monitor. Pt agrees to closely follow glucose and will call PCP/[facility] care team for a new home glucometer . He agrees to keep glucose on hand as well if he becomes symptomati c and/or is noted to be hypoglycem ic again. F/u tomorrow with PCP. [id number] Ramya Gramajo MD Main - instED [address] [place] [address] 02/05/2024 17:04:02 02/05/2024 19:06:16 Hypoglycemia [id number] E16.2 Patient is actually not hypoglycem ic-BMP revealed a blood sugar of 147 after the abnormal CGM reading/ e patient's glucometer was only reading 90 at the time.Advis ed the patient to continue normal diet and his normal insulin/ metformin but to use if his fingerstic k glucometer anytime his CGM reads low and before meals to do his sliding scale. Medic verified he has adequate NSAIDs and test strips to do this. Note sent to home health care social worker via [facility] to discuss with PCP getting a healthcare educator to the house to show patient how to calibrate his CGM because his readings are inaccurate . Patient also instructed to follow-up with PCP ALLI-he verbalized understand ing Patient asked if it is okay to drink unsweetene d lemon water and paula water or paula tea during the day and I advised that would be a good way for him to stay hydrated. [id number] MILTON CHAMORRO MD Main - instED [address] [place] [phone] 03/09/2024 17:20:23 03/11/2024 11:13:33 Low blood pressure 64456040 I95.9 Evaluation in the field was performed by my pharmacy scheduler colleague, as noted above, I provided real-time direction and supervisio n for this visit. The evaluation revealed 78 yo male with hx of 77 yo w/ brittle insulin dependent DM , congestive HF, HTN who reports that his son came over today and tried to check his BP but kept getting low readings : systolic numbers to be: 97/, 88/, 73/, and then 109/. Pt denies CP, SOB, or dizziness/ light headedness . Reports that a family member made him something to eat and he had just finished it when seen by the pharmacy scheduler. During the visits VS stable, BP 125/ 80, HR 85, RR16 , SpO2 98 % on RA. Afebrile.C ontinues to deny any complain. No lower extremity edema today Impression :Worried but well Plan:-Pt advised to continue with PO intake and fluid as he has been doing .Red flags discussed with the patient Primary care, consider__ _ Dispositio n: We discussed the diagnostic uncertaint y of home visits and the risk associated with this. In this case, the patient and I felt this to be an acceptable and reasonable amount of risk given the benefit of avoiding an ED visit. We discussed the need to seek care urgently/e mergently in the setting of any new or worsening serious symptoms, particular ly headache, dizziness, fatigue, weakness, CP, SOB, N/V/D or any other concerns [id number] Yogesh Piedra MD Main - [facility]ED [address] [place] [phone] 04/09/2024 15:26:25 04/09/2024 21:18:24 Hypotensive episode 99206254 I95.9 Health Concerns Section Related Observation LastModified by Organization Detai ls LastModified Time None Recorded Concern Status LastModified by Organization Details LastModified Time None Recorded Advance Directives Directive None Recorded Payers Encounter Date Sequence Insurance Name Policy Number Policy Hernandez Covered Member ID Hernandez Member ID Guarantor Name 07/24/2023 1 [employer] - DOS ON OR AFTER 2023 - DUAL ELIGIBLE - RESIDENTIAL OPTIONS AND ONE CARE (MEDICARE REPLACEMENT/ADV ANTAGE - HMO) Davidyvette Knowlesadur [id number] David Bensonadur 11/28/2023 1 [facility] [employer] - DOS ON OR AFTER 2023 - DUAL ELIGIBLE - RESIDENTIAL OPTIONS AND ONE CARE (MEDICARE REPLACEMENT/ADV ANTAGE - HMO) Davidyvette Knowlesadur [id number] Davidyvette Knowlesadur 02/05/2024 1 [facility] [employer] - DOS ON OR AFTER 2023 - DUAL ELIGIBLE - RESIDENTIAL OPTIONS AND ONE CARE (MEDICARE REPLACEMENT/ADV ANTAGE - HMO) David Bensonadur [id number] David Karine 03/09/2024 1 [facility] - DOS ON OR AFTER 2023 - DUAL ELIGIBLE - RESIDENTIAL OPTIONS AND ONE CARE (MEDICARE REPLACEMENT/ADV ANTAGE - HMO) Davidyvette Knowlesadur [id number] David Karine 04/09/2024 1 [facility] - DOS ON OR AFTER 2023 - DUAL ELIGIBLE - RESIDENTIAL OPTIONS AND ONE CARE (MEDICARE REPLACEMENT/ADV ANTAGE - HMO) David Williamur [id number] [facility] Notes Date Note Type Note Provider Name [...] ..................... ..................... ..................... ..................... ..................... ..................... ............... Wheel Installer Note From Jakob Blanton: Pt reports increased [...] Pt advised to f/u with PCP / account services associate. Pt instructed to seek emergent medical care for new or worsening sx, which are reviewed with him. ..................... ..................... ..................... ..................... ..................... ..................... ............... Disposition: Julian Ramos MD [address], [place], [address], [place] [facility] 07/24/2023 15:51:00 11/28/2023 text/html [facility] Nurse Triage Notes (Toshia Coleman): Reason For Request: Pt reporting low blood [...] ..................... ..................... ..................... ..................... ..................... ..................... ............... Wheel Installer Note From Christy Tate: Sent to a [...] CHF, and Hypotension. Pt was admitted to [facility] from 11/24-11/27 for hypotension and hypoglycemia. Pt's [...] blood draw performed: Chem8+ results uploaded to [employer]. B; Pt's visiting nurse sets up pt's continuous glucose monitor. [facility] consulted and pt advised to have glucose tabs in case BG dips again. Pt advised to follow up with talent management specialist. [facility]iting nurse will help get replacement glucometer for pt. Red flags discussed. Pt has no further questions. ..................... ..................... ..................... ..................... ..................... ..................... ............... Disposition: Fulfilled Lisette Ramos MD [address] [place] [address],[address], [place], [address], [employer] 11/28/2023 21:06:34 02/05/2024 text/html [facility] Nurse Triage [...] ..................... ..................... ..................... ..................... ..................... ..................... ............... Wheel Installer Note From Leonel Farmer: Smartcare visit for [...] diminished though patient is obese. Consulted with [facility] Dr. Gramajo. [facility] was concerned about malfunction with pt's meter [...] has no complaints currently. Ramya Gramajo MD [address] [place] [address],[address], [place], [phone], [facility] 02/05/2024 18:47:50 03/09/2024 text/html [facility] Nurse Triage Notes (Jay Swartz): Chief Complaints: Hypotension PMH: COPD/Asthma, CHF, Diabetes Allergies: Unknown Comments: In Store Marketing Associate verified the member's name//address and phone [...] ..................... ..................... ..................... ..................... ..................... ..................... ............... Wheel Installer Note From Jakob Blanton: Pt reports low [...] ..................... ............... Disposition: Fulfilled MILTON CHAMORRO MD [address] [facility],[address], [place], [address], [facility] 03/09/2024 17:30:15 04/09/2024 text/html This was a super vised home visit with pharmacy scheduler Christian Art. [facility] Nurse Triage Notes (Jazmin Larios): Reason For [...] ..................... ..................... ..................... ..................... ..................... ..................... ............... Wheel Installer Note From Christian Art: 78 yo M [...] a month. Pt reports feeling fine when [facility] arrived. He denies CP, SOP, dizziness, N/V/D, or pain. Pt seemed more concerned about getting ahold of a different [facility] member, for a personal matter, non-[facility] related. Pt reports he is unable to drink water due to his BLE edema. MD consult:MD advised the pt needs to stay indoors since it is above, and call his account services associate for med adjustments. ..................... ..................... ..................... ..................... ..................... ..................... ............... Disposition: Fulfilled Yogesh Piedra MD [address] [facility],[address] [facility], [place], [address], [employer] 04/09/2024 16:56:14
--- OUTSIDE RECORDS SUMMARY | 2024-12-31 14:01 | XMS_ITS | Encounter Summary ---
Author Organization [facility] Address [address] [place] [address] Care Team Providers Care Bank And Savings Securities Trader Name Role Phone Prabhjot Ford MD Primary Care Provider [phone] Reason for Visit * Reason Comments DM Foot Care Encounter Details Date Type Department Care Team ([facility] st Contact Info) Description 12/24/2024 10:00 AM EST Office Visit Orthopedic Surgery - [place] [address] [phone] Delfin Bowser, DPBasilio [address] [address] Localized edema (Primary Dx); Venous insufficiency; Controlled type 2 diabetes with neuropathy (CMS/HCC); PVD (peripheral vascular disease) ([facility]); Arthritis of both feet; Tinea pedis of [...] II diabetes mellitus with peripheral circulatory disorder ([facility]) Venous insufficiency Type 2 diabetes mellitus without complication, with long-term current use of insulin ([facility]) Hypertensive heart disease with congestive heart failure ([facility]) Hypotension, unspecified Chronic obstructive pulmonary disease, unspecified ([facility]) Eosinophilia, unspecified Acidosis, unspecified Obesity, unspecified Gastroesophageal reflux disease without esophagitis 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 Controlled type 2 diabetes with neuropathy ([facility]) 4. PVD (peripheral vascular disease) ([facility]) 5. Arthritis of both feet 6. Tinea [...] Description 01/01/2025 10:50 AM EDT Office Visit [facility] [address] [facility] [address] [place] [phone] Karon Sanchez NP [address] [facility] [address] [place] [address] 02/26/2025 9:45 AM EDT Office Visit Orthopedic Surgery - [place] 250 175 [facility] 250 [place] [address] Delfin Bowser, DPBasilio 175 [facility] 250 [place] [address] 03/25/2025 9:45 AM EDT Office Visit Adult Medicine West - [place] [address] [place], [place] [phone] Juan Alberto Samuel NP 444 [place], [place] 08/13/2025 2:00 PM EDT Office Visit Nephrology - [address] [phone] Humberto Marshall MD 100 [facility] 200 [place] [phone] documented as of this encounter Visit Diagnoses Diagnosis Localized edema- Primary Edema Venous insufficiency Unspecified venous (peripheral) insufficiency Controlled type 2 diabetes with neuropathy ([facility]) Type II or unspecified type diabetes mellitus with neurological manifestations, not stated as uncontrolled PVD (peripheral vascular disease) ([facility]) Unspecified peripheral vascular disease Arthritis of both feet Tinea pedis of both feet Dermatophytosis, nail Dermatophytosis of nail documented in this encounter Orders General Supply Count Last Ordered Date First Or dered Date COMPRESSION STOCKINGS 1 12/24/2024 documented in this encounter Care Teams Bank And Savings Securities Trader Relationship Specialty Start Date End Date Prabhjot Ford MD [address] [place] [address] PCP - General 08/22/1999 documented as of this encounter
--- OUTSIDE RECORDS SUMMARY | 2024-12-31 14:01 | XMS_ITS | Encounter Summary ---
Author Organization [facility] Address [address] [place] [address] Care Team Providers Care Ball Shagger Name Role Phone Prabhjot Ford MD Primary Care Provider [phone] Reason for Visit * Reason Comments Chronic Kidney Disease Hypertension Diabetes Mellitus Encounter Details Date Type Department Care Team (Late st Contact Info) Description 12/25/2024 1:30 PM EST Consult Nephrology [address] [phone] Humberto Marshall MD 100 [facility] 200 [place] [address] Stage 3a chronic kidney disease (CMS/HCC) (Primary [...] Chronic heart failure with preserved ejection fraction ([facility]) Class 2 severe obesity with body mass index (BMI) of 35 to 39.9 with serious comorbidity ([facility]) Coronary artery disease due to lipid rich plaque DJD (degenerative joint disease), cervical DM polyneuropathy ([facility]) Dyslipidemia Elevated blood protein Essential hypertension, benign ETOH abuse Lumbosacral spondylosis without myelopathy Mild nonproliferative diabetic retinopathy ([facility]) Nuclear sclerosis Nocturnal hypoxia Obstructive sleep apnea Sleep apnea Onychomycosis Osteoarthritis of hands, bilateral Paroxysmal atrial fibrillation ([facility]) Peripheral vascular disease, unspecified ([facility]) Primary osteoarthritis of both hips Pure hypercholesterolemia Right foot drop Stage 3 chronic kidney disease ([facility]) 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 ([facility]) Venous insufficiency Type 2 diabetes mellitus without complication, with long-term current use of insulin ([facility]) Hypertensive heart disease with congestive heart failure ([facility]) Hypotension, unspecified Chronic obstructive pulmonary disease, unspecified ([facility]) Eosinophilia, unspecified Acidosis, unspecified Obesity, unspecified Gastroesophageal reflux disease without esophagitis [facility] (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 of aspirin emt intermediate (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 of insulin ([facility]) [facility] (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 of anticoagulants [facility] (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 of oral hypoglycemic drugs [facility] (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 of inhaled steroids 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 ([facility]) PAST SURGICAL HISTORY: Past Surgical History: Procedure Laterality Date COLONOSCOPY 09/23/08 PROCEDURE: HISTORICAL COLONOSCOPY; COMMENT: adenomas and diverticulosis; repeat in five years COLONOSCOPY 02/09/15 PROCEDURE: [place] COLONOSCOPY STOMA W/RMVL DESIRE POLYP/OTH LES SNARE; [...] TEST SUGARS 3 TIMES DAILY blood-glucose sensor (App[employer]com G7 Sensor) device 1 Device by Not [...] EACH NOSTRIL DAILY (BULK) 48 g 1 xfafdmyfnbt-ohahydxquyyb-nywunvrrki (Trelegy Ellipta) 100-62.5-25 mcg inhaler Inhale 1 [...] 01/01/2025 10:50 AM EDT Office Visit Pulmonolgy [facility] 175 [facility] 200 [place] [phone] Karno Sanchez NP 175 [facility] 200 [place] [address] 02/26/2025 9:45 AM EDT Office Visit Orthopedic Surgery [facility] [address] [phone] Delfin Bowser DPM [address] [address] 03/25/2025 9:45 AM EDT Office Visit Adult Medicine [address] [phone] Juan Alberto Samuel NP 444 [place], [place] 08/13/2025 2:00 PM EDT Office Visit Nephrology [address] [phone] Humberto Marshall MD [address] [place] [address] Scheduled Orders Name Type Priority Associated Diagnoses [...] benign documented in this encounter Care Teams Ball Shagger Relationship Specialty Start Date End Date Prabhjot Ford MD 4 [place] [address] PCP - General 08/22/1999 documented as of this encounter
--- OUTSIDE RECORDS SUMMARY | 2024-12-31 14:01 | XMS_ITS | Clinical Summary ---
Author Organization [facility] Address [address] [place] [address] Care Team Providers Care Vacation Sales Advisor Name Role Phone Prabhjot Ford MD Primary Care Provider [phone] Allergies No known active allergies Medications Medication [...] age to complete this topic Care Teams Vacation Sales Advisor Relationship Specialty Start Date End Date Prabhjot Ford MD PCP - General Internal Medicine 08/03/18
--- OUTSIDE RECORDS SUMMARY | 2024-12-31 14:01 | XMS_ITS | Encounter Summary ---
Author Organization [facility] Address [address] [place] [address] Care Team Providers Care Ferry Terminal Agent Name Role Phone Prabhjot Ford MD Primary Care Provider [phone] Reason for Visit * Reason Onset Date Comments Labs Only 12/04/2024 Encounter Details Date Type Department Care Team ([facility] st Contact Info) Description 12/04/2024 Telephone Adult Medicine [facility] [address] [place] [address] Prabhjot Ford MD 444 [place], [place] [phone] Labs Only Social History Tobacco Use Types [...] 10:50 AM EDT Office Visit Pulmonolgy - [place] [address] [place] [address] Karon Sanchez NP 175 [facility] [address] 200 [place] [address] 02/26/2025 9:45 AM EDT Office Visit Orthopedic Surgery - [place] 250 175 [facility] 250 [place] [phone] Delfin Bowser DPM [address] [address] 03/25/2025 9:45 AM EDT Office Visit Adult Medicine West - [address] [phone] Juan Alberto Samuel NP 444 [place], [place] 08/13/2025 2:00 PM EDT Office Visit Nephrology - [address] [phone] Humberto Marshall MD [address] [facility] 200 [place] [address] documented as of this encounter Visit Diagnoses Not on filedocumented in this encounter Care Teams Ferry Terminal Agent Relationship Specialty Start Date End Date Prabhjot Ford MD [address] [place] [address] PCP - General 08/22/1999 documented as of this encounter
--- OUTSIDE RECORDS SUMMARY | 2024-12-31 14:01 | XMS_ITS | Encounter Summary ---
Author Organization [facility] Address [address] [place] [address] Care Team Providers Care Claim Rep Name Role Phone Prabhjot Ford MD Primary Care Provider [phone] Reason for Referral * Consultation (Routine) - Authorized Specialty Diagnoses / Procedures Referred By Contac t Referred To Contact Urology Diagnoses Frequent urination Urinary incontinence, unspecified type Prabhjot Ford MD [address] [place] [address] Phone: tel: fax: [facility] [address] [address] Phone: tel: fax: Referral ID Status Reason Start Date Expiration Date Visits Requested Visits Authorized [id number] Authorized Specialty Services Required 12/02/2024 12/02/2025 1 1 Reason for Visit * Reason Comments UTI Patient not sure is he had a uti. Red rash on penis, skin on penis is very senstive Encounter Details Date Type Department Care Team (Late st Contact Info) Description 12/02/2024 2:30 PM EST Office Visit Adult Medicine [address] [address] Prabhjot Ford MD [address] [place] [address] Frequent urination (Primary Dx); Dysuria; Urinary incontinence, [...] complication, with long-term current use of insulin ([facility]) 10/07/2024 Hypertensive heart disease with congestive heart failure ([facility]) 10/07/2024 Hypotension, unspecified 10/07/2024 Chronic obstructive pulmonary disease, unspecified ([facility]) 10/07/2024 Eosinophilia, unspecified 10/07/2024 Acidosis, unspecified 10/07/2024 Obesity, unspecified 10/07/2024 Gastroesophageal reflux disease without esophagitis 10/07/2024 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 (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 of aspirin 10/07/2024 snf (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 of insulin ([facility]) 10/07/2024 snf (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 of anticoagulants 10/07/2024 snf (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 of oral hypoglycemic drugs 10/07/2024 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 (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 of inhaled steroids 10/07/2024 Stage 3 chronic kidney disease ([facility]) 03/01/2024 Dyslipidemia 01/03/2024 Nocturnal hypoxia 11/22/2023 Coronary artery disease due to lipid rich plaque 12/21/2022 Elevated blood protein 11/22/2022 Chronic heart failure with preserved ejection fraction ([facility]) 10/25/2021 Primary osteoarthritis of both hips 05/18/2021 Treatment-emergent central sleep apnea 11/02/2019 Class 2 severe obesity with body mass index (BMI) of 35 to 39.9 with serious comorbidity ([facility]) 04/19/2019 Right foot drop 01/29/2019 Arthritis of right acromioclavicular joint 08/22/2018 Venous insufficiency 05/22/2018 Sleep apnea 12/18/2017 Obstructive sleep apnea 2017 Osteoarthritis of hands, bilateral 12/08/2017 Paroxysmal atrial fibrillation ([facility]) 12/01/2017 Onychomycosis 03/10/2016 Arthritis of left shoulder region 10/01/2015 DJD (degenerative joint disease), cervical 10/01/2015 Mild nonproliferative diabetic retinopathy ([facility]) 02/17/2015 Nuclear sclerosis 02/17/2015 Peripheral vascular disease, unspecified ([facility]) 02/17/2015 Anemia 07/22/2011 ETOH abuse 04/03/2009 Pure hypercholesterolemia 09/12/2007 Lumbosacral spondylosis without myelopathy 03/05/2007 Essential hypertension, benign 11/09/2005 DM polyneuropathy ([facility]) 08/30/2005 Type II diabetes mellitus with peripheral circulatory disorder ([facility]) 08/30/2005 SOCIAL HISTORY: Social History Tobacco Use [...] EACH NOSTRIL DAILY (BULK) 48 g 1 fzvsrinrhfc-nkjhrzwgruto-oumhmqfwdm (Trelegy Ellipta) 100-62.5-25 mcg inhaler Inhale 1 [...] 10:50 AM EDT Office Visit Pulmonolgy - [place] 175 [facility] 200 [place] [phone] Karon Sanchez NP 175 [facility] 200 [place] [address] 02/26/2025 9:45 AM EDT Office Visit Orthopedic Surgery - [place] 250 175 [facility] 250 [place] [phone] Delfin Bowser DPM 175 [facility] 250 [place] [address] 03/25/2025 9:45 AM EDT Office Visit [facility] 444 [place], [place] [phone] Juan Alberto Samuel NP 444 [place], [place] 08/13/2025 2:00 PM EDT Office Visit Nephrology - [place] 444 [place], [place] [phone] Humberto Marshall MD [address] [place] 200 [place] [address] Scheduled Referrals Name Type Priority Associated Diagnoses [...] LAB CHEMISTRY METHOD 12/03/2024 1:02 PM EST [facility] Blood Venous blood specimen / Unknown Venipuncture / Unknown 12/03/2024 9:46 AM EST 12/03/2024 9:46 AM EST Narrative [facility] - 12/03/2024 1:02 PM EST The Siemens Advia Centaur Chemiluminescent Immunoassay is used. Results obtained with different assay methods or kits cannot be used interchangeably. Results cannot be interpreted as absolute evidence of the presence or absence of malignant disease. us Prabhjot Ford MD LAB BLOOD ORDERABLES Final Resul t [facility] [address] [place] [address], * (ABNORMAL) Culture urine (12/02/2024 3:36 PM EST) Culture, Urine 10,000-49,000 CFU/mL Staphylococcus epidermidis(A) ELGIN 12/06/2024 9:38 AM EST [facility] Comment: Beta-lactamase negative The organism [...] ORDER ROEL Final Result Performing Organization Address [facility]/ZIP Co de Phone Number [facility] [address] [place] [address], [place] [phone] * Faria urine culture tube (12/02/2024 3:36 PM EST) [facility] Extra Tube Hold for add-ons. 12/02/2024 7:01 PM EST [facility] Comment:Auto resulted. Urine Urine specimen obtained by clean catch procedure / Unknown Non-blood Collection / Unknown 12/02/2024 3:36 PM EST 12/02/2024 3:36 PM EST Prabhjot Ford MD LAB URINE ORDERABLES Final Resul t Performing Organization Address City/[facility]/ZIP Co de Phone Number [facility] [address] [place] [address], [place] [phone] * (ABNORMAL) Urinalysis with reflex microscopic and culture (12/02/2024 3:36 PM EST) [facility] Specific [place] Urine 1.026 1.003 - 1.030 LAB URINALYSIS - AUTOMATED METHOD 12/02/2024 7:10 PM [facility] pH, Urine 6.0 5.0 [...] 7:10 PM [facility] Urine Urine specimen obtained by clean catch procedure / Unknown Non-blood Collection / Unknown 12/02/2024 3:36 PM EST 12/02/2024 3:36 PM EST us Prabhjot Ford MD LAB URINE ORDERABLES Final Resul t [facility] ([facility] [address] [place] [address], [place] [phone] * (ABNORMAL) POC Urine Non-Auto W/O Micro (12/02/2024 3:06 PM EST) Leukocytes UA POC Positive(A) Negative Nitrite UA POC Negative Negative Urobilinogen UA POC Negative Negative Protein UA POC Positive(A) Negative PH UA POC 6.0 5.0 - 9.0 Blood UA POC Negative Negative, Trace Specific [place] UA POC 1.025 1.001 - 1.035 Ketones [...] phimosis documented in this encounter Care Teams Claim Rep Relationship Specialty Start Date End Date Prabhjot Ford MD [address] [place] [address] PCP - General 08/22/1999 documented as of this encounter
--- OUTSIDE RECORDS SUMMARY | 2024-12-31 14:02 | XMS_ITS | Encounter Summary ---
Author Organization [facility] Address [address] [place] [address] Care Team Providers Care Telecommunications Cable Jointer Name Role Phone Prabhjot Ford MD Primary Care Provider [phone] Reason for Visit * Reason Onset Date Comments [place] 12/26/2024 Encounter Details Date Type Department Care Team ([facility] st Contact Info) Description 12/26/[address] [address] Caity Nunn PA [address] [place] [address] HIRO Lim Social History Tobacco Use Types [...] - 12/26/2024 11:28 AM EST Dorene from [facility] is asking if the last office visit notes can be faxed to there office.. Last OV is 03/01/24. Please fax to: [phone] phone: [phone] documented in this encounter Plan of Treatment Upcoming Encounters Date Type Department Care Team (Late st Contact Info) Description 01/01/2025 10:50 AM EDT Office Visit Pulmonolgy - [place] 175 [facility] [address] [place] [address] Karon Sanchez NP 175 [facility] 200 [place] [address] 02/26/2025 9:45 AM EDT Office Visit Orthopedic Surgery - [place] [address] [phone] Delfin Bowser DPM [address] [address] 03/25/2025 9:45 AM EDT Office Visit Adult Medicine West - [address] [phone] Juan Alberto Samuel NP 444 [place], [place] 08/13/2025 2:00 PM EDT Office Visit Nephrology - [address] [phone] Humberto Marshall MD [address] [address] documented as of this encounter Visit Diagnoses Not on filedocumented in this encounter Care Teams Telecommunications Cable Jointer Relationship Specialty Start Date End Date Prabhjot Ford MD [address] [place] [address] PCP - General 08/22/1999 documented as of this encounter
--- OUTSIDE RECORDS SUMMARY | 2024-12-31 14:02 | XMS_ITS | Clinical Summary ---
Author Organization [facility] Address [address] [facility] [address] [place] [address] Phone Care Team Providers Care Fashion Coordinator Name Role Phone Prabhjot Ford MD Primary Care Provider [phone] Allergies No known active allergies Medications albuterol [...] 0 Refills, Maintenance, 08/03/23 10:19:00 EDT, Tablet, [facility], Partial margo... 3 Active Entresto [...] Chloride 30.0(A) 99.0 - 108.0 eGFR Non-Afr Egyptian 44 Hemoglobin A1C 6.9(A) 4.0 - 6.0 02/01/2024 Historical Provider LAB BLOOD ORDERABLES Lynnette l Result from Last 3 Months or Most Recently Relevant to Health Maintenance Insurance [facility] ([id number]) [facility] ([id number]) Care Teams Fashion Coordinator Relationship Specialty Start Date End Date Prabhjot Ford MD PCP - General Internal Medicine 03/12/24
--- OUTSIDE RECORDS SUMMARY | 2024-12-31 14:02 | XMS_ITS | Encounter Summary ---
Author Organization [facility] [place] [address] Care Team Providers Care Technical Consultant Name Role Phone Prabhjot Ford MD Primary Care Provider [phone] Reason for Visit * Reason Onset Date Comments needs manager simulation 12/27/2024 Encounter Details Date Type Department Care Team ([facility] st Contact Info) Description 12/27/2024 Telephone [facility] - [address] [address] Caity Nunn PA [address] [place] [phone] needs manager simulation Social History Tobacco Use Types Packs/Day Years [...] Date End Date blood-glucose meter,continuous (Dexcom G7 Bottler) miscIndications:Kenzie betes mellitus with stage 3 chronic kidney disease (CMS/HCC) 1 (one) time for 1 dose. 1 each 12/31/2024 12/31/2024 documented in this encounter Progress Notes * TED Hatfield - 12/31/2024 7:55 AM EDT ordered * Patrick Lobo - 12/30/2024 2:32 PM EDT Pt calling back to follow up on manager simulation request. Please update pt. * Hortensia Soniya Ojeda - 12/27/2024 11:02 AM EST Patient is calling stating he needs a new Dexcom G7 Bottler. This goes to [employer]. Any questionscall patient. [phone] documented in this encounter Plan of Treatment Upcoming Encounters Date Type Department Care Team (Late st Contact Info) Description 01/01/2025 10:50 AM EDT Office Visit Pulmonolgy - [place] 175 [facility] 200 [place] [phone] Karon Sanchez NP 175 [facility] 200 [place] [address] 02/26/2025 9:45 AM EDT Office Visit Orthopedic Surgery - [place] 250 175 [facility] 250 [place] [phone] Delfin Bowser DPM 175 [facility] 250 [place] [address] 03/25/2025 9:45 AM EDT Office Visit Adult Medicine West - [address] [phone] Juan Alberto Samuel NP 444 [place], [place] 08/13/2025 2:00 PM EDT Office Visit Nephrology - [address] [phone] Humberto Marshall MD 100 [address] [facility] 200 [place] [address] documented as of this encounter Visit Diagnoses Diagnosis Diabetes mellitus with stage 3 chronic kidney disease (CMS/HCC)- Primary documented in this encounter Care Teams Technical Consultant Relationship Specialty Start Date End Date Prabhjot Ford MD 444 [place] [address] PCP - General 08/22/1999 documented as of this encounter
[2024-12-31 18:34] LABS: MANUAL DIFF FLAG NO
[2024-12-31 18:41] LABS: Basophils Percent Auto 0.2 % (0-2); Eosinophils Absolute Auto 0.3 X10*3/uL (0.0-0.4); Eosinophils Percent Auto 2.5 % (0-4); Hematocrit 42.2 % (42.0-52.0); Hemoglobin 13.3 g/dl (14.0-18.0); Imm Gran Abs Auto 0.04 X10*3/uL (0.00-0.03); Imm Gran Pct Auto 0.4 % (0.0-0.4); Lymphocytes Absolute Auto 1.6 X10*3/uL (1.2-4.9); Lymphocytes Percent Auto 15.8 % (20-40); Mean Corpuscular HGB Conc 31.5 g/dl (31.0-36.0); Mean Corpuscular Hemoglobin 26.4 pg (27.0-33.0); Mean Corpuscular Volume 83.9 fL (80.0-98.0); Mean Platelet Volume 9.9 fL (9.4-12.4); Monocytes Absolute Auto 0.6 X10*3/uL (0.1-1.2); Monocytes Percent Auto 5.9 % (2-11); Neutrophils Absolute Auto 7.7 x10*3/uL (2.0-8.3); Neutrophils Percent Auto 75.2 % (45-73); Platelet Count 254 X10*3/uL (160-400); Red Blood Count 5.03 X10*6/uL (4.60-5.80); Red Cell Distribution Width 16.4 % (11.0-16.0); White Blood Count 10.3 X10*3/uL (4.8-10.8)
[2024-12-31 19:20] LABS: Rheumatoid Factor < 13.0 IU/mL (<15.0)
[2024-12-31 19:43] LABS: Alanine Aminotransferase 18 U/L (0-40); Aspartate Amino Transferase 48 U/L (5-37); C Reactive Protein 1.39 mg/dL (< or = 0.50); Estimated Glomerular Filt Rate > 60
[2025-01-01 04:00] LABS: HBS Num1 0.14 mIU/mL (0-7.99); HBc Num1 0.21 S/CO (0.00-0.79); HBsAGNum1 0.32 S/CO (0.00-0.99); Hepatitis B Core Antibody Nonreactive (Nonreactive); Hepatitis B Surface Antigen Negative (Negative); ~Hepatitis B Surface Antibody NONREACTIVE (Nonreactive); ~Hepatitis C Antibody Nonreactive (Nonreactive)
[2025-01-02 11:37] LABS: Cyclic Citrullinated Peptide <16 UNITS
== END 2024-12-31 10:41 | disposition home or self-care (01) ==
LOC: HO.HKASLDS 10:40
PROVIDERS: PCP Internal Medicine; Visit Provider Internal Medicine Rheumatology
DX: M06.09 Rheumatoid arthritis without rheumatoid factor, multiple sites (principal); M54.50 Low back pain, unspecified; Z79.899 Other long term (current) drug therapy
CPT/HCPCS: 36415; 82565; 84450; 84460; 85025; 86140; 86200; 86431; 86481; 86704; 86706; 86803; 87340; 99212

== ENCOUNTER 2025-01-21 09:49 | Outpatient (REF) | payer OTHER, SELFPAY ==
[2025-01-21 11:10] LABS: Alanine Aminotransferase 22 U/L (0-40); Anion Gap 13 (12-20); Aspartate Amino Transferase 31 U/L (5-37); Blood Urea Nitrogen 24 mg/dL (9-16); Calcium 9.4 mg/dL (8.4-10.2); Carbon Dioxide 26 mmol/L (22-29); Chloride 106 mmol/L (96-108); Estimated Glomerular Filt Rate > 60; Glucose Random 185 mg/dL (60-115); Potassium 3.5 mmol/L (3.3-5.1); Sodium 141 mmol/L (135-145)
--- OUTSIDE RECORDS SUMMARY | 2025-01-21 11:29 | XMS_ITS | Clinical Summary ---
Author Organization [facility] [address] [place] [address] [place] [phone] Phone Care Team Providers Care Wallpaper Scraper Name Role Phone Prabhjot Ford MD Primary Care Provider [phone] Allergies No known active allergies Medications magnesium oxide (MAG-OX) 400 mg magnesium tablet [...] USE TO TEST SUGARS 3 TIMES DAILY Active Lumigan 0.01 % ophthalmic drops Administer 1 drop into both eyes at bedtime. Active atorvastatin (LIPITOR) 40 mg tablet Take 1 tablet (40 mg total) by mouth 1 (one) time each day. Active albuterol HFA (PROAIR HFA ; PROVENTIL HFA ; VENTOLIN HFA) 90 mcg/actuation inhaler Inhale 2 puffs by mouth every 6 (six) hours if needed. Active Alcohol Prep Pads pads, medicated Active acetaminophen (TYLENOL) 500 mg tablet Take 1-2 tablets (500-1,000 mg total) by mouth every 8 (eight) hours if needed. Active ferrous sulfate 325 mg (65 mg iron) EC tablet Take 1 tablet (325 mg total) by mouth 1 (one) time each day with breakfast. Active diclofenac (VOLTAREN) 1 % topical gel Apply 2 g topically 2 (two) times a day. Active Baqsimi 3 mg/actuation nasal spray Administer 1 Dose into one nostril if needed. 024 Active hydroxychloroqui ne (PLAQUENIL) 200 mg tablet Take 1 tablet (200 mg total) by mouth 1 (one) time each day. 024 Active lidocaine (LIDODERM) 5 % patch Apply 1 patch topically 1 (one) time each day at the same time. 024 Active loratadine (CLARITIN) 10 mg tablet Take 1 tablet (10 mg total) by mouth 1 (one) time each day. 024 Active Unifine Pentips 31 gauge x 5/16 needle 024 Active HealthyLax 17 gram packet Take 17 g by mouth 1 (one) time each day if needed. 024 Active pregabalin (LYRICA) 75 mg capsule Take 1 capsule (75 mg total) by mouth 2 (two) times a day. 024 Active Entresto 24-26 mg per tablet Take 1 tablet by mouth 1 (one) time each day. 023 Active medical supply, miscellaneous (MISCELLANEOUS MEDICAL SUPPLY MISC) Inhale by mouth. CPAP Active Lantus Solostar U-100 Insulin 100 unit/mL (3 mL) injection pen 20 units at bedtime, go up by 5 unit in 1 week if BS above 150. 15 mL 5 024 Active fluticasone propionate (FLONASE) 50 mcg/actuation nasal spray INSTILL 2 SPRAYS IN EACH NOSTRIL DAILY FOR 3-4WEEKS THEN DECREASE TO 1 SPRAY IN EACH NOSTRIL DAILY (BULK) 48 g 1 024 Active ammonium lactate (AMLACTIN) 12 % cream APPLY TOPICALLY TO DRY SKIN ON BOTH FEET DAILY (BULK) 385 g 1 024 Active ketoconazole (NIZORAL) 2 % cream Apply topically 1 (one) time each day. 60 g 2 025 Active omeprazole (PriLOSEC) [address] capsule Take 1 capsule (20 mg total) by mouth 1 (one) time each day. 90 capsule 1 025 Active ferrous sulfate (FeroSuL) 325 mg (65 mg elemental iron) tablet Take 1 tablet (325 mg total) by mouth 1 (one) time each day. 90 tablet 1 025 Active metoprolol tartrate (LOPRESSOR) 25 mg tablet Take 1 tablet (25 mg total) by mouth 2 (two) times a day. 180 tablet 1 025 Active Farxiga 10 mg tablet TAKE ONE TABLET BY MOUTH EVERY DAY ^1R1 90 tablet 3 025 Active tolnaftate (Tinactin) 1 % spray Apply topically 2 (two) times a day. 130 g 025 2024 Active hydrocortisone 2.5 % cream APPLY A SMALL AMOUNT OVER THE AFFECTED AREA(S) TWO TIMES A DAY (BULK) 28 g 4 025 Active blood-glucose sensor (Dexcom G7 Sensor) deviceIndication s:Diabetes mellitus with stage 3 chronic kidney disease (CMS/HCC) by Not Applicable route every 14 (fourteen) days. 9 each 1 025 Active NovoLOG Flexpen U-100 Insulin 100 unit/mL (3 mL) injection pen INJECT 16 UNITS SUBCUTANEOUSLY BEFORE BREAKFAST, INJECT 20 UNITS SUBCUTANEOUSLY BEFORE LUNCH AND INJECT 16 UNITS SUBCUTANEOUSLY BEFORE DINNER 90 mL 1 025 Active clotrimazole-bet amethasone (LOTRISONE) 1-0.05 % cream Apply topically 2 (two) times a day. 30 g 3 025 Active Dexcom G7 Rice Drier miscIndications: Diabetes mellitus with stage 3 chronic kidney disease (CMS/HCC) USE WITH DEXOM G7 SENSORS (BULK) 1 each 025 Active Trelegy Ellipta 100-62.5-25 mcg inhaler INHALE 1 PUFF INTO THE LUNGS DAILY (BULK) 180 each 3 025 Active torsemide (DEMADEX) 20 mg tablet TAKE 2 TABLET BY MOUTH ONCE DAILY ^2R1 60 tablet 5 025 Active glucose 4 gram chewable tablet TAKE 4 TABLETS BY MOUTH NEEDED FOR LOW BLOOD SUGAR READING (VIAL) 50 tablet 3 025 Active torsemide (DEMADEX) 20 mg tablet Take 2 tablets (40 mg total) by mouth. 2024 Discontinued blood-glucose sensor (Dexcom G7 Sensor) device 1 Device by Not Applicable route every 14 (fourteen) days. 024 2024 Discontinued(R eorder) fluticasone-umec lidinium-vilante rol (Trelegy Ellipta) 100-62.5-25 mcg inhaler Inhale 1 puff (100 mcg total) by mouth 1 (one) time each day. 024 2024 Discontinued hydrocortisone 2.5 % cream APPLY SMALL AMOUNT OVER THE AFFECTED AREA TWICE DAILY 024 2024 Discontinued NovoLOG Flexpen U-100 Insulin 100 unit/mL (3 mL) injection pen Inject 16-20 Units under the skin 3 (three) times a day before meals. 018 2024 Discontinued glucose 4 gram chewable tablet Take 4 tabs as needed for low BS reading 50 tablet 1 025 2024 Discontinued blood-glucose meter,continuous (Dexcom G7 Rice Drier) miscIndications: Diabetes mellitus with stage 3 chronic kidney disease ([facility]) 1 (one) time for 1 dose. 1 each 025 2024 Discontinued clotrimazole-bet amethasone (LOTRISONE) 1-0.05 % cream Apply topically 2 (two) times a day. 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 LVEF 55 to 60%. No regional wall motion abnormalities. No significant valvular disease. PASP within normal limits. No evidence of endocarditis. 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 Obstructive sleep apnea 2017 [place] (07/25/2024[place] [facility] [place]: [place] 12/09/2017; Wt 217# SE 73%; SM 77%; REM 22%; RDI 13 (AHI 7), worse in REM (RDI 32 - AHI 30), Central apneas 1; Obstructive apneas 8; Mixed apneas 0; hypopneas 36; RERAs 38; average oxygen saturation 96% (lowest 81% - without saturations <88% for 5% or more of study); PLMs 39. [facility] [place] study. Date 08/17/2018. SE 72 % SM 74 %; spent 11 % of the study in REM. On CPAP @ 12; RDI 1.7 (AHI 1.7), Central apneas 3; Obstructive apneas 0; Mixed apneas 0; hypopneas 2; RERAs 0; and, average oxygen saturation was 93%. For the entire study, PLMs ~43. [facility] Polysomnogram treatment study. Date 07/29/2019. Wt 215#; BMI 35; SE 86 % SM 88 %; spent 24 % of the study in REM. On CPAP and BiPAP; RDI and AHI lowest at 9.9; and, average oxygen saturation was 94%. For the entire study, PLMs ~28. Prestudy ESS 10; 4/4 RLS symptoms. [facility] Polysomnogram ASV treatment study. Date 10/26/2019. Wt 226#; BMI 37; SE 58 % SM 75 %; spent 21 % of the study in REM. On ASV; RDI 7 (AHI 7), Central apneas 7; Obstructive apneas 0; Mixed apneas 0; hypopneas 30; RERAs 1; and, average oxygen saturation was 94%. For the entire study, PLMs ~1. Prestudy ESS 8; 0/4 RLS symptoms. [facility] Polysomnogram iVAPs treatment study. Date 10/29/2020. Wt 230#; BMI 37; SE 79 % SM 81 %; spent 13 % of the study in REM. IVAPs trialed at various pressure; given the elevated TC CO2 on ASV, interpreting physician recommended IVAPS with EPAP of 5;TV a 6.1 and PS minimum of 4; PS max of 20; IL 18 and height 66 inch - with a heated humidifier. - Obstructive Sleep Apnea - mild overall and severe in REM; mostly hypopneas; no sleep related hypoventilation by 2018 diagnostic polysomnogram. - PAP therapy and ASV failed to correct the TC CO2; iVAPS with EPAP of 5;TV a 6.1 and PS minimum of 4; PS max of 20; IL 18 and height 66 inch - with a heated humidifier. Osteoarthritis of hands, bilateral 12/08/2017 Paroxysmal atrial fibrillation 12/01/2017 Overview (07/25/2024): -Admission at [facility] from 11/01/2017-11/03/2017 with symptoms of abdominal pain [...] just unsure what to do Educational Resources [employer] (www.diabetes.org) Centers for Disease Control [...] Encounters Date Type Department Care Team Description 01/17/2025 Telephone Adult Medicine [address] [phone] Prabhjot Ford MD prior auth for medication 01/01/2025 10:50 AM EDT Office Visit [address]mon[address] [place] [phone] Karon Sanchez NP Obstructive sleep apnea (Primary Dx); Treatment-emergent central sleep apnea; Nocturnal hypoxia; Chronic obstructive pulmonary disease, unspecified COPD type (CMS/HCC); Class 2 severe obesity with body mass index (BMI) of 35 to 39.9 with serious comorbidity (CMS/HCC) 12/27/2024 Telephone Endocrinology - [address] [phone] Caity Nunn PA needs geophysical prospecting permit agent 12/26/2024 Telephone Endocrinology - [address] [phone] Caity Nunn PA [place] 12/25/2024 1:30 PM EST Consult Nephrology - [address] [phone] Humberto Marshall MD Stage 3a chronic kidney disease ([facility]/HCC) (Primary Dx); 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 ([facility]/HCC); 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, macular edema presence unspecified ([facility]); Obstructive sleep apnea; Essential hypertension, benign 12/24/2024 10:00 AM EST Office Visit Orthopedic [place] [address] [phone] Delfin Bowser DPM Localized edema (Primary Dx); Venous insufficiency; Controlled type 2 diabetes with neuropathy ([facility]); PVD (peripheral vascular disease) ([facility]); Arthritis of both feet; Tinea pedis of both feet; Dermatophytosis, nail 12/23/2024 1:00 PM EST Office Visit [address] [phone] Gerry Moore PA Chronic bilateral low back pain without sciatica (Primary Dx); Type II diabetes mellitus with peripheral circulatory disorder ([facility]); Stage 3 chronic kidney disease, unspecified whether stage 3a or 3b CKD ([facility]); Pure hypercholesterolemia; Paroxysmal atrial fibrillation ([facility]); Essential hypertension, benign; Chronic heart failure with preserved ejection fraction ([facility]); Anemia, unspecified type 12/04/[address] [phone] Prabhjot Ford MD Labs Only 12/02/2024 2:30 PM EST Office Visit [address] [phone] Prabhjot Ford MD Frequent urination (Primary Dx); Dysuria; Urinary incontinence, unspecified type; Phimosis 11/29/2024 Telephone Adult [address] [phone] Prabhjot Ford MD UTI; Abdominal Pain 11/11/2024 Telephone Orthopedic [facility] [address] [phone] Delfin Bowser DPM Med Refill 10/29/2024 Billing Patient Not Present Adult [address] [phone] Gamal Cisse MD Type 2 diabetes mellitus without complication, unspecified whether chcf insulin use ([facility]) (Primary Dx); Hypertensive heart disease with heart failure ([facility]); Chronic diastolic (congestive) heart failure ([facility]); Hypotension, unspecified hypotension type; Chronic obstructive pulmonary disease, unspecified COPD type ([facility]); Paroxysmal atrial fibrillation ([facility]); Hyperlipidemia, unspecified hyperlipidemia type; Athscl heart disease of [place] coronary artery w/o ang pctrs; Eosinophilia, unspecified type; Acidosis, unspecified; Obesity, unspecified class, unspecified obesity type, unspecified whether serious comorbidity present; Gastro-esophageal reflux disease without esophagitis; Obstructive sleep apnea (adult) (pediatric); 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 (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 of aspirin; [facility] (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 of insulin ([facility]); [facility] current use of anticoagulant; [facility] (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 of oral hypoglycemic drugs; 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 (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 of inhaled steroids 10/24/2024 Billing Patient Not Present [address] [phone] Prabhjot Ford MD Type 2 diabetes mellitus without complication, with long-term current use of insulin ([facility]) (Primary Dx); Hypertensive heart disease with congestive heart failure, unspecified heart failure type ([facility]); Hypotension, unspecified hypotension type; Chronic obstructive pulmonary disease, unspecified COPD type ([facility]); Paroxysmal atrial fibrillation ([facility]); Hyperlipidemia, unspecified hyperlipidemia type; Athscl heart disease of [place] coronary artery w/o ang pctrs; Hypereosinophilic syndrome, unspecified type; Acidosis; Gastroesophageal reflux disease without esophagitis; Obstructive sleep apnea; [facility] (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 of aspirin; [facility] (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 of anticoagulants; [facility] (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 of inhaled steroids; Obesity, unspecified class, unspecified obesity type, unspecified whether serious comorbidity present from Last 3 Months Immunizations Name Administration [...] repeat in five years COLONOSCOPY 02/09/15 PROCEDURE: [place] COLONOSCOPY STOMA W/RMVL DESIRE POLYP/OTH LES SNARE; [...] mellitus type 2 wit h neurological manifestations ([facility]) 07/10/2014 DX:Diabetes carla itus type 2 with neurological manifestations ([facility]) DJD (degenerative joint dise ase), cervical 10/01/2015 DX:DJD (degenerative joint d isease), cervical Arthritis of left shoulder region 10/01/2015 DX:Arthritis of left shoulder region Paroxysmal atrial fibrillati on ([facility]) 12/01/2017 DX:Paroxysmal atrial fibrill ation ([facility]); COMMENT: See cardiology note, accidental finding Right [...] Sign Reading Time Taken Comments Blood Pressure 102/51 01/01/2025 11:00 AM EDT Pulse 84 01/01/2025 11:00 AM EDT Temperature 36.4 ??C (97.6 ??F) 01/01/2025 11:00 AM E DT Respiratory Rate 16 12/23/2024 1:08 PM EST Oxygen Saturation 96% 01/01/2025 11:00 AM EDT Inhaled Oxygen Concentration - - Weight 99.8 kg (220 lb) 01/01/2025 11:00 AM EDT Height 167.6 cm (5' 5.98 ) 01/01/2025 11:00 AM E DT Body Mass Index 35.53 01/01/2025 11:00 AM EDT Plan of Treatment Upcoming Encounters Date Type Department Care Team (Late st Contact Info) Description 01/27/2025 10:10 AM EDT Office Visit [facility] [address] [facility] [address] [place] [phone] Sarah Ramos NP 300 [facility] [address] [place] [address] 02/26/2025 9:45 AM EDT Office Visit Orthopedic Surgery - [place] 250 175 [facility] [address] [place] [phone] Delfin Bowser DPM 175 [facility] [address] [place] [address] 03/25/2025 9:45 AM EDT Office Visit [facility] [place] [address] [place], [place] [phone] Juan Alberto Samuel NP [address] [place], [place] 07/04/2025 9:30 AM EDT Office Visit Pulmonolgy - [place] 175 [facility] 200 [place] [phone] Karon Sanchez NP 175 [facility] 200 [place] [address] 08/13/2025 2:00 PM EDT Office Visit Nephrology - [address] [phone] Humberto Marshall MD [address] [facility] [address] [place] [phone] Health Maintenance Due Date Last Done Comments DTaP,Tdap,and Td Vaccines (4 - Td or [...] patient's age to complete this topic Hepatitis A Vaccines Aged Out No long er eligible [...] Procedure Name Priority Date/Time Associated Diagnosis Comments EXTERNAL CLINICAL LAB 12/31/2024 EXTERNAL CLINICAL LAB 12/31/2024 EXTERNAL CLINICAL LAB 12/31/2024 EXTERNAL CLINICAL LAB 12/31/2024 EXTERNAL CLINICAL LAB 12/31/2024 EXTERNAL CLINICAL LAB 12/31/2024 EXTERNAL CLINICAL LAB 12/31/2024 EXTERNAL CLINICAL LAB 12/31/2024 MICROALBUMIN CREATININE URINE RATIO Routine 12/20/2024 3:29 [...] diabetes mellitus with peripheral circulatory disorder (CMS/HCC) COLONOSCOPY Routine 04/29/2024 DEPRESSION SCREENING Routine 03/26/2024 FALLS RISK ASSESSMENT Routine 03/26/2024 HEPATITIS C SCREENING Routine 10/03/2019 from Last 3 Months or Most Recently Relevant to Health Maintenance Results * External clinical lab (12/31/2024) Only the most recent of8 resultswithin the time period is included. us Provider [facility] LAB BLOOD ORDERABLES Fin al Result * (ABNORMAL) Microalbumin creatinine urine ratio (12/20/2024 3:29 PM EST) Creatinine, Urine <13.0 mg/dL LAB CHEMISTRY METHOD 12/20/2024 9:35 PM EST [facility] Microalb, Ur 10.9 0.0 - 29.0 mg/L LAB CHEMISTRY METHOD 12/20/2024 9:35 PM [facility] Microalb/Creat Ratio >84(H) <30 mg/g creat LAB CHEMISTRY METHOD 12/20/2024 9:35 PM [facility] Urine Urine specimen obtained by clean catch procedure / Unknown Non-blood Collection / Unknown 12/20/2024 3:29 PM EST 12/20/2024 3:29 PM EST us Gerry JEAN LAB URINE ORDERABLES Fin al Result [facility] [address] [place] [address], * (ABNORMAL) Complete blood count (12/20/2024 3:29 PM EST) WBC 11.1(H) 4.8 - 10.8 K/mcL LAB HEMETOLOGY METHOD 12/20/2024 6:19 PM [facility] RBC 4.70 4.50 - 5.50 M/mcL LAB HEMETOLOGY METHOD 12/20/2024 6:19 PM [facility] Hemoglobin 12.5(L) 13.5 - 17.5 g/dL LAB HEMETOLOGY METHOD 12/20/2024 6:19 PM [facility] Hematocrit 40.2(L) 42.0 - 54.0 % LAB HEMETOLOGY METHOD 12/20/2024 6:19 PM [facility] MCV 85.0 79.0 - 98.0 FL LAB HEMETOLOGY METHOD 12/20/2024 6:19 PM [facility] MCH 26.4(L) 27.0 - 32.0 pcg LAB HEMETOLOGY METHOD 12/20/2024 6:19 PM EST [facility] MCHC 31.1(L) 32.0 - 37.0 g/dL LAB HEMETOLOGY METHOD 12/20/2024 6:19 PM EST [facility] RDW 16.1(H) 11.0 - 15.0 % LAB HEMETOLOGY METHOD 12/20/2024 6:19 PM EST [facility] Platelets 256 130 - 400 K/mcL LAB HEMETOLOGY METHOD 12/20/2024 6:19 PM EST [facility] MPV 9.8 7.0 - 11.0 FL LAB HEMETOLOGY METHOD 12/20/2024 6:19 PM EST [facility] NRBC 0.0 <1.0 % LAB HEMETOLOGY METHOD 12/20/2024 6:19 PM EST [facility] NRBC Absolute 0.00 <0.10 K/mcL LAB HEMETOLOGY METHOD 12/20/2024 6:19 PM EST [facility] Blood Venous blood specimen / Unknown Venipuncture / Unknown 12/20/2024 3:29 PM EST 12/20/2024 3:29 PM EST us Gerry JEAN LAB BLOOD ORDERABLES Fin al Result [facility] [address] [place] [address], * (ABNORMAL) Thyroid stimulating hormone (12/20/2024 3:29 PM EST) TSH 5.84(H) 0.40 - 4.00 mcIU/mL LAB CHEMISTRY METHOD 12/20/2024 8:50 PM EST [facility] Blood Venous blood specimen / Unknown Venipuncture / Unknown 12/20/2024 3:29 PM EST 12/20/2024 3:29 PM EST Gerry JEAN LAB BLOOD ORDERABLES Fin al Result [facility] [address] [place] [address], [place] [phone] * (ABNORMAL) Hemoglobin A1c (12/20/2024 3:29 PM EST) Pathologist [facility] Hemoglobin A1C 7.3(H) <6.5 % LAB CHEMISTRY METHOD 12/23/2024 9:40 PM EST [facility] Mean Bld Glu Estim. 163 mg/dL LAB CHEMISTRY METHOD 12/23/2024 9:40 PM [facility] Blood Venous blood specimen / Unknown Venipuncture / Unknown 12/20/2024 3:29 PM EST 12/20/2024 3:29 PM EST Gerry JEAN LAB BLOOD ORDERABLES Fin al Result Performing Organization Address [facility]/ZIP Co de Phone Number [facility] [address] [place] [address], [place] [phone] * (ABNORMAL) Comprehensive metabolic panel (12/20/2024 3:29 PM EST) [facility] Sodium 138 133 - 145 mmol/L LAB CHEMISTRY METHOD 12/20/2024 9:07 PM [facility] Potassium 3.6 3.5 - 5.5 mmol/L LAB CHEMISTRY METHOD 12/20/2024 9:07 PM [facility] Chloride 100 96 - 110 mmol/L LAB CHEMISTRY METHOD 12/20/2024 9:07 PM [facility] CO2 31 21 - 32 mmol/L LAB CHEMISTRY METHOD 12/20/2024 9:07 PM [facility] Anion Gap 7 3 - 11 LAB CHEMISTRY METHOD 12/20/2024 9:07 PM [facility] Glucose 118(H) 70 - 100 mg/dL LAB CHEMISTRY METHOD 12/20/2024 9:07 PM [facility] BUN 24 5 - 25 mg/dL LAB CHEMISTRY METHOD 12/20/2024 9:07 PM [facility] Creatinine 1.07 0.70 - 1.30 mg/dL LAB CHEMISTRY METHOD 12/20/2024 9:07 PM [facility] eGFR 71 >=60 mL/min/1. 73m2 LAB CHEMISTRY METHOD 12/20/2024 9:07 PM [facility] Comment:Calculation based on the??Chronic Kidney Disease Epidemiology Collaboration (CKD-EPI) equation refit??without adjustment for race. BUN/Creatinine Ratio 22.4 LAB CHEMISTRY METHOD 12/20/2024 9:07 PM [facility] Calcium 9.5 8.5 - 10.5 mg/dL LAB CHEMISTRY METHOD 12/20/2024 9:07 PM [facility] AST (SGOT) 24 10 - 42 unit/L LAB CHEMISTRY METHOD 12/20/2024 9:07 PM [facility] ALT (SGPT) 28 10 - 60 unit/L LAB CHEMISTRY METHOD 12/20/2024 9:07 PM [facility] Alkaline Phosphatase 127(H) 42 - 121 unit/L LAB CHEMISTRY METHOD 12/20/2024 9:07 PM [facility] Total Protein 8.1(H) 6.0 - 8.0 g/dL LAB CHEMISTRY METHOD 12/20/2024 9:07 PM [facility] Albumin 3.5 3.2 - 5.0 g/dL LAB CHEMISTRY METHOD 12/20/2024 9:07 PM [facility] Total Bilirubin 0.4 0.0 - 1.4 mg/dL LAB CHEMISTRY METHOD 12/20/2024 9:07 PM [facility] Blood Venous blood specimen / Unknown Venipuncture / Unknown 12/20/2024 3:29 PM EST 12/20/2024 3:29 PM EST Gerry JEAN LAB BLOOD ORDERABLES Fin al Result [facility] [address] [place] [address], [place] [phone] * Prostate specific antigen screen (12/03/2024 9:46 AM EST) Pathologist [facility] PSA 0.84 0.00 - 4.00 ng/mL LAB CHEMISTRY METHOD 12/03/2024 1:02 PM EST [facility] Blood Venous blood specimen / Unknown Venipuncture / Unknown 12/03/2024 9:46 AM EST 12/03/2024 9:46 AM EST Narrative [facility] - 12/03/2024 1:02 PM EST The Siemens Advia Centaur Chemiluminescent Immunoassay is used. Results obtained with different assay methods or kits cannot be used interchangeably. Results cannot be interpreted as absolute evidence of the presence or absence of malignant disease. Prabhjot Ford MD LAB BLOOD ORDERABLES Final Resul t Performing Organization Address City/[facility]/ZIP Co de Phone Number [facility] [address] [place] [address], [place] [phone] * (ABNORMAL) Urinalysis with reflex microscopic and culture (12/02/2024 3:36 PM EST) Pathologist [facility] [place] Urine 1.026 1.003 - 1.030 LAB URINALYSIS - AUTOMATED METHOD 12/02/2024 7:10 PM EST [facility] pH, Urine 6.0 5.0 - 8.0 pH LAB URINALYSIS - AUTOMATED METHOD 12/02/2024 7:10 PM [facility] Leukocytes, Urine Moderate(A) Negative LAB URINALYSIS - AUTOMATED METHOD 12/02/2024 7:10 PM [facility] Nitrite, Urine Negative Negative LAB URINALYSIS - AUTOMATED METHOD 12/02/2024 7:10 PM [facility] Protein, Urine Negative <=Trace mg/dL LAB URINALYSIS - AUTOMATED METHOD 12/02/2024 7:10 PM [facility] Glucose, Urine Negative Negative mg/dL LAB URINALYSIS - AUTOMATED METHOD 12/02/2024 7:10 PM [facility] Ketones, Urine Negative Negative mg/dL LAB URINALYSIS - AUTOMATED METHOD 12/02/2024 7:10 PM [facility] Urobilinogen , Urine 0.2 0.2 - 1.0 mg/dL LAB URINALYSIS - AUTOMATED METHOD 12/02/2024 7:10 PM [facility] Bilirubin, Urine Negative Negative LAB URINALYSIS - AUTOMATED METHOD 12/02/2024 7:10 PM [facility] Blood, Urine Negative Negative LAB URINALYSIS - AUTOMATED METHOD 12/02/2024 7:10 PM [facility] RBC, Urine 6.1(H) 0 - 4 /HPF LAB URINALYSIS - AUTOMATED METHOD 12/02/2024 7:10 PM [facility] WBC, Urine 90.6(H) 0 - 4 /HPF LAB URINALYSIS - AUTOMATED METHOD 12/02/2024 7:10 PM [facility] Squamous Epithelial, Urine 79(H) 0 - 60 /LPF LAB URINALYSIS - AUTOMATED METHOD 12/02/2024 7:10 PM [facility] Bacteria, Urine Few(A) Negative /HPF LAB URINALYSIS - AUTOMATED METHOD 12/02/2024 7:10 PM [facility] Hyaline Casts, Urine 25.7(H) 0 - 3 /LPF LAB URINALYSIS - AUTOMATED METHOD 12/02/2024 7:10 PM [facility] Urine Urine specimen obtained by clean catch procedure / Unknown Non-blood Collection / Unknown 12/02/2024 3:36 PM EST 12/02/2024 3:36 PM EST us Prabhjot Ford MD LAB URINE ORDERABLES Final Resul t Performing Organization Address City/[facility]/ZIP Co de Phone Number [facility] [address] [place] [address], [place] [phone] * Faria urine culture tube (12/02/2024 3:36 PM EST) Extra Tube Hold for add-ons. 12/02/2024 7:01 PM EST [facility] Comment:Auto resulted. Urine Urine specimen obtained by clean catch procedure / Unknown Non-blood Collection / Unknown 12/02/2024 3:36 PM EST 12/02/2024 3:36 PM EST us Prabhjot Ford MD LAB URINE ORDERABLES Final Resul t Performing Organization Address [facility] Co de Phone Number [facility] [address] [place] [address], [place] [phone] * (ABNORMAL) Culture urine (12/02/2024 3:36 PM EST) Culture, Urine 10,000-49,000 CFU/mL Staphylococcus epidermidis(A) ELGIN 12/06/2024 9:38 AM EST [facility] Comment: Beta-lactamase negative The organism [...] MICROBIOLOGY - GENERAL ORDER ROEL Final Result [facility] [address] [place] [address], [place] [phone] * (ABNORMAL) POC Urine Non-Auto W/O Micro (12/02/2024 3:06 PM EST) Pathologist [facility] Leukocytes UA POC Positive(A) Negative Nitrite UA POC Negative Negative Urobilinogen UA POC Negative Negative Protein UA POC Positive(A) Negative PH UA POC 6.0 5.0 - 9.0 Blood UA POC Negative Negative, Trace [facility] [place] UA POC 1.025 1.001 - 1.035 Ketones UA POC 1+(A) Negative Bilirubin UA POC Negative(A) Negative Glucose UA POC Normal Normal, Trace Urine Urine specimen obtained by clean catch procedure / Unknown 12/02/2024 3:06 PM EST us Prabhjot Ford MD POINT OF CARE TEST ENTER/EDIT OR DERABLES Edited Result - Final * Lipid panel with reflex to direct LDL (09/06/2024 11:59 AM EST) Pathologist [facility] Cholesterol 90 0 - 200 mg/dL LAB CHEMISTRY METHOD 09/06/2024 4:46 PM EST [facility] Triglycerides 50 0 - 150 mg/dL LAB CHEMISTRY METHOD 09/06/2024 4:46 PM EST [facility] HDL 49 >=40 mg/dL LAB CHEMISTRY METHOD 09/06/2024 4:46 PM EST [facility] LDL Calculated 31 0 - 100 mg/dL LAB CHEMISTRY METHOD 09/06/2024 4:46 PM EST [facility] VLDL Cholesterol Evans 10 mg/dL LAB CHEMISTRY METHOD 09/06/2024 4:46 PM EST [facility] Non HDL Chol. (LDL+VLDL) 41 <145 mg/dL LAB CHEMISTRY METHOD 09/06/2024 4:46 PM EST [facility] Chol/HDL Ratio 1.8 0.0 - 4.4 LAB CHEMISTRY METHOD 09/06/2024 4:46 PM EST [facility] Blood Venous blood specimen / Unknown Venipuncture / Unknown 09/06/2024 11:59 AM EST 09/06/2024 11:59 AM EST Caity JEAN LAB BLOOD ORDERABLES Final Result Performing Organization Address City/State/[facility] Co de Phone Number [facility] [address] [place] [address], * Colonoscopy (04/29/2024) Pathologist [facility] Colonoscopy No interpreta tion,abstr acted Anatomical Region Laterality Modality Other [facility] Provider HEALTH MAINTENANCE Final Result * Falls Risk Assessment (03/26/2024) [facility] Falls Risk Assessment Abstracted [facility] Provider HEALTH MAINTENANCE Final Result * Depression Screening (03/26/2024) Pathologist [facility] Depression Screening Abstracted [facility] Provider HEALTH MAINTENANCE Final Result * Hepatitis C Screening (10/03/2019) [facility] Hepatitis C Screening Abstracted [facility] Provider HEALTH MAINTENANCE Final Result from Last 3 Months or Most Recently Relevant to Health Maintenance Insurance [facility] MEDICARE Member Subscriber Plan / Payer (Ef fective 2021-Present) Name:David Milton Relation to Subscriber:Self Name:David Milton Payer ID:[id number] Group ID:[id number] Type:Not on file Address: [place] [address] [id number] Care Teams Wallpaper Scraper Relationship Specialty Start Date End Date Prabhjot Ford MD [address] [place] [address] PCP - General 08/22/1999
--- OUTSIDE RECORDS SUMMARY | 2025-01-21 11:30 | XMS_ITS | Encounter Summary ---
Author Organization [facility] Address [address] [place] [address] Care Team Providers Care Curator Medical Museum Name Role Phone Prabhjot Ford MD Primary Care Provider [phone] Reason for Visit * Reason Onset Date Comments prior auth for medication 01/17/2025 Encounter Details Date Type Department Care Team ([facility] Contact Info) Description 01/17/2025 Telephone Adult Medicine [facility] [place] [place] [address] [place] [address] Prabhjot Ford MD [address] [place] [address] prior auth for medication Social History Tobacco Use Types Packs/Day Years [...] as of this encounter Progress Notes * Ronit Pedraza - 01/17/2025 10:40 AM EDT Prior Authorization for Medication-do not complete and send this encounter unless you have the fax from the pharmacy. Is this a Cover My Meds request: Yes -- Gonzales Code [id number] Name of Medication Lidocaine Dose of Medication 5% patches What is the RX # from the faxed refill? How does patient take this med? What [facility] the [facility]: [facility] Party Information from fax: What Prescription Plan does the patient have? BIN/PCN if applicable: Cardholder ID: Person Code: Relationship Code: Help desk phone: documented in this encounter Plan of Treatment Upcoming Encounters Date Type Department Care Team (Late st Contact Info) Description 01/27/2025 10:10 AM EDT Office Visit [facility] - [facility] [address] [facility] [address] [place] [phone] Sarah Ramos NP 300 [facility] [address] [place] [address] 02/26/2025 9:45 AM EDT Office Visit Orthopedic Surgery - [place] [address] [facility] [address] [place] [phone] Delfin Bowser DPM 175 [facility] [address] [place] [address] 03/25/2025 9:45 AM EDT Office Visit Adult Medicine [place] [address] [place] [address] Juan Alberto Samuel NP [address] [place], [place] 07/04/2025 9:30 AM EDT Office Visit Pulmonolgy - [place] 175 [facility] [address] [place] [address] Karon Sanchez NP 175 [facility] [address] [place] [address] 08/13/2025 2:00 PM EDT Office Visit Nephrology - [address] [phone] Humberto Marshall MD 100 [facility] [address] [place] [address] documented as of this encounter Visit Diagnoses Not on filedocumented in this encounter Care Teams Curator Medical Museum Relationship Specialty Start Date End Date Prabhjot Ford MD [address] [place] [address] PCP - General 08/22/1999 documented as of this encounter
--- OUTSIDE RECORDS SUMMARY | 2025-01-21 11:30 | XMS_ITS | Encounter Summary ---
Author Organization [facility] Address [address] [place] [address] Care Team Providers Care Floor Space Allocator Name Role Phone Prabhjot Ford MD Primary Care Provider [phone] Reason for Visit * Reason Onset Date Comments [place] 12/26/2024 Encounter Details Date Type Department Care Team ([facility] st Contact Info) Description 12/26/[address] [address] Caity Nunn PA [address] [place] [address] HIRO Lim Social History Tobacco Use Types [...] - 12/26/2024 11:28 AM EST Dorene from [facility] is asking if the last office visit notes can be faxed to there office.. Last OV is 03/01/24. Please fax to: [phone] phone: [phone] documented in this encounter Plan of Treatment Upcoming Encounters Date Type Department Care Team (Late st Contact Info) Description 01/27/2025 10:10 AM EDT Office Visit [facility] - [facility] [address] [facility] [address] [place] [address] Sarah Ramos NP 300 [facility] [address] [place] [address] 02/26/2025 9:45 AM EDT Office Visit Orthopedic Surgery - [place] [address] [facility] [address] [place] [phone] Delfin Bowser DPM 175 [facility] [address] [place] [address] 03/25/2025 9:45 AM EDT Office Visit Adult Medicine [place] - [place] [address] [place], [place] [phone] Juan Alberto Samuel NP [address] [place], [place] 07/04/2025 9:30 AM EDT Office Visit Pulmonolgy - [place] 175 [facility] [address] [place] [address] Karon Sanchez NP 175 [facility] 200 [place] [address] 08/13/2025 2:00 PM EDT Office Visit Nephrology - [place] [id number] [place], [place] [phone] Humberto Marshall MD [address] [facility] [address] [place] [address] documented as of this encounter Visit Diagnoses Not on filedocumented in this encounter Care Teams Floor Space Allocator Relationship Specialty Start Date End Date Prabhjot Ford MD [address] [place] [address] PCP - General 08/22/1999 documented as of this encounter
--- OUTSIDE RECORDS SUMMARY | 2025-01-21 11:30 | XMS_ITS | Clinical Summary ---
Author Organization [facility] Address [address] [place] [address] Care Team Providers Care Ultrasound Tech Name Role Phone Prabhjot Ford MD Primary Care Provider [phone] Allergies No known active allergies Medications Medication [...] age to complete this topic Care Teams Ultrasound Tech Relationship Specialty Start Date End Date Prabhjot Ford MD PCP - General Internal Medicine 08/03/18
--- OUTSIDE RECORDS SUMMARY | 2025-01-21 11:30 | XMS_ITS | Clinical Summary ---
Author Organization [facility] Address [address] [place] [address] Phone Care Team Providers Care Rn Travel Name Role Phone Prabhjot Ford MD Primary Care Provider [phone] Allergies No known active allergies Medications albuterol [...] 0 Refills, Maintenance, 08/03/23 10:19:00 EDT, Tablet, [facility], Partial margo... 3 Active [...] Chloride 30.0(A) 99.0 - 108.0 eGFR Non-Afr [place] 44 Hemoglobin A1C 6.9(A) 4.0 - 6.0 02/01/2024 Historical Provider LAB BLOOD ORDERABLES Lynnette l Result from Last 3 Months or Most Recently Relevant to Health Maintenance Insurance [facility] ([id number]) [facility] ([id number]) Care Teams Rn Travel Relationship Specialty Start Date End Date Prabhjot Ford MD PCP - General Internal Medicine 03/12/24
== END 2025-01-21 09:50 | disposition home or self-care (01) ==
LOC: HO.LAB 09:49
PROVIDERS: Family Medicine; PCP Internal Medicine; Visit Provider Internal Medicine Rheumatology
DX: N17.9 Acute kidney failure, unspecified (principal); R74.01 Elevation of levels of liver transaminase levels
CPT/HCPCS: 36415; 80048; 84450; 84460

== ENCOUNTER 2025-03-12 09:27 | Outpatient (AMB) | payer OTHER, SELFPAY ==
[2025-03-12 09:29] VITALS: BP 118/78; PULSE 96; O2SAT 97; BMI 34.7
--- NOTE | 2025-03-12 09:29 | MHC.OFFVIS ---
Vital Signs 03/12/25 09:29 Height 5 ft 6 in Weight 214 lb 15.211 oz BMI 34.7 BP 118/78 Blood Pressure Location Lt brachial Position Sitting Pulse 96 Pulse Source Pulse Oximeter Pulse Oximetry (%) 97 Oxygen Delivery Method Room Air Intake Visit Reasons: ankle swollen Intake Note: Patient presents with swollen ankles, right is worse. It has been going on for 2 weeks. Accompanied by: CHILD NUTRITION MANAGER Allergies Beef Containing Products Adverse Reaction (Verified 03/12/25 09:34) Unknown Pork/Porcine Containing Products Adverse Reaction (Verified 03/12/25 09:34) Unknown HPI HPI ankle swollen: Details: He was experiencing lower extremity swelling for 2 weeks. Initially swelling involved his feet, ankle up to his knees. He was prescribed torsemide for 2 days starting yesterday with benefit. Left ankle swelling has improved. He also no longer has swelling up to his knees. Hand pain in his dorsal right hand has resolved. He takes Tylenol 2 tablets 500 mg daily. [facility] Medical History GERD (gastroesophageal reflux disease) Diabetes COPD (chronic obstructive pulmonary disease) Obesity PAF (paroxysmal atrial fibrillation) Diastolic HF (heart failure) Acute hypotension Fluid volume depletion Social History Household Members: None Housing: House Do you presently have visiting nurse or other home services: Yes (arlene,nico) Alcohol intake: former Patient Tobacco Use Status: Never used Tobacco Advance Directives Date on File: 02/16/24 service: No Current occupational status: retired Physical Exam Vital Signs: Last Vital Signs Pulse 96 03/12/25 09:29 BP 118/78 03/12/25 09:29 Pulse Ox 97 03/12/25 09:29 Oxygen Delivery Method Room Air 03/12/25 09:29 BMI result Body Mass Index 34.7 Const Other: General: Comfortable CVS: RRR Respiratory: clear to auscultation bilaterally. Good respiratory effort Skin: No lesions seen MSK: No synovitis. Heberden's and Luana's nodes present. No tenderness of joints in his upper extremities. 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 Limited abduction of his shoulders to 120 degrees. Normal external and external range of motion of his shoulders. He has pitting edema of bilateral dorsal feet, ankles right worse than left. Right leg pitting edema to mid mendieta. Assessment & Plan Assessment & Plan (1) Ankle swelling: Comment: Due to exacerbation of HFpEF. He has lower extremity pitting edema right leg worse than left. He was prescribed torsemide recently with benefit. He also reports compression stockings has improve lower extremity edema. Concurrently with lower extremity swelling he has been experiencing constant foot pain. He has hallux valgus deformity due to osteoarthritis. We discussed conservative management. Code(s): M25.473 - Effusion, unspecified ankle Category: Medical Plan: Continue diuretic management per PCP/cardiology Continue to wear compression stockings Continue continue to wear supportive footwear He will Epson salt soaks daily He will consider paraffin wax bath Increase Tylenol 1000 mg twice a day If foot pain does not improve by next visit, I will obtain x-rays of bilateral feet ?RA activity contributing. 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 Rheumatology history: Erosive (erosion in between left medial and intermediate cuneiform, joint space narrowing of bilateral radial carpal joints, bilateral 5th MCPs). Seronegative. [facility] 11/2023- Code(s): M06.9 - Rheumatoid arthritis, unspecified Category: Medical Qualifiers: Rheumatoid arthritis location: multiple sites Rheumatoid factor presence: without rheumatoid factor Qualified Code(s): M06.09 - Rheumatoid arthritis without rheumatoid factor, multiple sites Plan: Labs for disease and drug monitoring on high-risk medication up-to-date. Continue hydroxychloroquine 200 mg daily. Eye exam from 06/2024 has OCT exam results in the report but provider has not provided interpretation and recommendations if it is safe for patient to continue hydroxychloroquine. I am requesting this information. Requesting eye exam from his pulmonary disease specialist Dr. Allen. Return to clinic in 3 months (3) Other statistical clerk advertising (current) drug therapy: Code(s): Z79.899 - Other statistical clerk advertising (current) drug therapy Category: Medical Plan: See above Coding Level of Care Code Est Pt Level 4 (99310) Complex EM visit Add On G2211 Diagnoses Ankle swelling M25.473 Rheumatoid arthritis of multiple sites with negative rheumatoid factor M06.09 Rheumatoid arthritis location: multiple sites Rheumatoid factor presence: without rheumatoid factor Other snf (current) drug therapy Z79.899
--- OUTSIDE RECORDS SUMMARY | 2025-03-12 10:44 | XMS_ITS | Clinical Summary ---
Author Organization [facility] Address [address] [place] [address] Phone Care Team Providers Care Toolmaker Grade Three Name Role Phone Prabhjot Ford MD Primary Care Provider [phone] Allergies No known active allergies Medications albuterol [...] 0 Refills, Maintenance, 08/03/23 10:19:00 EDT, Tablet, [facility], Partial margo... 3 Active [...] of right acromioclavicular joint 08/22/2018 03/22/2024 Immunizations Immunization Administration Dates Next Due H1N1 Inj Preservative [...] Due Date Last Done Comments Pneumococcal Vaccine: 50+ Years (3 of 3 - PCV) 06/14/2018 06/14/2017, 08/20/2003 Diabetes: Ophthalmology Exam 03/22/2024, 11/19/2009 Diabetes: Pedal Pulse Checked 03/22/2024 Diabetes: Sensory Foot Exam 03/22/2024 Diabetes: Visual Foot Exam 03/22/2024 Diabetes: Hemoglobin A1C 06/25/2024 024, 02/01/2024 Influenza Vaccine (Season Ended) 2025 07/19/2021, 08/03/2020, 09/11/2019 Hepatitis B Vaccine Aged Out No longe [...] Chloride 30.0(A) 99.0 - 108.0 eGFR Non-Afr [place] 44 Hemoglobin A1C 6.9(A) 4.0 - 6.0 02/01/2024 us Historical Provider LAB BLOOD ORDERABLES Lynnette l Result from Last 3 Months or Most Recently Relevant to Health Maintenance Insurance [facility] ([id number]) [facility] ([id number]) Care Teams Toolmaker Grade Three Relationship Specialty Start Date End Date Prabhjot Ford MD PCP - General Internal Medicine 03/12/24
--- OUTSIDE RECORDS SUMMARY | 2025-03-12 10:44 | XMS_ITS | Data Portability ---
Author Organization [facility] Address [address] [place] [phone] Care Team Providers Care Gis Analyst Name Role Phone SAEID GLASS Primary Care Provider [phone] HIM CCA OTHER Assessment Encounter Date Assessment Date Assessment LastModified by Organization Details LastModified Time 02/05/2024 02/05/2024 I provided real -time medical direction via phone for this encounter, and was available for additional phone based assistance as needed. I have reviewed and agree with the Assessment and Plan as documented by the Poundmaster. We discussed the diagnostic uncertainty of home [...] to call 911- verbalized understanding of instruction [email or web address] Not available 02/05/2024 18:42:34 04/09/2024 04/09/2024 I have reviewed and agree with the assessment and plan as documented by the armhole sewer. I provided real time medical direction for this encounter and was immediately available to provide additional phone based assistance as needed. History as noted by armhole sewer. Pt with history of COPD, CHF, DM. [...] call either his Primary care team and/or configuration engineer today to discuss the episode with them [...] Lab glucose, fingerst ick, blood [address], [phone] 4 18:47:12 BMP, serum or plasma 2023 [email or web address], [address] 4 18:47:11 Referral None recorded . Procedures [...] Abnormal Flag Note LastModifiedBy Organization Detail LastModifiedTime 07/03/2007/03/2023 BMP, serum or plasm a BUN 30 Not Available Main - Ins [address], [phone] 07/03/2023 14:03:06 07/03/2007/03/2023 BMP, serum or plasm a CRE 1.5 Not Available Main - Ins [address], [address] [place] [address] 07/03/2023 14:03:06 07/03/20 23 07/03/2023 BMP, serum or plasm a K+ 4.0 Not Available Main - Ins [address], [address] [place] [address] 07/03/2023 14:03:06 07/03/20 23 07/03/2023 BMP, serum or plasm a Na+ 139 Not Available Main - Ins [address], [address] [place] [address] 07/03/2023 14:03:06 02/05/20 24 02/05/2024 BMP, serum or plasm a BUN 35 Not Available Main - Ins [address], [address] [place] [address] 02/05/2024 17:09:34 02/05/20 24 02/05/2024 BMP, serum or plasm a Ca Ionize d calciu m 1.12 Not Available [facility] - [address], [address] [place] [address] 02/05/2024 17:09:34 02/05/20 24 02/05/2024 BMP, serum or plasm a CI- 98 Not Available Main - Ins [address], [address] [place] [address] 02/05/2024 17:09:34 02/05/20 24 02/05/2024 BMP, serum or plasm a CRE 1.6 Not Available Main - Ins [address], [address] [place] [address] 02/05/2024 17:09:34 02/05/20 24 02/05/2024 BMP, serum or plasm a GLU 147 Not Available Main - Ins [address], [address] [place] [address] 02/05/2024 17:09:34 02/05/20 24 02/05/2024 BMP, serum or plasm a K+ 4.1 Not Available [facility] - Ins [address], [address] [place] [address] 02/05/2024 17:09:34 02/05/20 24 02/05/2024 BMP, serum or plasm a Na+ 139 Not Available Main - Ins [address], [address] [place] [address] 02/05/2024 17:09:34 02/05/20 24 02/05/2024 BMP, serum or plasm a tCO2 30 Not Available Main - Ins ender [address] [place] [address], [phone] 02/05/2024 17:09:34 02/05/20 24 02/05/2024 gluco eduardo benson, blood Blood Glucose: mg/dl 77 by cgm. 153 by medic glucom eter Not Available Main - Inst ed [address] [place] [address], [phone] 02/05/2024 17:09:28 Result Notes None recorded. Medical [...] Updated DateTime 3 90 /min 16 /min 450458. 384 g 97.1 [degF] 100 % 100 % 139 mm[Hg] 86 mm[Hg] Not Available [facility] - production 3 10:57:00 Date Recorded Body temperature Oxygen saturation Oxygen saturation in Arterial blood by Pulse oximetry Respiratory rate Heart rate Systolic blood pressure Diastolic blood pressure Provider Name and Address Organization Details Last Updated DateTime 4 98 [degF] 100 % 100 % 18 /min 80 /min 157 mm[Hg] 83 mm[Hg] Not Available [facility] - production 4 16:50:57 Date Recorded Respiratory rate Body temperature Body weight Body height Oxygen saturation Oxygen saturation in Arterial blood by Pulse oximetry Heart rate Systolic blood pressure Diastolic blood pressure Provider Name and Address Organization Details Last Updated DateTime 4 16 /min 97.6 [degF] 398373. 792 g 167.64 cm 99 % 99 % 80 /min 107 mm[Hg] 63 mm[Hg] Not Available [facility] - production 4 17:04:04 Date Recorded Body temperature Oxygen saturation Oxygen saturation in Arterial blood by Pulse oximetry Respiratory rate Heart rate Systolic blood pressure Diastolic blood pressure Provider Name and Address Organization Details Last Updated DateTime 4 97.2 [degF] 98 % 98 % 16 /min 85 /min 125 mm[Hg] 80 mm[Hg] Not Available [facility] - production 4 17:20:24 Date Recorded Heart rate Body height Body weight Oxygen saturation Oxygen saturation in Arterial blood by Pulse oximetry Body temperature Respiratory rate Systolic blood pressure Diastolic blood pressure Provider Name and Address Organization Details Last Updated DateTime 4 76 /min 167.64 cm 404151. 608 g 98 % 98 % 97.2 [degF] 14 /min 106 mm[Hg] 72 mm[Hg] Not Available [facility] - production 4 15:26:30 Social History None recorded. Functional Status None recorded. Mental Status None recorded. Family History Nothing Reported. Medical History No medical history recorded. Past Encounters Encounter ID Performer Location Encounter Start Date Encounter Closed Date Diagnosis/Indication Diagnosis SNOMED-CT Code Diagnosis ICD10 Code Diagnosis Note [id number] Yogesh Piedra MD Main - [facility] [address] [place] [id number] 01/10/2022 11:39:25 07/19/2022 14:03:31 Hypertensive disorder 57028950 I10 [id number] Ramya Gramajo MD Main - [facility] [address] [place] [phone] 05/12/2022 12:45:21 07/05/2022 21:10:28 Chest pain 67020940 R07.9 appears to be muscular as he [...] diaphoresi s/SOB/ presyncope [id number] Familia Roa MD Main - [facility] [address] [place] [id number] 08/23/2022 12:45:38 08/23/2022 16:41:09 Low blood pressure 82925722 I95.9 This 76-year-ol d male with a [facility] and palpitatio ns earlier today. When the armhole sewer arrived he was back at his baseline with no complaints . I recommende d that he continue with his usual treatments and follow-up with his PCP. The patient agreed with this plan. [id number] Shannan Hannah MD Main - [address] [address] 09/19/2022 12:20:33 09/21/2022 11:23:54 Viral upper respiratory tract infection 447606934 J06.9 76 year old male being evaluated for malaise, cough and diarrhea since last night. Patient able to tolerate PO. Exam notable for normal vital signs. POC COVID and flu negative. Reassuranc e offered. FU PCP prn. [id number] Deamr Allan MD Main - [address] [phone] 12/24/2022 22:17:55 12/26/2022 09:40:15 Viral syndrome 491431474 B34.9 Reports exposure to home health aide [...] discussed. [id number] Shannan Hannah MD Main - [address] [phone] 02/18/2023 14:31:21 02/20/2023 09:53:22 Headache 61717114 R51.9 77 year old male being evaluated [...] hold NSAIDS given patient is on eliquis. [id number] Shivani Bowman MD Main - [facility] [address] [place] [phone] 04/15/2023 19:16:26 04/17/2023 09:48:17 Peripheral edema 767223849 R60.9 [id number] Ana Arroyo MD Main - [facility] [address] [place] [id number] 07/03/2023 13:57:16 07/03/2023 17:01:42 Congestive heart failure 40232282 I50.9 Evaluation in the field was performed by my armhole sewer colleague, as noted above, I provided real-time direction and supervisio n for this visit. 77yo M PMHx COPD, HTN, AFib, CHF p/w 3 lb wt gain and R>L LE edema. Denies resp symptoms. VS wnl, on armhole sewer exam 2+ R>L pitting edema w/o weeping, [...] shortness of breath, cough, chest pain, fever. [id number] Lester Lewis MD Main - [facility] [address] [place] [phone] 07/04/2023 18:51:19 07/05/2023 11:39:12 Congestive heart failure 92860915 I50.9 [id number] Lisette Ramos MD Main - [facility] [address] [place] [id number] 07/24/2023 10:56:51 07/24/2023 22:57:02 Congestive heart failure 70308812 I50.9 77 yo w/HF p/w 3lb weight [...] follow up with PCP/cardio logist. Pt and armhole sewer agree with plan, all questions answered. 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 F/u tomorrow with PCP. [id number] Ramya Gramajo MD Main - [facility] [address] [place] [id number] 02/05/2024 17:04:02 02/05/2024 19:06:16 Hypoglycemia 522253390 E16.2 Patient is actually not hypoglycem ic-BMP [...] strips to do this. Note sent to wound care technician via CRC to discuss with PCP getting a telehealth nurse educator to the house to show patient [...] good way for him to stay hydrated. [id number] MILTON CHAMORRO MD Main - [facility] [address] [place] [phone] 03/09/2024 17:20:23 03/11/2024 11:13:33 Low blood pressure 09426189 I95.9 Evaluation in the field was performed by my armhole sewer colleague, as noted above, I provided real-time [...] just finished it when seen by the armhole sewer. During the visits VS stable, BP 125/ [...] CP, SOB, N/V/D or any other concerns [id number] Yogesh Piedra MD Main - [facility] [address] [place] [phone] 04/09/2024 15:26:25 04/09/2024 21:18:24 Hypotensive episode 21291542 I95.9 Health Concerns Section Related Observation LastModified by Organization Detai ls LastModified Time None Recorded Concern Status LastModified by Organization Details LastModified Time None Recorded Advance Directives Directive None Recorded Payers Insurance Date Sequence Insurance Name Policy Number Policy Hernandez Covered Member ID Hernandez Member ID Guarantor Name 04/15/2023 1 [facility] - DOS PRIOR TO 2023 - DUAL ELIGIBLE (MEDICARE REPLACEMENT/ADV ANTAGE - HMO) David Milton [id number] David Milton 04/09/2024 1 [facility] - DOS ON OR AFTER 2023 - DUAL ELIGIBLE - USP OPTIONS AND ONE CARE (MEDICARE REPLACEMENT/ADV ANTAGE - HMO) David Milton [id number] David Milton Notes Date Note Type Note [...] ..................... ..................... ..................... ..................... ..................... ..................... ............... Poundmaster Note From Jakob Blanton: Pt reports increased [...] Pt advised to f/u with PCP / configuration engineer. Pt instructed to seek emergent medical care for new or worsening sx, which are reviewed with him. ..................... ..................... ..................... ..................... ..................... ..................... ............... Disposition: Fulfilled Lisette Ramos MD [address] [facility],[address], [place], [address], [facility] 07/24/2023 15:51:00 11/28/2023 text/html CRC Nurse Triage [...] ..................... ..................... ..................... ..................... ..................... ..................... ............... Poundmaster Note From Christy Tate: Sent to a [...] CHF, and Hypotension. Pt was admitted to [facility] from 11/24-11/27 for hypotension and hypoglycemia. [...] blood draw performed: Chem8+ results uploaded to [employer]. B; Pt's visiting nurse sets up pt's continuous glucose monitor. [facility] consulted and pt advised to have glucose tabs in case BG dips again. Pt advised to follow up with tire specialist. [facility] Visiting nurse will help get replacement glucometer for pt. Red flags discussed. Pt has no further questions. ..................... ..................... ..................... ..................... ..................... ..................... ............... Disposition: Julian Ramos MD [address] [facility],[address], [place], [address], [employer] [employer] 11/28/2023 21:06:34 02/05/2024 text/html CRC Nurse Triage [...] ..................... ..................... ..................... ..................... ..................... ..................... ............... Poundmaster Note From Leonel Farmer: Smartcare visit for [...] diminished though patient is obese. Consulted with [facility] Dr. Gramajo. [facility] was concerned about malfunction with pt's meter [...] has no complaints currently. Ramya Gramajo MD [address] [facility],[address], [place], [address], [facility] 02/05/2024 18:47:50 03/09/2024 text/html CRC Nurse Triage Notes (Jay Swartz): Chief Complaints: Hypotension PMH: COPD/Asthma, CHF, Diabetes Allergies: Unknown Comments: Building Estimator verified the member's name//address and phone number. [...] ..................... ..................... ..................... ..................... ..................... ..................... ............... Poundmaster Note From Jakob Blanton: Pt reports low systolic BP? s earlier today (uppers 90? s -low 100? s ). Pt sts he feels well, denying any [...] ............... Disposition: Fulfilled MILTON CHAMORRO MD [address] [facility],[address], [place], [address], [facility] 03/09/2024 17:30:15 04/09/2024 text/html This was a super vised home visit with armhole sewer Christian Art. CRC Nurse Triage Notes (Jazmin [...] ..................... ..................... ..................... ..................... ..................... ..................... ............... Poundmaster Note From Christian Art: 78 yo M [...] a month. Pt reports feeling fine when [facility] arrived. He denies CP, SOP, dizziness, N/V/D, or pain. Pt seemed more concerned about getting ahold of a different [facility] member, for a personal matter, non-MIH related. Pt reports he is unable to drink water due to his BLE edema. MD consult: advised the pt needs to stay indoors since it is above, and call his configuration engineer for med adjustments. ..................... ..................... ..................... ..................... ..................... ..................... ............... Disposition: Fulfilled Yogesh Piedra MD [address] [facility],[address], [place], [address], [facility] 04/09/2024 16:56:14
--- OUTSIDE RECORDS SUMMARY | 2025-03-12 10:44 | XMS_ITS | Encounter Summary ---
Author Organization [facility] Address [address] [place] [address] Care Team Providers Care Lye Bath Operator Name Role Phone Prabhjot Ford MD Primary Care Provider [phone] Reason for Visit * Reason Onset Date Comments Medication Problem 02/17/2025 Encounter Details Date Type Department Care Team ([facility] st Contact Info) Description 02/17/2025 Telephone Adult Medicine [facility] [address] [place] [phone] Prabhjot Ford MD [address] [place], [place] [phone] Medication Problem Social History Tobacco Use Types Packs/Day Years Used Date Smoking Tobacco: Never Passive Smoke Exposure: Past Smokeless Tobacco: Never Alcohol Use Standard Drinks/Week Comments Not Currently 0 (1 standard drink = 0.6 oz pur e alcohol) Sex and Gender Information Value Date Recorded Sex Assigned at Not on file Legal Sex Male 10:27 AM EST Gender Identity Not on file Sexual Orientation Not on file documented as of this encounter Progress Notes * Prabhjot Ford MD - 02/17/2025 12:46 PM EDT Can be used on different body parts, alternating. * Uri Ortiz - 02/17/2025 10:33 AM EDT Patient called stating that ammonium lactate (AMLACTIN) 12 % cream Is too sticky to his skin , would like alternative medication to be sent to the pharmacy Would like licaride body lotion - contact the patient with any questions documented in this encounter Plan of Treatment Upcoming Encounters Date Type Department Care Team (Late st Contact Info) Description 03/25/2025 9:45 AM EDT Office Visit Adult Medicine [facility] [address] [place], [place] [phone] Juan Alberto Samuel NP [address] [place], [place] 05/01/2025 9:30 AM EDT Office Visit Orthopedic Surgery - [place] [address] [facility] [address] [place] [address] Delfin Bowser DPM [address] [address] 07/04/2025 9:45 AM EDT Office Visit Pulmonolgy - [place] [address] [facility] [address] [place] [address] Karon Sanchez NP [address] [address] 08/13/2025 2:00 PM EDT Office Visit Nephrology [address] [phone] Humberto Marshall MD [address] [facility] [address] [place] [address] documented as of this encounter Visit Diagnoses Not on filedocumented in this encounter Care Teams Lye Bath Operator Relationship Specialty Start Date End Date Prabhjot Ford MD [address] [place] [address] PCP - General 08/22/1999 documented as of this encounter
--- OUTSIDE RECORDS SUMMARY | 2025-03-12 10:44 | XMS_ITS | Clinical Summary ---
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 Active Alcohol Prep Pads pads, medicated Active [...] 1 Dose into one nostril if needed. Active hydroxychloroqui ne (PLAQUENIL) 200 mg tablet Take 1 tablet (200 mg total) by mouth 1 (one) time each day. Active loratadine (CLARITIN) 10 mg tablet Take 1 tablet (10 mg total) by mouth 1 (one) time each day. Active Unifine Pentips 31 gauge x 5/16 needle 024 Active HealthyLax 17 gram packet Take 17 g by mouth 1 (one) time each day if needed. 024 Active Entresto 24-26 mg per tablet Take 1 tablet by mouth 1 (one) time each day. 023 Active medical supply, miscellaneous (MISCELLANEOUS MEDICAL SUPPLY MISC) Inhale by mouth. CPAP Active Lantus Solostar U-100 Insulin 100 unit/mL (3 mL) injection pen 20 units at bedtime, go up by 5 unit in 1 week if BS above 150. 15 mL 5 024 Active ammonium lactate (AMLACTIN) 12 % [...] (two) times a day. 130 g 025 Active hydrocortisone 2.5 % cream APPLY A SMALL AMOUNT OVER THE AFFECTED AREA(S) TWO TIMES A DAY (BULK) 28 g 4 025 Active blood-glucose sensor (TheMobileGamer (TMG)com G7 Sensor) deviceIndication s:Diabetes mellitus with stage 3 chronic kidney disease ([facility] V24, [facility] V28) by Not Applicable route every 14 (fourteen) [...] 30 g 3 025 Active Dexcom G7 Line Producer miscIndications: Diabetes mellitus with stage 3 chronic kidney disease ([facility] V24, [facility] V28) USE WITH DEXOM G7 SENSORS (BULK) 1 each 025 Active torsemide (DEMADEX) 20 mg tablet TAKE 2 TABLET BY MOUTH ONCE DAILY ^2R1 60 tablet 5 025 Active glucose 4 gram chewable tablet TAKE 4 TABLETS BY MOUTH NEEDED FOR LOW BLOOD SUGAR READING (VIAL) 50 tablet 3 025 Active apixaban (ELIQUIS) 5 mg tablet Take 1 tablet (5 mg total) by mouth 2 (two) times a day. 180 tablet 1 025 Active fluticasone propionate (FLONASE) 50 mcg/actuation nasal spray PLACE 2 SPRAYS IN EACH NOSTRIL DAILY FOR THREE TO FOUR WEEKS THEN DECREASE TO 1 SPRAY IN EACH NOSTRIL DAILY (BULK) 16 g 5 025 Active albuterol HFA (PROAIR HFA ; PROVENTIL HFA ; VENTOLIN HFA) 90 mcg/actuation inhalerIndicatio ns:Chronic obstructive pulmonary disease, unspecified COPD type ([facility] V24, [facility] V28) Inhale 2 puffs by mouth every 6 (six) hours if needed for wheezing or shortness of breath (cough and chest tightness). 18 g 025 Active fluticasone-umec lidinium-vilante rol (Trelegy Ellipta) 100-62.5-25 mcg inhalerIndicatio ns:Chronic obstructive pulmonary disease, unspecified COPD type ([facility] V24, [facility] V28) Inhale 1 puff (100 mcg total) by mouth 1 (one) time each day. Rinse mouth with water after use to reduce aftertaste and incidence of candidiasis. Do not swallow. 180 each 025 Active lidocaine (LIDODERM) 5 % patch PLACE ONE PATCH ONTO THE SKIN EVERY 24 HOURS. APPLY FOR NO MORE THAN 12 HOURS IN ANY 24 HOUR PERIOD (BULK) 28 patch 5 025 Active pregabalin (LYRICA) 75 mg capsule TAKE ONE CAPSULE BY MOUTH TWICE A DAY ^1R1,1R3 60 capsule 4 025 Active magnesium oxide (MAG-OX) 400 mg (241.3 elemental magnesium) tablet TAKE ONE TABLET BY MOUTH EVERY DAY ^1R1 30 tablet 8 025 Active atorvastatin (LIPITOR) 40 mg tablet TAKE ONE TABLET BY MOUTH EVERY DAY ^1R3 30 tablet 8 025 Active aspirin 81 mg chewable tablet CHEW AND SWALLOW ONE TABLET BY MOUTH EVERY DAY ^1R1 30 tablet 8 025 Active torsemide (DEMADEX) 20 mg tablet Take 3 tablets (60 mg total) by mouth 1 (one) time each day. 6 each 025 2025 Active magnesium oxide (MAG-OX) 400 mg magnesium tablet Take 1 tablet (400 mg total) by mouth 1 (one) time each day. 2024 Discontinued aspirin 81 mg chewable tablet Chew 1 tablet (81 mg total) 1 (one) time each day. 2024 Discontinued atorvastatin (LIPITOR) 40 mg tablet Take 1 tablet (40 mg total) by mouth 1 (one) time each day. 024 2024 Discontinued lidocaine (LIDODERM) 5 % patch Apply 1 patch topically 1 (one) time each day at the same time. 024 2024 Discontinued pregabalin (LYRICA) 75 mg capsule Take 1 capsule (75 mg total) by mouth 2 (two) times a day. 024 2024 Discontinued Active Problems Problem Noted Date Diagnosed Date Type 2 diabetes mellitus wit h stage 3 chronic kidney disease and hypertension ([facility] V24, [facility] V28) 12/25/2024 Type 2 diabetes mellitus wit hout complication, with long-term current use of insulin ([facility] V24, [facility] V28) 10/07/2024 Hypotension, unspecified 10/07/2024 Chronic obstructive pulmonar y disease, unspecified ([facility] V24, [facility] V28) 10/07/2024 Eosinophilia, unspecified 10/07/2024 Acidosis, unspecified 10/07/2024 Obesity, unspecified 10/07/2024 Gastroesophageal reflux disease without esophagi tis 10/07/2024 watermaster (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 of aspirin 10/07/2024 watermaster (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 of i nsulin ([facility] V24, [facility] V28) 10/07/2024 longterm (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 of anticoagulants 2023 watermaster (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 of oral hypoglycemic arya gs 10/07/2024 longterm (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 of inhaled steroids 09/22 Stage 3 chronic kidney disease ([facility] V24, [facility] V28) 03/01/2024 Assessment & Plan (12/23/2024 2:27 PM EST): Will continue to follow his renal function. Nocturnal hypoxia 11/22/2023 Overview (07/25/2024): 08/14/2023 overnight oximetry on IVAP shows: 1. Lowest SpO2 is 83%. 2. Time spent less than 88% is 3 minutes. 3. Patient spent most sleep time with adequate oxygen. No supplemental oxygen is indicated at this time. Coronary artery disease due to lipid rich plaque 12/21/2022 Overview (01/27/2025): - Had a pharmacologic nuclear stress test on 10/18/2022 (I have independently reviewed images)-I agree that it shows apical ischemia with borderline increased TID of 1.[address] evidence of three-vessel coronary calcification - No real anginal symptoms and therefore we are just managing medically Assessment & Plan (01/27/2025 12:19 PM EDT): The patient continues to deny anginal sounding discomfort. Continue medical therapy with aspirin, beta-betsy and statin Elevated blood protein 11/22/2022 Chronic heart failure with p reserved ejection fraction ([facility] V24, [facility] V28) 10/25/2021 Overview (01/27/2025): - Initially diagnosed 12/2021 at [facility] where he presented with symptoms of dyspnea and was diuresed - Echocardiogram January 2022, independently reviewed by Dr. Krishna, showed normal ejection fraction of 55 to [...] test-see coronary artery disease portion for results -Hospitalized at [facility] in November 2023 with lactic acidosis, hypotension, hypoglycemia-Entresto was transiently held as was torsemide, the patient was given IV fluids, eventually Entresto was restarted and torsemide was restarted at lower dose - Hospitalized again in January 2024 yet again with low blood pressure at the supplemental manager office in response to an increased to [...] also hypoglycemic so insulin doses were adjusted. Assessment & Plan (01/27/2025 12:18 PM EDT): Currently, the patient appears euvolemic on exam. He has not had much in a way recently of symptoms of breathlessness no lower extremity edema. This is great news! He will continue his current regimen of Arni, SGLT2, beta-betsy and diuretic. He seems to need some degree of diuretic to keep his lower extremity edema at bay, and he becomes hypotensive on higher doses of GDMT. Given that he is feeling well and has not required dose adjustment of his diuretic, we will continue his current treatment plan for now. Consideration could be given to cautiously add back low-dose MRA if his blood pressure continues to remain reasonable as his most recent renal function and electrolytes are also unremarkable. Assessment & Plan (12/23/2024 2:27 PM EST): [...] of 35 to 39.9 with serious comorbidity ([facility] V24, [facility] V28) 04/19/2019 Right foot drop 01/29/2019 Arthritis of right acromioclavicular joint 08/22 Venous insufficiency 05/22/2018 Sleep apnea 12/18/2017 Overview (07/25/2024): Mild overall; severe REM sleep apnea no sleep related hypoventilation... Obstructive sleep apnea 2017 [place] (07/25/2024): [facility] [place]: [place]; Wt 217# SE 73%; SM 77%; REM 22%; RDI 13 (AHI 7), worse in REM (RDI 32 - AHI 30), Central apneas 1; Obstructive apneas 8; Mixed apneas 0; hypopneas 36; RERAs 38; average oxygen saturation 96% (lowest 81% - without saturations <88% for 5% or more of study); PLMs 39. [facility] [place]. Date 08/17/2018. SE 72 % SM 74 %; spent 11 % of the study in REM. On CPAP @ 12; RDI 1.7 (AHI 1.7), Central apneas 3; Obstructive apneas 0; Mixed apneas 0; hypopneas 2; RERAs 0; and, average oxygen saturation was 93%. For the entire study, PLMs ~43. [facility] Polysomnogram treatment study. Date 07/29/2019. Wt 215#; BMI 35; SE 86 % SM 88 %; spent 24 % of the study in REM. On CPAP and BiPAP; RDI and AHI lowest at 9.9; and, average oxygen saturation was 94%. For the entire study, PLMs ~28. Prestudy ESS 10; 4/4 RLS symptoms. [facility] Polysomnogram ASV treatment study. Date 10/26/2019. Wt 226#; BMI 37; SE 58 % SM 75 %; spent 21 % of the study in REM. On ASV; RDI 7 (AHI 7), Central apneas 7; Obstructive apneas 0; Mixed apneas 0; hypopneas 30; RERAs 1; and, average oxygen saturation was 94%. For the entire study, PLMs ~1. Prestudy ESS 8; 0/4 RLS symptoms. [facility] Polysomnogram iVAPs treatment study. Date 10/29/2020. Wt 230#; BMI 37; SE 79 % SM 81 %; spent 13 % of the study in REM. IVAPs trialed at various pressure; given the elevated TC CO2 on ASV, interpreting physician recommended IVAPS with EPAP of 5;TV a 6.1 and PS minimum of 4; PS max of 20; LA 18 and height 66 inch - with a heated humidifier. - Obstructive Sleep Apnea - mild overall and severe in REM; mostly hypopneas; no sleep related hypoventilation by 2018 diagnostic polysomnogram. - PAP therapy and ASV failed to correct the TC CO2; iVAPS with EPAP of 5;TV a 6.1 and PS minimum of 4; PS max of 20; LA 18 and height 66 inch - with a heated humidifier. Osteoarthritis of hands, bilateral 12/08/2017 Paroxysmal atrial fibrillation (CMS/HCC V24, CMS /HCC V28) 12/01/2017 Overview (01/27/2025): - Initially noted to have events RVR 10/2017 during hospitalization abdominal pain and diarrhea with hypoglycemia in the setting of accidental overdose with insulin; spontaneously converted back to sinus rhythm - Anticoagulated with apixaban - Subsequent 30-day monitor in 12/2017 continue to show 2% atrial fibrillation -Sleep study in November documenting obstructive sleep apnea - 48-hour Holter monitor performed in October 2023 showing A-fib throughout with ventricular rate range 63 to 160 bpm with average of 96 bpm. Longest RR was 1.4 seconds. No significant pauses. Assessment & Plan (01/27/2025 12:22 PM EDT): Patient's heart rate is well-controlled vital signs. He remains asymptomatic in his atrial fibrillation. He does not have evidence of significant volume overload in office today. Continue rate control strategy with metoprolol and anticoagulation with apixaban. He has not had any bleeding issues. Assessment & Plan (12/23/2024 2:27 PM EST): Onychomycosis 03/10/2016 Arthritis of left shoulder region 10/01/2015 DJD (degenerative joint disease), cervical 10/01 Mild nonproliferative diabet ic retinopathy ([facility] V24, [facility] V28) 02/17/2015 Overview (07/25/2024): Taken from note of Dr. Witt on 09/16/2013 Nuclear sclerosis 02/17/2015 Overview (07/25/2024): Taken from note of Dr. Witt 09/16/2013. Peripheral vascular disease, unspecified ([facility]/ [facility] V24) 02/17/2015 Overview (07/25/2024): See note of Dr. Juan on 04/14/2009. Anemia 07/22/2011 Overview (07/25/2024): See note dated 09/13/11 from GI Assessment & Plan (12/23/2024 2:27 PM EST): History of stable normocytic anemia. Will continue to follow periodically. Likely anemia of chronic disease. ETOH abuse 04/03/2009 Overview (07/25/2024): Used to be heavy, stopped 2008 Pure hypercholesterolemia 09/12/2007 Assessment & Plan (01/27/2025 12:22 PM EDT): Well-controlled lipid profile on current dose statin. Continue Assessment & Plan (12/23/2024 2:27 PM EST): Will follow lipid panel and LFTs at least annually. Lumbosacral spondylosis without myelopathy 03/05 Essential hypertension, benign 11/09/2005 Assessment & Plan (01/27/2025 12:19 PM EDT): Patient's blood pressure is well-controlled on current regimen of Arni, SGLT2, beta-betsy and diuretic. Historically, he has had significant hypotension that has limited medication adjustment. Continue current treatment plan for now Assessment & Plan (12/23/2024 2:27 PM EST): His blood pressure is well-controlled in the office. He will continue on torsemide, metoprolol, Farxiga, Entresto. Will follow renal function. DM polyneuropathy ([facility] V24, [facility] V28) 05/2005 Assessment & Plan (09/23/2024 3:28 PM EST): [...] diabetes mellitus wi th peripheral circulatory disorder ([facility] V24, [facility] V28) 08/30/2005 Overview (07/25/2024): Last Assessment & Plan: [...] just unsure what to do Educational Resources [place] [employer] (www.diabetes.org) Centers for Disease Control [...] Problem Noted Date Diagnosed Date Resolved Date Hypertensive heart disease w ith congestive heart failure ([facility] V24, [facility] V28) 10/07/2024 01/27/2025 Dyslipidemia 01/03/2024 01/27/2025 Overview (07/25/2024): Last Assessment & Plan: Well controlled lipid profile. Last LDL 03/2023 at goal <70. Continue statin. History of knee replacement, total, bilateral 03/05/2007/25/2024 Overview (07/25/2024): R and L - S/p TKR 08/2011, Dr. Vergara Encounters Date Type Department Care Team Description 03/10/2025 Telephone [facility] Cardiology [facility] 154 300 [facility] 154 [place] [phone] Audrey Krishna MD Foot Swelling 02/26/2025 9:45 AM EDT Office Visit Orthopedic Surgery [facility] 250 175 [facility] 250 [place] [phone] Delfin Bowser DPM PVD (peripheral vascular disease) ([facility] V24) (Primary Dx); Controlled type 2 diabetes with neuropathy ([facility] V24, [facility] V28); Venous insufficiency; Right foot drop; Dermatophytosis, nail 02/17/2025 Telephone Adult Medicine [address] [phone] Prabhjot Ford MD Medication Problem 01/27/2025 10:10 AM EDT Office Visit [facility] Cardiology [facility] [address] 300 [facility] 102 [place] [phone] Sarah Ramos NP Chronic heart failure with preserved ejection fraction ([facility] V24, [facility] V28) (Primary Dx); Coronary artery disease due to lipid rich plaque; Essential hypertension, benign; Paroxysmal atrial fibrillation ([facility] V24, [facility] V28); Pure hypercholesterolemia 01/23/2025 Telephone Endocrinology [address] [phone] Caity Nunn PA Prior Auth 01/17/2025 Telephone Adult Medicine [address] [phone] Prabhjot Ford MD prior auth for medication 01/01/2025 10:50 AM EDT Office Visit Pulmonolgy [facility] 175 [facility] 200 [place] [phone] Karon Sanchez NP Obstructive sleep apnea (Primary Dx); Treatment-emergent central sleep apnea; Nocturnal hypoxia; Chronic obstructive pulmonary disease, unspecified COPD type ([facility] V24, [facility] V28); Class 2 severe obesity with body mass index (BMI) of 35 to 39.9 with serious comorbidity ([facility] V24, [facility] V28) 12/27/2024 Telephone Endocrinology [address] [phone] Caity Nunn PA 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 12/26/2024 Telephone Endocrinology [address] [phone] Caity Nunn PA [place] 12/25/2024 1:30 PM EST Consult Nephrology [address] [phone] Humberto Marshall MD Stage 3a chronic kidney disease ([facility] V24, [facility] V28) (Primary Dx); 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 ([facility] V24, [facility] V28); 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, macular edema presence unspecified ([facility] V24, [facility] V28); Obstructive sleep apnea; Essential hypertension, benign 12/24/2024 10:00 AM EST Office Visit Orthopedic Surgery [facility] 250 175 [facility] 250 [place] [phone] Delfin Bowser DPM Localized edema (Primary Dx); Venous insufficiency; Controlled type 2 diabetes with neuropathy ([facility] V24, [facility] V28); PVD (peripheral vascular disease) ([facility] V24); Arthritis of both feet; Tinea pedis of both feet; Dermatophytosis, nail 12/23/2024 1:00 PM EST Office Visit Adult Medicine [address] [phone] Gerry Moore PA Chronic bilateral low back pain without sciatica (Primary Dx); Type II diabetes mellitus with peripheral circulatory disorder ([facility] V24, [facility] V28); Stage 3 chronic kidney disease, unspecified whether stage 3a or 3b CKD ([facility] V24, [facility] V28); Pure hypercholesterolemia; Paroxysmal atrial fibrillation ([facility] V24, [facility] V28); Essential hypertension, benign; Chronic heart failure with preserved ejection fraction ([facility] V24, [facility] V28); Anemia, unspecified type from Last 3 Months Immunizations Name Administration [...] repeat in five years COLONOSCOPY 02/09/15 PROCEDURE: LA COLONOSCOPY STOMA W/RMVL DESIRE POLYP/OTH LES SNARE; [...] mellitus type 2 wit h neurological manifestations ([facility] V24, [facility] V28) 07/10/2014 DX:Diabetes mellitus type 2 with neurological manifestations (HCC) DJD (degenerative joint dise ase), cervical 10/01/2015 DX:DJD (degenerative joint d isease), cervical Arthritis of left shoulder region 10/01/2015 DX:Arthritis of left shoulder region Paroxysmal atrial fibrillati on (CMS/HCC V24, CMS/HCC V28) 12/01/2017 DX:Paroxysmal atrial fibril lation (HCC); COMMENT: See cardiology note, accidental finding Right [...] Sign Reading Time Taken Comments Blood Pressure 120/60 01/27/2025 10:19 AM EDT Pulse 89 01/27/2025 10:19 AM EDT Temperature 36.4 ??C (97.6 ??F) 01/01/2025 11:00 AM E DT Respiratory Rate 16 12/23/2024 1:08 PM EST Oxygen Saturation 98% 01/27/2025 10:19 AM EDT Inhaled Oxygen Concentration - - Weight 99.3 kg (219 lb) 02/26/2025 9:58 AM EDT Height 167.6 cm (5' 5.98 ) 02/26/2025 9:58 AM ED T Body Mass Index 35.36 02/26/2025 9:58 AM EDT Plan of Treatment Upcoming Encounters Date Type Department Care Team (Late st Contact Info) Description 03/25/2025 9:45 AM EDT Office [place] [facility] [place] [address] [place], [place] [phone] Juan Alberto Samuel NP [address] [place], [place] 05/01/2025 9:30 AM EDT Office Visit Orthopedic Surgery - [place] [address] [phone] Delfin Bowser DPM [address] [phone] 07/04/2025 9:45 AM EDT Office Visit Pulmonolgy - [address] [place] [phone] Karon Sanchez NP 175 [facility] [address] [place] [address] 08/13/2025 2:00 PM EDT Office Visit Nephrology [facility] [address] [place] [phone] Humberto Marshall MD [address] [facility] [address] [place] [phone] Health Maintenance Due Date Last Done Comments Hepatitis A Vaccines (1 of 2 - Risk 2-dose series) 1964 DTaP,Tdap,and Td Vaccines (4 - Td or Tdap) 07/06/2021 07/06/2011, 08/18/2008, 08/18/2008 Zoster Vaccines (2 of 2) 11/23/2021 09/28/2021 Social Influencers of Health Screening 10/01/2022 COVID-19 Vaccine ( season) 2024 08/09/2023, 06/06/2022, 09/06/2021, Additional history exists Depression Screening 03/26/2025 03/26/2024 Falls Risk Assessment 03/26/2025 03/26/2024 Medicare Annual Wellness Visit 03/26/2025 03/26/2024 Colorectal Cancer Screening: Colonoscopy 04/15/2025 04/29/2024 Diabetes: Blood Sugar Control Test (HGBA1C) 06/19/2025 12/20/2024, 09/06/2024, 03/25/2024, Additional history exists Influenza Vaccine (Season Ended) 2025 07/19/2021, 08/03/2020, 09/11/2019, Additional history exists Diabetes: Annual Retina Eye [...] Hepatitis C Screening Completed 10/03/2019 RSV Immunization Adult Patients Completed 08/09/2023 HIB Vaccines Aged Out No [...] age to complete this topic Meningococcal B Vaccine Aged Out No l onger eligible based on patient's age to complete this topic RSV Immunization Patients Under 20 months Aged Out No longer eligible based on patient's age to complete this topic Varicella Vaccines Aged Out No longer eligible based on patient's age to complete this topic Procedures Procedure Name Priority Date/Time Associated Diagnosis Comments EXTERNAL CLINICAL LAB 01/21/2025 EXTERNAL CLINICAL LAB 12/31/2024 EXTERNAL CLINICAL LAB 12/31/2024 EXTERNAL CLINICAL LAB 12/31/2024 EXTERNAL CLINICAL LAB 12/31/2024 EXTERNAL CLINICAL LAB 12/31/2024 EXTERNAL CLINICAL LAB 12/31/2024 EXTERNAL CLINICAL LAB 12/31/2024 EXTERNAL CLINICAL LAB 12/31/2024 MICROALBUMIN CREATININE URINE RATIO Routine 12/20/2024 3:29 PM EST Diabetic polyneuropathy associated with type 2 diabetes mellitus ([facility]/HCC V24, CMS/HCC V28) HEMOGLOBIN A1C Routine 12/20/2024 3:29 PM EST Diabetic polyneuropathy associated with type 2 diabetes mellitus (CMS/HCC V24, CMS/HCC V28) COMPLETE BLOOD COUNT Routine 12/20/2024 3:29 PM EST Diabetic polyneuropathy associated with type 2 diabetes mellitus (CMS/HCC V24, CMS/HCC V28) Chronic heart failure with preserved ejection fraction (CMS/HCC V24, CMS/HCC V28) COMPREHENSIVE METABOLIC PANEL Routine 12/20/2024 3:29 PM EST Diabetic polyneuropathy associated with type 2 diabetes mellitus (CMS/HCC V24, CMS/HCC V28) Chronic heart failure with preserved ejection fraction (CMS/HCC V24, CMS/HCC V28) THYROID STIMULATING HORMONE Routine 12/20/2024 3:29 PM EST Diabetic polyneuropathy associated with type 2 diabetes mellitus (CMS/HCC V24, CMS/HCC V28) Chronic heart failure with preserved ejection fraction (CMS/HCC V24, CMS/HCC V28) LIPID PANEL WITH REFLEX TO DIRECT LDL Routine 09/06/2024 11:59 AM EST Type II diabetes mellitus with peripheral circulatory disorder (CMS/HCC V24, CMS/HCC V28) COLONOSCOPY Routine 04/29/2024 DEPRESSION SCREENING Routine 03/26/2024 FALLS RISK ASSESSMENT Routine 03/26/2024 HEPATITIS C SCREENING Routine 10/03/2019 from Last 3 Months or Most Recently Relevant to Health Maintenance Results * External clinical lab (01/21/2025) Only the most recent of9 resultswithin the time period is included. Provider [facility] LAB BLOOD ORDERABLES Fin al Result * (ABNORMAL) Microalbumin creatinine urine ratio (12/20/2024 3:29 PM EST) Creatinine, Urine <13.0 mg/dL LAB CHEMISTRY METHOD 12/20/2024 9:35 PM EST [facility] Microalb, Ur 10.9 0.0 - 29.0 mg/L LAB CHEMISTRY METHOD 12/20/2024 9:35 PM EST [facility] Microalb/Creat Ratio >84(H) <30 mg/g creat LAB CHEMISTRY METHOD 12/20/2024 9:35 PM [facility] Urine Urine specimen obtained by clean catch procedure / Unknown Non-blood Collection / Unknown 12/20/2024 3:29 PM EST 12/20/2024 3:29 PM EST us Gerry JEAN LAB URINE ORDERABLES Fin al Result [facility] [address] [place] [address], * (ABNORMAL) Complete blood count (12/20/2024 3:29 PM EST) WBC 11.1(H) 4.8 - 10.8 K/mcL LAB HEMETOLOGY METHOD 12/20/2024 6:19 PM [facility] RBC 4.70 4.50 - 5.50 M/mcL LAB HEMETOLOGY METHOD 12/20/2024 6:19 PM [facility] Hemoglobin 12.5(L) 13.5 - 17.5 g/dL LAB HEMETOLOGY METHOD 12/20/2024 6:19 PM [facility] Hematocrit 40.2(L) 42.0 - 54.0 % LAB HEMETOLOGY METHOD 12/20/2024 6:19 PM [facility] MCV 85.0 79.0 - 98.0 FL LAB HEMETOLOGY METHOD 12/20/2024 6:19 PM [facility] MCH 26.4(L) 27.0 - 32.0 pcg LAB HEMETOLOGY METHOD 12/20/2024 6:19 PM [facility] MCHC 31.1(L) 32.0 - 37.0 g/dL LAB HEMETOLOGY METHOD 12/20/2024 6:19 PM EST [facility] RDW 16.1(H) 11.0 - 15.0 % LAB HEMETOLOGY METHOD 12/20/2024 6:19 PM EST [facility] Platelets 256 130 - 400 K/mcL LAB HEMETOLOGY METHOD 12/20/2024 6:19 PM EST [facility] MPV 9.8 7.0 - 11.0 FL LAB HEMETOLOGY METHOD 12/20/2024 6:19 PM EST [facility] NRBC 0.0 <1.0 % LAB HEMETOLOGY METHOD 12/20/2024 6:19 PM EST [facility] NRBC Absolute 0.00 <0.10 K/mcL LAB HEMETOLOGY METHOD 12/20/2024 6:19 PM EST [facility] Blood Venous blood specimen / Unknown Venipuncture / Unknown 12/20/2024 3:29 PM EST 12/20/2024 3:29 PM EST us Gerry JEAN LAB BLOOD ORDERABLES Fin al Result [facility] [address] [place] [address], * (ABNORMAL) Thyroid stimulating hormone (12/20/2024 3:29 PM EST) TSH 5.84(H) 0.40 - 4.00 mcIU/mL LAB CHEMISTRY METHOD 12/20/2024 8:50 PM EST [facility] Blood Venous blood specimen / Unknown Venipuncture / Unknown 12/20/2024 3:29 PM EST 12/20/2024 3:29 PM EST us Gerry JEAN LAB BLOOD ORDERABLES Fin al Result Performing Organization Address City[facility]/ZIP Co de Phone Number [facility] [address] [place] [address], * (ABNORMAL) Hemoglobin A1c (12/20/2024 3:29 PM EST) [facility] Hemoglobin A1C 7.3(H) <6.5 % LAB CHEMISTRY METHOD 12/23/2024 9:40 PM EST [facility] Mean Bld Glu Estim. 163 mg/dL LAB CHEMISTRY METHOD 12/23/2024 9:40 PM [facility] Blood Venous blood specimen / Unknown Venipuncture / Unknown 12/20/2024 3:29 PM EST 12/20/2024 3:29 PM EST Gerry JEAN LAB BLOOD ORDERABLES Fin al Result Performing Organization Address [facility]/ZIP Co de Phone Number [facility] [address] [place] [address], [place] [phone] * (ABNORMAL) Comprehensive metabolic panel (12/20/2024 3:29 PM EST) [facility] Sodium 138 133 - 145 mmol/L LAB CHEMISTRY METHOD 12/20/2024 9:07 PM [facility] Potassium 3.6 3.5 - 5.5 mmol/L LAB CHEMISTRY METHOD 12/20/2024 9:07 PM [facility] Chloride 100 96 - 110 mmol/L LAB CHEMISTRY METHOD 12/20/2024 9:07 PM [facility] CO2 31 21 - 32 mmol/L LAB CHEMISTRY METHOD 12/20/2024 9:07 PM [facility] Anion Gap 7 3 - 11 LAB CHEMISTRY METHOD 12/20/2024 9:07 PM [facility] Glucose 118(H) 70 - 100 mg/dL LAB CHEMISTRY METHOD 12/20/2024 9:07 PM [facility] BUN 24 5 - 25 mg/dL LAB CHEMISTRY METHOD 12/20/2024 9:07 PM [facility] Creatinine 1.07 0.70 - 1.30 mg/dL LAB CHEMISTRY METHOD 12/20/2024 9:07 PM [facility] eGFR 71 >=60 mL/min/1. 73m2 LAB CHEMISTRY METHOD 12/20/2024 9:07 PM [facility] Comment:Calculation based on the??Chronic Kidney Disease Epidemiology Collaboration (CKD-EPI) equation refit??without adjustment for race. BUN/Creatinine Ratio 22.4 LAB CHEMISTRY METHOD 12/20/2024 9:07 PM [facility] Calcium 9.5 8.5 - 10.5 mg/dL LAB CHEMISTRY METHOD 12/20/2024 9:07 PM [facility] AST (SGOT) 24 10 - 42 unit/L LAB CHEMISTRY METHOD 12/20/2024 9:07 PM [facility] ALT (SGPT) 28 10 - 60 unit/L LAB CHEMISTRY METHOD 12/20/2024 9:07 PM [facility] Alkaline Phosphatase 127(H) 42 - 121 unit/L LAB CHEMISTRY METHOD 12/20/2024 9:07 PM [facility] Total Protein 8.1(H) 6.0 - 8.0 g/dL LAB CHEMISTRY METHOD 12/20/2024 9:07 PM [facility] Albumin 3.5 3.2 - 5.0 g/dL LAB CHEMISTRY METHOD 12/20/2024 9:07 PM [facility] Total Bilirubin 0.4 0.0 - 1.4 mg/dL LAB CHEMISTRY METHOD 12/20/2024 9:07 PM [facility] Blood Venous blood specimen / Unknown Venipuncture / Unknown 12/20/2024 3:29 PM EST 12/20/2024 3:29 PM EST us Gerry Garcia Moore PA LAB BLOOD ORDERABLES Fin al Result [facility] [address] [place] [address], [place] [phone] * Lipid panel with reflex to direct LDL (09/06/2024 11:59 AM EST) Cholesterol 90 0 - 200 mg/dL LAB CHEMISTRY METHOD 09/06/2024 4:46 PM EST [facility] Triglycerides 50 0 - 150 mg/dL LAB CHEMISTRY METHOD 09/06/2024 4:46 PM EST [facility] HDL 49 >=40 mg/dL LAB CHEMISTRY METHOD 09/06/2024 4:46 PM EST [facility] LDL Calculated 31 0 - 100 mg/dL LAB CHEMISTRY METHOD 09/06/2024 4:46 PM EST [facility] VLDL Cholesterol Evans 10 mg/dL LAB CHEMISTRY METHOD 09/06/2024 4:46 PM EST [facility] Non HDL Chol. (LDL+VLDL) 41 <145 mg/dL LAB CHEMISTRY METHOD 09/06/2024 4:46 PM EST [facility] Chol/HDL Ratio 1.8 0.0 - 4.4 LAB CHEMISTRY METHOD 09/06/2024 4:46 PM EST [facility] Blood Venous blood specimen / Unknown Venipuncture / Unknown 09/06/2024 11:59 AM EST 09/06/2024 11:59 AM EST us Caity JEAN LAB BLOOD ORDERABLES Final Result [facility] [address] [place] [address], [place] [phone] * Hm Colonoscopy (04/29/2024) HM Colonoscopy No interpreta tion,abstr acted Anatomical Region Laterality Modality Other Historical Provider HEALTH MAINTENANCE Final Result * Hm Falls Risk Assessment (03/26/2024) Falls Risk Assessment Abstracted Historical Provider HEALTH MAINTENANCE Final Result * Depression Screening (03/26/2024) Depression Screening Abstracted Historical Provider HEALTH MAINTENANCE Final Result * Hepatitis C Screening (10/03/2019) Hepatitis C Screening Abstracted Historical Provider HEALTH MAINTENANCE Final Result from Last 3 Months or Most Recently Relevant to Health Maintenance Insurance [employer] Member Subscriber Plan / Payer (Ef fective 2021-Present) Name:David Milton Relation to Subscriber:Self Name:David Milton Payer ID:[id number] Group ID:[id number] Type:Not on file Address: [place] [address] [address] [address] Care Teams Employment Evaluator/Case Manager Relationship Specialty Start Date End Date Prabhjot Ford MD [address] [place] [address] PCP - General 08/22/1999
--- OUTSIDE RECORDS SUMMARY | 2025-03-12 10:44 | XMS_ITS | Encounter Summary ---
Author Organization [facility] Address [address] [place] [address] Care Team Providers Care Impregnating Machine Operator Name Role Phone Prabhjot Ford MD Primary Care Provider [phone] Reason for Visit * Reason Onset Date Comments Foot Swelling 03/10/2025 Encounter Details Date Type Department Care Team (Late st Contact Info) Description 03/10/2025 Telephone [facility] [address] [facility] [address] [place] [phone] Audrey Krishna MD [address] [place] [address] Foot Swelling Social History Tobacco Use Types Packs/Day Years [...] Refills Last Filled Start Date End Date torsemide (DEMADEX) 20 mg tablet Take 3 tablets (60 mg total) by mouth 1 (one) time each day. 6 each 03/10/2025 documented in this encounter Progress Notes * Bolivar Spencer RN - 03/10/2025 2:07 PM EDT Called pt back this PM. Made aware per Alva Londono to increase his Torsemide from 40mg daily to 60mgdaily for 2 days and then go back to normal dosing. States uses [facility] [place] - is requesting RX for increased dose as he has prepackaged meds, RX sent to requested pharmacy with confirmation. Is aware to cont to monitor for worsening HF s/s and any worsening pain/warmth to LE. Is aware to be evaluated in there ER for worsening HF s/s and/or LE redness, worsening LE swelling/pain, fever, chills.Is aware to have BMP repeated after increase in Torsemide, uses [facility], aware orders are in the system for lab draw. Is aware to report back at the end of this week for an update, is aware to call back sooner if needed for any further questions or concerns. * Song Londono NP - 03/10/2025 1:57 PM EDT Lets have him take 60 Milligrams of torsemide for 2 days. * Bolivar Spencer RN - 03/10/2025 1:48 PM EDT Just FYI he has a hx of issues with volume status given swings between ANDREW/hypotension and hypervolemia. Do you want to treat more conservatively than doubling the dose of Torsemide? I will let him know about the concern for possible cellulitis and for him to monitor closely and be seen in the ER for any development of infection s/s. * Song Londono NP - 03/10/2025 1:39 PM EDT Lets please have him double his torsemide dosage for the next 3 days and then draw a BMP. Lets alsomake sure he keeps checking his weight. I am a bit concerned with the legs being painful and warm to touch, this could potentially be the development of like a cellulitis. If this worsens at all the He needs to be seen in person. If he develops a fever he needs to go to the ER. * Bolivar Spencer RN - 03/10/2025 1:18 PM EDT Called pt this PM. States he has recently noticed some swelling in bilat legs (below the knee), feet, ankles. States lower legs painful and warm to the touch but no redness noted. Weight last 220 and now 222.4. States when he elevates legs swelling improves. Denies worsening SOB, CP, dizziness, PND, orthopnea - uses CPAP nightly. Baseline sleeps on 3 pillows and elevates the HOB, states this has not changed. Has not had any dietary indiscretions, drinking 2L of water a day, 4oz of tea/day, coconut water 2 x week, beet juice. Does not drink alcohol. U/O good and unchanged but does state urine in the AM and continuing through the day is more of a brown color which is new - he does wonder if this is from drinking the beet juice which he started 2 months ago? Has no urinary s/s - denies painful urination, difficulty starting a stream, an urge to urinate but not able to urinate, distention. BP 180/76 this AM before meds. States normally he is 160/60-70 prior to meds - states only today it was high and a couple of times last week. Went over med list, is taking all meds in med module with no missed doses including Torsemide 40mg daily, and Farxiga 10mg daily. Has not missed any doses of his Eliquis 5mg BID. Is aware for any changes in s/s to call the office back. Is aware for any worsening s/s to call 911. * Ang Maier - 03/10/2025 11:54 AM EDT Patient called to return Sara's call. Please give him a call back at [phone] at your earliest convenience. * Bolivar Spencer RN - 03/10/2025 11:39 AM EDT LVM for a call back. * Ang Maier - 03/10/2025 10:57 AM EDT Patient called because they are experiencing swelling in both feet and ankles. States it starts below the knee and feels painful and warm to the touch. He denies chest pain and shortness of breath atthis time. He is currently taking torsemide, should this be adjusted? Please give him a call at [phone] to advise. documented in this encounter Plan of Treatment Upcoming Encounters Date Type Department Care Team (Late st Contact Info) Description 03/25/2025 9:45 AM EDT Office Visit Adult Medicine [facility] [address] [place], [place] [phone] Juan Alberto Samuel NP [address] [place], [place] 05/01/2025 9:30 AM EDT Office Visit Orthopedic Surgery [facility] [address] [phone] Delfin Bowser DPM [address] [address] 07/04/2025 9:45 AM EDT Office Visit Pulmonolgy - [place] 175 [facility] [address] [place] [address] Karon Sanchez NP [address] [address] 08/13/2025 2:00 PM EDT Office [place] [address] [place] [address] Humberto Marshall MD [address] [place] [address] Scheduled Orders Name Type Priority Associated Diagnoses Orde r Schedule Basic metabolic panel Lab Routine Congestive heart failure, unspecified HF chronicity, unspecified heart failure type (CMS/HCC V24, CMS/HCC V28) 1 Occurrences starting 03/10/2025 until 03/10/2026 documented as of this encounter Visit Diagnoses Diagnosis Congestive heart failure, unspecified HF chronicity, unspecified heart failure type (CMS/HCC V24, CMS/HCC V28)- Primary documented in this encounter Care Teams Impregnating Machine Operator Relationship Specialty Start Date End Date Prabhjot Ford MD [address] [place] [address] PCP - General 08/22/1999 documented as of this encounter
== END 2025-03-12 10:10 | disposition home or self-care (01) ==
LOC: HO.RHES 09:27
PROVIDERS: PCP Internal Medicine; Visit Provider Internal Medicine Rheumatology
DX: M25.473 Effusion, unspecified ankle (principal); M06.09 Rheumatoid arthritis without rheumatoid factor, multiple sites; Z79.899 Other long term (current) drug therapy
CPT/HCPCS: 99214; G2211

== ENCOUNTER → 2025-03-12 09:27 | Outpatient (BNVA) | payer OTHER, SELFPAY | PROVIDERS: PCP Internal Medicine; Visit Provider Internal Medicine Rheumatology | DX: M25.471 Effusion, right ankle (principal); M25.472 Effusion, left ankle; M06.09 Rheumatoid arthritis without rheumatoid factor, multiple sites; Z79.899 Other long term (current) drug therapy | CPT/HCPCS: 99212 ==

== ENCOUNTER 2025-06-11 09:48 | Outpatient (AMB) | payer OTHER, SELFPAY ==
--- NOTE | 2025-06-11 09:54 | MHC.OFFVIS ---
Vital Signs 06/11/25 09:55 Height 5 ft 6 in Weight 212 lb 4.882 oz BMI 34.3 BP 120/70 Blood Pressure Location Rt brachial Position Sitting Pulse 74 Pulse Source Pulse Oximeter Pulse Oximetry (%) 96 Oxygen Delivery Method Room Air Intake Visit Reasons: 3 month f/u Intake Note: Patient presents with swollen ankles, right is worse. Accompanied by: urgent care nurse practitioner Allergies Beef Containing Products Adverse Reaction (Verified 06/11/25 09:55) Unknown Pork/Porcine Containing Products Adverse Reaction (Verified 06/11/25 09:55) Unknown Medication List - Last Reconciled 06/11/25 by Cosme Cisse MD acetaminophen 500 mg PO .Q8 albuterol sulfate 90 mcg/actuation 2 puffs inhalation Q4H PRN ammonium lactate 12% 1 appl topical DAILY apixaban (Eliquis) 5 mg PO BID aspirin 1 tab PO DAILY atorvastatin 40 mg PO BEDTIME bimatoprost 0.01% (Lumigan) 1 drp ophthalmic (eye) BEDTIME blood-glucose sensor (Trivop G7 Sensor device) brimonidine 0.2% 1 drp ophthalmic (eye) BID cod liver oil 1 cap PO DAILY dapagliflozin propanediol (Farxiga) 10 mg PO DAILY diclofenac sodium 1% (Arthritis Pain (diclofenac)) 4 grams topically 4-6 hours as needed for pain ferrous sulfate 325 mg PO DAILY fluticasone propionate 50 mcg/actuation 2 sprays intranasal DAILY PRN mekjezwlahr-zgwtvgncn-gepxliwl 100-62.5-25 mcg (Trelegy Ellipta) 1 ea inhalation DAILY hydrocortisone 2.5% 1 appl topical BID hydroxychloroquine 200 mg PO DAILY insulin glargine (Lantus Solostar U-100 Insulin) 10 units (0.1 mL) subcut BID insulin lispro (Humalog KwikPen (U-100) Insulin) Blood Sugar: <150 - 0 units 151-200 - 2 units 201-250 - 4 units 251-300 - 6 units 301-350 - 8 units >350 - 10 units insulin pen,reusable,BT,aspart (InPen (for Novolog or Fiasp) Blue subcutaneous) As directed ketoconazole 2% 1 appl topical BID loratadine 10 mg PO DAILY PRN magnesium oxide 400 mg PO DAILY metoprolol tartrate 25 mg PO BID omeprazole 20 mg PO DAILY@0630 polyethylene glycol 3350 (HealthyLax) 17 grams PO BEDTIME torsemide 40 mg PO BID@0900,1800 HPI HPI 3 month f/u: Details: He discontinued hydroxychloroquine because he is taking too many pills. He has not noticed any change. He continues to have pain mainly in his legs. He stopped using Tylenol. [facility] Medical History GERD (gastroesophageal reflux disease) Diabetes COPD (chronic obstructive pulmonary disease) Obesity PAF (paroxysmal atrial fibrillation) Diastolic HF (heart failure) Acute hypotension Fluid volume depletion Social History Household Members: None Housing: House Do you presently have visiting nurse or other home services: Yes (manager of case,vna) Alcohol intake: former Patient Tobacco Use Status: Never used Tobacco Advance Directives Date on File: 02/16/24 service: No Current occupational status: retired Physical Exam Vital Signs: Last Vital Signs Pulse 74 06/11/25 09:55 BP 120/70 06/11/25 09:55 Pulse Ox 96 06/11/25 09:55 Oxygen Delivery Method Room Air 06/11/25 09:55 BMI result Body Mass Index 34.3 Const Other: General: Comfortable CVS: RRR Respiratory: clear to auscultation bilaterally. Good respiratory effort Skin: No lesions seen MSK: No synovitis. Heberden's and Luana's nodes present. Tender bilateral MCPs, PIPs and IPs. 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 Limited abduction of his shoulders to 120 degrees. Normal external and external range of motion of his shoulders. No tender joints and lower extremities. Limited bilateral knee flexion. Assessment & Plan Assessment & Plan (1) Rheumatoid arthritis: Comment: He has multiple small joint tenderness on exam, which is new since being off of hydroxychloroquine. Hydroxychloroquine was controlling his RA. We discussed benefits of hydroxychloroquine. Rheumatology history: Erosive (erosion in between left medial and intermediate cuneiform, joint space narrowing of bilateral radial carpal joints, bilateral 5th MCPs). Seronegative. [facility] 11/2023- Code(s): M06.9 - Rheumatoid arthritis, unspecified Category: Medical Qualifiers: Rheumatoid arthritis location: multiple sites Rheumatoid factor presence: without rheumatoid factor Qualified Code(s): M06.09 - Rheumatoid arthritis without rheumatoid factor, multiple sites Plan: Labs for disease and drug monitoring on high-risk medication up-to-date. Resume hydroxychloroquine 200 mg daily. Eye exam from 06/2024 has OCT exam results in the report but provider has not provided interpretation and recommendations if it is safe for patient to continue hydroxychloroquine. Eye exam from 05/28/2025 reveals that he had visual field testing, which was abnormal. Imagery Analyst did not think hydroxychloroquine is affecting results. He also has diabetic retinopathy that could affect the test. Return to clinic in 3 months (2) Other senior living (current) drug therapy: Code(s): Z79.899 - Other terminal block assembler (current) drug therapy Category: Medical Plan: See above Orders: Orders Complete Blood Count Auto Diff Today Z79.899 - Other terminal block assembler (current) drug therapy Aspartate Amino Transferase Today Z79.899 - Other terminal block assembler (current) drug therapy Creatinine Today Z79.899 - Other senior living (current) drug therapy C Reactive Protein Today Z79.899 - Other senior living (current) drug therapy Erythrocyte Sedimentation Rate Today Z79.899 - Other terminal block assembler (current) drug therapy Alanine Aminotransferase Today Z79.899 - Other terminal block assembler (current) drug therapy Medications: Refilled hydroxychloroquine 200 mg PO DAILY 90 tabs 1RF Coding Level of Care Code Est Pt Level 4 (81509) Complex EM visit Add On G2211 Diagnoses Rheumatoid arthritis of multiple sites with negative rheumatoid factor M06.09 Rheumatoid arthritis location: multiple sites Rheumatoid factor presence: without rheumatoid factor Other senior living (current) drug therapy Z79.899
[2025-06-11 09:55] VITALS: BP 120/70; PULSE 74; O2SAT 96; BMI 34.3
--- OUTSIDE RECORDS SUMMARY | 2025-06-11 10:39 | XMS_ITS | Encounter Summary ---
Author Organization [facility] Address [address] [place] [address] Care Team Providers Care Typesetting Machine Tender Name Role Phone Prabhjot Ford MD Primary Care Provider [phone] Reason for Visit * Reason Onset Date Comments call from [facility] 05/14/2025 have we received a fax ? 05/14/2025 Encounter Details Date Type Department Care Team ([facility] st Contact Info) Description 05/14/2025 Telephone Adult Medicine [facility] [place] [place] [address] [place], [place] [phone] Juan Alberto Samuel NP [address] [place] [phone] call from [facility]; have we received a fax ? Social History Tobacco Use Types Packs/Day Years [...] as of this encounter Progress Notes * Migdalia Maradiaga - 06/09/2025 4:13 PM EDT [facility] is calling, they did refax the paperwork and are asking if this was received? * Blane Mcmillan MA - 06/05/2025 2:46 PM EDT I spoke with Calin at [facility], she will re fax paperwork to [phone]. * Chrissy Barksdale MA - 06/03/2025 3:12 PM EDT Calin At [facility] faxed necessary paperwork on 05/29/25.Call back #[phone] option#7 * Blane Mcmillan MA - 05/29/2025 10:01 AM EDT I called and left a message with [facility] to call back regarding office notes. When [facility] calls back please have them fax necessary paperwork to [phone]. * Migdalia Maradiaga - 05/29/2025 9:33 AM EDT [facility] is calling back on this and needs an update today. * Vi Malcolm - 05/14/2025 11:31 AM EDT Miko with [facility] is calling. States she had faxed a CNM order and request for office notesto [phone] on 05/08/25 and wants to know if it has been received. States this was in regard to patients Dexcom supplies. Miko would like a call to confirm this was received and will be worked on. Please call Miko at [phone] option 7 documented in this encounter Plan of Treatment Upcoming Encounters Date Type Department Care Team (Late st Contact Info) Description 07/02/2025 10:00 AM EDT Consult Adult Medicine [facility] [place] [place] [address] [place] [phone] Prabhjot Ford MD [address] [place] [address] 07/03/2025 9:30 AM EDT Office Visit Orthopedic Surgery [facility] [address] [phone] Delfin Bowser DPM [address] [address] 07/04/2025 9:45 AM EDT Office Visit Pulmonolgy - [place] [address] [phone] Karon Sanchez NP [address] [address] 07/17/2025 7:30 AM EDT Hospital Encounter [facility] [place] [address] [place] [phone] Torito Heath MD [address] [phone] 07/17/2025 7:30 AM EDT - 07/17/2025 9:00 AM EDT Surgery [facility] [place] [address] [place] [phone] Torito Heath MD [address] [phone] CIRCUMCISION [23502 (CPT )] 08/06/2025 2:45 PM EDT Office Visit [place] [address] [phone] Prabhjot Ford MD [address] [place] [address] 08/13/2025 2:00 PM EDT Office Visit Nephrology - [address] [phone] Humberto Marshall MD [address] [facility] [[email or web address] [address] [place] [address] Scheduled Procedures Name Priority Associated Diagnoses Date/Ti me CIRCUMCISION Phimosis 07/17/2025 7:30 AM EDT documented as of this encounter Visit Diagnoses Not on filedocumented in this encounter Additional Health Concerns Assessment Noted Time PHQ-9 Depression Total Score: 0 04/03/20 9:00 AM EDT documented as of this encounter Care Teams Typesetting Machine Tender Relationship Specialty Start Date End Date Prabhjot Ford MD [address] [place] [address] PCP - General 08/22/1999 documented as of this encounter
--- OUTSIDE RECORDS SUMMARY | 2025-06-11 10:39 | XMS_ITS | Clinical Summary ---
Author Organization [facility] Address [address] [place] [address] Phone Care Team Providers Care Publicity Consultant Name Role Phone Prabhjot Ford MD Primary Care Provider [phone] Allergies No known active allergies Medications albuterol [...] 0 Refills, Maintenance, 08/03/23 10:19:00 EDT, Tablet, [facility], Partial margo... 3 Active [...] Hemoglobin A1C 06/25/2024 024, 02/01/2024 Influenza Vaccine (#1) 2025 , 08/03/2020, 09/11/2019 Hepatitis B Vaccine Aged Out [...] Chloride 30.0(A) 99.0 - 108.0 eGFR Non-Afr Serbian 44 Hemoglobin A1C 6.9(A) 4.0 - 6.0 02/01/2024 Historical Provider LAB BLOOD ORDERABLES Lynnette l Result from Last 3 Months or Most Recently Relevant to Health Maintenance Insurance [facility] ([id number]) [facility] ([id number]) Care Teams Publicity Consultant Relationship Specialty Start Date End Date Prabhjot Ford MD PCP - General Internal Medicine 03/12/24
--- OUTSIDE RECORDS SUMMARY | 2025-06-11 10:39 | XMS_ITS ---
Author Name [facility] Organization Unknown Care Team Organization Name Specialty Phone Email Start Date End Da mike [facility] Ford Primary Care 08/30/2022 06/10/2024
--- OUTSIDE RECORDS SUMMARY | 2025-06-11 10:39 | XMS_ITS | Clinical Summary ---
Author Organization [facility] Address [address] [place] [address] Care Team Providers Care Dope Firer Name Role Phone Prabhjot Ford MD Primary Care Provider [phone] Allergies No known active allergies Medications Medication [...] 1-dose 75+ series) 2022 Influenza Vaccine (#1) 2025 Hepatitis B Vaccines Aged Out No long er eligible based on patient's age to complete this topic RSV Ped < 20 months Aged Out No longe r eligible based on patient's age to complete this topic Care Teams Dope Firer Relationship Specialty Start Date End Date Prabhjot Ford MD PCP - General Internal Medicine 08/03/18
== END 2025-06-11 10:22 | disposition home or self-care (01) ==
LOC: HO.RHES 09:49
PROVIDERS: PCP Internal Medicine; Visit Provider Internal Medicine Rheumatology
DX: M06.09 Rheumatoid arthritis without rheumatoid factor, multiple sites (principal); Z79.899 Other long term (current) drug therapy
CPT/HCPCS: 99214; G2211

== ENCOUNTER 2025-06-11 09:48 | Outpatient (REF) | payer OTHER, SELFPAY ==
[2025-06-11 12:32] LABS: MANUAL DIFF FLAG NO
[2025-06-11 12:39] LABS: Hematocrit 39.3 % (42.0-52.0); Hemoglobin 12.5 g/dl (14.0-18.0); Imm Gran Abs Auto 0.04 X10*3/uL (0.00-0.03); Imm Gran Pct Auto 0.4 % (0.0-0.4); Lymphocytes Absolute Auto 1.5 X10*3/uL (1.2-4.9); Mean Corpuscular HGB Conc 31.8 g/dl (31.0-36.0); Mean Corpuscular Hemoglobin 27.1 pg (27.0-33.0); Mean Corpuscular Volume 85.1 fL (80.0-98.0); NRBC Abs Auto 0.000 X10*3/uL (0.0-0.012); NRBC Pct Auto 0.0 /100WBC (0.0-0.2); Platelet Count 264 X10*3/uL (160-400); Red Blood Count 4.62 X10*6/uL (4.60-5.80); White Blood Count 10.2 X10*3/uL (4.8-10.8)
[2025-06-11 13:01] LABS: Alanine Aminotransferase 17 U/L (0-40); Aspartate Amino Transferase 34 U/L (5-37); Estimated Glomerular Filt Rate > 60
== END 2025-06-11 09:49 | disposition home or self-care (01) ==
LOC: HO.HKASLDS 09:48
PROVIDERS: PCP Internal Medicine; Visit Provider Internal Medicine Rheumatology
DX: M06.09 Rheumatoid arthritis without rheumatoid factor, multiple sites (principal); Z79.899 Other long term (current) drug therapy; Z79.82 Long term (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 of aspirin
CPT/HCPCS: 36415; 82565; 84450; 84460; 85025; 85652; 86140; 99212

== ENCOUNTER 2025-09-10 09:46 | Outpatient (AMB) | payer OTHER, SELFPAY ==
--- NOTE | 2025-09-10 09:49 | A.OFFVIS_ITS ---
Vital Signs 09/10/25 09:50 Height 5 ft 6 in Weight 213 lb BMI 34.4 BP 100/60 Blood Pressure Location Rt brachial Position Sitting Pulse 71 Pulse Source Pulse Oximeter Pulse Oximetry (%) 96 Oxygen Delivery Method Room Air Intake Visit Reasons: 3 Months Intake Note: Patient presents today for a follow up states that backof legs are in pain. Accompanied by: Self / Same As Patient Allergies Beef Containing Products Adverse Reaction (Verified 09/10/25 09:50) Unknown Pork/Porcine Containing Products Adverse Reaction (Verified 09/10/25 09:50) Unknown [facility] Medical History GERD (gastroesophageal reflux disease) Diabetes COPD (chronic obstructive pulmonary disease) Obesity PAF (paroxysmal atrial fibrillation) Diastolic HF (heart failure) Acute hypotension Fluid volume depletion Social History Household Members: None Housing: House Do you presently have visiting nurse or other home services: Yes (ironer machine,vna) Alcohol intake: former Patient Tobacco Use Status: Never used Tobacco Advance Directives Date on File: 02/16/24 service: No Current occupational status: retired Physical Exam Vital Signs: Last Vital Signs Pulse 71 09/10/25 09:50 BP 100/60 09/10/25 09:50 Pulse Ox 96 09/10/25 09:50 Oxygen Delivery Method Room Air 09/10/25 09:50 BMI result Body Mass Index 34.4 Const Other: General: Comfortable CVS: RRR Respiratory: clear to auscultation bilaterally. Good respiratory effort Skin: No lesions seen MSK: No synovitis. Heberden's and Luana's nodes present. Tender right 2nd and 3rd MCP. He is able to make a waistline joiner overlock with his hands. Limited abduction of his shoulders to 120 degrees. Normal external and external range of motion of his shoulders. No tender joints and lower extremities. Limited bilateral knee flexion. Assessment & Plan Assessment & Plan (1) Rheumatoid arthritis: Comment: Improve joint exam on hydroxychloroquine. Rheumatology history: Erosive (erosion in between left medial and intermediate cuneiform, joint space narrowing of bilateral radial carpal joints, bilateral 5th MCPs). Seronegative. [facility]- Code(s): M06.9 - Rheumatoid arthritis, unspecified Category: Medical Qualifiers: Rheumatoid arthritis location: multiple sites Rheumatoid factor presence: without rheumatoid factor Qualified Code(s): M06.09 - Rheumatoid arthritis without rheumatoid factor, multiple sites Plan: Labs for disease and drug monitoring on high-risk medication ordered Continue hydroxychloroquine 200 mg daily. Eye exam from 06/2024 has OCT exam results in the report but provider has not provided interpretation and recommendations if it is safe for patient to continue hydroxychloroquine. Eye exam from 05/28/2025 reveals that he had visual field testing, which was abnormal. Tile Trimmer did not think hydroxychloroquine is affecting results. He also has diabetic retinopathy that could affect the test. Next eye exam due in 1 year. Return to clinic in 3 months. I will consider next follow up in 6 months if he continues to do well on hydroxychloroquine. (2) Other watcher automat long goods (current) drug therapy: Code(s): Z79.899 - Other watcher automat long goods (current) drug therapy Category: Medical Plan: See above Orders: Orders Complete Blood Count Auto Diff Today Z79.899 - Other watcher automat long goods (current) drug therapy Aspartate Amino Transferase Today Z79.899 - Other detention (current) drug therapy Creatinine Today Z79.899 - Other watcher automat long goods (current) drug therapy Alanine Aminotransferase Today Z79.899 - Other detention (current) drug therapy C Reactive Protein Today Z79.899 - Other watcher automat long goods (current) drug therapy Erythrocyte Sedimentation Rate Today Z79.899 - Other watcher automat long goods (current) drug therapy Coding Level of Care Code Est Pt Level 4 (58256) Complex EM visit Add On G2211 Diagnoses Rheumatoid arthritis of multiple sites with negative rheumatoid factor M06.09 Rheumatoid arthritis location: multiple sites Rheumatoid factor presence: without rheumatoid factor Other watcher automat long goods (current) drug therapy Z79.899
[2025-09-10 09:50] VITALS: BP 100/60; PULSE 71; O2SAT 96; BMI 34.4
--- OUTSIDE RECORDS SUMMARY | 2025-09-10 18:07 | XMS_ITS | Clinical Summary ---
Author Organization [facility] Address [address] [place] [address] Care Team Providers Care Hanging Flags Decorator Name Role Phone Prabhjot Ford MD Primary Care Provider [phone] Allergies No known active allergies Medications Medication [...] age to complete this topic Care Teams Hanging Flags Decorator Relationship Specialty Start Date End Date Prabhjot Ford MD PCP - General Internal Medicine 08/03/18
--- OUTSIDE RECORDS SUMMARY | 2025-09-10 18:07 | XMS_ITS | Encounter Summary ---
Author Organization [facility] Address [address] [place] [address] Care Team Providers Care Judo Teacher Name Role Phone Prabhjot Ford MD Primary Care Provider [phone] Reason for Visit * Reason Onset Date Comments Fitting for DME 08/07/2025 Encounter Details Date Type Department Care Team ([facility] Contact Info) Description 08/07/2025 Telephone Adult Medicine [facility] [place] [address] [place] [address] Prabhjot Ford MD [address] [place] [address] Social History Tobacco Use Types Packs/Day Years Used Date Smoking Tobacco: Never Passive Smoke Exposure: Past Smokeless Tobacco: Never Alcohol Use Standard Drinks/Week Comments Not Currently 0 (1 standard drink = 0.6 oz pur e alcohol) NO DRINK X 5 YEARS Interpersonal Safety Answer Date Record ed Physical Abuse Unrecognized value 07/17/2025 Verbal Abuse Unrecognized value 07/17/2025 Sex and Gender Information Value Date Recorded Sex Assigned at Not on file Legal Sex Male 10:27 AM EST Gender Identity Not on file Sexual Orientation Not on file documented as of this encounter Progress Notes * Teja Brown MA - 08/28/2025 10:00 AM EST Pt is scheduled with you on 09/01/2025 - notation on appt to discuss * Kelly Chauhan 08/07/2025 11:18 AM EDT DME REQUEST Name of Product: ADULT PULL UPS SIZE LARGE, ADULT WIPES, BED PAD Specific information about product # Needed MANY POSSIBLE Reason patient is asking for this supply? INCONTINENCE Have you received this supply before? If yes , when?: Yes. Have you discussed the need for this supply with a provider at a recent visit? If yes, with who andwhen? Yes. When completed: Fax to other office/MD/pharmacy at fax # [phone] Who is requested? Is this a fax request? Have you told the patient it will take 7-10 days for completion of this request? Yes documented in this encounter Plan of Treatment Upcoming Encounters Date Type Department Care Team ([facility] Contact Info) Description 10/17/2025 9:45 AM EST Office Visit Pulmonology - [place] [address] [phone] Karon Sanchez, ALICJA [address] [place] [address] 10/22/2025 10:00 AM EST Office Visit Orthopedic Surgery - [place] [id number] [phone] Delfin Bowser, DPBasilio [address] [address] 01/07/2026 9:45 AM EDT Office Visit [facility] [place] - [address] [phone] Prabhjot Ford MD [address] [place] [address] 01/21/2026 4:30 PM EDT Office Visit Nephrology - [address] [phone] Humberto Marshall MD [address] [facility] [address] [place] [address] documented as of this encounter Visit Diagnoses Not on filedocumented in this encounter Additional Health Concerns Assessment Noted Time PHQ-9 Depression Total Score: 0 04/03/20 25 9:00 AM EDT documented as of this encounter Care Teams Judo Teacher Relationship Specialty Start Date End Date Prabhjot Ford MD [address] [place] [address] PCP - General 08/22/1999 documented as of this encounter
--- OUTSIDE RECORDS SUMMARY | 2025-09-10 18:07 | XMS_ITS | Encounter Summary ---
Author Organization [facility] Address [address] [place] [address] Encounters * CPT with Medical instED at [employer] on 2025-07-19 { reasonForRequest : wound care , patientReports : , denies :[ Ramirez Flash, circumferential ramirez , Ramirez reported with black tissue to the area , Open skin area after a fall with uncontrolled bleeding , Absces s/infection with streaking noted, presence of fever or without , History of cellulitis, isolated redness noted , Fever and chills noted in setting of wound , Rash ,"Bites -bugs, spider , Abscess ], chiefComplaints : Wound Care", pmh : COPD/Asthma, Congestive Heart Failure, Diabetes Mellitus Type 2 ,"allergies : No Known Drug Allergies , otherAllergies : , p ainAssessment : , visitOutcome : , additionalComments": 79 y.o male complains of Wound Care\npatient self referring\npatient has concerns of s/p maggie gical incision s/p circumcision yesterday with Dr. Heath\nPatient following discharge instructions\ntook part the bandage off and took a shower as instructed, \nHe is seeing some blood in the underwear (breief) he describes as small amount of red blood \nno fever or chills in setting of wound. \ndenies any pain\nrequesting insted to assess. \n\n\nI provided information on the mobile health provider response time and advised the patient and/or caregiver to monitor reported signs and symptoms. Idiscussed the warning signs of when to seek emergency care. } Pt chief complaint today of bleeding in his brief. Pt notes that all signs and symptoms were noted at approx 1000 this morning. Pt state that as of 1 day prior to today he had a circumcision performed to help decrease his frequency in uti. Pt expresses that the office in which he had the procedure performed expresses that there would be some noted bleeding. Pt expresses that the area is not actively bleeding and that he only noticed red spotting in his brief. Pt today would appreciate a generalassessment as well as treatment if needed. Pt denies any cp,,sob, NVD, dizziness or changes in vision. Nonneural focal exam, afebrile, vitals are WNL for the baseline of the pt. Pt is not ambulatory as of today due to the surgery and resting however he does ambulate at baseline with the use of a walking device. Lungs present clear bilaterally, benign abdominal, no new and or worsening lower extremity edema noted. Upon inspecting of the area in question MIH note no active bleeding. Pt expresses a 0/10 level of pain in the area. Pt is caox4 with a GCS of 15 [facility] Vi Yadav consulted. Pt is informed of findings. Pt is instructed to call his urologist for any follow up as needed as well as Inst[facility]. Pt is educated on red flag S&S and told to call emergency services if any present. ORAL_MEDICATION, WOUND_CARE Written by Medical instED on 2025-07-19
--- OUTSIDE RECORDS SUMMARY | 2025-09-10 18:07 | XMS_ITS | Data Portability ---
Author Organization [facility], [facility] Address [address] [place] [address] Care Team Providers Care Rubber And Pounder Name Role Phone SAEID GLASS Primary Care Provider HIM CCA OTHER Assessment Encounter Date Assessment Date Assessment LastModified by Organization Details LastModified Time 02/05/2024 02/05/2024 I provided real -time medical direction via phone for this encounter, and was available for additional phone based assistance as needed. I have reviewed and agree with the Assessment and Plan as documented by the Filling Station Laborer. We discussed the diagnostic uncertainty of home [...] to call 911- verbalized understanding of instruction [email or web address] Not available 02/05/2024 18:42:34 04/09/2024 04/09/2024 I have reviewed and agree with the assessment and plan as documented by the clinical safety manager. I provided real time medical direction for this encounter and was immediately available to provide additional phone based assistance as needed. History as noted by clinical safety manager. Pt with history of COPD, CHF, DM. [...] call either his Primary care team and/or hull drafter today to discuss the episode with them [...] with him. [email or web address] Not available 04/09/2024 15:39:41 07/18/2025 07/18/2025 Evaluation in e field was performed by my clinical safety manager colleague, as noted above, I provided real-time direction and supervision for this visit. This is a 79yo M requesting evaluation after having a circumcision yesterday. He had this due to frequent UTIs. He noticed a small amount of blood in his underwear today. Denies active bleeding. No blood in urine. No pain. Was told by his urologist he might have some bleeding but he just wanted to make sure things were okay. PE: General: Awake & alert, NAD Respiratory: Chest rise equal bilat, no increased wob CV: Regular rate, normal peripheral perfusion Abd: Soft, nontender, nondistended : No gross abnormalities. No bleeding noted. Impression: Visit for wound check Plan: -VSS, appears well -No active bleeding on exam. No pain. Has expected small amount of post-operative blood as cautioned by urology. No indication for ED evaluation. -F/u urology as advised Disposition: Remain at home We discussed the diagnostic uncertainty of home visits and the risk associated with this. In this case, the patient and I felt this to be an acceptable and reasonable amount of risk given the benefit of avoiding an ED visit. We discussed the need to seek care urgently/emergentl y in the setting of any new or worsening serious symptoms. [email or web address] Not available 07/18/2025 21:17:28 Plan of Treatment Reminders Order Date Submit Date Provider Last Modified By Organization Details Last Modified Time Details Appointments None recorded . Lab glucose, fingerst ick, blood 024 02/05/20 [email or web address] [address], [address] [place] [address] 4 18:47:12 BMP, serum or plasma 024 02/05/20 [email or web address] 0 [facility], [address] [place] [address], [address] [place] [address] 4 18:47:11 Referral None recorded . Procedures None recorded . Surgeries None recorded . Imaging None recorded . Medication Orders None recorded . Patient TargetsNo targets recorded. Patient InstructionsNo instructions recorded. Reason for Referral None Reported. Results Created Date Observation Date Name Description Value Unit Range Abnormal Flag Note LastModifiedBy Organization Detail LastModifiedTime 02/05/20 24 02/05/2024 BMP, serum or plasm a BUN 35 Not Available Main - [address], [address] [place] [address] 02/05/2024 17:09:34 02/05/20 24 02/05/2024 BMP, serum or plasm a Ca Ionize d calciu m 1.12 Not Available [address], [address] [place] [address] 02/05/2024 17:09:34 02/05/20 24 02/05/2024 BMP, serum or plasm a CI- 98 Not Available Main - Ins [address], [address] [place] [address] 02/05/2024 17:09:34 02/05/20 24 02/05/2024 BMP, serum or plasm a CRE 1.6 Not Available Main - Ins [address], [address] [place] [address] 02/05/2024 17:09:34 02/05/20 24 02/05/2024 BMP, serum or plasm a GLU 147 Not Available Main - [address], [address] [place] [address] 02/05/2024 17:09:34 02/05/20 24 02/05/2024 BMP, serum or plasm a K+ 4.1 Not Available Main - Ins [address], [address] 02/05/2024 17:09:34 02/05/20 24 02/05/2024 BMP, serum or plasm a Na+ 139 Not Available Main - Ins [address], [address] 02/05/2024 17:09:34 02/05/20 24 02/05/2024 BMP, serum or plasm a tCO2 30 Not Available Main - Ins [address], [address] 02/05/2024 17:09:34 02/05/20 24 02/05/2024 gluco se, finge rstic k, blood Blood Glucose: mg/dl 77 by cgm. 153 by medic glucom eter Not Available Main - [address], [address] 02/05/2024 17:09:28 Result Notes None recorded. Medical [...] Available No t Available Vitals Date Recorded Body temperature Oxygen saturation Oxygen saturation in Arterial blood by Pulse oximetry Respiratory rate Heart rate Systolic And Diastolic Provider Name and Address Organization Details Last Updated DateTime 4 98 [degF] 100 % 100 % 18 /min 80 /min 157/83 mm[Hg] Not Available [facility] - [employer] 4 16:50:57 Date Recorded Respiratory rate Body temperature Body weight Body height Oxygen saturation Oxygen saturation in Arterial blood by Pulse oximetry Heart rate Systolic And Diastolic Provider Name and Address Organization Details Last Updated DateTime 4 16 /min 97.6 [degF] 761443. 792 g 167.64 cm 99 % 99 % 80 /min 107/63 mm[Hg] Not Available [employer] [facility] [employer] 4 17:04:04 Date Recorded Body temperature Oxygen saturation Oxygen saturation in Arterial blood by Pulse oximetry Respiratory rate Heart rate Systolic And Diastolic Provider Name and Address Organization Details Last Updated DateTime 4 97.2 [degF] 98 % 98 % 16 /min 85 /min 125/80 mm[Hg] Not Available [facility] [facility] [employer] 4 17:20:24 Date Recorded Heart rate Body height Body weight Oxygen saturation Oxygen saturation in Arterial blood by Pulse oximetry Body temperature Respiratory rate Systolic And Diastolic Provider Name and Address Organization Details Last Updated DateTime 4 76 /min 167.64 cm 820645. 608 g 98 % 98 % 97.2 [degF] 14 /min 106/72 mm[Hg] Not Available [employer] [facility] [employer] 4 15:26:30 Date Recorded Respiratory rate Body weight Oxygen saturation Oxygen saturation in Arterial blood by Pulse oximetry Body temperature Body height Heart rate Systolic And Diastolic Provider Name and Address Organization Details Last Updated DateTime 5 17 /min 873335 g 96 % 96 % 98.4 [degF] 167.64 cm 80 /min 120/74 mm[Hg] Not Available [employer] [employer] 5 21:01:40 Social History None recorded. Functional Status None recorded. Mental Status None recorded. Family History Nothing Reported. Medical History No medical history recorded. Past Encounters Encounter ID Performer Location Encounter Start Date Encounter Closed Date Diagnosis/Indication Diagnosis SNOMED-CT Code Diagnosis ICD10 Code Diagnosis IMO Codes Diagnosis Note [id number] Yogesh Piedra MD Main - [address] [phone] 01/10/2022 11:39:25 07/19/2022 14:03:31 Hypertensive disorder 93886996 I10 [id number] Ramya Gramajo MD Main - [facility] [address] [place] [phone] 05/12/2022 12:45:21 07/05/2022 21:10:28 Chest pain 43250444 R07.9 appears to be muscular as he [...] [id number] Familia Roa MD Main - [facility] [address] [place] [id number] 08/23/2022 12:45:38 08/23/2022 16:41:09 Low blood pressure 34302473 I95.9 This 76-year-ol d male with a history of CHF called [facility] because of low blood pressure and palpitatio ns earlier today. When the clinical safety manager arrived he was back at his baseline with no complaints . I recommende d that he continue with his usual treatments and follow-up with his PCP. The patient agreed with this plan. [id number] Shannan Hannah MD Main - [facility] [address] [place] [phone] 09/19/2022 12:20:33 09/21/2022 11:23:54 Viral upper respiratory tract infection 225817204 J06.9 76 year old male being evaluated for malaise, cough and diarrhea since last night. Patient able to tolerate PO. Exam notable for normal vital signs. POC COVID and flu negative. Reassuranc e offered. FU PCP prn. [id number] Demar Allan MD Main - [facility] [address] [place] [phone] 12/24/2022 22:17:55 12/26/2022 09:40:15 Viral syndrome 115209036 B34.9 Reports exposure to home health aide [...] [id number] Shannan Hannah MD Main - [facility] [address] [place] [phone] 02/18/2023 14:31:21 02/20/2023 09:53:22 Headache 74873432 R51.9 77 year old male being evaluated [...] hold NSAIDS given patient is on eliquis. [id number] Shivani Bowman MD Main - [facility] [address] [place] [phone] 04/15/2023 19:16:26 04/17/2023 09:48:17 Peripheral edema 949177315 R60.9 [id number] Ana Arroyo MD Main - [facility] [address] [place] [phone] 07/03/2023 13:57:16 07/03/2023 17:01:42 Congestive heart failure 95180813 I50.9 Evaluation in the field was performed by my clinical safety manager colleague, as noted above, I provided real-time direction and supervisio n for this visit. 77yo M PMHx COPD, HTN, AFib, CHF p/w 3 lb wt gain and R>L LE edema. Denies resp symptoms. VS wnl, on clinical safety manager exam 2+ R>L pitting edema w/o weeping, [...] shortness of breath, cough, chest pain, fever. [id number] Lester Lewis MD Main - [facility] [address] [place] [phone] 07/04/2023 18:51:19 07/05/2023 11:39:12 Congestive heart failure 76659384 I50.9 [id number] Lisette Ramos MD Main - [facility] [address] [place] [phone] 07/24/2023 10:56:51 07/24/2023 22:57:02 Congestive heart failure 21056917 I50.9 77 yo w/HF p/w 3lb weight [...] follow up with PCP/cardio logist. Pt and clinical safety manager agree with plan, all questions answered. 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 F/u tomorrow with PCP. [id number] Ramya Gramajo MD Main - [facility] [address] [place] [phone] 02/05/2024 17:04:02 02/05/2024 19:06:16 Hypoglycemia 013759479 E16.2 Patient is actually not hypoglycem ic-BMP revealed a blood sugar of 147 after the abnormal CGM reading/th e patient's glucometer was only reading 90 at the time.Advis ed the patient to continue normal diet and his normal insulin/ metformin but to use if his fingerstic k glucometer anytime his CGM reads low and before meals to do his sliding scale. Medic verified he has adequate NSAIDs and test strips to do this. Note sent to healthcare advisory services manager via [facility] to discuss with PCP getting a clinical nurse educator to the house to show [...] good way for him to stay hydrated. [id number] MILTON CHAMORRO MD Main - [facility] [address] [place] [phone] 03/09/2024 17:20:23 03/11/2024 11:13:33 Low blood pressure 39126279 I95.9 Evaluation in the field was performed by my clinical safety manager colleague, as noted above, I provided real-time [...] just finished it when seen by the clinical safety manager. During the visits VS stable, BP 125/ [...] CP, SOB, N/V/D or any other concerns [id number] Yogesh Piedra MD Main - [address] [phone] 04/09/2024 15:26:25 04/09/2024 21:18:24 Hypotensive episode 19106862 I95.9 [id number] Vi Catalan MD Main-[facility] ED Medical [address] [phone] 07/18/2025 21:01:37 07/18/2025 22:04:20 Surgical follow-up 080262522 Z09 612750 Wound finding 346079971 Z51.89 7943112 Health Concerns Section Related Observation LastModified by Organization Detai ls LastModified Time None Recorded Concern Status LastModified by Organization Details LastModified Time None Recorded Advance Directives Directive None Recorded Payers Insurance Date Sequence Insurance Name Policy Number Policy Hernandez Covered Member ID Hernandez Member ID Guarantor Name 04/15/2023 1 [facility] - DOS PRIOR TO 2023 - DUAL ELIGIBLE (MEDICARE REPLACEMENT/ADV ANTAGE - HMO) David Milton [id number] David Milton 07/18/2025 1 [facility] - DOS ON OR AFTER 2023 - DUAL ELIGIBLE - ALF OPTIONS AND ONE CARE (MEDICARE REPLACEMENT/ADV ANTAGE - HMO) David Milton [id number] David Milton Notes Date Note Type Note Provider Name and Address Organization Details Recorded Time 11/28/2023 text/html [facility] Nurse Triage Notes (Toshia [...] ..................... ..................... ..................... ..................... ..................... ..................... ............... Filling Station Laborer Note From Christy Tate: Sent to a [...] CHF, and Hypotension. Pt was admitted to [facility] from 11/24-11/27 for hypotension and hypoglycemia. Pt's [...] blood draw performed: Chem8+ results uploaded to [employer]. B; Pt's visiting nurse sets up pt's continuous glucose monitor. [facility] consulted and pt advised to have glucose tabs in case BG dips again. Pt advised to follow up with duplication specialist. [facility] Visiting nurse will help get replacement glucometer for pt. Red flags discussed. Pt has no further questions. ..................... ..................... ..................... ..................... ..................... ..................... ............... Disposition: Fulfilled Lisette Ramos MD [address] [facility],[address], [place], [address], [employer] 11/28/2023 21:06:34 02/05/2024 text/html ROS as noted in the HPI [facility] Nurse Triage Notes (Lida Hamlin): Chief [...] ..................... ..................... ..................... ..................... ..................... ..................... ............... Filling Station Laborer Note From Leonel Farmer: Smartcare visit for [...] diminished though patient is obese. Consulted with [facility] Dr. Gramajo. [facility] was concerned about malfunction with pt's meter [...] has no complaints currently. Ramya Gramajo MD [address] [place] [address],[address], [place], [address], [employer] 02/05/2024 18:47:50 03/09/2024 text/html ROS as noted in the [facility] CRC Nurse Triage Notes (Jay Swartz): Chief Complaints: Hypotension PMH: COPD/Asthma, CHF, Diabetes Allergies: Unknown Comments: Supervisor Baking verified the member's name//address and phone number. [...] s/s and seek emergency treatment if needed -Setw Swartz RN ..................... ..................... ..................... ..................... ..................... ..................... ............... Filling Station Laborer Note From Jakob Blanton: Pt reports low systolic BP s earlier today (uppers 90 s -low 100 s ). Pt sts he feels well, denying any CP, SOB, LERMA dizziness, blurred vision, f/n/v/d. Pt sts he hadn t eaten before the BP was take [...] throughout the day, continue to closely monitor BP s and to seek emergent medical care for new or worsening sx, which are reviewed with him. ..................... ..................... ..................... ..................... ..................... ..................... ............... Disposition: Julian HCAMORRO MD [address] [facility],[address], [place], [address], [employer] 03/09/2024 17:30:15 04/09/2024 text/html ROS as noted in the HPI This was a supervised home visit with clinical safety manager Christian Art. [facility] Nurse Triage Notes (Jazmin [...] ..................... ..................... ..................... ..................... ..................... ..................... ............... Filling Station Laborer Note From Christian Art: 78 yo M [...] a month. Pt reports feeling fine when [facility] arrived. He denies CP, SOP, dizziness, N/V/D, or pain. Pt seemed more concerned about getting ahold of a different [facility] member, for a personal matter, non-[facility] related. Pt reports he is unable to drink water due to his BLE edema. MD consult: advised the pt needs to stay indoors since it is above, and call his hull drafter for med adjustments. ..................... ..................... ..................... ..................... ..................... ..................... ............... Disposition: Julian Yogesh Piedra MD [address] [place] [address],[address], [place], [address], [employer] 04/09/2024 16:56:14 07/18/2025 text/html ROS as noted in the [facility] CRC Nurse Triage Notes (Heide Burnett): Reason For Request: wound care Denies: Ramirez Flash, circumferential ramirez Ramirez reported with black tissue to the area Open skin area after a fall with uncontrolled bleeding Abscess/infection with streaking noted, presence of fever or without History of cellulitis, isolated redness noted Fever and chills noted in setting of wound Rash Bites -bugs, spider Abscess Chief Complaints: Wound Care PMH: COPD/Asthma, Congestive Heart Failure, Diabetes Mellitus Type 2 PMH Reviewed at 07/18/2025 - 18:53 Allergies Reviewed at 07/18/2025 - 18:53 Comments: 79 y.o male complains of Wound Care patient self referring patient has concerns of s/p surgical incision s/p circumcision yesterday with Dr. Heath Patient following discharge instructions took part the bandage off and took a shower as instructed, He is seeing some blood in the underwear (breief) he describes as small amount of red blood no fever or chills in setting of wound. denies any pain requesting [facility] to assess. I provided information on the mobile health provider response time and advised the patient and/or caregiver to monitor reported signs and symptoms. I discussed the warning signs of when to seek emergency care. ..................... ..................... ..................... ..................... ..................... ..................... ............... Filling Station Laborer Note From Hudson Ogden: Pt chief complaint today of bleeding in [...] his brief. Pt today would appreciate a general assessment as well as treatment if needed. Pt [...] is caox4 with a GCS of 15 [facility] Vi Catalan consulted. Pt is informed of findings. Pt is instructed to call his urologist for any follow up as needed as well as [facility]. Pt is educated on red flag S&S and told to call emergency services if any present. ..................... ..................... ..................... ..................... ..................... ..................... ............... [facility] Consulted: Vi Catalan ..................... ..................... ..................... ..................... ..................... ..................... ............... Disposition: Fulfilled Vi Catalan MD [address] [facility],[address], [place], [address], [employer] 07/18/2025 21:48:34
--- OUTSIDE RECORDS SUMMARY | 2025-09-10 18:07 | XMS_ITS | Continuity of Care Document ---
Author Name [facility], Medical Address [address] [place] [address] Organization Unknown Address [address] [place] [address] Medications No known medications Problems No known problems
--- OUTSIDE RECORDS SUMMARY | 2025-09-10 18:07 | XMS_ITS | Clinical Summary ---
Author Organization [facility] [address] [place] [address] [place] [phone] Phone Care Team Providers Care Supervisor Blueprinting And Photocopy Name Role Phone Prabhjot Ford MD Primary Care Provider [phone] Allergies No known active allergies Medications blood [...] mouth 1 (one) time each day. Active HealthyLax 17 gram packet Take 17 g by mouth 1 (one) time each day if needed. 024 Active medical supply, miscellaneous (MISCELLANEOUS MEDICAL SUPPLY MISC) Inhale by mouth. CPAP Active Lantus Solostar U-100 Insulin 100 unit/mL (3 mL) injection pen 20 units at bedtime, go up by 5 unit in 1 week if BS above 150. 15 mL 5 024 Active Additional Information Patient taking differently: 25 Units, 20 units at bedtime, go up by 5 unit in 1 week if BS above 150., Reported on 07/29/2025 Farxiga 10 mg tablet TAKE ONE TABLET BY MOUTH EVERY DAY ^1R1 90 tablet 3 025 Active Additional Information Patient taking differently: 10 mg Daily, Informant: Self, Reported on 07/29/2025 NovoLOG Flexpen U-100 Insulin 100 unit/mL (3 mL) injection pen INJECT 16 UNITS SUBCUTANEOUSLY BEFORE BREAKFAST, INJECT 20 UNITS SUBCUTANEOUSLY BEFORE LUNCH AND INJECT 16 UNITS SUBCUTANEOUSLY BEFORE DINNER 90 mL 1 025 Active Dexcom G7 Continuous Improvement Facilitator miscIndications: Diabetes mellitus with stage 3 chronic kidney disease ([facility] V24, [facility] V28) USE WITH DEXOM G7 SENSORS (BULK) 1 each 025 Active magnesium oxide (MAG-OX) 400 mg (241.3 elemental magnesium) tablet TAKE ONE TABLET BY MOUTH EVERY DAY ^1R1 30 tablet 8 025 Active Additional Information Patient taking differently: 400 mg oral Daily, Reported on 07/29/2025 atorvastatin (LIPITOR) 40 mg tablet TAKE ONE TABLET BY MOUTH EVERY DAY ^1R3 30 tablet 8 025 Active aspirin 81 mg chewable tablet CHEW AND SWALLOW ONE TABLET BY MOUTH EVERY DAY ^1R1 30 tablet 8 025 Active BD Ultra-Fine Short Pen Needle 31 gauge x 5/16 needle USE WITH INSULIN PEN FOUR TIMES A DAY (BULK) 400 each 1 025 Active ketoconazole (NIZORAL) 2 % cream Apply topically 1 (one) time each day. 60 g 2 025 Active glucose 3.75 gram tablet,chewable TAKE 4 TABLETS BY MOUTH NEEDED FOR LOW BLOOD SUGAR READING (VIAL) 50 tablet 3 025 Active albuterol HFA (PROAIR HFA ; PROVENTIL HFA ; VENTOLIN HFA) 90 mcg/actuation inhalerIndicatio ns:Chronic obstructive pulmonary disease, unspecified COPD type ([facility] V24, [facility] V28) INHALE 2 PUFFS BY MOUTH EVERY 6 HOURS IF NEEDED FOR WHEEZING OR SHORTNESS OF BREATH (COUGH AND CHEST TIGHTNESS). 18 each 3 025 Active omeprazole (PriLOSEC) [address] capsule TAKE ONE CAPSULE BY MOUTH EVERY DAY ^1R1 30 capsule 025 Active FeroSuL 325 mg (65 mg iron) tablet TAKE ONE TABLET BY MOUTH EVERY DAY ^1R1 30 tablet 5 Active ammonium lactate (AMLACTIN) 12 % cream APPLY TOPICALLY TO DRY SKIN ON BOTH FEET ONCE DAILY (BULK) 385 g Active metoprolol tartrate (LOPRESSOR) 25 mg tablet TAKE ONE TABLET BY MOUTH TWICE A DAY ^1R1,1R3 60 tablet 025 Active Additional Information Patient taking differently: 25 mg oral 2 times daily, Reported on 07/29/2025 torsemide (DEMADEX) 20 mg tablet TAKE TWO TABLETS BY MOUTH EVERY DAY ^2R1 60 tablet 025 Active torsemide (DEMADEX) 20 mg tablet Take 1 tablet (20 mg total) by mouth 1 (one) time each day if needed (As needed daily as directed by cardiology for weight gain/swelling in addition to daily dosing). 30 each 025 2025 Active Additional Information Patient taking differently: 240 mgoral Daily PRN, As needed daily as directed by cardiology for weight gain/swelling in addition to daily dosing, Reported on 07/29/2025 Trelegy Ellipta 100-62.5-25 mcg inhalerIndicatio ns:Chronic obstructive pulmonary disease, unspecified COPD type ([facility] V24, [facility] V28) INHALE 1 PUFF (100 MCG TOTAL) BY MOUTH 1 (ONE) TIME EACH DAY. RINSE MOUTH WITH WATER AFTER USE TO REDUCE AFTERTASTE AND INCIDENCE OF CANDIDIASIS. DO NOT SWALLOW. 180 each 025 Active brimonidine (ALPHAGAN P) 0.1 % ophthalmic solution 1 drop 2 (two) times a day. Active apixaban (ELIQUIS) 5 mg tablet Take 1 tablet (5 mg total) by mouth 2 (two) times a day. 180 tablet 1 025 Active clotrimazole-bet amethasone (LOTRISONE) 1-0.05 % cream APPLY TOPICALLY TO AFFECTED AREA(S) TWO TIMES A DAY (BULK) Strength: 1-0.05 % 30 g 3 025 Active TURMERIC ORAL Take by mouth 1 (one) time each day. Active CHIQUIS ROOT, BULK, MISC 1 (one) time each day. Active cinnamon bark, bulk, powder 1 (one) time each day. Active docusate sodium (COLACE) 100 mg capsule Take 1 capsule (100 mg total) by mouth 1 (one) time each day if needed. for constipation 025 Active senna 8.6 mg tablet Take 2 tablets (17.2 mg total) by mouth 1 (one) time each day. for 30 days 025 Active potassium chloride (KLOR-CON M20) 20 mEq CR tablet Take 1 tablet (20 mEq total) by mouth 1 (one) time each day. Tablet may be swallowed whole (do not crush/chew/suck on) OR broken in half and each half swallowed separately OR dissolved (whole tablet) in ~4 ounces of water (allow ~2 minutes to dissolve, stir well and administer immediately). 90 each 1 025 2025 Active ketoconazole (NIZORAL) 2 % cream Apply topically 1 (one) time each day. 60 g 2 025 Active fluticasone propionate (FLONASE) 50 mcg/actuation nasal spray USE 2 SPRAYS IN EACH NOSTRIL ONCE DAILY FOR 3 TO 4 WEEKS THEN DECREASE TO 1 SPRAY IN EACH NOSTRIL DAILY (BULK) 16 g 5 025 Active lidocaine (LIDODERM) 5 % patchIndications :Pure hypercholesterol emia,Stage 3a chronic kidney disease (CMS/HCC V24, CMS/HCC V28),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 (CMS/HCC V24, CMS/HCC V28),Need for tetanus, diphtheria, and acellular pertussis (Tdap) vaccine,Skin tag Apply topically 1 (one) time each day. Remove & discard patch within 12 hours or as directed by MD. 28 patch 5 025 Active blood-glucose sensor (Dexcom G7 Sensor)Indicatio ns:Diabetes mellitus with stage 3 chronic kidney disease (CMS/HCC V24, [facility] V28) USE ONE SENSOR EVERY 10 DAYS (BULK) 9 each 1 025 Active diclofenac (Voltaren Arthritis Pain) 1 % topical gel Apply 4 g topically 2 (two) times a day. 240 g 1 025 2025 Active blood-glucose sensor (Dexcom G7 Sensor) deviceIndication s:Diabetes mellitus with stage 3 chronic kidney disease ([facility] V24, [facility] V28) by Not Applicable route every 14 (fourteen) days. 9 each 1 025 2024 Discontinued Active Problems Problem Noted Date Diagnosed Date Pre-op evaluation 05/21/2025 Assessment & Plan (05/21/2025 8:56 AM EDT): The patient is reportedly scheduled to have a circumcision procedure done at [facility]. He does utilize a walker at baseline, but reports that he is able to go up and down the stairs in which his LIP AND GATE BUILDER is there to confirm, this represents greater than 4 METS of activity. He is having no new anginal symptoms at the appointment today. There are no cardiac contraindications to this elective surgery. I did speak to the patient about the Eliquis and the likelihood that he will need to hold this medication 2 days prior to the surgery, and to reach out to the surgical team. Ideally would like the patient to remain on the metoprolol and the baby aspirin during the surgery. Type 2 diabetes mellitus wit h stage 3 chronic kidney disease and hypertension ([facility] V24, [facility] V28) 12/25/2024 Type 2 diabetes mellitus wit hout complication, with long-term current use of insulin ([facility] V24, [facility] V28) 10/07/2024 Hypotension, unspecified 10/07/2024 Chronic obstructive pulmonar y disease, unspecified ([facility] V24, [facility] V28) 10/07/2024 Eosinophilia, unspecified 10/07/2024 Acidosis, unspecified 10/07/2024 Obesity, unspecified 10/07/2024 Gastroesophageal reflux disease without esophagi tis 10/07/2024 floor scrubber (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 of aspirin 10/07/2024 floor scrubber (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 of i nsulin ([facility] V24, [facility] V28) 10/07/2024 [facility] (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 of anticoagulants 2023 [facility] (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 of oral hypoglycemic arya gs 10/07/2024 floor scrubber (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 of inhaled steroids 09/22 Stage 3 chronic kidney disease ([facility] V24, [facility] V28) 03/01/2024 Assessment & Plan (12/23/2024 2:27 [...] are just managing medically Assessment & Plan (05/21/2025 8:52 AM EDT): Patient is not reporting any new anginal symptoms at the appointment today. Continue to manage medically with baby aspirin, metoprolol, high-dose statin. Instructed to call 911 or go to the emergency room should the patient begin to experience chest pain or pressure lasting greater than 10 minutes does not resolve with rest. Assessment & Plan (01/27/2025 12:19 PM EDT): The patient continues to deny anginal sounding discomfort. Continue medical therapy with aspirin, beta-betsy and statin Elevated blood protein 11/22/2022 Chronic heart failure with p reserved ejection fraction ([facility] V24, [facility] V28) 10/25/2021 Overview (01/27/2025): - Initially diagnosed 12/2021 at [facility] where he presented with symptoms of dyspnea [...] artery disease portion for results -Hospitalized at [facility] in November 2023 with lactic acidosis, hypotension, hypoglycemia-Entresto was transiently held as was torsemide, the patient was given IV fluids, eventually Entresto was restarted and torsemide was restarted at lower dose - Hospitalized again in January 2024 yet again with low blood pressure at the 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 Assessment & Plan (05/21/2025 8:52 AM EDT): Patient appears euvolemic on exam. Reportedly has been limiting sodium consumption considerably. He has been using torsemide, Farxiga. Would like patient to continue to check his weights daily and reach out if he gains 2 pounds in a day or 5 pounds in a week. Should continue to limit sodium consumption. Assessment & Plan (01/27/2025 12:18 PM EDT): [...] hypoventilation... Obstructive sleep apnea 2017 Overview (07/25/2024): [facility] Polysomnogram: Date 12/09/2017; Wt 217# SE 73%; SM 77%; REM 22%; RDI 13 (AHI 7), worse in REM (RDI 32 - AHI 30), Central apneas 1; Obstructive apneas 8; Mixed apneas 0; hypopneas 36; RERAs 38; average oxygen saturation 96% (lowest 81% - without saturations <88% for 5% or more of study); PLMs 39. [facility] Polysomnogram treatment study. Date 08/17/2018. SE 72 % SM 74 %; spent 11 % of the study in REM. On CPAP @ 12; RDI 1.7 (AHI 1.7), Central apneas 3; Obstructive apneas 0; Mixed apneas 0; hypopneas 2; RERAs 0; and, average oxygen saturation was 93%. For the entire study, PLMs ~43. [facility] Polysomnogram treatment study. Date 07/29/2019. Wt 215#; BMI 35; SE 86 % SM 88 %; spent 24 % of the study in REM. On CPAP and BiPAP; RDI and AHI lowest at 9.9; and, average oxygen saturation was 94%. For the entire study, PLMs ~28. Prestudy ESS 10; 4/4 RLS symptoms. [facility] Polysomnogram ASV treatment study. Date 10/26/2019. Wt 226#; BMI 37; SE 58 % SM 75 %; spent 21 % of the study in REM. On ASV; RDI 7 (AHI 7), Central apneas 7; Obstructive apneas 0; Mixed apneas 0; hypopneas 30; RERAs 1; and, average oxygen saturation was 94%. For the entire study, PLMs ~1. Prestudy ESS 8; 0/4 RLS symptoms. [facility] Polysomnogram iVAPs treatment study. Date 10/29/2020. Wt 230#; BMI 37; SE 79 % SM 81 %; spent 13 % of the study in REM. IVAPs trialed at various pressure; given the elevated TC CO2 on ASV, interpreting physician recommended IVAPS with EPAP of 5;TV a 6.1 and PS minimum of 4; PS max of 20; AK 18 and height 66 inch - with a heated humidifier. - Obstructive Sleep Apnea - mild overall and severe in REM; mostly hypopneas; no sleep related hypoventilation by 2018 diagnostic polysomnogram. - PAP therapy and ASV failed to correct the TC CO2; iVAPS with EPAP of 5;TV a 6.1 and PS minimum of 4; PS max of 20; AK 18 and height 66 inch - with [...] seconds. No significant pauses. Assessment & Plan (05/21/2025 8:53 AM EDT): Patient is in atrial fibrillation at the appointment today. Rate controlled metoprolol, CVA prophylaxis with Eliquis. Patient denies any abnormal bleeding. Should remain anticoagulated due to an elevated chads 2 VASc score for hypertension, diabetes, age, heart failure. Assessment & Plan (01/27/2025 12:22 PM EDT): [...] cervical 10/01 Mild nonproliferative diabet ic retinopathy ([facility] V24, [facility] V28) 02/17/2015 Overview (07/25/2024): Taken from note of Dr. Witt on 09/16/2013 Nuclear sclerosis 02/17/2015 Overview (07/25/2024): Taken from note of Dr. Witt 09/16/2013. Peripheral vascular disease, unspecified ([facility] V24) 02/17/2015 Overview (07/25/2024): See note [...] Entresto. Will follow renal function. DM polyneuropathy (CMS/HCC V24, CMS/HCC V28) 05/2005 Assessment & Plan (09/23/2024 3:28 [...] diabetes mellitus wi th peripheral circulatory disorder ([facility] V24, [facility] V28) 08/30/2005 Overview (07/25/2024): Last Assessment & Plan: Checking Your Blood Sugars Please check your blood sugars every day. Please check your sugars at the following times of day: before breakfast and before dinner Your Blood Sugar Goals Pre Meal: 90-130 2 hours after meals: 110-160 Bedtime: 110-150 Use the Results Bring your glucometer to every appointment Write your fingerstick blood sugars down on a log sheet or record book. Bring them to your appointment Look for patterns in the numbers. The [...] just unsure what to do Educational Resources [employer] (www.diabetes.org) Centers for Disease Control and Prevention (www.cdc.gov/diabetes) This care plan was created in collaboration with Roya Holley on 08/28/2013 Assessment & Plan (12/23/2024 2:27 PM EST): Seems like the lab is backed up on hemoglobin A1c's. I do not have his value from recent testing. For now no change to his regimen. Resolved Problems Problem Noted Date Diagnosed Date Resolved Date Hypertensive heart disease w ith congestive heart failure ([facility] V24, [facility] V28) 10/07/2024 01/27/2025 Dyslipidemia 01/03/2024 01/27/2025 Overview (07/25/2024): Last Assessment & Plan: Well controlled lipid profile. Last LDL 03/2023 at goal <70. Continue statin. History of knee replacement, total, bilateral 03/05/20 07 07/25/2024 Overview (07/25/2024): R and L - S/p TKR 08/2011, Dr. Vergara Encounters Date Type Department Care Team Description 09/09/2025 Telephone Pulmonology - [place] [address] [facility] [address] [place] [address] Karon Sanchez NP 09/03/2025 10:00 AM EST Office Visit Orthopedic Surgery - [place] [address] [facility] [address] [place] [address] Delfin Bowser, TAWNY Controlled type 2 diabetes mellitus with diabetic polyneuropathy, without long-term current use of insulin ([facility] V24, [facility] V28) (Primary Dx); Neuropathy; PVD (peripheral vascular disease) ([facility] V24); Arthritis of both feet; Venous insufficiency; Onychomycosis 09/01/2025 10:15 AM EST Office Visit Adult [address] [phone] Juan Alberto Samuel NP Type 2 diabetes mellitus without complication, with long-term current use of insulin ([facility] V24, [facility] V28) (Primary Dx); Urinary incontinence, unspecified type; Decreased mobility; Hypokalemia; Swelling of lower extremity; Need for prophylactic vaccination and inoculation against influenza 08/28/2025 11:35 AM EST Lab Draw Station [address] Hypokalemia; Chronic heart failure with preserved ejection fraction ([facility] V24, [facility] V28) 08/08/2025 Telephone Pulmonology [facility] [address] [facility] [address] [place] [phone] Karon Sanchez NP 08/07/2025 Telephone Adult [address] [phone] Chrissy Barksdale [place] 08/07/2025 Telephone Adult [address] [phone] Prabhjot Ford MD 08/05/2025 Telephone Adult [address] [phone] Prabhjot Ford MD 07/31/2025 Telephone Orthopedic Surgery [facility] [address] [facility] [address] [place] [phone] Delfin Bowser DPM 07/29/2025 10:30 AM EDT Office Visit [address] [phone] Prabhjot Ford MD Hypokalemia (Primary Dx); Chronic heart failure with preserved ejection fraction (CMS/HCC V24, CMS/HCC V28); Paroxysmal atrial fibrillation ([facility]/HCC V24, CMS/HCC V28) 07/29/2025 Telephone [facility] [address] [place] [phone] Audrey Krishna MD 07/21/2025 Telephone Adult Medicine [address] [phone] Prabhjot Ford MD 07/19/2025 10:16 AM EDT - 07/19/2025 3:48 PM EDT Emergency [facility] Emergency [address] [place] [phone] Rusty Hargrove MD Postoperative surgical complication involving skin associated with non-dermatologic procedure, unspecified complication (Primary Dx); Hypokalemia Discharge Disposition: Home or Self Care 07/17/2025 8:45 AM EDT - 07/17/2025 10:00 AM EDT Surgery [facility] Main OR [address] [place] [phone] Torito Heath MD CIRCUMCISION [[id number] (CPT )] 07/17/2025 8:45 AM EDT Anesthesia Event [facility] OR [address] [place] [phone] Otto Pettit MD Devlin, Brandon, SRNA 07/17/2025 7:02 AM EDT - 07/17/2025 11:31 AM EDT Hospital Encounter [facility] Main [place] [address] [place] [phone] Torito Heath MD Phimosis Discharge Disposition: Home or Self Care 07/14/2025 Telephone Pulmonology [facility] [address] [facility] [address] [place] [phone] Karon Sanchez NP 07/11/2025 Telephone Orthopedic Surgery [facility] [address] [facility] [address] [place] [phone] Delfin Bowser DPM 07/11/2025 Telephone Pulmonology [facility] [address] [facility] [address] [place] [phone] Alma ElenaWAUSEON, [place] 07/04/2025 9:45 AM EDT Office Visit Pulmonology [facility] [address] [facility] [address] [place] [phone] Karon Sanchez NP Obstructive sleep apnea (Primary Dx); Treatment-emergent central sleep apnea; Nocturnal hypoxia; Chronic obstructive pulmonary disease, unspecified COPD type ([facility] V24, [facility] V28); Class 2 severe obesity with body mass index (BMI) of 35 to 39.9 with serious comorbidity ([facility] V24, [facility] V28) 07/04/2025 Telephone Adult Medicine [address] [phone] Chrissy Barksdale [place] 07/03/2025 9:30 AM EDT Office Visit Orthopedic Surgery [facility] [address] [facility] [address] [place] [phone] Delfin Bowser DPM Controlled type 2 diabetes mellitus with diabetic polyneuropathy, without long-term current use of insulin ([facility] V24, [facility] V28) (Primary Dx); Arthritis of both feet; PVD (peripheral vascular disease) ([facility] V24); Onychomycosis; Dermatitis of both feet 07/02/2025 10:00 AM EDT Consult Adult [address] [phone] Prabhjot Ford MD Preop cardiovascular exam (Primary Dx); Diabetic polyneuropathy associated with type 2 diabetes mellitus ([facility] V24, [facility] V28); Chronic obstructive pulmonary disease, unspecified COPD type ([facility] V24, [facility] V28); Essential hypertension, benign; Gastroesophageal reflux disease without esophagitis 06/27/2025 Telephone [facility] - [facility] [address] [facility] [address] [place] [phone] Audrey Krishna MD 06/10/2025 Telephone Adult Medicine [address] [phone] Prabhjot Ford MD from Last 3 Months Immunizations Immunization Administration Dates Next Due H1N1 Inj Preservative Free 11/06/2009 Influenza trivalent, 0.5mL ( Fluad) 65yo and older 09/01/2025 Influenza trivalent, 0.5mL ( Fluzone High-dose) 65yo and older 07/19/2021,08/03/2020,09/11/2019 Influenza trivalent, with pr eservative (Fluzone; Afluria) 6mo and older 08/31/2016,08/20/2015,10/09/2014,08/28,09/03/2012,07/06/2011,08/13/2010 ,11/06/2009,08/08/2008,09/12/2007,12/2005,08/30/2005 Pfizer (ages 12 & older) Biv alent, COVID-19 08/09/2023 Pneumococcal conjugate 13 va lent (Prevnar 13, PCV13) 2mo and older 09/29/2015 Pneumococcal polysaccharide 23 valent (Pneumovax 23) 2yo and older 06/14/2017,08/20/2003 RSV, bivalent, protein subun it RSVpreF, 0.5mL, Preservative Free (Arexvy) 50yo and older 08/09/2023 Td Tetanus diptheria (Tdvax) 7yo and older 08/18/2008 Tdap Tetanus diptheria acell ular pertussis (Boostrix; Adacel) 7yo and older 04/03/2025,07/06/2011,08/18/2008 Zoster recombinant (Shingrix ) 19yo and older 09/28/2021 Surgical History Surgery Date Site/Laterality Comments COLONOSCOPY 09/23/08 PROCEDURE: HISTORICAL COLONOSCOPY; COMMENT: adenomas and diverticulosis; repeat in five years COLONOSCOPY 02/09/15 PROCEDURE: [place] COLONOSCOPY STOMA W/RMVL DESIRE POLYP/OTH LES SNARE; COMMENT: adenoma and tics; repeat in 5 yrs OTHER SURGICAL HISTORY CATARACT EXTRACTION KNEE ARTHROPLASTY Bilateral Medical History Medical History Date Comments Osteoarthrosis, [...] mellitus type 2 wit h neurological manifestations ([facility] V24, [facility] V28) 07/10/2014 DX:Diabetes mellitus type 2 with neurological manifestations ([facility]) DJD (degenerative joint dise ase), cervical 10/01/2015 DX:DJD (degenerative joint d isease), cervical Arthritis of left shoulder region 10/01/2015 DX:Arthritis of left shoulder region Paroxysmal atrial fibrillati on ([facility] V24, [facility] V28) 12/01/2017 DX:Paroxysmal atrial fibril lation ([facility] [facility]); COMMENT: See cardiology note, accidental finding Right foot drop 01/29/2019 DX:Right foot dr op History of knee replacement, total, bilateral 03/05/2007 DX:History of knee replaceme nt, total, bilateral; COMMENT: R and L - S/p TKR 08/2011, Dr. Vergara Parasite infection DX:Parasite i nfection Chronic ischemic heart disease D X:Chronic ischemic heart disease Irregular heart beat afib COPD (chronic obstructive pu lmonary disease) ([facility] V24, [facility] V28) Depression Joint pain Shortness of breath Sleep apnea Chronic kidney disease Family History Medical History Relation Name [...] Passive Smoke Exposure: Past Smokeless Tobacco: Never Tobacco Cessation:Counseling Given: Not [...] Sign Reading Time Taken Comments Blood Pressure 102/67 09/01/2025 10:18 AM EST Pulse 83 09/01/2025 10:18 AM EST Temperature 36.3 C (97.4 F) 09/01/2025 10:18 AM EST Respiratory Rate 14 09/01/2025 10:18 AM EST Oxygen Saturation 98% 07/19/2025 3:29 PM EDT Inhaled Oxygen Concentration - - Weight 95.7 kg (211 lb) 09/01/2025 10:18 AM EST Height 167.6 cm (5' 6 ) 07/19/2025 10:50 AM EDT Body Mass Index 34.06 07/19/2025 10:50 AM EDT Plan of Treatment Upcoming Encounters Date Type Department Care Team (Late st Contact Info) Description 10/17/2025 9:45 AM EST Office Visit Pulmonology - [place] 175 [facility] 200 [place] [address] Karon Sanchez, ALICJA [address] [place] [address] 10/22/2025 10:00 AM EST Office Visit Orthopedic Surgery - [place] [address] [phone] Delfin Bowser DPM [address] [address] 01/07/2026 9:45 AM EDT Office Visit Adult Medicine [place] - [address] [phone] Prabhjot Ford MD [address] [place] [address] 01/21/2026 4:30 PM EDT Office Visit Nephrology - [address] [phone] Humberto Marshall MD [address] 200 [place] [address] Health Maintenance Due Date Last Done Comments Zoster Vaccines (2 of 2) 11/23/2021 09/28/2021 Social Influencers of Health Screening 10/01/2022 Medicare Annual Wellness Visit 03/26/2025 03/26/2024 Colorectal Cancer Screening: Colonoscopy 04/15/2025 04/29/2024 COVID-19 Vaccine ( season) 2025 08/09/2023, 06/06/2022, 09/06/2021, Additional history exists Diabetes: Annual Foot Exam 08/27/2025 08/27/2024 Diabetes: Blood Sugar Control Test (HGBA1C) 10/09/2025 04/09/2025, 12/20/2024, 09/06/2024, Additional history exists Diabetes: Annual Urine Albumin-Creatinine Ratio (uACR) 12/20/2025 12/20/2024, 06/23/2023 Diabetes: Annual Retina Eye Exam 05/29/2026 05/29/2025, 07/29/2024 Falls Risk Assessment 07/17/2026 07/17/2025 , 04/03/2025, 03/26/2024 Diabetes: Annual GFR (Glomerular Filtration Rate) 08/28/2026 08/28/2025, 07/19/2025, 04/09/2025, Additional history exists Hypertension/CHF/CAD Annual BMP Blood Test 08/28/2026 08/28/2025, 07/19/2025, 04/09/2025, Additional history exists Cholesterol Screening (Lipid Panel) 09/06/2029 09/06/2024, 03/25/2024, 03/25/2024 DTaP,Tdap,and Td Vaccines (5 - Td or Tdap) 04/03/2035 04/03/2025, 07/06/2011, 08/18/2008, Additional history exists Pneumococcal Vaccine: 50+ Years Completed 06/14/2017, 09/29/2015, 08/20/2003 Hepatitis C Screening Completed 10/03/2019 RSV Immunization Adult Patients Completed 08/09/2023 Depression Screening Completed 04/03/2025, 03/26/20 Influenza Vaccine Completed 09/01/2025, , 08/03/2020, Additional history exists HIB Vaccines Aged Out No longer eligi ble based on patient's age to complete this topic HPV Vaccines Aged Out No longer eligi ble based on patient's age to complete this topic Hepatitis A Vaccines Discontinued Hepatitis B Vaccines Aged Out No long [...] Procedure Name Priority Date/Time Associated Diagnosis Comments BASIC METABOLIC PANEL Routine 08/28/2025 11:44 AM EST Hypokalemia Chronic heart failure with preserved ejection fraction (CMS/HCC V24, CMS/HCC V28) POCT GLUCOSE BLOOD Routine 07/19/2025 2: 56 PM EDT POTASSIUM STAT 07/19/2025 1:17 PM EDT MAGNESIUM Add-On 07/19/2025 10:49 AM EDT CBC WITH AUTO DIFFERENTIAL STAT 07/19/2025 10:49 AM EDT ACTIVATED PARTIAL THROMBOPLASTIN TIME STAT 07/19/2025 10:49 AM EDT PROTHROMBIN TIME WITH INR STAT 07/19/2025 10:49 AM EDT CBC AND DIFFERENTIAL STAT 07/19/2025 10:49 AM EDT BASIC METABOLIC PANEL STAT 07/19/2025 10:49 AM EDT TISSUE EXAM Routine 07/17/2025 9:14 AM EDT Phimosis AK CIRCUMCISION SURG EXC OTHER CLAMP DEVICE/DORAL SLIT OLDER THAN 28 DAYS 07/17/2025 8:57 AM EDT Phimosis Special Needs Time change via fax from Rosa hull 07/09 AN LMA(NO CHARGE) Routine 07/17/2025 8:55 AM EDT POCT GLUCOSE BLOOD Routine 07/17/2025 7: 34 AM EDT POLYSOMNOGRAPHY Routine 07/11/2025 9:38 AM EDT EXTERNAL CLINICAL LAB 06/11/2025 EXTERNAL CLINICAL LAB 06/11/2025 HEMOGLOBIN A1C Routine 04/09/2025 11:04 AM EDT Pure hypercholesterolemia Stage 3a chronic kidney disease (CMS/HCC V24, CMS/HCC V28) 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 (CMS/HCC V24, CMS/HCC V28) Need for tetanus, diphtheria, and acellular pertussis (Tdap) vaccine Skin tag MICROALBUMIN CREATININE URINE RATIO Routine 12/20/2024 3:29 PM EST Diabetic polyneuropathy associated with type 2 diabetes mellitus (CMS/HCC V24, CMS/HCC V28) LIPID PANEL WITH REFLEX TO DIRECT LDL Routine 09/06/2024 11:59 AM EST Type II diabetes mellitus with peripheral circulatory disorder (CMS/HCC V24, CMS/HCC V28) HM COLONOSCOPY Routine 04/29/2024 HM DEPRESSION SCREENING Routine 03/26/2024 HM FALLS RISK ASSESSMENT Routine 03/26/2024 HM HEPATITIS C SCREENING Routine 10/03/2019 from Last 3 Months or Most Recently Relevant to Health Maintenance Results * (ABNORMAL) Basic metabolic panel (08/28/2025 11:44 AM EST) Only the most recent of2 resultswithin the time period is included. Sodium 136 133 - 145 mmol/L LAB CHEMISTRY METHOD 08/28/2025 3:53 PM [facility] Potassium 4.0 3.5 - 5.5 mmol/L LAB CHEMISTRY METHOD 08/28/2025 3:53 PM [facility] Chloride 101 96 - 110 mmol/L LAB CHEMISTRY METHOD 08/28/2025 3:53 PM [facility] CO2 31 21 - 32 mmol/L LAB CHEMISTRY METHOD 08/28/2025 3:53 PM [facility] Anion Gap 4 3 - 11 LAB CHEMISTRY METHOD 08/28/2025 3:53 PM [facility] Glucose 133(H) 70 - 100 mg/dL LAB CHEMISTRY METHOD 08/28/2025 3:53 PM [facility] BUN 19 5 - 25 mg/dL LAB CHEMISTRY METHOD 08/28/2025 3:53 PM [facility] Creatinine 0.95 0.70 - 1.30 mg/dL LAB CHEMISTRY METHOD 08/28/2025 3:53 PM [facility] eGFR 82 >=60 mL/min/1. 73m2 LAB CHEMISTRY METHOD 08/28/2025 3:53 PM [facility] Comment:Calculation based on the Chronic Kidney Disease Epidemiology Collaboration (CKD-EPI) equation refit without adjustment for race. BUN/Creatinine Ratio 20.0 LAB CHEMISTRY METHOD 08/28/2025 3:53 PM [facility] Calcium 9.3 8.5 - 10.5 mg/dL LAB CHEMISTRY METHOD 08/28/2025 3:53 PM [facility] Blood Venous blood specimen / Unknown Venipuncture / Unknown 08/28/2025 11:44 AM EST 08/28/2025 11:44 AM EST Prabhjot Ford MD LAB BLOOD ORDERABLES Final Resul t Performing Organization Address [facility]/ZIP Co de Phone Number [facility] [address] [place] [address], [place] [phone] * POCT Glucose, blood (07/19/2025 2:56 PM EDT) Only the most recent of2 resultswithin the time period is included. [facility] Glucose POCT 89 70 - 100 mg/dL 07/19/2025 2:57 PM EDT [facility] Blood Capillary blood specimen / Unknown 07/19/2025 2:56 PM EDT 07/19/2025 2:58 PM EDT Rusty Hargrove MD LAB POINT OF CARE TE ST DOCKED DEVICE UNSOLICITED RESULTS Final Result Performing Organization Address [facility] Co de Phone Number [facility] [address] [place] [address], [place] [phone] * Potassium (07/19/2025 1:17 PM EDT) [facility] Potassium 4.0 3.5 - 5.5 mmol/L LAB CHEMISTRY METHOD 07/19/2025 2:44 PM EDT [facility] Comment:Hemolysis present Blood Venous blood specimen / Unknown Venipuncture / Unknown 07/19/2025 1:17 PM EDT 07/19/2025 2:01 PM EDT Rusty Hargrove MD LAB BLOOD ORDERABLES Final Resul t Performing Organization Address [facility]/ZIP Co de Phone Number [facility] [address] [place] [address], [place] [phone] * (ABNORMAL) CBC auto differential (07/19/2025 10:49 AM EDT) [facility] WBC 9.3 4.8 - 10.8 K/mcL LAB HEMETOLOGY METHOD 07/19/2025 11:04 AM [facility] RBC 4.50 4.50 - 5.50 M/mcL LAB HEMETOLOGY METHOD 07/19/2025 11:04 AM [facility] Hemoglobin 11.7(L) 13.5 - 17.5 g/dL LAB HEMETOLOGY METHOD 07/19/2025 11:04 AM [facility] Hematocrit 39.1(L) 42.0 - 54.0 % LAB HEMETOLOGY METHOD 07/19/2025 11:04 AM [facility] MCV 87.3 79.0 - 98.0 FL LAB HEMETOLOGY METHOD 07/19/2025 11:04 AM [facility] MCH 26.1(L) 27.0 - 32.0 pcg LAB HEMETOLOGY METHOD 07/19/2025 11:04 AM [facility] MCHC 29.9(L) 32.0 - 37.0 g/dL LAB HEMETOLOGY METHOD 07/19/2025 11:04 AM [facility] RDW 15.9(H) 11.0 - 15.0 % LAB HEMETOLOGY METHOD 07/19/2025 11:04 AM [facility] Platelets 207 130 - 400 K/mcL LAB HEMETOLOGY METHOD 07/19/2025 11:04 AM [facility] MPV 9.1 7.0 - 11.0 FL LAB HEMETOLOGY METHOD 07/19/2025 11:04 AM [facility] NRBC 0.0 <1.0 % LAB HEMETOLOGY METHOD 07/19/2025 11:04 AM [facility] NRBC Absolute 0.00 <0.10 K/mcL LAB HEMETOLOGY METHOD 07/19/2025 11:04 AM [facility] Neutrophils Relative 67.2 % LAB HEMETOLOGY METHOD 07/19/2025 11:04 AM [facility] Lymphocytes Relative 22.9 % LAB HEMETOLOGY METHOD 07/19/2025 11:04 AM [facility] Monocytes Relative 7.7 % LAB HEMETOLOGY METHOD 07/19/2025 11:04 AM [facility] Eosinophils Relative 1.5 % LAB HEMETOLOGY METHOD 07/19/2025 11:04 AM [facility] Basophils Relative 0.3 % LAB HEMETOLOGY METHOD 07/19/2025 11:04 AM [facility] Immature Granulocytes Relative 0.4 % LAB HEMETOLOGY METHOD 07/19/2025 11:04 AM [facility] Neutrophils Absolute 6.22 1.50 - 7.00 K/mcL LAB HEMETOLOGY METHOD 07/19/2025 11:04 AM [facility] Lymphocytes Absolute 2.12 1.00 - 5.00 K/mcL LAB HEMETOLOGY METHOD 07/19/2025 11:04 AM [facility] Monocytes Absolute 0.71 0.20 - 1.00 K/mcL LAB HEMETOLOGY METHOD 07/19/2025 11:04 AM [facility] Eosinophils Absolute 0.14 0.00 - 0.50 K/mcL LAB HEMETOLOGY METHOD 07/19/2025 11:04 AM [facility] Basophils Absolute 0.03 0.00 - 0.20 K/mcL LAB HEMETOLOGY METHOD 07/19/2025 11:04 AM [facility] Immature Granulocytes Absolute 0.04(H) 0.00 - 0.03 K/mcL LAB HEMETOLOGY METHOD 07/19/2025 11:04 AM [facility] Blood Venous blood specimen / Unknown Venipuncture / Unknown 07/19/2025 10:49 AM EDT 07/19/2025 11:01 AM EDT us Rusty Hargrove MD LAB BLOOD ORDERABLES Final Resul t Performing Organization Address City/[facility]/ZIP Co de Phone Number [facility] [address] [place] [address], [place] [phone] * (ABNORMAL) APTT (07/19/2025 10:49 AM EDT) aPTT 39.5(H) 24.1 - 39.3 sec LAB COAGULATION METHOD 07/19/2025 11:12 AM EDT [facility] Blood Venous blood specimen / Unknown Venipuncture / Unknown 07/19/2025 10:49 AM EDT 07/19/2025 11:01 AM EDT us Rusty Hargrove MD LAB BLOOD ORDERABLES Final Resul t Performing Organization Address [facility]/ZIP Co de Phone Number [facility] [address] [place] [address], [place] [phone] * (ABNORMAL) Protime-INR (07/19/2025 10:49 AM EDT) Protime 15.9(H) 10.6 - 13.9 sec LAB COAGULATION METHOD 07/19/2025 11:12 AM EDT [facility] INR 1.3 LAB COAGULATION METHOD 07/19/2025 11:12 AM EDT [facility] Blood Venous blood specimen / Unknown Venipuncture / Unknown 07/19/2025 10:49 AM EDT 07/19/2025 11:01 AM EDT us Rusty Hargrove MD LAB BLOOD ORDERABLES Final Resul t Performing Organization Address City/[facility]/ZIP Co de Phone Number [facility] [address] [place] [address], [place] [phone] * Magnesium (07/19/2025 10:49 AM EDT) Magnesium 2.0 1.9 - 2.6 mg/dL LAB CHEMISTRY METHOD 07/19/2025 12:31 PM EDT [facility] Blood Venous blood specimen / Unknown Venipuncture / Unknown 07/19/2025 10:49 AM EDT 07/19/2025 11:01 AM EDT Rusty Hargrove MD LAB BLOOD ORDERABLES Final Resul t Performing Organization Address [facility]/ZIP Co de Phone Number [facility] [address] [place] [address], [place] [phone] * Tissue exam (07/17/2025 9:14 AM EDT) Final Diagnosis Foreskin-circumci skuhjinder: -MILD FIBROSIS, CONSISTENT WITH PHIMOSIS 07/18/2025 2:34 PM EDT [facility] Gross Description A. Foreskin, : Labeled foreskin . Received in formalin is a 6.2 x 2.5 x 0.6 cm brown, wrinkled portion of epithelium with underlying tissue, in keeping with foreskin. Lesions are absent. The specimen is sectioned and account executive sales representative sections are submitted in one cassette, three pieces. TS 07/18/2025 2:34 PM EDT [facility] Disclaimer Unless otherwise specified, all tissue is 10% NB formalin fixed and paraffin embedded. 07/18/2025 2:34 PM EDT [facility] Tissue Structure of prepuce of penis / Unknown 07/17/2025 9:14 AM EDT 07/17/2025 10:35 AM EDT Torito Heath MD LAB PATHOLOGY ORDERABLES Final R esult Performing Organization Address City/[facility]/ZIP Co de Phone Number [facility] [address] [place] [address], [place] [phone] * TH AN LMA(NO CHARGE) (07/17/2025 8:55 AM EDT) Narrative Misael Bourne SRNA - 07/17/2025 8:55 AM EDT MARIZOL Pruett 07/17/2025 8:56 AM General Information and Staff Patient location during procedure: OR Resident/[employer]: Jw Griffin CRNA Other anesthesia staff: MARIZOL Pruett Performed: resident/[employer]/CAA Performed by: MARIZOL Pruett Authorized by: Otto Pettit MD Intubation Airway not difficult Urgency: elective Final Airway Details Number of attempts at approach: 1 Ventilation between attempts: none Number of other approaches attempted: 0 LMA Size: 5 LMA Type: Classic LMA Seal Pressure: Final airway type: LMA Indications and Patient Condition Indications for airway management: anesthesia Spontaneous Ventilation: absent Sedation level: Yes Preoxygenated: yes Soft Tissue Damage: No Dentition Unchanged: Yes Patient position: neutral MILS maintained throughout Mask difficulty assessment: 0 - not attempted Otto Pettit MD ANESTHESIA ORDERABLES Final Re sult * Polysomnography (07/11/2025 9:38 AM EDT) [facility] Provider SLEEP CENTER ORDERABLES F inal Result * External clinical lab (06/11/2025) Only the most recent of2 resultswithin the time period is included. Provider [place] [facility] LAB BLOOD ORDERABLES Fin al Result * (ABNORMAL) Hemoglobin A1c (04/09/2025 11:04 AM EDT) Hemoglobin A1C 7.2(H) <6.5 % LAB CHEMISTRY METHOD 04/09/2025 1:40 PM EDT [facility] Mean Bld Glu Estim. 160 mg/dL LAB CHEMISTRY METHOD 04/09/2025 1:40 PM EDT [facility] Blood Venous blood specimen / Unknown Venipuncture / Unknown 04/09/2025 11:04 AM EDT 04/09/2025 11:04 AM EDT Juan Alberto Samuel METAL FINISHER LAB BLOOD ORDERABLES Final R esult Performing Organization Address City/[facility]/ZIP Co de Phone Number [facility] [address] [place] [address], [place] [phone] * (ABNORMAL) Microalbumin creatinine urine ratio (12/20/2024 3:29 PM EST) Creatinine, Urine <13.0 mg/dL LAB CHEMISTRY METHOD 12/20/2024 9:35 PM EST [facility] Microalb, Ur 10.9 0.0 - 29.0 mg/L LAB CHEMISTRY METHOD 12/20/2024 9:35 PM EST [facility] Microalb/Creat Ratio >84(H) <30 mg/g creat LAB CHEMISTRY METHOD 12/20/2024 9:35 PM EST [facility] Urine Urine specimen obtained by clean catch procedure / Unknown Non-blood Collection / Unknown 12/20/2024 3:29 PM EST 12/20/2024 3:29 PM EST Gerry JEAN LAB URINE ORDERABLES Fin al Result Performing Organization Address [facility]/ZIP Co de Phone Number [facility] [address] [place] [address], [place] [phone] * Lipid panel with reflex to direct LDL (09/06/2024 11:59 AM EST) Cholesterol 90 0 - 200 mg/dL LAB CHEMISTRY METHOD 09/06/2024 4:46 PM EST [facility] Triglycerides 50 0 - 150 mg/dL LAB CHEMISTRY METHOD 09/06/2024 4:46 PM EST [facility] HDL 49 >=40 mg/dL LAB CHEMISTRY METHOD 09/06/2024 4:46 PM EST [facility] LDL Calculated 31 0 - 100 mg/dL LAB CHEMISTRY METHOD 09/06/2024 4:46 PM EST [facility] VLDL Cholesterol Evans 10 mg/dL LAB CHEMISTRY METHOD 09/06/2024 4:46 PM EST [facility] Non HDL Chol. (LDL+VLDL) 41 <145 mg/dL LAB CHEMISTRY METHOD 09/06/2024 4:46 PM EST [facility] Chol/HDL Ratio 1.8 0.0 - 4.4 LAB CHEMISTRY METHOD 09/06/2024 4:46 PM EST [facility] Blood Venous blood specimen / Unknown Venipuncture / Unknown 09/06/2024 11:59 AM EST 09/06/2024 11:59 AM EST Caity JEAN LAB BLOOD ORDERABLES Final Result [facility] [address] [place] [address], * Colonoscopy (04/29/2024) [facility] Colonoscopy No interpreta tion,abstr acted Anatomical Region Laterality Modality Other Historical Provider HEALTH MAINTENANCE Final Result * Falls Risk Assessment (03/26/2024) [facility] Falls Risk Assessment Abstracted [facility] Provider HEALTH MAINTENANCE Final Result * Depression Screening (03/26/2024) [facility]ologist [facility] Depression Screening Abstracted [facility] Provider HEALTH MAINTENANCE Final Result * Hepatitis C Screening (10/03/2019) [facility]ologist [facility] Hepatitis C Screening Abstracted Historical Provider HEALTH MAINTENANCE Final Result from Last 3 Months or Most Recently Relevant to Health Maintenance Insurance [facility] MEDICARE Member Subscriber Plan / Payer (Ef fective 2021-Present) Name:ROYA HOLLEY Relation to Subscriber:Self Name:Roya Holley Payer ID:[id number] Group ID:[id number] Type:Not on file Address: [place] [address] [address] [address] Care Teams Supervisor [employer]printing [employer] Photoc[employer] Relationship Specialty Start Date End Date Prabhjot Ford MD [address] [place] [address] PCP - General 08/22/1999
--- OUTSIDE RECORDS SUMMARY | 2025-09-10 18:07 | XMS_ITS | Encounter Summary ---
Author Organization [facility] Address [address] [place] [address] Care Team Providers Care E Commerce Director Name Role Phone Prabhjot Ford MD Primary Care Provider [phone] Reason for Visit * Reason Onset Date Comments Fitting for DME 08/07/2025 Encounter Details Date Type Department Care Team ([facility] Contact Info) Description 08/07/2025 Telephone Adult Medicine [address] [phone] Chrissy Barksdale MA Social History Tobacco Use Types Packs/Day Years [...] Notes * Teja [place] MA - 08/28/2025 10:01 AM EST Pt is scheduled with you on 09/01/2025 - notation on appt to discuss * Chrissy Barksdale MA - 08/07/2025 12:28 PM EDT DME REQUEST Name of Product: 4 WHEEL WALKER WITH BRAKER NOT THE ROLLATOR Specific information about product NO SEAT # Needed 1 Reason patient is asking for this supply? UNSTABLE ON HIS FEET Have you received this supply before? If yes , when?: No Have you discussed the need for this supply with a provider at a recent visit? If yes, with who andwhen? No When completed: FAX TO [facility] IN [facility] FAX#[phone] Who is requested? PATIENT Is this a fax request?NO Have you told the patient it will take 7-10 days for completion of this request? Yes documented in this encounter Plan of Treatment Upcoming Encounters Date Type Department Care Team (Late st Contact Info) Description 10/17/2025 9:45 AM EST Office Visit Pulmonology - [place] 175 [facility] 200 [place] [address] Karon Sanchez, ALICJA [address] [place] [phone] 10/22/2025 10:00 AM EST Office Visit Orthopedic Surgery - [place] [address] [phone] Delfin Bowser DPM [address] [address] 01/07/2026 9:45 AM EDT Office Visit Adult Medicine [place] - [address] [phone] Prabhjot Ford MD [address] [place] [address] 01/21/2026 4:30 PM EDT Office Visit Nephrology - [address] [phone] Humberto Marshall MD 100 [facility] 200 [place] [address] documented as of this encounter Visit Diagnoses Not on filedocumented in this encounter Additional Health Concerns Assessment Noted Time PHQ-9 Depression Total Score: 0 04/03/20 25 9:00 AM EDT documented as of this encounter Care Teams E Commerce Director Relationship Specialty Start Date End Date Prabhjot Ford MD [address] [place] [address] PCP - General 08/22/1999 documented as of this encounter
--- OUTSIDE RECORDS SUMMARY | 2025-09-10 18:08 | XMS_ITS | Encounter Summary ---
Author Organization [facility] Address [address] [place] [address] Care Team Providers Care Mechanic Marine Engine Name Role Phone Prabhjot Ford MD Primary Care Provider [phone] Reason for Visit * Reason Onset Date Comments Durable Medical Equipment 09/09/2025 Encounter Details Date Type Department Care Team ([facility] st Contact Info) Description 09/09/2025 Telephone Pulmonology - [place] 175 [facility] [address] [place] [address] Karon Sanchez, ALICJA [address] [place] [address] Social History Tobacco Use Types Packs/Day Years [...] as of this encounter Progress Notes * Didi Leiva - 09/09/2025 9:02 AM EST Patient called and stated that with his CPAP machine he was supposed to get nasal pillows instead of the mask. He asks that we put in an order for those. documented in this encounter Plan of Treatment Upcoming Encounters Date Type Department Care Team (Late st Contact Info) Description 10/17/2025 9:45 AM EST Office Visit Pulmonology - [place] 175 [facility] 200 [place] [address] Karon Sanchez, ALICJA [address] [place] [address] 10/22/2025 10:00 AM EST Office Visit Orthopedic Surgery - [place] 250 175 [facility] [address] [place] [address] Delfin Bowser DPM [address] [address] 01/07/2026 9:45 AM EDT Office Visit Adult Medicine [place] [address] [phone] Prabhjot Ford MD [address] [place], [place] 01/21/2026 4:30 PM EDT Office Visit Nephrology - [address] [phone] Humberto Marshall MD [address] [phone] documented as of this encounter Visit Diagnoses Diagnosis Obstructive sleep apnea- Primary Obstructive sleep apnea (adult) (pediatric) Treatment-emergent central sleep apnea Nocturnal hypoxia Chronic obstructive pulmonary disease, unspecified COPD type (CMS/HCC V24, CMS/HCC V28) Class 2 severe obesity with body mass index (BMI) of 35 to 39.9 with serious comorbidity documented in this encounter Orders General Supply Count Last Ordered Date First Or dered Date CPAP DME 1 09/10/2025 documented in this encounter Additional Health Concerns Assessment Noted Time PHQ-9 Depression Total Score: 0 04/03/20 25 9:00 AM EDT documented as of this encounter Care Teams Mechanic Marine Engine Relationship Specialty Start Date End Date Prabhjot Ford MD [address] [place] [address] PCP - General 08/22/1999 documented as of this encounter
--- OUTSIDE RECORDS SUMMARY | 2025-09-10 18:08 | XMS_ITS | Clinical Summary ---
Author Organization [facility] Address [address] [place] [address] [place] [address] Phone Care Team Providers Care Running Instructor Name Role Phone Prabhjot Ford MD Primary Care Provider [phone] Allergies No known active allergies Medications albuterol [...] 0 Refills, Maintenance, 08/03/23 10:19:00 EDT, Tablet, [facility], Partial margo... 3 Active [...] Chloride 30.0(A) 99.0 - 108.0 eGFR Non-Afr Mauritian 44 Hemoglobin A1C 6.9(A) 4.0 - 6.0 02/01/2024 Historical Provider LAB BLOOD ORDERABLES Lynnette l Result from Last 3 Months or Most Recently Relevant to Health Maintenance Insurance [facility] ([id number]) [facility] ([id number]) Care Teams Running Instructor Relationship Specialty Start Date End Date Prabhjot Ford MD PCP - General Internal Medicine 03/12/24
== END 2025-09-10 10:52 | disposition home or self-care (01) ==
LOC: HO.RHES 09:47
PROVIDERS: PCP Internal Medicine; Visit Provider Internal Medicine Rheumatology
DX: M06.09 Rheumatoid arthritis without rheumatoid factor, multiple sites (principal); Z79.899 Other long term (current) drug therapy
CPT/HCPCS: 99214; G2211

== ENCOUNTER 2025-09-10 09:46 | Outpatient (REF) | payer OTHER, SELFPAY ==
[2025-09-10 13:44] LABS: MANUAL DIFF FLAG NO
[2025-09-10 13:58] LABS: Hematocrit 41.5 % (42.0-52.0); Hemoglobin 12.6 g/dl (14.0-18.0); Imm Gran Abs Auto 0.03 X10*3/uL (0.00-0.03); Imm Gran Pct Auto 0.3 % (0.0-0.4); Lymphocytes Absolute Auto 2.0 X10*3/uL (1.2-4.9); Mean Corpuscular HGB Conc 30.4 g/dl (31.0-36.0); Mean Corpuscular Hemoglobin 26.3 pg (27.0-33.0); Mean Corpuscular Volume 86.6 fL (80.0-98.0); NRBC Abs Auto 0.000 X10*3/uL (0.0-0.012); NRBC Pct Auto 0.0 /100WBC (0.0-0.2); Platelet Count 260 X10*3/uL (160-400); Red Blood Count 4.79 X10*6/uL (4.60-5.80); White Blood Count 9.7 X10*3/uL (4.8-10.8)
[2025-09-10 19:44] LABS: Alanine Aminotransferase 21 U/L (0-40); Aspartate Amino Transferase 51 U/L (5-37); Estimated Glomerular Filt Rate > 60
== END 2025-09-10 09:47 | disposition home or self-care (01) ==
LOC: HO.HKASLDS 09:46
PROVIDERS: PCP Internal Medicine; Visit Provider Internal Medicine Rheumatology
DX: M06.09 Rheumatoid arthritis without rheumatoid factor, multiple sites (principal); Z79.899 Other long term (current) drug therapy
CPT/HCPCS: 36415; 82565; 84450; 84460; 85025; 85652; 86140; 99212